=== PATIENT | female | born 1945 | race Caucasian/White ===

== ENCOUNTER 2016-12-09 09:48 | Inpatient (IN) ==
[2016-12-09] MEDS ORDERED: ASPIRIN 325 MG TABLET PO STA (10:05)
[2016-12-09] MEDS ORDERED: methylPREDNISolone SOD SUC 125 MG/2 ML VIAL IV STA (10:05)
[2016-12-09] MEDS ORDERED: NITROGLYCERIN 2% OINT 1 INCH/GM PACK TOP STA (10:05)
[2016-12-09] MEDS ORDERED: MAGNESIUM SULF RIDER 2 GM in PREMIX 1 EACH IV STA (10:05)
[2016-12-09] MEDS ORDERED: LEVOFLOXACIN INJ 750 MG in PREMIX 1 EACH IV STA (10:05)
[2016-12-09] MEDS ORDERED: ONDANSETRON 4 MG/2 ML VIAL IV STA (10:05)
--- NOTE | 2016-12-09 10:09 | Emergency Department Note ---
Arrival - Arrival Chief Complaint: Shortness of Breath ED Nursing Triage Note: pt has had sob since and this am started having cp and productive cough with green sputum. cp was relieved with 1 nitro Mode of Arrival: Stretcher Limitations: No Limitations Source: Patient Time Seen by Provider: 12/09/16 10:04 - History of Present Illness HPI Narrative: This 71-year-old white female presents with 3 days of cough productive of green sputum, increasing shortness of breath at rest and on exertion, and continuous wheezing. This morning she experienced some left-sided chest pain that was relieved by one nitroglycerin and thus presents for further evaluation. She denies hemoptysis, chills, fever, nausea, or vomiting. She does complain of some sinus symptoms. Currently she appears breathless and in mild respiratory distress. Onset (ago): day(s) (Patient presents 3 days post onset of symptoms) Allergies/Adverse Reactions: Allergies Allergy/AdvReac Type Severity Reaction Status Date / Time adhesive Allergy BLISTER Verified 05/23/16 20:31 codeine Allergy HIVES Verified 05/23/16 20:31 diazepam [From Valium] Allergy HIVES Verified 05/23/16 20:31 latex Allergy HIVES Verified 05/23/16 20:31 morphine Allergy Vomiting Verified 05/23/16 20:31 Sulfa (Sulfonamide Allergy Unknown/Unable Verified 05/23/16 20:31 Antibiotics) to obtain TAPE AdvReac Redness of Uncoded 05/23/16 20:31 Skin Home Medications: Home Medications Medication Instructions Recorded Confirmed Type Albuterol/Ipratropium Neb [Duoneb] 3 ml RESP TX RT Q6H PRN 01/13/15 09/22/16 History Aspirin [Ecotrin] 81 mg PO QAM 01/13/15 09/22/16 History Nitroglycerin Sl Tab [Nitrostat] 0.4 mg SL Q5M PRN 01/13/15 09/22/16 History [place]-3 Fatty Acids [Fish Oil 1,000 mg PO QAM 01/13/15 09/22/16 History Concentrate] Montelukast Tab [Singulair Tab] 10 mg PO QAM 05/15/16 09/22/16 History Omeprazole [Prilosec] 20 mg PO QAM 05/15/16 08/19/16 History Sertraline [Zoloft] 100 mg PO QAM 05/26/16 09/22/16 History Cholecalciferol (Vitamin D3) 10,000 unit PO QAM 08/19/16 08/19/16 History [Vitamin D3] Metoprolol Succinate 25 mg PO BID 08/19/16 08/19/16 History dilTIAZem HCl [Cartia XT] 180 mg PO BID 08/19/16 08/19/16 History Albuterol Inhaler [Proventil 2 puff INH Q6H PRN 09/22/16 09/22/16 History Inhaler] Tiotropium Inhalation [Spiriva 18 mcg INH DAILY 09/22/16 09/22/16 History Handihaler] Clopidogrel [Plavix] 75 mg PO QAM 12/09/16 12/09/16 History Isosorbide Mononitrate [Isosorbide 60 mg PO QAM 12/09/16 12/09/16 History Mononitrate ER] cephALEXin [Cephalexin] 500 mg PO Q6H 12/09/16 12/09/16 History Review of System - Review of System 12 point system: reviewed and no additional remarkable complaints except as stated - Review of System Constitutional: Present: as per HPI Respiratory: Present: as per HPI Cardiovascular: Present: as per HPI Gastrointestinal: Present: as per HPI Medical,Surgical,& Family Hx - Medical History Cardio: History of: Cerebrovascular Disease, CAD, Hypertension, ME (stents x 2) , Valvular Heart Disease (mitral valve prolapse), Cardiovascular Problems No history of: Aneurysm, Cardiac Dysrhythmia, Congenital Heart Disease, CHF, Pacemaker, PVD Psychological: History of: Anxiety Disorders, Depression Neurology: History of: Cerebrovascular Accident No history of: Brain Aneurysm, Cerebral Hemorrhage, Cerebral Palsy, Dementia , Migraine, Multiple Sclerosis, Parkinson's Disease, Peripheral Neuropathy, Seizures, TIA, Vertigo, Neurologocal Cancer HEENT: History of: Eye Problem (detached retina, catarct) Endocrine: History of: Dyslipidemia Respiratory: History of: COPD, Respiratory Problems No history of: Asthma, Bronchitis, Intubation, Obstructive Sleep Apnea, Pulmonary Embolism, Pulmonary Hypertension, Pneumonia, Lung Cancer Renal: No history of: Renal Problems Genitourinary: No history of: Bladder Problem, Kidney Stones Gastrointestinal: History of: Diverticulitis/ Diverticulosis, GERD, Gastrointestinal Bleed, Hepatitis, Polyps, GI Problems (nutcracker esophagus) No history of: Bowel Obstruction, Clostridium Difficile, Crohn's Disease, Esophageal Varices, Hemorrhoids, Hematochezia, Liver Problems, Pancreatitis, Ulcerative Colitis, Gastrointestinal Cancer Musculoskeletal: History of: Degenerative Disk Disease No history of: Musculoskeletal Problems Hematology: No history of: Blood Transfusion Reaction Reproductive: No history of: Reproductive Problems Other: No history of: Anesthesia Reactions - Surgical History Cardiac Surgeries: Sugical HX of: Cardiac Catheterization Patient Denies: Femoral-Popliteal Bypass Graft, Cardiac Surgery, Carotid Endarterectomy, Internal Defibrillator, Vascular Access Devices Thoracic Surgeries: Patient denies;: Organ Transplant, Lobectomy Neurologic Surgeries: Patient denies: Brain Aneurysm, Cerebral Hemorrhage, Neurologic Surgery HEENT Surgeries: Surgical HX of: Eye Surgery, Tonsilectomy & Adenoidectomy Patient denies: Carotid Endarterectomy, Thyroid Surgery Abdominal Surgeries: Surgical HX of: Cholecystectomy Patient denies: Abdominal Surgery, Appendectomy, Colonoscopy, Gastric Bypass Surgery, EGD, Hernia Repair, Splenectomy Reproductive Surgeries: Surgical HX of;: Tubal Ligation Patient denies;: Breast Surgery, Section, Dilation and Curettage, Gynecologic Surgery, Hysterectomy Orthopedic Surgeries: Surgical HX of;: Orthopedic Surgery (foot) - Family History Family History: Reports;: Family Cancer (brother, daughter), Family Hypertension (father) Denies;: Family Diabetes, Family Heart Disease, Family Stroke - Social History Smoking Status: Current every day smoker Frequency of Alcohol Use: None Type of Drug Use: None Exam Physical Examination: GENERAL: Well developed, well nourished elderly white female with increased work of breathing HEENT: Normocephalic. No trauma. Moist mucous membranes. EOMI. PERRLA. ENT NML NECK: Supple. No adenopathy. CARDIAC: Regular. No murmurs. Heart rate 97 CHEST: Diffuse expiratory wheezing. No respiratory distress. O2 sat 97% ABDOMEN: Soft. Nontender. Active bowel sounds. EXTREMITIES: No trauma. Normal ROM. No pedal edema. SKIN: No diaphoresis. No rash. NEURO: Alert. Neuro intact no focal deficits. Vital Signs: Vital Signs Temperature 97.6 F 12/09/16 09:54 Pulse Rate 85 12/09/16 11:05 Respiratory Rate 18 12/09/16 11:05 Blood Pressure 137/56 12/09/16 09:54 O2 Sat by Pulse Oximetry 97 12/09/16 09:54 Course - Reevaluation(s) Reevaluation #1: Advised patient of need for hospitalization given her cardiac and respiratory problems. - Consultations Consultation #1: Discussed with hospitalist service who will admit for further evaluation treatment. Results - Labs CBC & BMP: 12/09/16 10:53 12/09/16 10:53 Labs: I have reviewed the lab and noted the elevated white blood cell count and elevated troponin and BNP. - Impressions EKG: Sinus rhythm at 97 with normal AL interval and right ventricular conduction delay. Evidence of left ventricular hypertrophy with early strain pattern. No acute injury pattern noted. - Diagnostic Findings Procedure: Chest x-ray: image reviewed by me, report reviewed by me (COPD with minimal atelectasis both lung bases) Disposition Clinical Impression: Exacerbation COPD, Congestive failure, Abnormal cardiac enzyme Case discussed with: patient Disposition: Still a Patient Condition: Guarded Time of Disposition: 12:10
[2016-12-09] MEDS ORDERED: LEVOFLOXACIN INJ 150 ML IV ONE (10:19)
[2016-12-09] MEDS ORDERED: NITROGLYCERIN 2% OINT 1 INCH/GM PACK TOP ONE (10:19)
[2016-12-09] MEDS ORDERED: ONDANSETRON 4 MG/2 ML VIAL ONE (10:20)
[2016-12-09] MEDS ORDERED: ASPIRIN 325 MG TABLET ONE (10:20)
[2016-12-09] MEDS ORDERED: methylPREDNISolone SOD SUC 125 MG/2 ML VIAL ONE (10:20)
[2016-12-09] MEDS ORDERED: MAGNESIUM SULF RIDER 50 ML IV ONE (10:20)
--- NOTE | 2016-12-09 10:29 | XRay Report ---
Portable chest Date: 12/09/2016 Clinical history: Shortness of breath Comparison: 08/22/2016 Technique: Portable AP sitting chest Findings: The heart remains normal in size. The lungs are overexpanded with chronic scarring. Minimal atelectasis at the lung bases. Unremarkable mediastinum with degenerative changes. Impression: COPD with chronic scarring. Minimal atelectasis at the lung bases. PROCEDURE INTERPRETED AT [facility] Final Report Signed by: Dr. Merissa Briseno
[2016-12-09] MEDS ORDERED: ALBUTEROL 2.5 MG/3 ML NEB RESP TX SCH (10:30)
[2016-12-09] MEDS ORDERED: ALBUTEROL/IPRATROPIUM 3 ML NEB RESP TX STA (10:57)
[2016-12-09 11:13] LABS: Basophils % 0.1 % (0.0-0.8); Hematocrit 42.1 VOL% (35.7-47.0); Hemoglobin 14.8 GM/DL (12.0-16.0); Immature Granulocytes % 0.9 %; Immature Granulocytes Absolute 0.19 #; Lymphocytes # 1.6 10*3/uL (1.4-4.0); Lymphocytes % 7.5 % (21.3-54.2); Mean Corpuscular HGB Conc 35.2 GM/DL (32-36); Mean Corpuscular Hemoglobin 33 PG (27-34); Mean Corpuscular Volume 94.4 FL (87-102); Mean Platelet Volume 10.6 FL (9.6-12.0); Monocytes # 1.5 10*3/uL (0.11-0.8); Monocytes % 7.1 % (1.7-12.7); Neutrophils # 18.3 10*3/uL (1.4-7.4); Neutrophils % 84.4 % (38.7-73.9); Platelet Count 208 T/CUMM (130-400); Red Blood Count 4.46 MC/CUMM (3.8-5.5); Red Cell Distribution Width 12.1 % (9.3-17.3); White Blood Count 21.7 T/CUMM (4-12)
[2016-12-09 11:24] LABS: PT Patient Result 10.7 SECS; Partial Thromboplastin Time 35.6 SECS (0-40)
[2016-12-09 11:47] LABS: Band Neutrophils 2 % (0-10); Hypochromasia 1+; Lymphocytes 9 % (20-55); Microcytosis Slight; Platelet Estimate Normal; Segmented Neutrophils 85 % (50-85); Total Cells Counted 100
[2016-12-09 11:56] LABS: Alanine Aminotransferase 15 U/L (13-56); Albumin 3.6 G/DL (3.4-5.0); Alkaline Phosphatase 93 U/L (45-117); Aspartate Amino Transferase 18 U/L (0-37); Blood Urea Nitrogen 14 MG/DL (7-18); Glucose 97 MG/DL (74-106); Osmolality,Calculated 273.8 MOS/KG (273-304); Potassium 3.8 MMOL/L (3.5-5.1); Sodium 137 MMOL/L (136-145); Total Protein 6.7 G/DL (6.4-8.3)
[2016-12-09 11:57] LABS: Troponin I Only 0.172 NG/ML (0.00-0.045)
--- NOTE | 2016-12-09 12:42 | Hospitalist History & Physical ---
<Karen Scruggs - Last Filed: 12/09/16 13:06> Assessment and Plan - Time spent with patient Time spent with patient: Greater than 30 minutes (1) Acute exacerbation of chronic obstructive airways disease Status: Acute Assessment and plan: 12/09/16 Will admit to hospital. Will consult Pulmonary and appreciate further recommendations in care (patient of Dr Yates). Start duonebs, steroids, antibiotics. Will repeat a.m. labs. Will discuss with Dr Arroyo for further recommendations. Current Visit: No (2) Elevated troponin Status: Chronic Assessment and plan: 12/09/16 - Significant heart disease history including ME w/2 stents. (Patient of Dr Munson) Left sided chest pain with exertion relieved with nitro. Troponin 0.172. Will consult [employer]. Will appreciate further recommendations in care. Will repeat serial troponins. Current Visit: No History of Present Illness Chief complaint: SOB, left sided chest pain History of present illness: Ms. Trejo is a 71 year old white female w/PMHx: CAD, COPD, HTN, ME (2stents ), Mitral Valve Prolapse, Anxiety, Depression, CVA, GERD, GI Bleed, Hepatitis, Polyps, Disk disease; presented to the ED for c/o x3 days shortness of breath with associated productive cough of green sputum and wheezing. She reports this morning also experiencing left sided chest pain and took a Nitro which relieved the pain. She reports that she has been on Cephalexin for 2 weeks for a wound that is not healing to the lower part of her left breast, denies any drainage, thin scab intact. She denies nausea or vomiting. She denies fever or chills. In ED: CXR: COPD w/ chronic scarring; minimal atelectasis at the lung bases. LABS: WBC 21.7; TROPONIN 0.172; electrolytes within normal ranges. Blood cultures obtained; Levaquin and Duoneb; ASA; Mg 2grams; Solumedrol 125mg were given in the ED. After discussion with Dr Escobar in the ED and Dr Arroyo with Hospital Medicine, it was agreed to admit patient to for further evaluation and treatment of SOB and left sided chest pain. Home Medications Medication Instructions Recorded Confirmed Type Albuterol/Ipratropium Neb [Duoneb] 3 ml RESP TX RT Q6H PRN 01/13/15 12/09/16 History Aspirin [Ecotrin] 81 mg PO QAM 01/13/15 12/09/16 History Nitroglycerin Sl Tab [Nitrostat] 0.4 mg SL Q5M PRN 01/13/15 12/09/16 History [place]-3 Fatty Acids [Fish Oil 1,000 mg PO QAM 01/13/15 12/09/16 History Concentrate] Montelukast Tab [Singulair Tab] 10 mg PO QAM 05/15/16 12/09/16 History Omeprazole [Prilosec] 20 mg PO QAM 05/15/16 12/09/16 History Sertraline [Zoloft] 100 mg PO QAM 05/26/16 12/09/16 History Cholecalciferol (Vitamin D3) 10,000 unit PO QAM 08/19/16 12/09/16 History [Vitamin D3] Metoprolol Succinate 25 mg PO BID 08/19/16 12/09/16 History dilTIAZem HCl [Cartia XT] 180 mg PO BID 08/19/16 12/09/16 History Albuterol Inhaler [Proventil 2 puff INH Q6H PRN 09/22/16 12/09/16 History Inhaler] Tiotropium Inhalation [Spiriva 18 mcg INH DAILY 09/22/16 12/09/16 History Handihaler] Clopidogrel [Plavix] 75 mg PO QAM 12/09/16 12/09/16 History Isosorbide Mononitrate [Isosorbide 60 mg PO QAM 12/09/16 12/09/16 History Mononitrate ER] cephALEXin [Cephalexin] 500 mg PO Q6H 12/09/16 12/09/16 History Allergies Allergy/AdvReac Type Severity Reaction Status Date / Time adhesive Allergy BLISTER Verified 05/23/16 20:31 codeine Allergy HIVES Verified 05/23/16 20:31 diazepam [From Valium] Allergy HIVES Verified 05/23/16 20:31 latex Allergy HIVES Verified 05/23/16 20:31 morphine Allergy Vomiting Verified 05/23/16 20:31 Sulfa (Sulfonamide Allergy Unknown/Unable Verified 05/23/16 20:31 Antibiotics) to obtain TAPE AdvReac Redness of Uncoded 05/23/16 20:31 Skin Medical,Surgical,& Family Hx - Medical History Cardio: History of: Cerebrovascular Disease, CAD, Hypertension, ME (stents x 2) , Valvular Heart Disease (mitral valve prolapse), Cardiovascular Problems No history of: Aneurysm, Cardiac Dysrhythmia, Congenital Heart Disease, CHF, Pacemaker, PVD Psychological: History of: Anxiety Disorders, Depression Neurology: History of: Cerebrovascular Accident No history of: Brain Aneurysm, Cerebral Hemorrhage, Cerebral Palsy, Dementia , Migraine, Multiple Sclerosis, Parkinson's Disease, Peripheral Neuropathy, Seizures, TIA, Vertigo, Neurologocal Cancer HEENT: History of: Eye Problem (detached retina, catarct) Endocrine: History of: Dyslipidemia Respiratory: History of: COPD, Respiratory Problems No history of: Asthma, Bronchitis, Intubation, Obstructive Sleep Apnea, Pulmonary Embolism, Pulmonary Hypertension, Pneumonia, Lung Cancer Renal: No history of: Renal Problems Genitourinary: No history of: Bladder Problem, Kidney Stones Gastrointestinal: History of: Diverticulitis/ Diverticulosis, GERD, Gastrointestinal Bleed, Hepatitis, Polyps, GI Problems (nutcracker esophagus) No history of: Bowel Obstruction, Clostridium Difficile, Crohn's Disease, Esophageal Varices, Hemorrhoids, Hematochezia, Liver Problems, Pancreatitis, Ulcerative Colitis, Gastrointestinal Cancer Musculoskeletal: History of: Degenerative Disk Disease No history of: Musculoskeletal Problems Hematology: No history of: Blood Transfusion Reaction Reproductive: No history of: Reproductive Problems Other: No history of: Anesthesia Reactions - Surgical History Cardiac Surgeries: Sugical HX of: Cardiac Catheterization Patient Denies: Femoral-Popliteal Bypass Graft, Cardiac Surgery, Carotid Endarterectomy, Internal Defibrillator, Vascular Access Devices Thoracic Surgeries: Patient denies;: Organ Transplant, Lobectomy Neurologic Surgeries: Patient denies: Brain Aneurysm, Cerebral Hemorrhage, Neurologic Surgery HEENT Surgeries: Surgical HX of: Eye Surgery, Tonsilectomy & Adenoidectomy Patient denies: Carotid Endarterectomy, Thyroid Surgery Abdominal Surgeries: Surgical HX of: Cholecystectomy Patient denies: Abdominal Surgery, Appendectomy, Colonoscopy, Gastric Bypass Surgery, EGD, Hernia Repair, Splenectomy Reproductive Surgeries: Surgical HX of;: Tubal Ligation Patient denies;: Breast Surgery, Section, Dilation and Curettage, Gynecologic Surgery, Hysterectomy Orthopedic Surgeries: Surgical HX of;: Orthopedic Surgery (foot) - Family History Family History: Reports;: Family Cancer (brother, daughter), Family Hypertension (father) Denies;: Family Diabetes, Family Heart Disease, Family Stroke - Social History Smoking Status: Current every day smoker Frequency of Alcohol Use: None Type of Drug Use: None Review of systems: ROS completed and pertinent positives and negatives to HPI. Exam - Constitutional Vitals: Period Temp Pulse Resp BP Sys/Gibson Pulse Ox Last 24 Hr 97.6 F-97.6 F 85-91 18-24 137-137/56-56 97 General appearance: normal weight - Head Head exam: Present: normal inspection - Eye Eye exam: Present: EOMI Pupils: Present: DENA - Respiratory Respiratory exam: Present: wheezes (bilateral expiratory wheezing) - Cardiovascular Cardiovascular exam: Present: regular rate and rhythm, other (have hx of Afib) - GI/Abdominal GI/Abdominal exam: Present: normal bowel sounds, soft. Absent: tenderness, rebound - Extremities Exam Extremities exam: Present: full ROM. Absent: edema - Neurological Exam Neurological exam: Present: alert, oriented X3, CN II-XII intact - Psychiatric Psychiatric exam: Present: normal affect, normal mood. Absent: agitated, anxious - Skin Skin exam: Present: normal color, warm, dry, other (scabbed over area to the left lower part of breast; without drainage noted (been on Keflex for 2 weeks but not healed)) Results - Labs CBC & BMP: 12/09/16 10:53 12/09/16 10:53 Lab Results: I have reviewed the past 24 hour labs - Diagnostic Findings Procedure: Chest x-ray: report reviewed by me (COPD with chronic scarring. Minimal atelectasis at the lung bases.) <Bacilio Arroyo - Last Filed: 12/09/16 15:08> History of Present Illness History of present illness: Ms. Trejo is a 71 year old female admitted to the hospital with acute exacerbation of chronic obstructive pulmonary disease, possible non-ST segment elevation myocardial infarction (elevated troponin), and probable pneumonia. I agree with the assessment and plans as per the nurse practitioner. She will be admitted to the telemetry care unit and treated with intravenous antibiotics, intravenous corticosteroids, albuterol ipratropium nebulizer treatments, intravenous furosemide as needed; cardiology and pulmonary have been consulted. Exam - Constitutional Vitals: Period Temp Pulse Resp BP Sys/Gibson Pulse Ox Last 24 Hr 97.6 F-97.6 F 81-91 18-24 113-137/54-67 94-97 Results - Labs CBC & BMP: 12/09/16 10:53 12/09/16 10:53
[2016-12-09] MEDS ORDERED: NITROGLYCERIN SL 0.4 MG TABLET SL PRN (14:44)
[2016-12-09] MEDS: LEVOFLOXACIN INJ 750 MG in PREMIX 1 EACH IV SCH (14:56)
[2016-12-09] MEDS: ALBUTEROL/IPRATROPIUM 3 ML NEB RESP TX SCH ×2 (15:10→20:11)
[2016-12-09] MEDS: methylPREDNISolone SOD SUC 40 MG/1 ML VIAL IV SCH ×2 (15:55→21:03)
--- NOTE | 2016-12-09 17:38 | Cardiology Consult Note ---
Assessment and Plan (1) Chest pain Status: Acute Assessment and plan: Patient chest pain is somewhat atypical. This may be related to her exacerbation COPD. Certainly another possibility would be that of her coronary disease. Will get an ECG and as well as monitor enzymes. Current Visit: Yes (2) Acute exacerbation of chronic obstructive airways disease Status: Acute Assessment and plan: This is recurrent issue and problem. She has been treated. Will monitor this but will need treatment to the primary care service. Current Visit: No (3) Elevated troponin Status: Chronic Assessment and plan: This is minimally elevated and actually within the parameters of her acute COPD exacerbation. Will follow these. Current Visit: No (4) CAD (coronary artery disease) Status: Chronic Assessment and plan: Prior stent placement of the RCA and circumflex artery. Current Visit: No (5) Dyslipidemia Status: Chronic Current Visit: No (6) Tobacco abuse Status: Chronic Assessment and plan: Unfortunately she continues to smoke having coronary disease and COPD. Current Visit: No (7) Chronic pain Status: Chronic Assessment and plan: Other chronic pain issues that may play a role in this. Especially her chest pain. Current Visit: No (8) Paroxysmal a-fib Status: Chronic Assessment and plan: Past history of this but no recent breakthrough episodes. Current Visit: No (9) Skin lesion of breast Status: Acute Assessment and plan: Etiology of this is unclear what needs to be evaluated. Current Visit: Yes (10) Aortic valve stenosis Status: Chronic Assessment and plan: This is somewhat chronic and based on echocardiogram. I do not hear stenotic murmur but her heart sounds are quite distant may be affected by her lung sounds. Current Visit: Yes History of Present Illness - Data of Consult Patient: known to practice within the last 3 years Consult date: 12/09/16 Requesting Physician: Bacilio Arroyo - Consult Narrative Reason for consult: Shortness of breath, chest pain, CAD History of present illness: Primary [employer]: Dr. Munson Ms. Trejo is a 71 year old female who is been seen by Dr. Munson and previously has had stent placement previously. The patient had circumflex artery stent placed July 2015 and previously in the remote past had apparently RCA stent placed. Last catheterization carried out December 2015 revealed widely patent stents in coronaries. Patient at that time was having chest pain. The patient has had recurrent episodes of COPD and shortness of breath. She continues to smoke unfortunately. The patient comes in today stating that she has had several days of progressive shortness of breath and wheezing. Along with that she has had some chest discomfort worse in the deep breath or cough. The chest discomfort similar to what she has had before even when she has had unremarkable cardiac catheterizations. She is having no pain now that she has been treated for COPD. Chest x-ray reveals COPD and chronic scarring. I see rhythm strips on the chart but I do not see an ECG. At present the patient is stable without symptomatology. Her troponin is slightly increased and is some level of what she has had previously. I reviewed the patient's old chart material catheterization reports. CC: Bacilio Arroyo - Home Medications and Allergies Home Medications: Home Medications Medication Instructions Recorded Confirmed Type Albuterol/Ipratropium Neb [Duoneb] 3 ml RESP TX RT Q6H PRN 01/13/15 12/09/16 History Aspirin [Ecotrin] 81 mg PO QAM 01/13/15 12/09/16 History Nitroglycerin Sl Tab [Nitrostat] 0.4 mg SL Q5M PRN 01/13/15 12/09/16 History [place]-3 Fatty Acids [Fish Oil 1,000 mg PO QAM 01/13/15 12/09/16 History Concentrate] Montelukast Tab [Singulair Tab] 10 mg PO QAM 05/15/16 12/09/16 History Omeprazole [Prilosec] 20 mg PO QAM 05/15/16 12/09/16 History Sertraline [Zoloft] 100 mg PO QAM 05/26/16 12/09/16 History Cholecalciferol (Vitamin D3) 10,000 unit PO QAM 08/19/16 12/09/16 History [Vitamin D3] Metoprolol Succinate 25 mg PO BID 08/19/16 12/09/16 History dilTIAZem HCl [Cartia XT] 180 mg PO BID 08/19/16 12/09/16 History Albuterol Inhaler [Proventil 2 puff INH Q6H PRN 09/22/16 12/09/16 History Inhaler] Tiotropium Inhalation [Spiriva 18 mcg INH DAILY 09/22/16 12/09/16 History Handihaler] Clopidogrel [Plavix] 75 mg PO QAM 08/12/17 08/12/17 History Isosorbide Mononitrate [Isosorbide 60 mg PO QAM 12/09/16 12/09/16 History Mononitrate ER] cephALEXin [Cephalexin] 500 mg PO Q6H 12/09/16 12/09/16 History Allergies/Adverse Reactions: Allergies Allergy/AdvReac Type Severity Reaction Status Date / Time adhesive Allergy BLISTER Verified 05/23/16 20:31 codeine Allergy HIVES Verified 05/23/16 20:31 diazepam [From Valium] Allergy HIVES Verified 05/23/16 20:31 latex Allergy HIVES Verified 05/23/16 20:31 morphine Allergy Vomiting Verified 05/23/16 20:31 Sulfa (Sulfonamide Allergy Unknown/Unable Verified 05/23/16 20:31 Antibiotics) to obtain TAPE AdvReac Redness of Uncoded 05/23/16 20:31 Skin Review of systems: Constitutional: Denies anorexia, chills, fatigue, fever, frequent falls, night sweats, weight gain, weight loss Eyes: Denies visual changes or loss of vision Ears: Denies decreased hearing, vertigo Nose, mouth and throat: Denies dysphagia, epistaxis, headaches, neck pain, tongue swelling, Neck: Denies thyromegaly or masses. No stiffness. Cardiovascular: as per HPI Respiratory: Chronic shortness of breath and wheezing. Has exacerbations of his COPD. Gastrointestinal: Denies abdominal pain, constipation, dyspepsia, dysphagia, hematemesis, hematochezia, melena, nausea, vomiting Genitourinary: Denies dysuria, hematuria, nocturia Musculoskeletal: Denies arthralgias, joint swelling, muscle weakness, myalgias Neurological: denies abnormal gait, abnormal speech, confusion, convulsions, frequent falls, headaches, memory loss, syncope Psychiatric: Denies anxiety, confusion, depression Endocrine: Denies cold intolerance, fatigue, heat intolerance Hematologic/Lymphatic: Denies easy bleeding, easy bruising Dermatologic: Denies Rash, itching, shingles Medical,Surgical,& Family Hx - Medical History Cardio: History of: Cerebrovascular Disease, CAD, Hypertension, [place] (stents x 2) , Valvular Heart Disease (mitral valve prolapse), Cardiovascular Problems No history of: Aneurysm, Cardiac Dysrhythmia, Congenital Heart Disease, CHF, Pacemaker, PVD Psychological: History of: Anxiety Disorders, Depression Neurology: History of: Cerebrovascular Accident No history of: Brain Aneurysm, Cerebral Hemorrhage, Cerebral Palsy, Dementia , Migraine, Multiple Sclerosis, Parkinson's Disease, Peripheral Neuropathy, Seizures, TIA, Vertigo, Neurologocal Cancer HEENT: History of: Eye Problem (detached retina, catarct) Endocrine: History of: Dyslipidemia Respiratory: History of: COPD, Respiratory Problems No history of: Asthma, Bronchitis, Intubation, Obstructive Sleep Apnea, Pulmonary Embolism, Pulmonary Hypertension, Pneumonia, Lung Cancer Renal: No history of: Renal Problems Genitourinary: No history of: Bladder Problem, Kidney Stones Gastrointestinal: History of: Diverticulitis/ Diverticulosis, GERD, Gastrointestinal Bleed, Hepatitis, Polyps, GI Problems (nutcracker esophagus) No history of: Bowel Obstruction, Clostridium Difficile, Crohn's Disease, Esophageal Varices, Hemorrhoids, Hematochezia, Liver Problems, Pancreatitis, Ulcerative Colitis, Gastrointestinal Cancer Musculoskeletal: History of: Degenerative Disk Disease No history of: Musculoskeletal Problems Hematology: No history of: Blood Transfusion Reaction Reproductive: No history of: Reproductive Problems Other: No history of: Anesthesia Reactions - Surgical History Cardiac Surgeries: Sugical HX of: Cardiac Catheterization Patient Denies: Femoral-Popliteal Bypass Graft, Cardiac Surgery, Carotid Endarterectomy, Internal Defibrillator, Vascular Access Devices Thoracic Surgeries: Patient denies;: Organ Transplant, Lobectomy Neurologic Surgeries: Patient denies: Brain Aneurysm, Cerebral Hemorrhage, Neurologic Surgery HEENT Surgeries: Surgical HX of: Eye Surgery, Tonsilectomy & Adenoidectomy Patient denies: Carotid Endarterectomy, Thyroid Surgery Abdominal Surgeries: Surgical HX of: Cholecystectomy Patient denies: Abdominal Surgery, Appendectomy, Colonoscopy, Gastric Bypass Surgery, EGD, Hernia Repair, Splenectomy Reproductive Surgeries: Surgical HX of;: Tubal Ligation Patient denies;: Breast Surgery, Section, Dilation and Curettage, Gynecologic Surgery, Hysterectomy Orthopedic Surgeries: Surgical HX of;: Orthopedic Surgery (foot) - Family History Family History: Reports;: Family Cancer (brother, daughter), Family Hypertension (father) Denies;: Family Diabetes, Family Heart Disease, Family Stroke - Social History Smoking Status: Current every day smoker Frequency of Alcohol Use: None Type of Drug Use: None Physical Examination Vital Signs Temp Pulse Resp BP Pulse Ox 97.6 F 91 H 24 137/56 97 12/09/16 09:54 12/09/16 09:54 12/09/16 09:54 12/09/16 09:54 12/09/16 09:54 Exam: General appearance: normal weight, no acute distress. Head exam: normal inspection, atraumatic Eye exam: Pupils are equal and reactive. EOMI. There is no trauma. Ear exam: Anatomically normal. Normal auditory acuity to conversation. Oral exam: No significant oral lesions. Neck exam: normal inspection no JVD. No carotid bruit. Trachea is in midline. Respiratory exam: Coarse breath sounds throughout both lung cantrell anteriorly and posteriorly with wheezing. She is coughing some. Cardiovascular exam: Distant heart sounds but regular rate and rhythm, no murmur or gallop or rub. No precordial lift. No bruits over the major arteries. Chest wall/torso: Anatomically normal. No tenderness, deformity Peripheral Pulses: 2+ throughout. GI/Abdominal exam: normal bowel sounds, soft and nontender, no abdominal bruits or pulsatile masses. Musculoskeletal/Extremities exam: normal inspection without edema or cyanosis. No deformities or trauma. Neurological exam: alert, oriented X3. There is no gross neurologic deficits. Psychiatric exam: normal affect, normal mood. Cognitive function is grossly intact. Skin exam: normal color, warm. Patient has a lesion under the left breast. Result/EKG - Labs CBC & BMP: 12/09/16 10:53 12/09/16 10:53 Lab Results: I have reviewed the past 24 hour labs Labs: Laboratory Results - last 24 hr 12/09/16 12/09/16 12/09/16 10:53 10:53 10:53 WBC 21.7 H RBC 4.46 Hgb 14.8 Hct 42.1 MCV 94.4 MCH 33 MCHC 35.2 RDW 12.1 Plt Count 208 MPV 10.6 Neut % (Auto) 84.4 H Lymph % (Auto) 7.5 L [place] % (Auto) 7.1 Eos % (Auto) 0.0 Baso % (Auto) 0.1 Neut # (Auto) 18.3 H Lymph # (Auto) 1.6 [place] # (Auto) 1.5 H Eos # (Auto) 0.0 Baso # (Auto) 0.0 Total Counted 100 Immature Gran % 0.9 Nucleated RBC % 0.0 Immature Gran # 0.19 Segmented Neutrophils 85 Band Neutrophils 2 Lymphocytes 9 L Monocytes 4 Nucleated RBCs # 0.00 Platelet Estimate Normal Immature Plt Fraction 0.0 Hypochromasia 1+ Microcytosis Slight INR 1.0 PT Patient/Control Mix 10.7 Circ Anticoag PTT 35.6 Sodium 137 Potassium 3.8 Chloride 101 Carbon Dioxide 30 Anion Gap 9.8 BUN 14 Creatinine 0.80 GFR Calculation 68 BUN/Creatinine Ratio 17.00 Glucose 97 Calculated Osmolality 273.8 Calcium 9.0 Total Bilirubin 0.80 AST 18 ALT 15 Alkaline Phosphatase 93 Total Creatine Kinase 81 CK-MB (CK-2) 3.9 H Troponin I 0.172 H B-Natriuretic Peptide Total Protein 6.7 Albumin 3.6 Globulin 3.1 Albumin/Globulin Ratio 1.1 12/09/16 10:53 WBC RBC Hgb Hct MCV MCH MCHC RDW Plt Count MPV Neut % (Auto) Lymph % (Auto) [place] % (Auto) Eos % (Auto) Baso % (Auto) Neut # (Auto) Lymph # (Auto) [place] # (Auto) Eos # (Auto) Baso # (Auto) Total Counted Immature Gran % Nucleated RBC % Immature Gran # Segmented Neutrophils Band Neutrophils Lymphocytes Monocytes Nucleated RBCs # Platelet Estimate Immature Plt Fraction Hypochromasia Microcytosis INR PT Patient/Control Mix Circ Anticoag PTT Sodium Potassium Chloride Carbon Dioxide Anion Gap BUN Creatinine GFR Calculation BUN/Creatinine Ratio Glucose Calculated Osmolality Calcium Total Bilirubin AST ALT Alkaline Phosphatase Total Creatine Kinase CK-MB (CK-2) Troponin I B-Natriuretic Peptide 830 H Total Protein Albumin Globulin Albumin/Globulin Ratio - Impressions Impressions: No ECG available, telemetry with sinus rhythm.
[2016-12-09 18:49] LABS: CKMB % 6.4 %
[2016-12-09 18:52] LABS: Troponin I Only 0.228 NG/ML (0.00-0.045)
[2016-12-09] MEDS: METOPROLOL SUCCINATE XL 25 MG TABLET PO SCH (21:03)
[2016-12-09] MEDS: DILTIAZEM CD 180 MG CAPSULE PO SCH (21:03)
[2016-12-10] MEDS: methylPREDNISolone SOD SUC 40 MG/1 ML VIAL IV SCH ×4 (02:30→18:28)
[2016-12-10] MEDS: ALBUTEROL/IPRATROPIUM 3 ML NEB RESP TX SCH ×4 (04:26→19:20)
[2016-12-10 05:21] LABS: Basophils % 0.1 % (0.0-0.8); Hematocrit 37.8 VOL% (35.7-47.0); Hemoglobin 13.3 GM/DL (12.0-16.0); Immature Granulocytes % 0.8 %; Immature Granulocytes Absolute 0.12 #; Lymphocytes # 0.8 10*3/uL (1.4-4.0); Lymphocytes % 5.3 % (21.3-54.2); Mean Corpuscular HGB Conc 35.2 GM/DL (32-36); Mean Corpuscular Hemoglobin 33 PG (27-34); Mean Corpuscular Volume 93.6 FL (87-102); Mean Platelet Volume 11.2 FL (9.6-12.0); Monocytes # 0.2 10*3/uL (0.11-0.8); Monocytes % 1.5 % (1.7-12.7); Neutrophils # 14.1 10*3/uL (1.4-7.4); Neutrophils % 92.3 % (38.7-73.9); Platelet Count 195 T/CUMM (130-400); Red Blood Count 4.04 MC/CUMM (3.8-5.5); Red Cell Distribution Width 11.9 % (9.3-17.3); White Blood Count 15.2 T/CUMM (4-12)
[2016-12-10 05:57] LABS: Albumin 3.3 G/DL (3.4-5.0); Bilirubin,Total 1.1 MG/DL (0.2-1.0); Calcium 9.5 MG/DL (8.5-10.1); Osmolality,Calculated 274.2 MOS/KG (273-304); Potassium 4.2 MMOL/L (3.5-5.1); Total Protein 6.2 G/DL (6.4-8.3)
[2016-12-10 05:59] LABS: Giant Platelets Few; Hypochromasia 1+; Lymphocytes 4 % (20-55); Microcytosis Slight; Platelet Estimate Normal; Segmented Neutrophils 95 % (50-85); Total Cells Counted 100
[2016-12-10 06:08] LABS: CKMB % 6.8 %
[2016-12-10 06:10] LABS: Troponin I Only 0.145 NG/ML (0.00-0.045)
--- NOTE | 2016-12-10 07:40 | EKG Report ---
Stationary ECG Study [facility] Test Date: 12/10/2016 7:38:16 AM Pat Name: AYANA RIVERA Department: Room: 289 Gender: F Gm Video: : 1945 Requested by: Kp Bazan Order Number: [id number] Reading MD: GABO LAUGHLIN Intervals [place] Rate: 61 P: 76 CO: 184 QRS: 70 QRSD: 95 T: 165 QT: 462 QTc: 465 Interpretive Statements SINUS RHYTHM LEFT VENTRICULAR HYPERTROPHY AND ST-T CHANGE Electronically Signed On 12-10-16 10:46:18 CDT by GABO LAUGHLIN [email or web address]
[2016-12-10] MEDS: IPRATROPIUM 500 MCG/2.5 ML NEB RESP TX SCH ×4 (07:58→22:59)
--- NOTE | 2016-12-10 08:11 | EKG Report ---
Stationary ECG Study [facility] Test Date: 12/09/2016 10:00:01 AM Pat Name: AYANA RIVERA Department: Room: 289 Gender: F Measurement Technician: : 1945 Requested by: Jan Carvajal Order Number: [id number] Reading MD: GABO LAUGHLIN Intervals [place] Rate: 97 P: 80 WI: 148 QRS: 47 QRSD: 89 T: 138 QT: 343 QTc: 397 Interpretive Statements SINUS RHYTHM POSSIBLE LEFT ATRIAL ENLARGEMENT POSSIBLE RIGHT VENTRICULAR CONDUCTION DELAY LEFT VENTRICULAR HYPERTROPHY AND ST-T CHANGE Electronically Signed On 12-10-16 10:43:32 CDT by GABO LAUGHLIN [email or web address]
[2016-12-10] MEDS: DILTIAZEM CD 180 MG CAPSULE PO SCH ×2 (08:21→22:20)
[2016-12-10] MEDS: CHOLECALCIFEROL 1,000 UNIT TABLET PO SCH (08:22)
[2016-12-10] MEDS: METOPROLOL SUCCINATE XL 25 MG TABLET PO SCH ×2 (08:23→22:20)
[2016-12-10] MEDS: SERTRALINE 100 MG TABLET PO SCH (08:23)
[2016-12-10] MEDS: MONTELUKAST 10 MG TABLET PO SCH (08:23)
[2016-12-10] MEDS: PANTOPRAZOLE 40 MG TABLET PO SCH (08:23)
[2016-12-10] MEDS: ASPIRIN EC 81 MG TABLET PO SCH (08:23)
[2016-12-10] MEDS: ISOSORBIDE MONONITRATE 60 MG TABLET PO SCH (08:23)
--- NOTE | 2016-12-10 08:27 | Pulmonology Consult Note ---
Assessment and Plan (1) Acute exacerbation of chronic obstructive airways disease Status: Acute Assessment and plan: She has typical symptoms of exacerbation of COPD. Will treat with antibiotics to include gram-negative coverage. Corticosteroids and bronchodilators. Chest pain is probably chest wall from coughing. Current Visit: No (2) Tobacco abuse Status: Chronic Assessment and plan: Discussed the importance of stopping smoking to prevent recurring admissions for COPD. Current Visit: No (3) Aortic stenosis, moderate Status: Chronic Assessment and plan: Does not appear to be in jerry congestive heart failure. Current Visit: No History of Present Illness Chief complaint: Shortness of breath History of present illness: Ms. Trejo is a 71 year old female who has COPD. She continues to smoke. She is followed by Dr. Cr. She had the acute onset night, which would be about 2-1/2 days ago, of severe dyspnea. She came into the emergency room and was admitted. She stopped smoking at one time for 2 years but started back and is still smoking a pack a day at present. We did discuss the need for her to stop watching for all. She has a history of coronary disease with 2 previous stents and a myocardial infarction. She is not really having any angina-like chest pain. She thinks she may have had fever. She is coughing up some greenish sputum. No hemoptysis. She is having some left-sided pleuritic- like pain. Home Medications Medication Instructions Recorded Confirmed Type Albuterol/Ipratropium Neb [Duoneb] 3 ml RESP TX RT Q6H PRN 01/13/15 12/09/16 History Aspirin [Ecotrin] 81 mg PO QAM 01/13/15 12/09/16 History Nitroglycerin Sl Tab [Nitrostat] 0.4 mg SL Q5M PRN 01/13/15 12/09/16 History [place]-3 Fatty Acids [Fish Oil 1,000 mg PO QAM 01/13/15 12/09/16 History Concentrate] Montelukast Tab [Singulair Tab] 10 mg PO QAM 05/15/16 12/09/16 History Omeprazole [Prilosec] 20 mg PO QAM 05/15/16 12/09/16 History Sertraline [Zoloft] 100 mg PO QAM 05/26/16 12/09/16 History Cholecalciferol (Vitamin D3) 10,000 unit PO QAM 08/19/16 12/09/16 History [Vitamin D3] Metoprolol Succinate 25 mg PO BID 08/19/16 12/09/16 History dilTIAZem HCl [Cartia XT] 180 mg PO BID 08/19/16 12/09/16 History Albuterol Inhaler [Proventil 2 puff INH Q6H PRN 09/22/16 12/09/16 History Inhaler] Tiotropium Inhalation [Spiriva 18 mcg INH DAILY 09/22/16 12/09/16 History Handihaler] Clopidogrel [Plavix] 75 mg PO QAM 12/09/16 12/09/16 History Isosorbide Mononitrate [Isosorbide 60 mg PO QAM 12/09/16 12/09/16 History Mononitrate ER] cephALEXin [Cephalexin] 500 mg PO Q6H 12/09/16 12/09/16 History Allergies Allergy/AdvReac Type Severity Reaction Status Date / Time adhesive Allergy BLISTER Verified 05/23/16 20:31 codeine Allergy HIVES Verified 05/23/16 20:31 diazepam [From Valium] Allergy HIVES Verified 05/23/16 20:31 latex Allergy HIVES Verified 05/23/16 20:31 morphine Allergy Vomiting Verified 05/23/16 20:31 Sulfa (Sulfonamide Allergy Unknown/Unable Verified 05/23/16 20:31 Antibiotics) to obtain TAPE AdvReac Redness of Uncoded 05/23/16 20:31 Skin 12 point system: reviewed and no additional remarkable complaints except as stated - Constitutional Constitutional: Present: fatigue, fever(s) - EENT Eyes: Present: loss of vision (She has had a detached retina) - Cardiovascular Cardiovascular: Present: chest pain at rest, dyspnea, dyspnea on exertion - Respiratory Respiratory: Present: cough, dyspnea, dyspnea on exertion, wheezing, pain on inspiration, change in phlegm color Exam (Pulmonay) H&P - Constitutional Vitals: Period Temp Pulse Resp BP Sys/Gibson Pulse Ox Last 24 Hr 96.3 F-98.2 F 61-91 16-24 113-137/54-67 90-99 Exam: She is alert and oriented. Afebrile. Pupils react to light. Throat is clear. Neck supple no bruits. Chest shows some bilateral expiratory wheezes and rhonchi. Equal breath sounds. Heart normal rate and rhythm grade 1/6 systolic right base murmur. Abdomen soft nontender no masses. Extremities no clubbing cyanosis or edema. Calves nontender. There is some tenderness over the left chest wall. Medical,Surgical,& Family Hx - Medical History Cardio: History of: Cerebrovascular Disease, CAD, Hypertension, [place] (stents x 2) , Valvular Heart Disease (mitral valve prolapse), Cardiovascular Problems No history of: Aneurysm, Cardiac Dysrhythmia, Congenital Heart Disease, CHF, Pacemaker, PVD Psychological: History of: Anxiety Disorders, Depression Neurology: History of: Cerebrovascular Accident No history of: Brain Aneurysm, Cerebral Hemorrhage, Cerebral Palsy, Dementia , Migraine, Multiple Sclerosis, Parkinson's Disease, Peripheral Neuropathy, Seizures, TIA, Vertigo, Neurologocal Cancer HEENT: History of: Eye Problem (detached retina, catarct) Endocrine: History of: Dyslipidemia Respiratory: History of: COPD, Respiratory Problems No history of: Asthma, Bronchitis, Intubation, Obstructive Sleep Apnea, Pulmonary Embolism, Pulmonary Hypertension, Pneumonia, Lung Cancer Renal: No history of: Renal Problems Genitourinary: No history of: Bladder Problem, Kidney Stones Gastrointestinal: History of: Diverticulitis/ Diverticulosis, GERD, Gastrointestinal Bleed, Hepatitis, Polyps, GI Problems (nutcracker esophagus) No history of: Bowel Obstruction, Clostridium Difficile, Crohn's Disease, Esophageal Varices, Hemorrhoids, Hematochezia, Liver Problems, Pancreatitis, Ulcerative Colitis, Gastrointestinal Cancer Musculoskeletal: History of: Degenerative Disk Disease No history of: Musculoskeletal Problems Hematology: No history of: Blood Transfusion Reaction Reproductive: No history of: Reproductive Problems Other: No history of: Anesthesia Reactions - Surgical History Cardiac Surgeries: Sugical HX of: Cardiac Catheterization Patient Denies: Femoral-Popliteal Bypass Graft, Cardiac Surgery, Carotid Endarterectomy, Internal Defibrillator, Vascular Access Devices Thoracic Surgeries: Patient denies;: Organ Transplant, Lobectomy Neurologic Surgeries: Patient denies: Brain Aneurysm, Cerebral Hemorrhage, Neurologic Surgery HEENT Surgeries: Surgical HX of: Eye Surgery, Tonsilectomy & Adenoidectomy Patient denies: Carotid Endarterectomy, Thyroid Surgery Abdominal Surgeries: Surgical HX of: Cholecystectomy Patient denies: Abdominal Surgery, Appendectomy, Colonoscopy, Gastric Bypass Surgery, EGD, Hernia Repair, Splenectomy Reproductive Surgeries: Surgical HX of;: Tubal Ligation Patient denies;: Breast Surgery, Section, Dilation and Curettage, Gynecologic Surgery, Hysterectomy Orthopedic Surgeries: Surgical HX of;: Orthopedic Surgery (foot) - Family History Family History: Reports;: Family Cancer (brother, daughter), Family Hypertension (father) Denies;: Family Diabetes, Family Heart Disease, Family Stroke - Social History Smoking Status: Current every day smoker Frequency of Alcohol Use: None Type of Drug Use: None Results - Labs CBC & BMP: 12/10/16 04:18 12/10/16 04:18 Lab Results: I have reviewed the past 24 hour labs - Diagnostic Findings Procedure: Chest x-ray: image reviewed by me (Hyperinflation. Chronic interstitial changes bilaterally.)
--- NOTE | 2016-12-10 08:55 | XRay Report ---
Exam: XR chest 1V Date: 12/10/2016 4:00 AM Comparison: 12/09/2016 Indication: Shortness of breath Technique:[Portable AP sitting chest] Findings: The heart is normal in size. The lungs are overexpanded with chronic scarring. Minimal atelectasis at the lung bases. Unremarkable mediastinum with degenerative changes. Impression: COPD with chronic scarring. Residual atelectasis at the lung bases. PROCEDURE INTERPRETED AT [facility] DEPARTMENT OF RADIOLOGY Final Report Signed by: Dr. Merissa Briseno
[2016-12-10] MEDS ORDERED: CLOPIDOGREL 75 MG TABLET PO SCH (09:00)
--- NOTE | 2016-12-10 10:14 | Cardiology Progress Note ---
Assessment and Plan (1) Chest pain Status: Acute Assessment and plan: It is unlikely her chest pain is cardiac. It sounds to be associated with her COPD exacerbation and continued mild exacerbations in the hospital. Her troponins were not diagnostic. We will continue to monitor this at this time. Current Visit: Yes (2) Acute exacerbation of chronic obstructive airways disease Status: Acute Assessment and plan: This is recurrent issue and problem. I think this is the cause of her symptomatology. We will continue to monitor but will leave treatment to pulmonary medicine. Current Visit: No (3) Elevated troponin Status: Chronic Assessment and plan: This is minimally elevated and actually within the parameters of her acute COPD exacerbation. Will follow these. She has had prior minimally elevated troponins with COPD exacerbations. Current Visit: No (4) CAD (coronary artery disease) Status: Chronic Assessment and plan: Prior stent placement of the RCA and circumflex artery. I think this is stable at this time but we will monitor while she is in the hospital Current Visit: No (5) Dyslipidemia Status: Chronic Assessment and plan: The patient has been on statin drugs previously but for the last year her chart indicates that she has not been on this. We need to investigate whether she has had some issues with statin drugs or not. Current Visit: No (6) Tobacco abuse Status: Chronic Assessment and plan: Unfortunately she continues to smoke having coronary disease and COPD. This certainly exacerbates her underlying medical issues. Current Visit: No (7) Chronic pain Status: Chronic Assessment and plan: Other chronic pain issues that may play a role in this. Especially her chest pain. Current Visit: No (8) Paroxysmal a-fib Status: Chronic Assessment and plan: Past history of this but no recent breakthrough episodes. No episodes on telemetry. Current Visit: No (9) Skin lesion of breast Status: Acute Assessment and plan: Etiology of this is unclear what needs to be evaluated. This is being evaluated by the primary service. Current Visit: Yes (10) Aortic valve stenosis Status: Chronic Assessment and plan: This is somewhat chronic and based on echocardiogram. I do not hear stenotic murmur but her heart sounds are quite distant may be affected by her lung sounds. This is clinically stable at this time. Current Visit: Yes Cardiology - PN: Subj Interval history: Patient doing well patient denies any chest pain but states her chest is a little tight when she begins wheezing that resolves with bronchodilator therapy. She has not had really no overt anginal symptomatology. She does not have any heart failure symptomatology. She has had no dysrhythmias on telemetry. ECG is unchanged and has left ventricular hypertrophy with consistent repolarization abnormalities. Her cardiac enzymes are unremarkable. Exam (Progress Note) - Constitutional Vitals: Period Temp Pulse Resp BP Sys/Gibson Pulse Ox Last 24 Hr 96.3 F-98.2 F 61-90 16-20 113-129/54-67 90-99 Exam: General appearance: Elderly and frail, no acute distress. HEENT: Atraumatic. No changes. Neck exam: normal inspection no JVD. No carotid bruit. Trachea is in midline. Respiratory exam: Coarse breath sounds throughout both lung cantrell anteriorly and posteriorly with wheezing. She is coughing some. Cardiovascular exam: Distant heart sounds but regular rate and rhythm, no murmur or gallop or rub. No precordial lift. No bruits over the major arteries. Chest wall/torso: Anatomically normal. No tenderness, deformity Peripheral Pulses: 2+ throughout. GI/Abdominal exam: normal bowel sounds, soft and nontender, no abdominal bruits or pulsatile masses. Musculoskeletal/Extremities exam: normal inspection without edema or cyanosis. No deformities or trauma. Neurological exam: alert, oriented X3. There is no gross neurologic deficits. Psychiatric exam: normal affect, normal mood. Cognitive function is grossly intact. Skin exam: normal color, warm. Patient has a lesion under the left breast. Result/EKG - Labs CBC & BMP: 12/10/16 04:18 12/10/16 04:18 Lab Results: I have reviewed the past 24 hour labs Labs: Laboratory Results - last 24 hr 12/09/16 12/09/16 12/09/16 10:53 10:53 10:53 WBC 21.7 H RBC 4.46 Hgb 14.8 Hct 42.1 MCV 94.4 MCH 33 MCHC 35.2 RDW 12.1 Plt Count 208 MPV 10.6 Neut % (Auto) 84.4 H Lymph % (Auto) 7.5 L [place] % (Auto) 7.1 Eos % (Auto) 0.0 Baso % (Auto) 0.1 Neut # (Auto) 18.3 H Lymph # (Auto) 1.6 [place] # (Auto) 1.5 H Eos # (Auto) 0.0 Baso # (Auto) 0.0 Total Counted 100 Immature Gran % 0.9 Nucleated RBC % 0.0 Immature Gran # 0.19 Segmented Neutrophils 85 Band Neutrophils 2 Lymphocytes 9 L Monocytes 4 Nucleated RBCs # 0.00 Platelet Estimate Normal Giant Platelets Immature Plt Fraction 0.0 Hypochromasia 1+ Microcytosis Slight INR 1.0 PT Patient/Control Mix 10.7 Circ Anticoag PTT 35.6 Sodium 137 Potassium 3.8 Chloride 101 Carbon Dioxide 30 Anion Gap 9.8 BUN 14 Creatinine 0.80 GFR Calculation 68 BUN/Creatinine Ratio 17.00 Glucose 97 Calculated Osmolality 273.8 Calcium 9.0 Total Bilirubin 0.80 AST 18 ALT 15 Alkaline Phosphatase 93 Total Creatine Kinase 81 CK-MB (CK-2) 3.9 H CK and CKMB Interp Troponin I 0.172 H B-Natriuretic Peptide Total Protein 6.7 Albumin 3.6 Globulin 3.1 Albumin/Globulin Ratio 1.1 12/09/16 12/09/16 12/10/16 10:53 18:00 04:18 WBC RBC Hgb Hct MCV MCH MCHC RDW Plt Count MPV Neut % (Auto) Lymph % (Auto) [place] % (Auto) Eos % (Auto) Baso % (Auto) Neut # (Auto) Lymph # (Auto) [place] # (Auto) Eos # (Auto) Baso # (Auto) Total Counted Immature Gran % Nucleated RBC % Immature Gran # Segmented Neutrophils Band Neutrophils Lymphocytes Monocytes Nucleated RBCs # Platelet Estimate Giant Platelets Immature Plt Fraction Hypochromasia Microcytosis INR PT Patient/Control Mix Circ Anticoag PTT Sodium Potassium Chloride Carbon Dioxide Anion Gap BUN Creatinine GFR Calculation BUN/Creatinine Ratio Glucose Calculated Osmolality Calcium Total Bilirubin AST ALT Alkaline Phosphatase Total Creatine Kinase 90 94 CK-MB (CK-2) 5.8 H 6.4 H CK and CKMB Interp 6.4 6.8 Troponin I 0.228 H D 0.145 H D B-Natriuretic Peptide 830 H Total Protein Albumin Globulin Albumin/Globulin Ratio 12/10/16 12/10/16 04:18 04:18 WBC 15.2 H RBC 4.04 Hgb 13.3 Hct 37.8 MCV 93.6 MCH 33 MCHC 35.2 RDW 11.9 Plt Count 195 MPV 11.2 Neut % (Auto) 92.3 H Lymph % (Auto) 5.3 L [place] % (Auto) 1.5 L Eos % (Auto) 0.0 Baso % (Auto) 0.1 Neut # (Auto) 14.1 H Lymph # (Auto) 0.8 L [place] # (Auto) 0.2 Eos # (Auto) 0.0 Baso # (Auto) 0.0 Total Counted 100 Immature Gran % 0.8 Nucleated RBC % 0.0 Immature Gran # 0.12 Segmented Neutrophils 95 H Band Neutrophils Lymphocytes 4 L Monocytes 1 L Nucleated RBCs # 0.00 Platelet Estimate Normal Giant Platelets Few Immature Plt Fraction 0.0 Hypochromasia 1+ Microcytosis Slight INR PT Patient/Control Mix Circ Anticoag PTT Sodium 134 L Potassium 4.2 Chloride 97 L Carbon Dioxide 29 Anion Gap 12.2 BUN 25 H D Creatinine 1.00 GFR Calculation 53 BUN/Creatinine Ratio 25.00 H Glucose 159 H Calculated Osmolality 274.2 Calcium 9.5 Total Bilirubin 1.10 H AST 13 ALT 14 Alkaline Phosphatase 82 Total Creatine Kinase CK-MB (CK-2) CK and CKMB Interp Troponin I B-Natriuretic Peptide Total Protein 6.2 L Albumin 3.3 L Globulin 2.9 Albumin/Globulin Ratio 1.1 - Impressions Impressions: ECG was sinus rhythm with left ventricular hypertrophy and repolarization normality secondary this. Telemetry was sinus rhythm.
--- NOTE | 2016-12-10 10:41 | Hospitalist Progress Note ---
Assessment and Plan (1) Acute exacerbation of chronic obstructive airways disease Status: Acute Assessment and plan: She appears significantly improved today pulmonary is following her. I will continue her present medications. Current Visit: No (2) Elevated troponin Status: Chronic Assessment and plan: As per cardiology. Current Visit: No (3) Paroxysmal a-fib Status: Chronic Assessment and plan: She is presently in normal sinus rhythm. Current Visit: No (4) Skin lesion of breast Status: Acute Assessment and plan: I will obtain a surgical consultation for evaluation. Current Visit: Yes Hospitalist: Subjective Interval history: Patient was hospitalized yesterday with acute exacerbation of chronic obstructive pulmonary disease, for which she has had multiple previous hospitalizations. She is presently being treated with intravenous antibiotics, intravenous corticosteroids, and albuterol ipratropium nebulizer therapy. She is being followed by cardiology and pulmonary. I will continue her present medications. She appears significantly improved today. Exam - Constitutional Vitals: Period Temp Pulse Resp BP Sys/Gibson Pulse Ox Last 24 Hr 96.3 F-98.2 F 61-90 16-20 113-129/54-67 90-99 General appearance: no acute distress - Head Head exam: Present: normal inspection - Neck Neck exam: Present: normal inspection - Respiratory Respiratory exam: Present: clear to auscultation bilaterally - Cardiovascular Cardiovascular exam: Present: regular rate and rhythm - GI/Abdominal GI/Abdominal exam: Present: normal bowel sounds, soft, other (Nontender with no palpable masses or hepatosplenomegaly.) - Extremities Exam Extremities exam: Present: normal inspection - Neurological Exam Neurological exam: Present: alert, oriented X3 - Psychiatric Psychiatric exam: Present: normal affect - Skin Skin exam: Present: normal color, warm, intact Results - Labs CBC & BMP: 12/10/16 04:18 12/10/16 04:18
--- NOTE | 2016-12-10 10:41 | ECHO Report ---
Terrance Trejo Exam Date: 12/10/2016 09:06 Referring Physician: Technologist: Gloria Tejeda RDCS Age: 71 Ht (in): 62 Wt (lb): 129 Gender: F Exam Location: [facility] Echo Indications: Chest pain, unspecified, Shortness of breath, Acute exacerbation COPD, Elevated troponin, CAD with previous stents, Dyslipidemia, Nicotine dependence, cigarettes, uncomplicated, Chronic pain BP: 128 / 59 HR: 67 Rhythm: Sinus Technical Quality: Fair IMPRESSIONS 1. Left ankle is normal size with hyperdynamic contractility and ejection fraction 70%. No segmental wall motion normality is noted. There is moderate concentric left ventricular hypertrophy with grade 1 diastolic dysfunction. 2. Other cardiac chambers are normal size. 3. Aortic valve the tricuspid structure is moderately thickened and sclerotic but with good excursion without significant stenosis or regurgitation demonstrated. 4. Mitral valve is mildly thickened and it worse mild stenosis with mild regurgitation. There is mitral annular calcification present. 5. Mild to moderate tricuspid valve regurgitation. 6. Moderately elevated right-sided pressures. MEASUREMENTS (Male / Female) Normal Values 2D ECHO LV Diastolic Diameter PLAX 3.7 cm 4.2 - 5.9 / 3.9 - 5.3 cm LV Systolic Diameter PLAX 2.6 cm LV Fractional Shortening PLAX 29.4 % IVS Diastolic Thickness 1.5 cm 0.6 - 1.0 / 0.6 - 0.9 cm LVPW Diastolic Thickness 1.4 cm 0.6 - 1.0 / 0.6 - 0.9 cm RV Internal Dim ED PLAX 3.0 cm Aortic Root Diameter 2.9 cm LA Systolic Diameter LX 2.5 cm 3.0 - 4.0 / 2.7 - 3.8 cm DOPPLER TR Peak Velocity 331.0 cm/s TR Peak Gradient 43.8 mmHg FINDINGS Left Ventricle Normal left ventricular cavity size. Left ventricle is almost hyperdynamic with an ejection fraction of 70%. Moderate left ventricular hypertrophy with grade 1 diastolic dysfunction.. Right Ventricle The right ventricle is normal in size and function. Right Atrium The right atrium is normal in size. Left Atrium The left atrium is normal in size. Mitral Valve Moderately thickened mitral valve.moderate mitral annular calcification. Mitral valve mean gradient is 3 mmHg at a heart rate of 67 bpm. Mild mitral valve regurgitation. It worse mild stenosis. Aortic Valve Moderately thickened and sclerotic aortic valve that is a tricuspid structure. Mean gradient 14 mmHg, JANETT 3 cm. No aortic valve regurgitation. Tricuspid Valve Morphologically normal tricuspid valve. [id number] tricuspid valve regurgitation. Tricuspid regurgitation velocities suggest a PAP of 54 mmHg. Pulmonic Valve Pulmonic valve not well visualized. Pericardium Normal pericardium without effusion. Aorta Normal ascending aorta dimension. Kp Austin MD (Electronically Signed) Final Date: 10 December 2016 10:39
[2016-12-10] MEDS: LEVOFLOXACIN INJ 750 MG in PREMIX 1 EACH IV SCH (12:54)
--- NOTE | 2016-12-10 14:08 | General Surgery Consult Note ---
Assessment and Plan - Time spent with patient Time spent with patient: Less than 30 minutes (1) Skin ulcer of female breast Status: Acute Assessment and plan: Impression: Ulcer of the left breast Plan: Consider excisional debridement and possible biopsy of this area. We will hold Plavix for now but still maybe try to do the surgery see if we can go ahead and get it cleaned up so that we can start some care to it. We will look at getting a mammogram at some point when she seems to be stable. Current Visit: Yes (2) Acute exacerbation of chronic obstructive airways disease Status: Acute Assessment and plan: Impression: Acute exacerbation of chronic pulmonary disease. Plan: Appears to be stable but certainly will leave this up to pulmonary and anesthesia if we can safely do her surgery. Current Visit: No (3) CAD (coronary artery disease) Status: Chronic Assessment and plan: Impression: Coronary artery disease with atrial fibrillation. Plan: We will try not to have her off Plavix any extensive length of time. Current Visit: No History of Present Illness Chief complaint: Ulcer under the left breast. History of present illness: Ms. Trejo is a 71 year old female white who was admitted because of problems with her COPD take became worse with increasing shortness of breath. We will consult to see her for an ulcer on her left breast which she says been there for several weeks but yet is failed to improve. Large squared ulcer that is almost 3 cm in size with a dark eschar in the center. She claims it may be due to a spider bite she denies any trauma or wearing any unusual tightfitting bras. This is an area where there is evidence of some plastic reconstruction of this breast in this nipple area and do not know if there is any relation to that. Certainly with the eschar be nice to trim this away and get a good clean base and we can easily start straight. She is on Plavix but maybe we can go ahead and do it in not getting any major bleeding that we can control. Home Medications Medication Instructions Recorded Confirmed Type Albuterol/Ipratropium Neb [Duoneb] 3 ml RESP TX RT Q6H PRN 01/13/15 12/09/16 History Aspirin [Ecotrin] 81 mg PO QAM 01/13/15 12/09/16 History Nitroglycerin Sl Tab [Nitrostat] 0.4 mg SL Q5M PRN 01/13/15 12/09/16 History [place]-3 Fatty Acids [Fish Oil 1,000 mg PO QAM 01/13/15 12/09/16 History Concentrate] Montelukast Tab [Singulair Tab] 10 mg PO QAM 05/15/16 12/09/16 History Omeprazole [Prilosec] 20 mg PO QAM 05/15/16 12/09/16 History Sertraline [Zoloft] 100 mg PO QAM 05/26/16 12/09/16 History Cholecalciferol (Vitamin D3) 10,000 unit PO QAM 08/19/16 12/09/16 History [Vitamin D3] Metoprolol Succinate 25 mg PO BID 08/19/16 12/09/16 History dilTIAZem HCl [Cartia XT] 180 mg PO BID 08/19/16 12/09/16 History Albuterol Inhaler [Proventil 2 puff INH Q6H PRN 09/22/16 12/09/16 History Inhaler] Tiotropium Inhalation [Spiriva 18 mcg INH DAILY 09/22/16 12/09/16 History Handihaler] Clopidogrel [Plavix] 75 mg PO QAM 12/09/16 12/09/16 History Isosorbide Mononitrate [Isosorbide 60 mg PO QAM 12/09/16 12/09/16 History Mononitrate ER] cephALEXin [Cephalexin] 500 mg PO Q6H 12/09/16 12/09/16 History Allergies Allergy/AdvReac Type Severity Reaction Status Date / Time adhesive Allergy BLISTER Verified 05/23/16 20:31 codeine Allergy HIVES Verified 05/23/16 20:31 diazepam [From Valium] Allergy HIVES Verified 05/23/16 20:31 latex Allergy HIVES Verified 05/23/16 20:31 morphine Allergy Vomiting Verified 05/23/16 20:31 Sulfa (Sulfonamide Allergy Unknown/Unable Verified 05/23/16 20:31 Antibiotics) to obtain TAPE AdvReac Redness of Uncoded 05/23/16 20:31 Skin Medical,Surgical,& Family Hx - Medical History Cardio: History of: Cerebrovascular Disease, CAD, Hypertension, VA (stents x 2) , Valvular Heart Disease (mitral valve prolapse), Cardiovascular Problems No history of: Aneurysm, Cardiac Dysrhythmia, Congenital Heart Disease, CHF, Pacemaker, PVD Psychological: History of: Anxiety Disorders, Depression Neurology: History of: Cerebrovascular Accident No history of: Brain Aneurysm, Cerebral Hemorrhage, Cerebral Palsy, Dementia , Migraine, Multiple Sclerosis, Parkinson's Disease, Peripheral Neuropathy, Seizures, TIA, Vertigo, Neurologocal Cancer HEENT: History of: Eye Problem (detached retina, catarct) Endocrine: History of: Dyslipidemia Respiratory: History of: COPD, Respiratory Problems No history of: Asthma, Bronchitis, Intubation, Obstructive Sleep Apnea, Pulmonary Embolism, Pulmonary Hypertension, Pneumonia, Lung Cancer Renal: No history of: Renal Problems Genitourinary: No history of: Bladder Problem, Kidney Stones Gastrointestinal: History of: Diverticulitis/ Diverticulosis, GERD, Gastrointestinal Bleed, Hepatitis, Polyps, GI Problems (nutcracker esophagus) No history of: Bowel Obstruction, Clostridium Difficile, Crohn's Disease, Esophageal Varices, Hemorrhoids, Hematochezia, Liver Problems, Pancreatitis, Ulcerative Colitis, Gastrointestinal Cancer Musculoskeletal: History of: Degenerative Disk Disease No history of: Musculoskeletal Problems Hematology: No history of: Blood Transfusion Reaction Reproductive: No history of: Reproductive Problems Other: No history of: Anesthesia Reactions - Surgical History Cardiac Surgeries: Sugical HX of: Cardiac Catheterization Patient Denies: Femoral-Popliteal Bypass Graft, Cardiac Surgery, Carotid Endarterectomy, Internal Defibrillator, Vascular Access Devices Thoracic Surgeries: Patient denies;: Organ Transplant, Lobectomy Neurologic Surgeries: Patient denies: Brain Aneurysm, Cerebral Hemorrhage, Neurologic Surgery HEENT Surgeries: Surgical HX of: Eye Surgery, Tonsilectomy & Adenoidectomy Patient denies: Carotid Endarterectomy, Thyroid Surgery Abdominal Surgeries: Surgical HX of: Cholecystectomy Patient denies: Abdominal Surgery, Appendectomy, Colonoscopy, Gastric Bypass Surgery, EGD, Hernia Repair, Splenectomy Reproductive Surgeries: Surgical HX of;: Tubal Ligation Patient denies;: Breast Surgery, Section, Dilation and Curettage, Gynecologic Surgery, Hysterectomy Orthopedic Surgeries: Surgical HX of;: Orthopedic Surgery (foot) - Family History Family History: Reports;: Family Cancer (brother, daughter), Family Hypertension (father) Denies;: Family Diabetes, Family Heart Disease, Family Stroke - Social History Smoking Status: Current every day smoker Frequency of Alcohol Use: None Type of Drug Use: None 12 point system: reviewed and no additional remarkable complaints except as stated Exam - Constitutional Vitals: Period Temp Pulse Resp BP Sys/Gibson Pulse Ox Last 24 Hr 96.3 F-98.2 F 61-90 16-20 113-129/54-65 90-100 General appearance: mild distress - Head Head exam: Present: normal inspection - ENT ENT exam: Present: normal exam - Neck Neck exam: Present: normal inspection - Respiratory Respiratory exam: Present: rales, rhonchi - Cardiovascular Cardiovascular exam: Present: RRR - GI/Abdominal GI/Abdominal exam: Present: normal bowel sounds, soft - Extremities Exam Extremities exam: Present: normal inspection - Back Exam Back exam: Present: normal inspection - Neurological Exam Neurological exam: Present: alert, oriented X3, CN II-XII intact - Skin Skin exam: Present: normal color, warm, dry, other (Left breast with thick eschar present on the lower outer quadrant region about 5:00) Quality Measures - VTE Contraindication to Pharmacological VTE Prophylaxis: High Risk of Bleeding Results - Labs CBC & BMP: 12/10/16 04:18 12/10/16 04:18 Lab Results: I have reviewed the past 24 hour labs
[2016-12-10] MEDS: cefTRIAXone 1,000 MG in SODIUM CHLORIDE 0.9% 100 ML IV SCH (16:05)
[2016-12-10] MEDS: AZITHROMYCIN INJ 500 MG in SODIUM CHLORIDE 0.9% 250 ML IV SCH (17:35)
[2016-12-10] MEDS ORDERED: ONDANSETRON 4 MG/2 ML VIAL IV PRN (18:00)
[2016-12-11] MEDS: ALBUTEROL/IPRATROPIUM 3 ML NEB RESP TX SCH ×4 (00:03→18:54)
[2016-12-11] MEDS: methylPREDNISolone SOD SUC 40 MG/1 ML VIAL IV SCH ×4 (00:27→21:50)
[2016-12-11 04:52] LABS: PT Patient Result 10.6 SECS; Partial Thromboplastin Time 33.1 SECS (0-40)
[2016-12-11] MEDS: IPRATROPIUM 500 MCG/2.5 ML NEB RESP TX SCH (07:15)
[2016-12-11] MEDS ORDERED: BUPIVACAINE 0.25% 50 ML VIAL ONE (07:45)
[2016-12-11] MEDS ORDERED: ALBUTEROL 2.5 MG/3 ML NEB RESP TX ONE (08:13)
[2016-12-11] MEDS ORDERED: LACTATED RINGERS 1,000 ML IV SCH (08:30)
--- NOTE | 2016-12-11 09:37 | Operative Note ---
Date of procedure: 12/11/16 Pre-op diagnosis: Ulcer of the left breast 6 o'clock position Post-op diagnosis: same Procedure: Operative note: Preoperative diagnosis: Ulcer of the left breast 6 o'clock position with thick eschar Postop diagnosis: Same Procedure: Excision of ulcer 6 o'clock position left breast with primary closure over drain Surgeon Dr. Jeffries Marketing Operations Coordinator Kailey Sawyer, BRAIDER OPERATOR ACNP Anesthesia was managed anesthetic care with local Brief history: 71-year-old white female who is in the hospital because of her COPD but we will call to see her because of an ulcer of the left breast. She does not know what brought this alone she says a spider bite but we have no proof of that. It is a ulcer at 6 o'clock position that has a thick eschar over the surface of it no erythematous changes around it at this time. I elected to bring her surgery and see if we could excise this thing and clean it up so that we can get some healing going. This is an area where she is apparently had some surgery for a reduction hours she described to move her nipple to a different position. Procedure: With patient prepped and draped in sterile fashion timeout and antibiotics completed we approach this area the ulcer itself has a thick eschar over the surface of it. Pre-debridement is 2.5 x 1.5 cm in size. After infiltrating with local anesthetic take a knife and I shaved this eschar away. There was a central ulcer associated with this and we cultured the tissue and fluid in the base of this ulcer. Did not look grossly infected but the edges were such that I felt like the would need to go ahead and excise this area to see if we can get this under better control. At that point took a knife made elliptical incision around the edges taking the skin subtenons tissue to remove the rest of this thickened scar tissue and wound from this wound bed. We sent this for pathology. We washed irrigated use light cauterization control bleeding. Patient's post debridement ulcer is now 3 x 2.8 x 0.6 cm in size. It appears very clean no sign of any gross infection done in this area. I felt it lugo to go ahead and try to close it over Fairchild drain hope this will control bleeding process and she has to be on Plavix. We later Yvon drain into the area and closed with vertical mattresses of 4-0 nylon and then secured with a 4-0 nylon the drain. We then closed the rest of the wound with interrupted 4-0 nylon. Once that was done a dressing was applied patient to recovery room. Estimated blood loss was 5 cc Sponge count correct 2 Drains one [place]child Complications none Condition stable satisfactory Anesthesia: MAC, local (0.25% Marcaine plain mixed [id number] 1% Xylocaine plain) Surgeon / Physician: Yoel Jeffries Marketing Operations Coordinator: Kailey Sawyer Estimated blood loss: other (5 cc) Specimens: other (Cultures and tissue for pathology) Condition: stable Disposition: floor Results - Labs CBC & BMP: 12/10/16 04:18 12/10/16 04:18 Discharge Plan - Discharge Medications No Action Nitroglycerin Sl Tab [Nitrostat] 0.4 mg SL Q5M PRN PRN Reason: Chest Pain Albuterol/Ipratropium Neb [Duoneb] 3 ml RESP TX RT Q6H PRN PRN Reason: Shortness Of Breath/Wheezing [place]-3 Fatty Acids [Fish Oil Concentrate] 1,000 mg PO QAM Aspirin [Ecotrin] 81 mg PO QAM Omeprazole [Prilosec] 20 mg PO QAM Sertraline [Zoloft] 100 mg PO QAM Cholecalciferol (Vitamin D3) [Vitamin D3] 10,000 unit PO QAM dilTIAZem HCl [Cartia XT] 180 mg PO BID Metoprolol Succinate 25 mg PO BID Clopidogrel [Plavix] 75 mg PO QAM cephALEXin [Cephalexin] 500 mg PO Q6H Montelukast Tab [Singulair Tab] 10 mg PO QAM Tiotropium Inhalation [Spiriva Handihaler] 18 mcg INH DAILY Albuterol Inhaler [Proventil Inhaler] 2 puff INH Q6H PRN PRN Reason: Shortness Of Breath/Wheezing Isosorbide Mononitrate [Isosorbide Mononitrate ER] 60 mg PO QAM - Follow Up or Referral - Forms/Instructions Instructions: How to Stop Smoking (GEN), Cigarette Smoking and Your Health (GEN ), Chronic Obstructive Pulmonary Disease (GEN), COPD Exacerbation, Transition Of Care Specialist (GEN)
[2016-12-11] MEDS ORDERED: CHLORHEXIDINE 4% SOLN 118 ML BOTTLE TOP ONE (09:38)
[2016-12-11] MEDS ORDERED: HYDROmorphone 2 MG/1 ML VIAL IV PRN (09:40)
[2016-12-11] MEDS ORDERED: ACETAMINOPHEN 325 MG TABLET PO PRN (09:40)
[2016-12-11] MEDS ORDERED: oxyCODONE/ACETAMINOPHEN 5-325 MG TABLET PO PRN (09:40)
[2016-12-11] MEDS ORDERED: KETAMINE 500 MG/10 ML VIAL ONE (09:47)
[2016-12-11] MEDS ORDERED: PROPOFOL 200 MG/20 ML VIAL IV ONE (09:48)
[2016-12-11] MEDS ORDERED: MIDAZOLAM 2 MG/2 ML VIAL ONE (09:48)
[2016-12-11] MEDS ORDERED: SODIUM CHLORIDE 0.9% 250 ML IV ONE (09:48)
[2016-12-11] MEDS ORDERED: SODIUM CHLORIDE 0.45% 1,000 ML IV SCH (10:00)
--- NOTE | 2016-12-11 10:45 | Hospitalist Progress Note ---
Assessment and Plan (1) Acute exacerbation of chronic obstructive airways disease Status: Acute Assessment and plan: She appears significantly improved today. Pulmonary is following her. I will continue her present medications. Current Visit: No (2) Elevated troponin Status: Chronic Assessment and plan: As per cardiology. Current Visit: No (3) Paroxysmal a-fib Status: Chronic Assessment and plan: She is presently in normal sinus rhythm. Current Visit: No (4) Skin lesion of breast Status: Acute Assessment and plan: She is stable status post excision of ulcer of left breast. Pathology is pending. Current Visit: Yes Hospitalist: Subjective Interval history: Patient is stable status post excision of ulcer of left breast. She is resting comfortably at the present time. Pathology is pending. Acute exacerbation of chronic obstructive pulmonary disease appears significantly improved. Exam - Constitutional Vitals: Period Temp Pulse Resp BP Sys/Gibson Pulse Ox Last 24 Hr 96.4 F-97.5 F 58-89 16-20 103-133/48-72 91-100 General appearance: no acute distress - Head Head exam: Present: normal inspection - Neck Neck exam: Present: normal inspection - Respiratory Respiratory exam: Present: clear to auscultation bilaterally - Cardiovascular Cardiovascular exam: Present: regular rate and rhythm - GI/Abdominal GI/Abdominal exam: Present: normal bowel sounds, soft - Extremities Exam Extremities exam: Present: normal inspection - Skin Skin exam: Present: normal color, warm, intact Results - Labs CBC & BMP: 12/10/16 04:18 12/10/16 04:18 Quality Measures - VTE Contraindication to Pharmacological VTE Prophylaxis: High Risk of Bleeding Specialty Discharge - Follow Up or Referrals
--- NOTE | 2016-12-11 11:02 | Pulmonology Progress Note ---
Pulmonary - PN: Subj Interval history: Paul Connor, AGNP-, acting as scribe for Dr. Roberto Yates Mrs. Trejo is a 71-year-old long-term patient of Dr. Yates who was admitted with an acute exacerbation of COPD elevated troponin, and was also found to have an ulcer of the left breast at the 6 o'clock position. She was initially seen in pulmonary consultation by Dr. Colindres, but we have now taken over her pulmonary care. Other past history includes: Ischemic colitis, atrial fibrillation, concentric left ventricular hypertrophy, aortic stenosis, mitral regurgitation, COPD, diverticulitis, colitis, history of acute GI bleed, hyperlipidemia, hypertension , and history of ovarian mass which in the past was followed by Dr. Rojo but more recently reportedly by Dr. Horn. There is a history of previous angioplasty and stenting of coronary artery, history of cholecystectomy, tubal ligation, and surgery on her face. There is a significant history of tobacco abuse and alcohol abuse but she stopped drinking in approximately 2012. 12/11/2016. The patient was seen today after she returned from surgery by Dr. Jeffries. She had an excision of the ulcer on her left breast with primary closure over a manuel drain. She is stable post-op and breathing comfortably lying in bed. Her chest is fairly clear. She is somnolent secondary to the anesthesia. Medications have been reviewed. We made no changes today. Labs have been reviewed. Most recent white count was 15,200 yesterday with 92.3 % segs; H&H 13.3/37.8; PLT count 195,000; creatinine 1.00, BUN 25, NA+ 135, K+ 4.2, LFTs WNL; total bilirubin 1.10 Microbiology has been reviewed. Sputum gram stain showed few gram positive cocci in clusters. Sputum culture grew no organisms. Blood cultures are growing nor organisms thus far. Exam (Progress Note) - Constitutional Vitals: Period Temp Pulse Resp BP Sys/Gibson Pulse Ox Last 24 Hr 96.4 F-97.5 F 58-89 16-20 103-133/48-72 91-100 Exam: Chest... See above Heart no gallop Abd is nontender and nondistended; BS positive x 4 Ext with nothing to suggest acute DVT Psych unable to be assessed secondary to recent sedation Neuro unable to be assessed secondary to recent sedation Plan: Continue present treatment. Results - Labs CBC & BMP: 12/10/16 04:18 12/10/16 04:18 Specialty Discharge - Follow Up or Referrals
[2016-12-11] MEDS: CHOLECALCIFEROL 1,000 UNIT TABLET PO SCH (11:43)
[2016-12-11] MEDS: DILTIAZEM CD 180 MG CAPSULE PO SCH ×2 (11:44→21:48)
[2016-12-11] MEDS: ASPIRIN EC 81 MG TABLET PO SCH (11:44)
[2016-12-11] MEDS: MONTELUKAST 10 MG TABLET PO SCH (11:44)
[2016-12-11] MEDS: ISOSORBIDE MONONITRATE 60 MG TABLET PO SCH (11:44)
[2016-12-11] MEDS: METOPROLOL SUCCINATE XL 25 MG TABLET PO SCH ×2 (11:44→21:52)
[2016-12-11] MEDS: PANTOPRAZOLE 40 MG TABLET PO SCH (11:45)
[2016-12-11] MEDS: SERTRALINE 100 MG TABLET PO SCH (11:45)
--- NOTE | 2016-12-11 14:38 | Anesthesia Post-Op ---
Anesthesia Post OP - Post Ansesthetic Evaluation Patient seen in post op: Yes Resp: within normal limits CV: within normal limits Mental: within normal limits Temp: within normal limits [id number]: within normal limits Nausea and Vomiting: within normal limits Pain: within normal limits
[2016-12-11] MEDS: ceFAZolin 2,000 MG in PREMIX 1 EACH IV SCH ×2 (15:25→23:28)
[2016-12-11] MEDS: cefTRIAXone 1,000 MG in SODIUM CHLORIDE 0.9% 100 ML IV SCH (15:55)
[2016-12-11] MEDS: AZITHROMYCIN INJ 500 MG in SODIUM CHLORIDE 0.9% 250 ML IV SCH (16:31)
--- NOTE | 2016-12-11 16:40 | Cardiology Progress Note ---
I, Yani Gonzalez, HUMBERTO, am scribing for, and in the presence of, Carlitos Brantley MD 16:39. Assessment and Plan (1) Congestive heart failure Status: Chronic Assessment and plan: SEE PLAN LISTED BELOW 12/11/16: No more chest pain Did well with the breast biopsy Troponin levels are flat. These mild elevations are chronic for her I reviewed her last heart cath of 12/2015-patent arteries and stents, even with her chest pain I discussed with the patient the benefits of stopping tobacco/nicotine, the problems with continuing to use it, and options of treatment. The patient is considering this option. 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 Munson Ms. Trejo is a 71 year old female who is been seen by Dr. Munson and previously has had stent placement. The patient had circumflex artery stent placed July 2015 and in the remote past had apparently RCA stent placed. Last catheterization carried out December 2015 revealed widely patent stents in coronaries. Patient at that time was having chest pain. The patient has had recurrent episodes of COPD and shortness of breath. She continues to smoke unfortunately. The patient was seen in the ER and reported several days of progressive shortness of breath and wheezing. Along with that she has had some chest discomfort worse in the deep breath or cough. The chest discomfort similar to what she has had before even when she has had unremarkable cardiac catheterizations. She is having no pain now that she has been treated for COPD. Chest x-ray reveals COPD and chronic scarring. I see rhythm strips on the chart but I do not see an ECG. At present the patient is stable without symptomatology. HER troponin is slightly increased and is some level of what she has had previously. I reviewed the patient's old chart material catheterization reports. DECEMBER 11, 2016: The patient is seen upon return from surgery for an excision of an ulcer in the left breast in the 6 o'clock position with closure over Yvon drain. The patient is somewhat sedated, however easily arousable and oriented. She is lying in the bed and appears comfortable. He denies shortness of breath or chest pain. Oxygen is being administered at 2 L nasal cannula. Blood pressure remains controlled. Telemetry reveals sinus rhythm, heart rate in the 60s. Labs reviewed today, WBCs are trending downward, and stable at 1.0. Troponin is mildly elevated, but she has had this previously with COPD exacerbation. Will discuss with Dr. Brantley and await further recommendations. ASSESSMENT/PLAN: 1. CHEST PAIN -likely associated with COPD exacerbation, will continue to monitor. 2. ACUTE COPD EXACERBATION -continue current plan of care. Pulmonary medicine is treating. 3. ELEVATED TROPONIN -minimally elevated and within the parameters of her acute COPD exacerbation. Has had prior minimally elevated troponins with COPD exacerbations. 4. CAD -prior stent placement in the RCA and circumflex artery. Continue medications and current plan of care. 5. DYSLIPIDEMIA -the patient dictates she is not taking a statin for the last year. Consider restarting if no contraindications. Lipid panel in the a.m. 6. TOBACCO ABUSE -continues to smoke 1 pack per day. The merits of tobacco cessation have been discussed with the patient. 7. PAROXYSMAL A-FIB -no episodes noted on telemetry. We will continue medication and monitoring. 8. SKIN LESION OF BREAST -excision of ulcer performed today with closure and drain placement. Biopsy for pathology pending. 9. AORTIC VALVE STENOSIS -evaluated by echocardiogram, continue plan of care. Exam (Progress Note) - Constitutional Vitals: Period Temp Pulse Resp BP Sys/Gibson Pulse Ox Last 24 Hr 96.4 F-97.5 F 58-89 16-20 103-133/48-72 91-100 Exam: General: [Appears sedate and easily arousable post surgery, with no apparent distress.] [Pleasant and cooperative. ] [Appears comfortable.] HEENT: [PERRL, normocephalic, atraumatic]. [Mucous membranes moist.] [No jaundice noted.] [Conjunctiva moist and clear, sclerae anicteric.] Neck: [No JVD/HJR, no thyromegaly or lymphadenopathy noted.] [ No carotid bruit appreciated.] Cardiac: [Regular rate and rhythm.] [No murmur rub or gallop.] [PMI is nondisplaced.] Lungs: [Bilateral wheezing throughout without accessory muscle use to assist the respiratory pattern.] [Oxygen in use via nasal cannula.] Abdomen: [Soft, bowel sounds normoactive.] [Nontender and nondistended.] [No abdominal bruit or thrill noted.] [No masses noted.] Musculoskeletal: [No fluid collection.] [Decreased range of motion is noted.] Dressing intact to left breast, no drainage noted Extremities: [No clubbing, cyanosis noted.] [ No edema noted.] [Upper extremity pulses 2+.] [Lower extremity pulses 2+.] [Capillary refill less than 3 seconds.] Skin: [No unusual lesions or rashes.] [No skin breakdown appreciated.] Neuro: [Awake, alert and oriented 3.] [Moves all extremities well without hemiparesis or paralysis.] [No essential tremor is appreciated.] Result/EKG - Labs CBC & BMP: 12/10/16 04:18 12/10/16 04:18 Lab Results: I have reviewed the past 24 hour labs Labs: Laboratory Results - last 24 hr 12/11/16 03:53 INR 1.0 PT Patient/Control Mix 10.6 Circ Anticoag PTT 33.1 - Diagnostic Findings Procedure: Chest x-ray: report reviewed by me - EKG EKG results: interpreted by me, sinus rhythm Quality Measures - VTE Contraindication to Pharmacological VTE Prophylaxis: High Risk of Bleeding Specialty Discharge - Follow Up or Referrals I, Carlitos Brantley MD, personally performed the services described in this documentation, ascribed by Yani Gonzalez NP in my presence, and it is both accurate and complete 639 .
[2016-12-11] MEDS: ALBUTEROL 2.5 MG/3 ML NEB RESP TX PRN (17:11)
[2016-12-12] MEDS: ALBUTEROL/IPRATROPIUM 3 ML NEB RESP TX SCH ×4 (00:06→19:51)
[2016-12-12] MEDS: methylPREDNISolone SOD SUC 40 MG/1 ML VIAL IV SCH ×2 (02:55→11:28)
[2016-12-12 05:13] LABS: Basophils % 0.1 % (0.0-0.8); Hematocrit 36.1 VOL% (35.7-47.0); Hemoglobin 12.1 GM/DL (12.0-16.0); Immature Granulocytes % 1.2 %; Immature Granulocytes Absolute 0.19 #; Lymphocytes # 0.5 10*3/uL (1.4-4.0); Mean Corpuscular HGB Conc 33.5 GM/DL (32-36); Mean Corpuscular Hemoglobin 33 PG (27-34); Mean Corpuscular Volume 97.6 FL (87-102); Mean Platelet Volume 10.9 FL (9.6-12.0); Monocytes # 0.5 10*3/uL (0.11-0.8); Monocytes % 3.2 % (1.7-12.7); Neutrophils # 14.3 10*3/uL (1.4-7.4); Neutrophils % 92.5 % (38.7-73.9); Platelet Count 239 T/CUMM (130-400); Red Cell Distribution Width 12.2 % (9.3-17.3); White Blood Count 15.4 T/CUMM (4-12)
[2016-12-12 05:41] LABS: Band Neutrophils 1 % (0-10); Lymphocytes 2 % (20-55); Segmented Neutrophils 95 % (50-85); Total Cells Counted 100
[2016-12-12 05:42] LABS: Giant Platelets Few; Hypochromasia 1+; Microcytosis Slight; Platelet Estimate Adequate
[2016-12-12 05:43] LABS: Calcium 9.1 MG/DL (8.5-10.1); Osmolality,Calculated 289.4 MOS/KG (273-304); Potassium 4.7 MMOL/L (3.5-5.1)
[2016-12-12 05:45] LABS: Risk Ratio 4.79; VLDL CHOLESTEROL 20.8 MG/DL
[2016-12-12] MEDS: CHOLECALCIFEROL 1,000 UNIT TABLET PO SCH (09:31)
[2016-12-12] MEDS: ceFAZolin 2,000 MG in PREMIX 1 EACH IV SCH ×3 (09:39→23:00)
--- NOTE | 2016-12-12 09:43 | General Surgery Progress Note ---
Assessment and Plan - Time spent with patient Time spent with patient: Less than 30 minutes (1) Skin ulcer of female breast Status: Acute Assessment and plan: Impression: Ulcer of the left breast Plan: Consider excisional debridement and possible biopsy of this area. We will hold Plavix for now but still maybe try to do the surgery see if we can go ahead and get it cleaned up so that we can start some care to it. We will look at getting a mammogram at some point when she seems to be stable. 12/12/2016. Patient clinically is better in the breast is sore no bit tender with some mild bruising but minimal drainage. Cultures are pending as well as pathology at this time. Do not anticipate that there should be have any evidence of neoplastic process at this time. Waiting on final cultures although there is no growth for 24 hours. Will consider the possibility of taking her drain out before she leaves if everything looks stable and clean with minimal drainage. Just good wound care at this time with support is maintained. Current Visit: Yes (2) Acute exacerbation of chronic obstructive airways disease Status: Acute Assessment and plan: Impression: Acute exacerbation of chronic pulmonary disease. Plan: Appears to be stable but certainly will leave this up to pulmonary and anesthesia if we can safely do her surgery. Current Visit: No (3) CAD (coronary artery disease) Status: Chronic Assessment and plan: Impression: Coronary artery disease with atrial fibrillation. Plan: We will try not to have her off Plavix any extensive length of time. Current Visit: No Subjective Patient reports: Present: no new complaints, feels better, pain is less, tolerating a regular diet, no bowel movement, afebrile Exam - Constitutional Vitals: Period Temp Pulse Resp BP Sys/Gibson Pulse Ox Last 24 Hr 97.0 F-98.2 F 58-77 2-20 103-142/52-69 95-99 General appearance: mild distress - Head Head exam: Present: normal inspection - ENT ENT exam: Present: normal exam - Neck Neck exam: Present: normal inspection - Respiratory Respiratory exam: Present: rales, rhonchi - Cardiovascular Cardiovascular exam: Present: RRR - GI/Abdominal GI/Abdominal exam: Present: hypoactive bowel sounds, soft - Extremities Exam Extremities exam: Present: normal inspection - Back Exam Back exam: Present: normal inspection - Neurological Exam Neurological exam: Present: alert, oriented X3, CN II-XII intact - Skin Skin exam: Present: normal color, warm, other (Breast incision with dressing in place with minimal drainage present.) Results - Labs CBC & BMP: 12/12/16 04:51 12/12/16 04:51 Lab Results: I have reviewed the past 24 hour labs Quality Measures - VTE Contraindication to Pharmacological VTE Prophylaxis: High Risk of Bleeding Specialty Discharge - Follow Up or Referrals
[2016-12-12] MEDS: ISOSORBIDE MONONITRATE 60 MG TABLET PO SCH (09:44)
[2016-12-12] MEDS: MONTELUKAST 10 MG TABLET PO SCH (09:44)
[2016-12-12] MEDS: SERTRALINE 100 MG TABLET PO SCH (09:45)
[2016-12-12] MEDS: METOPROLOL SUCCINATE XL 25 MG TABLET PO SCH ×2 (09:45→20:53)
[2016-12-12] MEDS: ASPIRIN EC 81 MG TABLET PO SCH (09:45)
[2016-12-12] MEDS: DILTIAZEM CD 180 MG CAPSULE PO SCH ×2 (09:45→20:53)
[2016-12-12] MEDS: PANTOPRAZOLE 40 MG TABLET PO SCH (09:48)
[2016-12-12] MEDS: ALBUTEROL 2.5 MG/3 ML NEB RESP TX PRN (10:59)
--- NOTE | 2016-12-12 11:20 | Pulmonology Progress Note ---
Pulmonary - PN: Subj Interval history: Mrs. Trejo is a 71-year-old long-term patient of Dr. Yates who was admitted with an acute exacerbation of COPD elevated troponin, and was also found to have an ulcer of the left breast at the 6 o'clock position. She was initially seen in pulmonary consultation by Dr. Colindres, but we have now taken over her pulmonary care. Other past history includes: Ischemic colitis, atrial fibrillation, concentric left ventricular hypertrophy, aortic stenosis, mitral regurgitation, COPD, diverticulitis, colitis, history of acute GI bleed, hyperlipidemia, hypertension , and history of ovarian mass which in the past was followed by Dr. Rojo but more recently reportedly by Dr. Horn. There is a history of previous angioplasty and stenting of coronary artery, history of cholecystectomy, tubal ligation, and surgery on her face. There is a significant history of tobacco abuse and alcohol abuse but she stopped drinking in approximately 2012. 12/11/2016. The patient was seen today after she returned from surgery by Dr. Jeffries. She had an excision of the ulcer on her left breast with primary closure over a manuel drain. She is stable post-op and breathing comfortably lying in bed. Her chest is fairly clear. She is somnolent secondary to the anesthesia. Medications have been reviewed. We made no changes today. Labs have been reviewed. Most recent white count was 15,200 yesterday with 92.3 % segs; H&H 13.3/37.8; PLT count 195,000; creatinine 1.00, BUN 25, NA+ 135, K+ 4.2, LFTs WNL; total bilirubin 1.10 Microbiology has been reviewed. Sputum gram stain showed few gram positive cocci in clusters. Sputum culture grew no organisms. Blood cultures are growing nor organisms thus far. 12/12/2016. Patient is stable night. From a pulmonary standpoint she is doing very well. On chest exam she is wheeze free. She has no new complaints and she denies any cardiac angina. The patient is on Solu-Medrol 40 mg IV push every 6 hours. I will convert this to prednisone 20 mg daily. She has no positive cultures. She was admitted with an acute exacerbation of COPD so I would continue antibiotics for a few more days. When this patient goes home I would continue her on her home medicines. I suspect prednisone 20 mg daily for 7 days followed by 10 mg daily for 7 days then 10 mg every other day for 7 doses will work well for her we will see how she does with the taper from Solu- Medrol. 12/10/2016. Echocardiogram. Left ventricular size is normal with ejection fraction of 70%. There is moderate concentric left ventricular hypertrophy with grade 1 diastolic dysfunction. The aortic valve is moderately thickened. Mitral valve is mildly thickened. At worst there is mild mitral valve stenosis with mild mitral regurgitation. There is mild to moderate tricuspid regurgitation and moderately elevated right sided heart pressures. Pulmonary artery pressures are suggested to be about 54 mmHg. Physical exam. Vital signs. See below General. No distress. Breathing comfortably. Psychiatric. Oriented 3. Cooperative. Face. Symmetrical. No edema of the lips or tongue. Neck. Symmetrical. No mass. No meningismus. Lymphatics. No submandibular cervical supraclavicular or epitrochlear adenopathy. Chest. Mildly hyperinflated and moderately kyphotic with clear breath sounds. Expiration is mildly prolonged. No wheezing. Heart. No gallop Abdomen. Nontender. Positive bowel sounds Extremities. No edema and no evidence of deep venous thrombophlebitis Skin. No cancerous infectious lesions of the face or hands. No other areas of skin were examined. The remainder of the physical exam is negative Plan. 12/12/2016. 1. Taper steroids. 2. Continue antibiotics a little longer. 3. See today's note above Exam (Progress Note) - Constitutional Vitals: Period Temp Pulse Resp BP Sys/Gibson Pulse Ox Last 24 Hr 97.6 F-98.2 F 58-73 2-20 116-142/56-67 95-99 Results - Labs CBC & BMP: 12/12/16 04:51 12/12/16 04:51 Specialty Discharge - Follow Up or Referrals
[2016-12-12] MEDS: predniSONE 20 MG TABLET PO SCH (11:32)
[2016-12-12] MEDS ORDERED: BACITRACIN OINT 0.9 GM PACK TOP SCH (12:00)
--- NOTE | 2016-12-12 12:20 | Pathology Report from [facility] ---
[facility] ACCESSION # : [id number] PATIENT NAME : Ayana Trejo ORDERING DR : THIERRY GIBBONS MD CLINICAL HX: Left breast ulcer POST-OP DX: Same SPECIMEN INFO: Left breast tissue GROSS DESCRIPTION: The specimen is received fresh labeled AYANA TREJO/ LEFT BREAST and consists of a fragment of debrided tissue measuring 2.7 x 1.8 x 0.6 cm. Laser Set Up Operator sections submitted in one cassette. DIAGNOSIS FOR AYANA TREJO: LEFT BREAST TISSUE, DEBRIDEMNT ULCER: Ulceration with necrosis and suppuration. COLLECTED DATE: 12/11/2016 [facility] REPORT DATE: 12/12/2016 ELECTRONICALLY SIGNED BY: Jayla Purcell M.D. 12/12/2016 - 10:30:31 [facility]
[2016-12-12] MEDS: BACITRACIN OINT 28.35 GM TUBE TOP SCH (12:41)
--- NOTE | 2016-12-12 14:14 | Cardiology Progress Note ---
I, Yani Gonzalez NP, am scribing for, and in the presence of, Carlitos Brantley MD 14:13. Assessment and Plan (1) Congestive heart failure Status: Chronic Assessment and plan: 12/12/16: No chest pain Is ambulating some Continues to go outside to smoke I discussed with the patient the benefits of stopping tobacco/nicotine, the problems with continuing to use it, and options of treatment. The patient is considering this option. Continues to have wheezing. Dr. Yg Cr is trying to optimize treatment for her COPD with exacerbation. Current Visit: No (2) Acute exacerbation of chronic obstructive airways disease Status: Acute Assessment and plan: SEE PLAN LISTED BELOW Current Visit: No (3) Elevated troponin Status: Acute Assessment and plan: SEE PLAN LISTED BELOW Current Visit: No (4) CAD (coronary artery disease) Status: Chronic Assessment and plan: SEE PLAN LISTED BELOW Current Visit: No (5) Dyslipidemia Status: Chronic Assessment and plan: SEE PLAN LISTED BELOW Current Visit: No (6) Tobacco abuse Status: Chronic Assessment and plan: SEE PLAN LISTED BELOW Current Visit: No Cardiology - PN: Subj Interval history: CHEMIST PHARMACEUTICAL: Dr. Munson Ms. Trejo is a 71 year old female who is been seen by Dr. Munson and previously has had stent placement. The patient had circumflex artery stent placed July 2015 and in the remote past had apparently RCA stent placed. Last catheterization carried out December 2015 revealed widely patent stents in coronaries. Patient at that time was having chest pain. The patient has had recurrent episodes of COPD and shortness of breath. She continues to smoke unfortunately. The patient was seen in the ER and reported several days of progressive shortness of breath and wheezing. Along with that she has had some chest discomfort worse in the deep breath or cough. The chest discomfort similar to what she has had before even when she has had unremarkable cardiac catheterizations. She is having no pain now that she has been treated for COPD. Chest x-ray reveals COPD and chronic scarring. I see rhythm strips on the chart but I do not see an ECG. At present the patient is stable without symptomatology. HER troponin is slightly increased and is some level of what she has had previously. I reviewed the patient's old chart material catheterization reports. DECEMBER 11, 2016: The patient is seen upon return from surgery for an excision of an ulcer in the left breast in the 6 o'clock position with closure over Yvon drain. The patient is somewhat sedated, however easily arousable and oriented. She is lying in the bed and appears comfortable. He denies shortness of breath or chest pain. Oxygen is being administered at 2 L nasal cannula. Blood pressure remains controlled. Telemetry reveals sinus rhythm, heart rate in the 60s. Labs reviewed today, WBCs are trending downward, and stable at 1.0. Troponin is mildly elevated, but she has had this previously with COPD exacerbation. DECEMBER 12, 2016: Patient is doing well. She denies chest pain. She reports that her dyspnea is consistent with her usual state of health. She is not complaining of significant pain to the breast post ulcer excision on 12/11/2016. She continues on oxygen per nasal cannula. Blood pressures reviewed and remain stable. Telemetry reveals sinus rhythm rate in the 60s. Cardiac biomarkers remained flat, mild troponin elevations are chronic. Creatinine slightly elevated at 1.2. Lipid panel reviewed, patient states she did take Lipitor in the past but stopped it due to not tolerating the medication. I will discuss the plan with Dr. Brantley and await further recommendations. ASSESSMENT/PLAN: 1. CHEST PAIN -no further chest pain, will continue to monitor. 2. ACUTE COPD EXACERBATION -continue current plan of care. Pulmonary medicine is treating. 3. ELEVATED TROPONIN -minimally elevated and within the parameters of her acute COPD exacerbation. Has had prior minimally elevated troponins with COPD exacerbations. 4. CAD -prior stent placement in the RCA and circumflex artery. Continue medications and current plan of care. 5. DYSLIPIDEMIA -patient states she previously took Lipitor and stop due to leg pain. Consider restarting if no contraindications. Lipid panel reviewed, restart statin. 6. TOBACCO ABUSE -continues to smoke 1 pack per day. The merits of tobacco cessation have been discussed with the patient and she will consider. 7. PAROXYSMAL A-FIB -no episodes noted on telemetry. We will continue medication and monitoring. 8. SKIN LESION OF BREAST -excision of ulcer performed with closure and drain placement. Biopsy for pathology pending. 9. AORTIC VALVE STENOSIS -evaluated by echocardiogram, continue plan of care. Exam (Progress Note) - Constitutional Vitals: Period Temp Pulse Resp BP Sys/Gibson Pulse Ox Last 24 Hr 97.6 F-98.2 F 58-73 2-20 116-142/56-67 95-99 Exam: General: Appears well with no apparent distress. Pleasant and cooperative. Appears comfortable. HEENT: PERRL, normocephalic, atraumatic. Mucous membranes moist. No jaundice noted. Conjunctiva moist and clear, sclerae anicteric. Neck: No JVD/HJR, no thyromegaly or lymphadenopathy noted. No carotid bruit appreciated. Cardiac: Regular rate and rhythm. No murmur rub or gallop. PMI is nondisplaced. Lungs: Coarse breath sounds throughout without accessory muscle use to assist the respiratory pattern. Oxygen in use via nasal cannula. Abdomen: Soft, bowel sounds normoactive. Nontender and nondistended. No abdominal bruit or thrill noted. No masses noted. Musculoskeletal: No fluid collection. Extremities: No clubbing, cyanosis noted. No edema noted. Upper extremity pulses 2+. Lower extremity pulses 2+. Capillary refill less than 3 seconds. Skin: No unusual lesions or rashes. No skin breakdown appreciated. Neuro: Awake, alert and oriented 3. Moves all extremities well without hemiparesis or paralysis. No essential tremor is appreciated. Result/EKG - Labs CBC & BMP: 12/12/16 04:51 12/12/16 04:51 Lab Results: I have reviewed the past 24 hour labs Labs: Laboratory Results - last 24 hr 12/12/16 12/12/16 12/12/16 04:51 04:51 04:51 WBC 15.4 H RBC 3.70 L Hgb 12.1 Hct 36.1 MCV 97.6 MCH 33 MCHC 33.5 RDW 12.2 Plt Count 239 D MPV 10.9 Neut % (Auto) 92.5 H Lymph % (Auto) 3.0 L Orange % (Auto) 3.2 Eos % (Auto) 0.0 Baso % (Auto) 0.1 Neut # (Auto) 14.3 H Lymph # (Auto) 0.5 L Orange # (Auto) 0.5 Eos # (Auto) 0.0 Baso # (Auto) 0.0 Total Counted 100 Immature Gran % 1.2 Nucleated RBC % 0.0 Immature Gran # 0.19 Segmented Neutrophils 95 H Band Neutrophils 1 Lymphocytes 2 L Monocytes 2 Nucleated RBCs # 0.00 Platelet Estimate Adequate Giant Platelets Few Immature Plt Fraction 0.0 Hypochromasia 1+ Microcytosis Slight Sodium 140 Potassium 4.7 Chloride 105 Carbon Dioxide 28 Anion Gap 11.7 BUN 35 H Creatinine 1.20 H GFR Calculation 44 BUN/Creatinine Ratio 29.00 H Glucose 159 H Calculated Osmolality 289.4 Calcium 9.1 Triglycerides 104 Cholesterol 163 LDL Cholesterol 97.0 VLDL Cholesterol 20.8 HDL Cholesterol 34 L Heart Disease Risk Ratio 4.79 - EKG EKG results: interpreted by me, sinus rhythm Quality Measures - VTE Contraindication to Pharmacological VTE Prophylaxis: High Risk of Bleeding Specialty Discharge - Follow Up or Referrals IFercho Dale, MD, personally performed the services described in this documentation, ascribed by Yani Gonzalez NP in my presence, and it is both accurate and complete .
[2016-12-12] MEDS: cefTRIAXone 1,000 MG in SODIUM CHLORIDE 0.9% 100 ML IV SCH (15:46)
[2016-12-12] MEDS: AZITHROMYCIN INJ 500 MG in SODIUM CHLORIDE 0.9% 250 ML IV SCH (16:16)
--- NOTE | 2016-12-12 18:16 | Hospitalist Progress Note ---
Assessment and Plan - Time spent with patient Time spent with patient: Greater than 30 minutes (1) Acute exacerbation of chronic obstructive airways disease Status: Chronic Assessment and plan: 12/12/2016: Patient reports improving ease of respirations. She is able to participate in activities recommended by hospital physical therapist. Consider IV antibiotic coverage, incentive spirometry, supplemental oxygen therapy. Follow-up sputum Gram stain and culture report. Patient is encouraged to discontinue cigarette smoking. Patient is receiving empiric azithromycin and ceftriaxone. Collect sputum for Gram stain and culture. No growth thus far and blood culture specimen submitted yesterday. Continue cough with deep breathing exercises. Increase physical activity as tolerated. Current Visit: No (2) Diastolic CHF, acute Status: Chronic Assessment and plan: 12/12/2016: 12/10/2016 echocardiogram report LVEF 70%. No segmental wall motion abnormalities reported. Grade 1 diastolic dysfunction. Current Visit: No (3) Skin lesion of breast Status: Acute Assessment and plan: 12/12/2016: Patient examined with female hospital staff nurse present at bedside. Physician breast exam not completed today. Follow-up histology report of left breast excised lesion. Current Visit: Yes (4) Acute kidney injury Status: Acute Assessment and plan: 12/12/2016: Patient serum creatinine measures 1.2 today measures 0.8 on admission 3 days ago. I reviewed patient's medication list and she is not receiving nephrotoxic medications. Begin IV hydration overnight and recheck BMP in a.m. Current Visit: Yes (5) Elevated troponin I level Status: Acute Assessment and plan: 12/12/2016: Serum troponin level was highest at 0.228 with next day measurement 0.145. I recommend management of serum troponin on sample and lab drawn this a.m. Also repeat serum troponin level tomorrow a.m. continue telemetry monitoring. After patient fully recovers from acute COPD exacerbation with possible bronchitis component she may be reached evaluated with cardiac stress test. She has a history of coronary artery disease and stent revascularization procedure. Current Visit: Yes Hospitalist: Subjective Interval history: 12/12/2016: Patient is a 71-year-old female admitted for management of COPD exacerbation. Patient still smokes cigarettes. She has home supplemental oxygen and home nebulizer equipment. She lives alone support from family and friends. She describes her sputum as green discolored and thick. Her shortness of breath symptoms are improving. Exam - Constitutional Vitals: Period Temp Pulse Resp BP Sys/Gibson Pulse Ox Last 24 Hr 97 F-98.2 F 58-73 16-20 127-142/60-76 91-99 General appearance: normal weight - Head Head exam: Present: normal inspection - ENT ENT exam: Present: normal exam - Neck Neck exam: Absent: meningismus - Respiratory Respiratory exam: Present: accessory muscle use, decreased breath sounds, other (Diffuse crackles). Absent: rales, wheezes - Cardiovascular Cardiovascular exam: Present: regular rate and rhythm. Absent: carotid bruit - GI/Abdominal GI/Abdominal exam: Present: normal bowel sounds, soft. Absent: tenderness, rebound - Extremities Exam Extremities exam: Absent: calf tenderness, edema - Neurological Exam Neurological exam: Present: alert, oriented X3 - Psychiatric Psychiatric exam: Present: normal affect - Skin Skin exam: Present: normal color, warm. Absent: rash Results - Labs CBC & BMP: 12/12/16 04:51 12/12/16 04:51 Quality Measures - VTE Contraindication to Pharmacological VTE Prophylaxis: High Risk of Bleeding Specialty Discharge - Follow Up or Referrals
[2016-12-12] MEDS: ROSUVASTATIN 10 MG TABLET PO SCH (20:52)
[2016-12-13] MEDS: ALBUTEROL/IPRATROPIUM 3 ML NEB RESP TX SCH ×4 (00:34→19:46)
[2016-12-13 05:29] LABS: Basophils % 0.2 % (0.0-0.8); Hematocrit 34.5 VOL% (35.7-47.0); Hemoglobin 11.5 GM/DL (12.0-16.0); Immature Granulocytes % 1.9 %; Immature Granulocytes Absolute 0.24 #; Lymphocytes # 0.7 10*3/uL (1.4-4.0); Lymphocytes % 5.4 % (21.3-54.2); Mean Corpuscular HGB Conc 33.3 GM/DL (32-36); Mean Corpuscular Hemoglobin 33 PG (27-34); Mean Corpuscular Volume 97.7 FL (87-102); Mean Platelet Volume 10.7 FL (9.6-12.0); Monocytes # 0.9 10*3/uL (0.11-0.8); Monocytes % 6.9 % (1.7-12.7); Neutrophils # 10.8 10*3/uL (1.4-7.4); Neutrophils % 85.6 % (38.7-73.9); Platelet Count 216 T/CUMM (130-400); Red Blood Count 3.53 MC/CUMM (3.8-5.5); Red Cell Distribution Width 12.2 % (9.3-17.3); White Blood Count 12.6 T/CUMM (4-12)
[2016-12-13 06:17] LABS: Calcium 9.1 MG/DL (8.5-10.1); Magnesium 2.5 MG/DL (1.8-2.4); Osmolality,Calculated 290.4 MOS/KG (273-304); Potassium 4.2 MMOL/L (3.5-5.1)
[2016-12-13 06:18] LABS: Troponin I Only 0.084 NG/ML (0.00-0.045)
[2016-12-13] MEDS: ceFAZolin 2,000 MG in PREMIX 1 EACH IV SCH (08:36)
[2016-12-13] MEDS: CHOLECALCIFEROL 1,000 UNIT TABLET PO SCH (08:56)
[2016-12-13] MEDS: DILTIAZEM CD 180 MG CAPSULE PO SCH ×2 (08:56→21:27)
[2016-12-13] MEDS: ISOSORBIDE MONONITRATE 60 MG TABLET PO SCH (08:57)
[2016-12-13] MEDS: predniSONE 20 MG TABLET PO SCH (08:57)
[2016-12-13] MEDS: ASPIRIN EC 81 MG TABLET PO SCH (08:57)
[2016-12-13] MEDS: SERTRALINE 100 MG TABLET PO SCH (08:57)
[2016-12-13] MEDS: MONTELUKAST 10 MG TABLET PO SCH (08:57)
[2016-12-13] MEDS: PANTOPRAZOLE 40 MG TABLET PO SCH (08:57)
[2016-12-13] MEDS: METOPROLOL SUCCINATE XL 25 MG TABLET PO SCH ×2 (08:57→21:27)
--- NOTE | 2016-12-13 09:08 | General Surgery Progress Note ---
Assessment and Plan - Time spent with patient Time spent with patient: Less than 30 minutes (1) Skin lesion of breast Status: Acute Assessment and plan: 12/13/2016. Patient is stable post excision of ulcerated skin lesion of the left breast. Pathology on this has been reported as simply an ulcerating benign lesion and no evidence of malignancy is seen. Will continue with local care and padding this area. The drain has been removed as there is no evidence of bleeding. Will watch closely for hematoma or signs of infection and have her wear a sports bra for comfort as well as to hold the dressing in place. Sutures should remain for 10-14 days, and will continue to follow her while she is in the hospital. Current Visit: Yes Subjective Patient reports: Present: feels better, tolerating a regular diet (Also improved ), shortness of breath (Improving) Exam - Constitutional Vitals: Period Temp Pulse Resp BP Sys/Gibson Pulse Ox Last 24 Hr 97 F-97.8 F 63-73 17-20 128-154/63-78 91-99 General appearance: no acute distress - Breasts Breasts: other (Postop wound of left inferior breast is clean; minimal bloody drainage noted from the Yvon drain. There is no erythema, there is no unusual induration or tenderness. Pathology notes this to be benign and preliminary culture is no growth at 24 hours. Her labs are stable and there is no active drainage or bleeding so the [place] drain was removed by me.) Results - Labs CBC & BMP: 12/13/16 05:08 12/13/16 05:08 Lab Results: I have reviewed the past 24 hour labs Quality Measures - VTE Contraindication to Pharmacological VTE Prophylaxis: High Risk of Bleeding Specialty Discharge - Follow Up or Referrals
--- NOTE | 2016-12-13 09:32 | Pulmonology Progress Note ---
Pulmonary - PN: Subj Interval history: Mrs. Trejo is a 71-year-old long-term patient of Dr. Yates who was admitted with an acute exacerbation of COPD elevated troponin, and was also found to have an ulcer of the left breast at the 6 o'clock position. She was initially seen in pulmonary consultation by Dr. Colindres, but we have now taken over her pulmonary care. Other past history includes: Ischemic colitis, atrial fibrillation, concentric left ventricular hypertrophy, aortic stenosis, mitral regurgitation, COPD, diverticulitis, colitis, history of acute GI bleed, hyperlipidemia, hypertension , and history of ovarian mass which in the past was followed by Dr. Rojo but more recently reportedly by Dr. Horn. There is a history of previous angioplasty and stenting of coronary artery, history of cholecystectomy, tubal ligation, and surgery on her face. There is a significant history of tobacco abuse and alcohol abuse but she stopped drinking in approximately 2012. 12/11/2016. The patient was seen today after she returned from surgery by Dr. Jeffries. She had an excision of the ulcer on her left breast with primary closure over a manuel drain. She is stable post-op and breathing comfortably lying in bed. Her chest is fairly clear. She is somnolent secondary to the anesthesia. Medications have been reviewed. We made no changes today. Labs have been reviewed. Most recent white count was 15,200 yesterday with 92.3 % segs; H&H 13.3/37.8; PLT count 195,000; creatinine 1.00, BUN 25, NA+ 135, K+ 4.2, LFTs WNL; total bilirubin 1.10 Microbiology has been reviewed. Sputum gram stain showed few gram positive cocci in clusters. Sputum culture grew no organisms. Blood cultures are growing nor organisms thus far. 12/12/2016. Patient is stable night. From a pulmonary standpoint she is doing very well. On chest exam she is wheeze free. She has no new complaints and she denies any cardiac angina. The patient is on Solu-Medrol 40 mg IV push every 6 hours. I will convert this to prednisone 20 mg daily. She has no positive cultures. She was admitted with an acute exacerbation of COPD so I would continue antibiotics for a few more days. When this patient goes home I would continue her on her home medicines. I suspect prednisone 20 mg daily for 7 days followed by 10 mg daily for 7 days then 10 mg every other day for 7 doses will work well for her we will see how she does with the taper from Solu- Medrol. 12/10/2016. Echocardiogram. Left ventricular size is normal with ejection fraction of 70%. There is moderate concentric left ventricular hypertrophy with grade 1 diastolic dysfunction. The aortic valve is moderately thickened. Mitral valve is mildly thickened. At worst there is mild mitral valve stenosis with mild mitral regurgitation. There is mild to moderate tricuspid regurgitation and moderately elevated right sided heart pressures. Pulmonary artery pressures are suggested to be about 54 mmHg. 12/13/2016. From a pulmonary standpoint this patient is doing very well. She says her breathing is back to her usual. Chest is clear and she is moving air well. Chest pain has resolved. Reviewed cardiology note. "Chronic troponin elevation". White count is dropped to 12,600 with 86 segs. H&H is 11.5/34.5. Electrolytes are normal. Creatinine is 1.0 with a BUN of 28. Troponins are now 0.084. Physical exam. Vital signs. See below General. No distress. Breathing comfortably. Psychiatric. Oriented 3. Cooperative. Face. Symmetrical. No edema of the lips or tongue. Neck. Symmetrical. No mass. No meningismus. Lymphatics. No submandibular cervical supraclavicular or epitrochlear adenopathy. Chest. Mildly hyperinflated and moderately kyphotic with clear breath sounds. Expiration is mildly prolonged. No wheezing. No Heart. No gallop Abdomen. Nontender. Positive bowel sounds Extremities. No edema and no evidence of deep venous thrombophlebitis Skin. No cancerous infectious lesions of the face or hands. No other areas of skin were examined. The remainder of the physical exam is negative Plan. 12/12/2016. 1. Taper steroids. 2. Continue antibiotics a little longer. 3. See today's note above 12/13/2016. 1. See today's note. Above 2. See note 12/12/2016 concerning suggested steroid taper Exam (Progress Note) - Constitutional Vitals: Period Temp Pulse Resp BP Sys/Gibson Pulse Ox Last 24 Hr 97 F-97.8 F 63-73 17-20 128-154/63-78 91-99 Results - Labs CBC & BMP: 12/13/16 05:08 12/13/16 05:08 Specialty Discharge - Follow Up or Referrals
[2016-12-13] MEDS: BACITRACIN OINT 28.35 GM TUBE TOP SCH (11:05)
[2016-12-13] MEDS: cefTRIAXone 1,000 MG in SODIUM CHLORIDE 0.9% 100 ML IV SCH (15:30)
[2016-12-13] MEDS ORDERED: ISOSORBIDE MONONITRATE 60 MG TABLET PO SCH (16:17)
[2016-12-13] MEDS: AZITHROMYCIN INJ 500 MG in SODIUM CHLORIDE 0.9% 250 ML IV SCH (16:24)
--- NOTE | 2016-12-13 17:14 | Hospitalist Progress Note ---
Assessment and Plan (1) Acute exacerbation of chronic obstructive airways disease Status: Chronic Assessment and plan: 12/12/2016: Patient reports improving ease of respirations. She is able to participate in activities recommended by hospital physical therapist. Consider IV antibiotic coverage, incentive spirometry, supplemental oxygen therapy. Follow-up sputum Gram stain and culture report. Patient is encouraged to discontinue cigarette smoking. Patient is receiving empiric azithromycin and ceftriaxone. Collect sputum for Gram stain and culture. No growth thus far and blood culture specimen submitted yesterday. Continue cough with deep breathing exercises. Increase physical activity as tolerated. 12/13/2016: Patient is clinically worse today. Consider restarting Solu-Medrol and decrease speed of drug taper. Continue empiric antibiotic therapy including ceftriaxone and azithromycin. Continue scheduled duo nebs treatments. Paint Tester is also following. Defer steroid dose adjustments to consulting geothermal operations manager Dr. Cr. Current Visit: No (2) Diastolic CHF, acute Status: Chronic Assessment and plan: 12/12/2016: 12/10/2016 echocardiogram report LVEF 70%. No segmental wall motion abnormalities reported. Grade 1 diastolic dysfunction. 12/13/2016: Patient denies chest pain or palpitations. Her reported increased work of breathing and decreased exercise tolerance thought to represent worsening COPD more so than worsening congestive heart failure. Current Visit: No (3) Skin lesion of breast Status: Acute Assessment and plan: 12/12/2016: Patient examined with female hospital staff nurse present at bedside. Physician breast exam not completed today. Follow-up histology report of left breast excised lesion. 12/13/2016: Benign pathology report on left lateral breast skin biopsy. Surgical scar is clean and dry without surrounding acute inflammatory changes. Patient examined with female physical therapist and female staff nurse present at bedside. Current Visit: Yes (4) Acute kidney injury Status: Acute Assessment and plan: 12/12/2016: Patient serum creatinine measures 1.2 today measures 0.8 on admission 3 days ago. I reviewed patient's medication list and she is not receiving nephrotoxic medications. Begin IV hydration overnight and recheck BMP in a.m. 12/13/2016: Decreasing BUN/creatinine. Today measures 28 and 1.0 respectively. GFR 55 Avoid nephrotoxic medication use. Current Visit: Yes (5) Elevated troponin I level Status: Acute Assessment and plan: 12/12/2016: Serum troponin level was highest at 0.228 with next day measurement 0.145. I recommend management of serum troponin on sample and lab drawn this a.m. Also repeat serum troponin level tomorrow a.m. continue telemetry monitoring. After patient fully recovers from acute COPD exacerbation with possible bronchitis component she may be reached evaluated with cardiac stress test. She has a history of coronary artery disease and stent revascularization procedure. 12/13/2016: Serum troponin level progressively decreased from maximum level of 0.228 on the day of admission to 0.084 this morning. This degree of elevation may be related to congestive heart failure rather than acute coronary syndrome. Continue current medical management. Current Visit: Yes Hospitalist: Subjective Interval history: 12/13/2016: Patient reports worsening respiratory status today. She has increased work of breathing. She describes more shortness of breath and decreased exercise tolerance. She believes that her symptoms are worse because steroid taper switch from IV Solu-Medrol to oral prednisone. Exam - Constitutional Vitals: Period Temp Pulse Resp BP Sys/Gibson Pulse Ox Last 24 Hr 97 F-97.8 F 63-77 16-20 132-165/66-78 95-99 General appearance: normal weight - Head Head exam: Present: normal inspection - ENT ENT exam: Present: normal exam - Neck Neck exam: Absent: meningismus, tenderness - Respiratory Respiratory exam: Present: decreased breath sounds, rhonchi, wheezes - Cardiovascular Cardiovascular exam: Present: regular rate and rhythm - GI/Abdominal GI/Abdominal exam: Present: normal bowel sounds, distended, soft. Absent: tenderness, rebound - Extremities Exam Extremities exam: Absent: calf tenderness, edema - Back Exam Back exam: Absent: CVA tenderness (L), CVA tenderness (R) - Neurological Exam Neurological exam: Present: alert, oriented X3 - Psychiatric Psychiatric exam: Present: normal affect - Skin Skin exam: Present: normal color, warm. Absent: rash Results - Labs CBC & BMP: 12/13/16 05:08 12/13/16 05:08 Quality Measures - VTE Contraindication to Pharmacological VTE Prophylaxis: High Risk of Bleeding Specialty Discharge - Follow Up or Referrals
--- NOTE | 2016-12-13 20:25 | Cardiology Progress Note ---
I, Yani Gonzalez NP, am scribing for, and in the presence of, Carlitos Brantley MD 20:25. Assessment and Plan (1) Congestive heart failure Status: Chronic Assessment and plan: 12/13/16 Adding some Isordil Watch blood pressure with this medicine Could next add amlodipine 5 mg daily if blood pressure remains elevated We will have patient follow with Dr. Rahul Munson in 2-4 weeks In the setting of her COPD with exacerbation, I do not believe she needs a stress test. Her troponins are flat. It could be done outpatient by Dr. Munson when he sees her back in f/u. Current Visit: No (2) Acute exacerbation of chronic obstructive airways disease Status: Chronic Assessment and plan: SEE PLAN LISTED BELOW Current Visit: No (3) Elevated troponin Status: Acute Assessment and plan: SEE PLAN LISTED BELOW Current Visit: No (4) CAD (coronary artery disease) Status: Chronic Assessment and plan: SEE PLAN LISTED BELOW Current Visit: No (5) Dyslipidemia Status: Chronic Assessment and plan: SEE PLAN LISTED BELOW Current Visit: No (6) Tobacco abuse Status: Chronic Assessment and plan: SEE PLAN LISTED BELOW Current Visit: No Cardiology - PN: Subj Interval history: [employer]CTOR: Dr. Munson Ms. Trejo is a 71 year old female who is been seen by Dr. Munson and previously has had stent placement. The patient had circumflex artery stent placed July 2015 and in the remote past had apparently RCA stent placed. Last catheterization carried out December 2015 revealed widely patent stents in coronaries. Patient at that time was having chest pain. The patient has had recurrent episodes of COPD and shortness of breath. She continues to smoke unfortunately. The patient was seen in the ER and reported several days of progressive shortness of breath and wheezing. Along with that she has had some chest discomfort worse in the deep breath or cough. The chest discomfort similar to what she has had before even when she has had unremarkable cardiac catheterizations. She is having no pain now that she has been treated for COPD. Chest x-ray reveals COPD and chronic scarring. I see rhythm strips on the chart but I do not see an ECG. At present the patient is stable without symptomatology. HER troponin is slightly increased and is some level of what she has had previously. I reviewed the patient's old chart material catheterization reports. DECEMBER 11, 2016: The patient is seen upon return from surgery for an excision of an ulcer in the left breast in the 6 o'clock position with closure over Yvon drain. The patient is somewhat sedated, however easily arousable and oriented. She is lying in the bed and appears comfortable. He denies shortness of breath or chest pain. Oxygen is being administered at 2 L nasal cannula. Blood pressure remains controlled. Telemetry reveals sinus rhythm, heart rate in the 60s. Labs reviewed today, WBCs are trending downward, and stable at 1.0. Troponin is mildly elevated, but she has had this previously with COPD exacerbation. DECEMBER 12, 2016: Patient is doing well. She denies chest pain. She reports that her dyspnea is consistent with her usual state of health. She is not complaining of significant pain to the breast post ulcer excision on 12/11/2016. She continues on oxygen per nasal cannula. Blood pressures reviewed and remain stable. Telemetry reveals sinus rhythm rate in the 60s. Cardiac biomarkers remained flat, mild troponin elevations are consistent for her COPD exacerbation. Creatinine slightly elevated at 1.2. Lipid panel reviewed, patient states she did take Lipitor in the past but stopped it due to not tolerating the medication. DECEMBER 13, 2016: The patient is sitting in bed today without complaints of chest pain or dyspnea. She continues on oxygen per nasal cannula. Labs reviewed today revealed WBCs trending downward, creatinine 1.0, troponin today 0.084. Have reintroduced a low-dose statin for dyslipidemia. Telemetry reveals sinus rhythm, heart rate in the 70s, but her blood pressure has been somewhat elevated today. Will adjust medications and continue to monitor. Will discuss plan of care with Dr. Brantley and consider further recommendations. ASSESSMENT/PLAN: 1. CHEST PAIN -no further chest pain, will continue to monitor. 2. ACUTE COPD EXACERBATION -continue current plan of care, much improved. 3. ELEVATED TROPONIN -minimally elevated and within the parameters of her acute COPD exacerbation. Has had prior minimally elevated troponins with COPD exacerbations. 4. CAD -prior stent placement in the RCA and circumflex artery. Continue medications and current plan of care. 5. DYSLIPIDEMIA -patient states she previously took Lipitor and stop due to leg pain. Lipid panel reviewed, restart low dose statin. 6. TOBACCO ABUSE -continues to smoke 1 pack per day. The merits of tobacco cessation have been discussed with the patient and she will consider. 7. PAROXYSMAL A-FIB -no episodes noted on telemetry. We will continue medication and monitoring. 8. SKIN LESION OF BREAST -excision of ulcer performed with closure and drain placement. Biopsy negative per pathologist. 9. AORTIC VALVE STENOSIS -minimal evaluated by echocardiogram, continue plan of care. Exam (Progress Note) - Constitutional Vitals: Period Temp Pulse Resp BP Sys/Gibson Pulse Ox Last 24 Hr 97 F-97.8 F 63-74 16-20 132-165/63-78 95-99 Exam: General: [Appears well with no apparent distress.] [Pleasant and cooperative. ] [Appears comfortable.] HEENT: [PERRL, normocephalic, atraumatic]. [Mucous membranes moist.] [No jaundice noted.] [Conjunctiva moist and clear, sclerae anicteric.] Neck: [No JVD/HJR, no thyromegaly or lymphadenopathy noted.] [ No carotid bruit appreciated.] Cardiac: [Regular rate and rhythm.] [No murmur rub or gallop.] [PMI is nondisplaced.] Lungs: [Coarse breath sounds with wheezing throughout clear to auscultation without accessory muscle use to assist the respiratory pattern.] [Oxygen in use via nasal cannula.] Abdomen: [Soft, bowel sounds normoactive.] [Nontender and nondistended.] [No abdominal bruit or thrill noted.] [No masses noted.] Musculoskeletal: [No fluid collection.] [] Extremities: [No clubbing, cyanosis noted.] [ No edema noted.] [Upper extremity pulses 2+.] [Lower extremity pulses 2+.] [Capillary refill less than 3 seconds.] Skin: [No unusual lesions or rashes.] [No skin breakdown appreciated.] Dressing intact to left breast area. Neuro: [Awake, alert and oriented 3.] [Moves all extremities well without hemiparesis or paralysis.] [No essential tremor is appreciated.] Result/EKG - Labs CBC & BMP: 12/13/16 05:08 12/13/16 05:08 Lab Results: I have reviewed the past 24 hour labs Labs: Laboratory Results - last 24 hr 12/12/16 12/13/16 12/13/16 04:51 05:08 05:08 WBC 12.6 H RBC 3.53 L Hgb 11.5 L Hct 34.5 L MCV 97.7 MCH 33 MCHC 33.3 RDW 12.2 Plt Count 216 MPV 10.7 Neut % (Auto) 85.6 H Lymph % (Auto) 5.4 L [place] % (Auto) 6.9 Eos % (Auto) 0.0 Baso % (Auto) 0.2 Neut # (Auto) 10.8 H Lymph # (Auto) 0.7 L [place] # (Auto) 0.9 H Eos # (Auto) 0.0 Baso # (Auto) 0.0 Immature Gran % 1.9 Nucleated RBC % 0.0 Immature Gran # 0.24 Nucleated RBCs # 0.00 Immature Plt Fraction 0.0 Sodium 140 Potassium 4.2 Chloride 105 Carbon Dioxide 29 Anion Gap 10.2 BUN 28 H Creatinine 1.00 GFR Calculation 55 BUN/Creatinine Ratio 28.00 H Glucose 198 H Calculated Osmolality 290.4 Calcium 9.1 Magnesium 2.5 H Troponin I 0.087 H D 0.084 H - EKG EKG results: interpreted by me, sinus rhythm Quality Measures - VTE Contraindication to Pharmacological VTE Prophylaxis: High Risk of Bleeding Specialty Discharge - Follow Up or Referrals Follow up with: Mynor Munson MD [Physician] - (In about 2-4 weeks after discharge.) I, Carlitos Brantley MD, personally performed the services described in this documentation, ascribed by Yani Gonzalez NP in my presence, and it is both accurate and complete 025 .
[2016-12-13] MEDS: ROSUVASTATIN 10 MG TABLET PO SCH (21:27)
[2016-12-14] MEDS: ALBUTEROL/IPRATROPIUM 3 ML NEB RESP TX SCH ×2 (01:49→07:24)
[2016-12-14 05:28] LABS: Basophils % 0.1 % (0.0-0.8); Hematocrit 38.6 VOL% (35.7-47.0); Hemoglobin 12.6 GM/DL (12.0-16.0); Immature Granulocytes Absolute 0.25 #; Lymphocytes # 1.8 10*3/uL (1.4-4.0); Lymphocytes % 14.3 % (21.3-54.2); Mean Corpuscular HGB Conc 32.6 GM/DL (32-36); Mean Corpuscular Hemoglobin 32 PG (27-34); Mean Corpuscular Volume 98.7 FL (87-102); Mean Platelet Volume 10.6 FL (9.6-12.0); Monocytes # 1.2 10*3/uL (0.11-0.8); Monocytes % 9.3 % (1.7-12.7); Neutrophils # 9.2 10*3/uL (1.4-7.4); Neutrophils % 74.3 % (38.7-73.9); Platelet Count 226 T/CUMM (130-400); Red Blood Count 3.91 MC/CUMM (3.8-5.5); Red Cell Distribution Width 12.1 % (9.3-17.3); White Blood Count 12.4 T/CUMM (4-12)
[2016-12-14 05:59] LABS: Albumin 3.2 G/DL (3.4-5.0); Bilirubin,Total 0.4 MG/DL (0.2-1.0); Calcium 9.2 MG/DL (8.5-10.1); Osmolality,Calculated 287.1 MOS/KG (273-304); Total Protein 5.8 G/DL (6.4-8.3)
[2016-12-14] MEDS: DILTIAZEM CD 180 MG CAPSULE PO SCH (09:13)
[2016-12-14] MEDS: CHOLECALCIFEROL 1,000 UNIT TABLET PO SCH (09:14)
[2016-12-14] MEDS: MONTELUKAST 10 MG TABLET PO SCH (09:15)
[2016-12-14] MEDS: METOPROLOL SUCCINATE XL 25 MG TABLET PO SCH (09:15)
[2016-12-14] MEDS: predniSONE 20 MG TABLET PO SCH (09:15)
[2016-12-14] MEDS: SERTRALINE 100 MG TABLET PO SCH (09:15)
[2016-12-14] MEDS: PANTOPRAZOLE 40 MG TABLET PO SCH (09:15)
[2016-12-14] MEDS: ASPIRIN EC 81 MG TABLET PO SCH (09:15)
--- NOTE | 2016-12-14 09:57 | Discharge Summary ---
Hospital Course - Hospital Course Hospital Course: Patient is a 71-year-old female admitted to manage COPD exacerbation. Patient complained of acute on chronic shortness of breath with increased work of breathing and decreased exercise tolerance. Her symptoms improved as she received empiric antibiotic therapy, IV steroid therapy, supplemental oxygen , and various nebulized medications. Today patient feels that she has recovered significantly and is eager for discharge home. - Time spent with patient Time with patient DS: Greater than 30 minutes Diagnosis - Discharge Diagnosis (1) Acute exacerbation of chronic obstructive airways disease Status: Chronic (2) Diastolic CHF, acute Status: Chronic (3) Skin lesion of breast Status: Acute (4) Acute kidney injury Status: Resolved (5) Elevated troponin I level Status: Acute (6) left breast ulcer Status: Chronic Specialty Discharge - Follow Up or Referrals Follow up with: Mynor Munson MD [Physician] - (In about 2-4 weeks after discharge.) - Speciality Discharge Instructions Dermatology Instructions: clean left breast surgical biopsy site as instructed by Dr. Kailey Sawyer. Schedule f/u with Dr. Sawyer in 2 weeks Pulmonary Instructions: Schedule follow-up with Dr. Roberto Yates in 2 weeks Discharge Plan - Discharge Data Disposition: Home Health Service Condition at Discharge: Stable Discharge Diet: low fat, low cholesterol, low salt diet Activity: resume usual activities as tolerated, wear oxygen at all times Hygiene: no restrictions Weight Bearing at Discharge: full weight bearing Contact your physician if you experience:: fever over 101, Shortness of breath - Discharge Medications New Bacitracin Oint 1 applic TOP DAILY applic predniSONE TAB [PredniSONE] 20 mg PO DAILY tablet Rosuvastatin [Crestor] 5 mg PO BEDTIME tablet Albuterol/Ipratropium Neb [Duoneb] 3 ml RESP TX RT Q6H Continue Nitroglycerin Sl Tab [Nitrostat] 0.4 mg SL Q5M PRN PRN Reason: Chest Pain Albuterol/Ipratropium Neb [Duoneb] 3 ml RESP TX RT Q6H PRN PRN Reason: Shortness Of Breath/Wheezing [place]-3 Fatty Acids [Fish Oil Concentrate] 1,000 mg PO QAM Aspirin [Ecotrin] 81 mg PO QAM Omeprazole [Prilosec] 20 mg PO QAM Sertraline [Zoloft] 100 mg PO QAM Cholecalciferol (Vitamin D3) [Vitamin D3] 10,000 unit PO QAM dilTIAZem HCl [Cartia XT] 180 mg PO BID Metoprolol Succinate 25 mg PO BID Clopidogrel [Plavix] 75 mg PO QAM Montelukast Tab [Singulair Tab] 10 mg PO QAM Tiotropium Inhalation [Spiriva Handihaler] 18 mcg INH DAILY Albuterol Inhaler [Proventil Inhaler] 2 puff INH Q6H PRN PRN Reason: Shortness Of Breath/Wheezing Isosorbide Mononitrate [Isosorbide Mononitrate ER] 60 mg PO QAM Discontinued cephALEXin [Cephalexin] 500 mg PO Q6H - Follow Up or Referral Follow Up: Mynor Munson MD [Physician] - (In about 2-4 weeks after discharge.) - Forms/Instructions Instructions: How to Stop Smoking (GEN), Cigarette Smoking and Your Health (GEN ), Chronic Obstructive Pulmonary Disease (GEN), COPD Exacerbation, Weight Tester (GEN) Exam - Constitutional Vitals: Period Temp Pulse Resp BP Sys/Gibson Pulse Ox Last 24 Hr 96.8 F-98.2 F 60-86 16-20 137-183/69-85 96-100 General appearance: normal weight - Head Head exam: Present: normal inspection - ENT ENT exam: Present: normal exam - Neck Neck exam: Absent: meningismus, tenderness - Respiratory Respiratory exam: Present: decreased breath sounds, rhonchi. Absent: accessory muscle use, chest wall tenderness - Cardiovascular Cardiovascular exam: Present: regular rate and rhythm - GI/Abdominal GI/Abdominal exam: Present: normal bowel sounds, soft. Absent: tenderness, rebound - Extremities Exam Extremities exam: Absent: calf tenderness, edema - Back Exam Back exam: Absent: CVA tenderness (L), CVA tenderness (R) - Neurological Exam Neurological exam: Absent: alert, oriented X3 - Psychiatric Psychiatric exam: Present: normal affect, normal mood - Skin Skin exam: Present: normal color, warm. Absent: rash Discharge Results Procedures and tests throughout hospitalization: Pending Orders 12/09/16 10:53 Blood Culture Stat 12/13/16 Sputum Culture and Gram Stain Routine 12/14/16 04:27 Troponin I Only Routine Labs on day of discharge: Labs from last 24 hours 12/14/16 12/14/16 04:30 04:30 WBC 12.4 H RBC 3.91 Hgb 12.6 Hct 38.6 MCV 98.7 MCH 32 MCHC 32.6 RDW 12.1 Plt Count 226 MPV 10.6 Neut % (Auto) 74.3 H Lymph % (Auto) 14.3 L [place] % (Auto) 9.3 Eos % (Auto) 0.0 Baso % (Auto) 0.1 Neut # (Auto) 9.2 H Lymph # (Auto) 1.8 [place] # (Auto) 1.2 H Eos # (Auto) 0.0 Baso # (Auto) 0.0 Immature Gran % 2.0 Nucleated RBC % 0.0 Immature Gran # 0.25 Nucleated RBCs # 0.00 Immature Plt Fraction 0.0 Sodium 142 Potassium 5.0 Chloride 103 Carbon Dioxide 35 H Anion Gap 9.0 BUN 28 H Creatinine 0.90 GFR Calculation 62 BUN/Creatinine Ratio 31.00 H Glucose 85 Calculated Osmolality 287.1 Calcium 9.2 Total Bilirubin 0.40 AST 26 ALT 45 Alkaline Phosphatase 76 Total Protein 5.8 L Albumin 3.2 L Globulin 2.6 Albumin/Globulin Ratio 1.2 Preliminary micro results at discharge 12/13/16 Unknown Sputum Culture - Preliminary Sputum Yeast 12/09/16 10:53 Blood Culture - Preliminary Blood No growth at 3 days 12/09/16 10:53 Blood Culture - Preliminary Blood No growth at 3 days - Additional Comments CLINICAL HX: Left breast ulcer POST-OP DX: Same SPECIMEN INFO: Left breast tissue GROSS DESCRIPTION: The specimen is received fresh labeled AYANA RIVERA/ LEFT BREAST and consists of a fragment of debrided tissue measuring 2.7 x 1.8 x 0.6 cm. Police Specialist sections submitted in one cassette. DIAGNOSIS FOR AYANA RIVERA: LEFT BREAST TISSUE, DEBRIDEMNT ULCER: Ulceration with necrosis and suppuration. DS: Provider Date of admission: 12/09/16 12:50 Primary care physician: Itz Trinidad MD Attending physician on admission: Bacilio Arroyo Consults: 12/09/16 12:50 Consult to Physician [CONS] Routine Comment: Patient of Dr Munson Consulting Provider: Kp Austin When should Consulting Provider be notified: Now Consult Notification Comment: left sided chest pain (relieved w/nitro) SC in past (2 stents) TROPONIN 0.0172 Consult to Pulmonary Rehabilitation [CONS] Routine Reason for Pulmonary Rehabilitation: COPD 12/09/16 12:53 Consult to Physician [CONS] Routine Comment: patient of Dr Yates Consulting Provider: Neftaly Colindres When should Consulting Provider be notified: Now Consult to Specialist Group: Pulmonology Consult Notification Comment: COPD exacerbation 12/09/16 14:44 Consult to Dietitian [CONS] Routine Reason for Dietitian: Dietary Consult 12/10/16 10:42 Consult to Physician [CONS] Routine Comment: Breast lesion Consulting Provider: Yoel Jeffries Consult to Specialist Group: Surgery When should Consulting Provider be notified: Now Person Notified: Dr. Jeffries Date Notified: 12/10/16 Time Notified: 13:40 12/11/16 09:45 Consult to Case Mgmt/Social Srvs [CONS] Routine Reason for Case Mgmt/Social Srvs: Discharge Planning Home Health Discharging clinician: George Gill III
[2016-12-14] MEDS ORDERED: FLUCONAZOLE 200 MG TABLET PO SCH (10:00)
--- NOTE | 2016-12-14 10:18 | Pulmonology Progress Note ---
Pulmonary - PN: Subj Interval history: Mrs. Trejo is a 71-year-old long-term patient of Dr. Yates who was admitted with an acute exacerbation of COPD elevated troponin, and was also found to have an ulcer of the left breast at the 6 o'clock position. She was initially seen in pulmonary consultation by Dr. Colindres, but we have now taken over her pulmonary care. Other past history includes: Ischemic colitis, atrial fibrillation, concentric left ventricular hypertrophy, aortic stenosis, mitral regurgitation, COPD, diverticulitis, colitis, history of acute GI bleed, hyperlipidemia, hypertension , and history of ovarian mass which in the past was followed by Dr. Rojo but more recently reportedly by Dr. Horn. There is a history of previous angioplasty and stenting of coronary artery, history of cholecystectomy, tubal ligation, and surgery on her face. There is a significant history of tobacco abuse and alcohol abuse but she stopped drinking in approximately 2012. 12/11/2016. The patient was seen today after she returned from surgery by Dr. Jeffries. She had an excision of the ulcer on her left breast with primary closure over a manuel drain. She is stable post-op and breathing comfortably lying in bed. Her chest is fairly clear. She is somnolent secondary to the anesthesia. Medications have been reviewed. We made no changes today. Labs have been reviewed. Most recent white count was 15,200 yesterday with 92.3 % segs; H&H 13.3/37.8; PLT count 195,000; creatinine 1.00, BUN 25, NA+ 135, K+ 4.2, LFTs WNL; total bilirubin 1.10 Microbiology has been reviewed. Sputum gram stain showed few gram positive cocci in clusters. Sputum culture grew no organisms. Blood cultures are growing nor organisms thus far. 12/12/2016. Patient is stable night. From a pulmonary standpoint she is doing very well. On chest exam she is wheeze free. She has no new complaints and she denies any cardiac angina. The patient is on Solu-Medrol 40 mg IV push every 6 hours. I will convert this to prednisone 20 mg daily. She has no positive cultures. She was admitted with an acute exacerbation of COPD so I would continue antibiotics for a few more days. When this patient goes home I would continue her on her home medicines. I suspect prednisone 20 mg daily for 7 days followed by 10 mg daily for 7 days then 10 mg every other day for 7 doses will work well for her we will see how she does with the taper from Solu- Medrol. 12/10/2016. Echocardiogram. Left ventricular size is normal with ejection fraction of 70%. There is moderate concentric left ventricular hypertrophy with grade 1 diastolic dysfunction. The aortic valve is moderately thickened. Mitral valve is mildly thickened. At worst there is mild mitral valve stenosis with mild mitral regurgitation. There is mild to moderate tricuspid regurgitation and moderately elevated right sided heart pressures. Pulmonary artery pressures are suggested to be about 54 mmHg. 12/13/2016. From a pulmonary standpoint this patient is doing very well. She says her breathing is back to her usual. Chest is clear and she is moving air well. Chest pain has resolved. Reviewed cardiology note. "Chronic troponin elevation". White count is dropped to 12,600 with 86 segs. H&H is 11.5/34.5. Electrolytes are normal. Creatinine is 1.0 with a BUN of 28. Troponins are now 0.084. 12/14/2016. Last night at about 6 PM I met the patient in the [facility] on the first floor near the parking lot. She had been out for a walk. She denies shortness of breath. She was not wheezing at that time and she is not wheezing this morning. She does have some mild loose large airway congestion which clears with cough. She has a little more sputum that needs to be mobilized. I suspect when she is discharged the prednisone schedule my note of 12/12/2016 will work fine for this patient. Note that her troponins are 0.084. Electrolytes are normal. Creatinine is 0.9 BUNs 28. H&H is 12.6/38.6 with a white count of 12,400 with 74 segs, 14 lymphs and 9 monos. Oral candidiasis. On nystatin. Add Diflucan 200 daily for 7 days Physical exam. Vital signs. See below General. No distress. Breathing comfortably. Psychiatric. Oriented 3. Cooperative. Face. Symmetrical. No edema of the lips or tongue. Neck. Symmetrical. No mass. No meningismus. Lymphatics. No submandibular cervical supraclavicular or epitrochlear adenopathy. Chest. Mildly hyperinflated and moderately kyphotic with large airway congestion that clears with a cough. Expiration is mildly prolonged. No wheezing. No chest wall tenderness. Heart. No gallop Abdomen. Nontender. Positive bowel sounds Extremities. No edema and no evidence of deep venous thrombophlebitis Skin. No cancerous infectious lesions of the face or hands. No other areas of skin were examined. The remainder of the physical exam is negative Plan. 12/12/2016. 1. Taper steroids. 2. Continue antibiotics a little longer. 3. See today's note above 12/13/2016. 1. See today's note. Above 2. See note 12/12/2016 concerning suggested steroid taper 12/14/2016. 1. See today's note, above. 2. Wheeze free with minor residual large airway congestion. 3. Patient should be ready for discharge soon from a pulmonary standpoint. 4. Patient will see Paul Connor nurse practitioner in my office in approximately 2 weeks 5. Oral candidiasis. On nystatin. Diflucan 200 daily for 7 days. 6. When the patient goes home the prednisone dose outlined in my note 2016 will probably work fine. Exam (Progress Note) - Constitutional Vitals: Period Temp Pulse Resp BP Sys/Gibson Pulse Ox Last 24 Hr 96.8 F-98.2 F 60-86 16-20 137-183/69-85 96-100 Results - Labs CBC & BMP: 12/14/16 04:30 12/14/16 04:30 Specialty Discharge - Follow Up or Referrals Follow up with: Mynor Munson MD [Physician] - (In about 2-4 weeks after discharge.)
[2016-12-14] MEDS: BACITRACIN OINT 28.35 GM TUBE TOP SCH (11:22)
[2016-12-14 12:09] VITALS: BP 140/65
--- NOTE | 2016-12-14 13:55 | Cardiology Progress Note ---
I, Yani Gonzalez NP, am scribing for, and in the presence of, Dunia Carr NP 13:55. <Dunia Carr - Last Filed: 12/14/16 13:55> Assessment and Plan (1) Congestive heart failure Status: Chronic Assessment and plan: SEE PLAN LISTED BELOW (2) Acute exacerbation of chronic obstructive airways disease Status: Chronic Assessment and plan: SEE PLAN LISTED BELOW (3) Elevated troponin Status: Resolved Assessment and plan: SEE PLAN LISTED BELOW (4) CAD (coronary artery disease) Status: Chronic Assessment and plan: SEE PLAN LISTED BELOW (5) Dyslipidemia Status: Chronic Assessment and plan: SEE PLAN LISTED BELOW (6) Tobacco abuse Status: Chronic Assessment and plan: SEE PLAN LISTED BELOW Cardiology - PN: Subj 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 Munson Ms. Trejo is a 71 year old female who is been seen by Dr. Munson and previously has had stent placement. The patient had circumflex artery stent placed July 2015 and in the remote past had apparently RCA stent placed. Last catheterization carried out December 2015 revealed widely patent stents in coronaries. Patient at that time was having chest pain. The patient has had recurrent episodes of COPD and shortness of breath. She continues to smoke unfortunately. The patient was seen in the ER and reported several days of progressive shortness of breath and wheezing. Along with that she has had some chest discomfort worse in the deep breath or cough. The chest discomfort similar to what she has had before even when she has had unremarkable cardiac catheterizations. She is having no pain now that she has been treated for COPD. Chest x-ray reveals COPD and chronic scarring. I see rhythm strips on the chart but I do not see an ECG. At present the patient is stable without symptomatology. HER troponin is slightly increased and is some level of what she has had previously. I reviewed the patient's old chart material catheterization reports. DECEMBER 11, 2016: The patient is seen upon return from surgery for an excision of an ulcer in the left breast in the 6 o'clock position with closure over [place] drain. The patient is somewhat sedated, however easily arousable and oriented. She is lying in the bed and appears comfortable. He denies shortness of breath or chest pain. Oxygen is being administered at 2 L nasal cannula. Blood pressure remains controlled. Telemetry reveals sinus rhythm, heart rate in the 60s. Labs reviewed today, WBCs are trending downward, and creatinine stable at 1.0. Troponin is mildly elevated, but she has had this previously with COPD exacerbation. Echocardiogram done today. IMPRESSIONS 1. Left ventricle is normal size with hyperdynamic contractility and ejection fraction 70%. No segmental wall motion normality is noted. There is moderate concentric left ventricular hypertrophy with grade 1 diastolic dysfunction. 2. Other cardiac chambers are normal size. 3. Aortic valve the tricuspid structure is moderately thickened and sclerotic but with good excursion without significant stenosis or regurgitation demonstrated. 4. Mitral valve is mildly thickened and it worse mild stenosis with mild regurgitation. There is mitral annular calcification present. 5. Mild to moderate tricuspid valve regurgitation. 6. Moderately elevated right-sided pressures. DECEMBER 12, 2016: Patient is doing well. She denies chest pain. She reports that her dyspnea is consistent with her usual state of health. She is not complaining of significant pain to the breast post ulcer excision on 12/11/2016. She continues on oxygen per nasal cannula. Blood pressures reviewed and remain stable. Telemetry reveals sinus rhythm rate in the 60s. Cardiac biomarkers remained flat, mild troponin elevations are consistent for her COPD exacerbation. Creatinine slightly elevated at 1.2. Lipid panel revealed triglycerides 104, cholesterol 163, LDL 97, HDL 34. Patient states she did take Lipitor in the past but stopped it due to not tolerating the medication. DECEMBER 13, 2016: The patient is sitting in bed today without complaints of chest pain or dyspnea. She continues on oxygen per nasal cannula. Labs reviewed today revealed WBCs trending downward, creatinine 1.0, troponin today 0.084. Have reintroduced a low-dose statin for dyslipidemia. Telemetry reveals sinus rhythm, heart rate in the 70s, but her blood pressure has been somewhat elevated today. DECEMBER 14, 2016: Patient is doing well and requests discharge. She is certainly ready from a cardiology perspective. She is free of wheezing and dyspnea at present. Discuss benefit smoking cessation with the patient, recommend the patient stop smoking, and she agrees to consider this. She has had no further complaints of chest pain. Labs reviewed today: WBC 12.4, H&H 12.6 and 38.6, electrolytes within normal limits, creatinine 0.9, troponin 0 0.084. Monitor reveals sinus rhythm, rate remains in the 60s. Her blood pressure was 183/85 prior to morning medications. Could consider medication adjustment in clinic follow-up as needed. She will follow-up in clinic with Dr. Munson in 2-4 weeks. Cardiac discharge medications are as follows: Aspirin 81 mg daily Plavix 75 mg daily Diltiazem CD 180 mg p.o. twice daily Isosorbide mononitrate 90 mg p.o. every morning Metoprolol 25 mg p.o. twice daily Nitroglycerin tabs 0.4mg SL q 5 minutes as needed chest pain Crestor 5 mg p.o. daily ASSESSMENT/PLAN: 1. CHEST PAIN -resolved with treatment of COPD. 2. ACUTE COPD EXACERBATION -improved without wheezing or respiratory distress. 3. ELEVATED TROPONIN -were minimally elevated with COPD exacerbation, 0.084 today. 4. CAD -prior stent placement in the RCA and circumflex artery. Continue medications and current plan of care. 5. DYSLIPIDEMIA -patient states she previously took Lipitor and stop due to leg pain. Lipid panel reviewed, restart low dose statin. 6. TOBACCO ABUSE -continues to smoke 1 pack per day. The merits of tobacco cessation have been discussed with the patient and she will consider. 7. PAROXYSMAL A-FIB -no episodes noted on telemetry. We will continue medication and monitoring. 8. SKIN LESION OF BREAST -improved after excision of ulcer performed with closure and drain placement. Biopsy negative per pathology. 9. AORTIC VALVE STENOSIS -minimal evaluated by echocardiogram. Exam (Progress Note) - Constitutional Vitals: Period Temp Pulse Resp BP Sys/Gibson Pulse Ox Last 24 Hr 96.8 F-98.2 F 60-86 16-20 137-183/69-85 96-100 Exam: General: [Appears well with no apparent distress.] [Pleasant and cooperative. ] [Appears comfortable.] HEENT: [PERRL, normocephalic, atraumatic]. [Mucous membranes moist.] [No jaundice noted.] [Conjunctiva moist and clear, sclerae anicteric.] Neck: [No JVD/HJR, no thyromegaly or lymphadenopathy noted.] [ No carotid bruit appreciated.] Cardiac: [Regular rate and rhythm.] [No murmur rub or gallop.] [PMI is nondisplaced.] Lungs: [Essentially clear to auscultation without accessory muscle use to assist the respiratory pattern, mild rhonchi bilateral bases.] [No oxygen required] Abdomen: [Soft, bowel sounds normoactive.] [Nontender and nondistended.] [No abdominal bruit or thrill noted.] [No masses noted.] Musculoskeletal: [No fluid collection.] [Decreased range of motion is noted.] Extremities: [No clubbing, cyanosis noted.] [ No edema noted.] [Upper extremity pulses 2+.] [Lower extremity pulses 2+.] [Capillary refill less than 3 seconds.] Skin: [No unusual lesions or rashes.] [No skin breakdown appreciated.] Dressing intact to left breast. Neuro: [Awake, alert and oriented 3.] [Moves all extremities well without hemiparesis or paralysis.] [No essential tremor is appreciated.] Result/EKG - Labs CBC & BMP: 12/14/16 04:30 12/14/16 04:30 Lab Results: I have reviewed the past 24 hour labs Labs: Laboratory Results - last 24 hr 12/14/16 12/14/16 12/14/16 04:27 04:30 04:30 WBC 12.4 H RBC 3.91 Hgb 12.6 Hct 38.6 MCV 98.7 MCH 32 MCHC 32.6 RDW 12.1 Plt Count 226 MPV 10.6 Neut % (Auto) 74.3 H Lymph % (Auto) 14.[address] [place] % (Auto) 9.3 Eos % (Auto) 0.0 Baso % (Auto) 0.1 Neut # (Auto) 9.2 H Lymph # (Auto) 1.8 [place] # (Auto) 1.2 H Eos # (Auto) 0.0 Baso # (Auto) 0.0 Immature Gran % 2.0 Nucleated RBC % 0.0 Immature Gran # 0.25 Nucleated RBCs # 0.00 Immature Plt Fraction 0.0 Sodium 142 Potassium 5.0 Chloride 103 Carbon Dioxide 35 H Anion Gap 9.0 BUN 28 H Creatinine 0.90 GFR Calculation 62 BUN/Creatinine Ratio 31.00 H Glucose 85 Calculated Osmolality 287.1 Calcium 9.2 Total Bilirubin 0.40 AST 26 ALT 45 Alkaline Phosphatase 76 Troponin I 0.084 H Total Protein 5.8 L Albumin 3.2 L Globulin 2.6 Albumin/Globulin Ratio 1.2 - EKG EKG results: interpreted by me, sinus rhythm Quality Measures - VTE Contraindication to Pharmacological VTE Prophylaxis: High Risk of Bleeding Specialty Discharge - Follow Up or Referrals Follow up with: Kailey Sawyer CNP, RN, SERVICES HOST [Advanced Practice Nurse] - 12/27/16 2:00 pm (Bring Insurance, all meds, and photo ID) Mynor Munson MD [Physician] - 01/08/17 9:50 am (In about 2-4 weeks after discharge.) Roberto Yates MD [Physician] - <FerchoCarlitos - Last Filed: 12/15/16 00:14> Assessment and Plan (1) Congestive heart failure Status: Chronic Assessment and plan: shortness breath was probably COPD with exacerbation His troponins were flat, so I doubt that she is had ACS The patient and Dr. Munson can decide if the patient needs a treadmill or heart catheter later Would like for her chest improved prior to doing any invasive evaluation and possible I reminded her about trying to continue to taper and discontinue cigarettes. She'll follow with Dr. Munson in 4-6 weeks. (2) Acute exacerbation of chronic obstructive airways disease Status: Chronic (3) Elevated troponin Status: Resolved (4) CAD (coronary artery disease) Status: Chronic (5) Dyslipidemia Status: Chronic (6) Tobacco abuse Status: Chronic Exam (Progress Note) - Constitutional Vitals: Period Temp Pulse Resp BP Sys/Gibson Pulse Ox Last 24 Hr 96.8 F-97.8 F 64-86 16-20 140-183/65-85 96-100 Result/EKG - Labs CBC & BMP: 12/14/16 04:30 12/14/16 04:30 Labs: Laboratory Results - last 24 hr 12/14/16 12/14/16 12/14/16 04:27 04:30 04:30 WBC 12.4 H RBC 3.91 Hgb 12.6 Hct 38.6 MCV 98.7 MCH 32 MCHC 32.6 RDW 12.1 Plt Count 226 MPV 10.6 Neut % (Auto) 74.3 H Lymph % (Auto) 14.[address] [place] % (Auto) 9.3 Eos % (Auto) 0.0 Baso % (Auto) 0.1 Neut # (Auto) 9.2 H Lymph # (Auto) 1.8 [place] # (Auto) 1.2 H Eos # (Auto) 0.0 Baso # (Auto) 0.0 Immature Gran % 2.0 Nucleated RBC % 0.0 Immature Gran # 0.25 Nucleated RBCs # 0.00 Immature Plt Fraction 0.0 Sodium 142 Potassium 5.0 Chloride 103 Carbon Dioxide 35 H Anion Gap 9.0 BUN 28 H Creatinine 0.90 GFR Calculation 62 BUN/Creatinine Ratio 31.00 H Glucose 85 Calculated Osmolality 287.1 Calcium 9.2 Total Bilirubin 0.40 AST 26 ALT 45 Alkaline Phosphatase 76 Troponin I 0.084 H Total Protein 5.8 L Albumin 3.2 L Globulin 2.6 Albumin/Globulin Ratio 1.2 Lilly High Bonnie E, NP, personally performed the services described in this documentation, ascribed by Yani Gonzalez NP in my presence, and it is both accurate and complete 355 .
== END 2016-12-14 13:45 | disposition home health service (06) | DRG 987 ==
LOC: EDBD → EDUNIT# → N.ED 09:48 → SUATTDRO 12:50 → N.EDINP 12:50 → N.TELEN 13:49
PROVIDERS: ATTEND Internal Medicine

== ENCOUNTER 2017-01-29 17:02 | Observation (INO) ==
[2017-01-29] MEDS ORDERED: ENOXAPARIN 100 MG/ML SYRINGE SUBCUT STA (17:36)
[2017-01-29] MEDS ORDERED: NITROGLYCERIN SL 0.4 MG TABLET SL PRN ×2 (17:36→21:25)
[2017-01-29] MEDS ORDERED: ASPIRIN 325 MG TABLET PO STA (17:36)
[2017-01-29 17:50] LABS: Basophils % 0.3 % (0.0-0.8); Eosinophils % 0.1 % (0.00-10.9); Hematocrit 42.5 VOL% (35.7-47.0); Hemoglobin 14.9 GM/DL (12.0-16.0); Immature Granulocytes % 0.5 %; Immature Granulocytes Absolute 0.06 #; Lymphocytes # 1.3 10*3/uL (1.4-4.0); Mean Corpuscular HGB Conc 35.1 GM/DL (32-36); Mean Corpuscular Hemoglobin 33 PG (27-34); Mean Corpuscular Volume 94.4 FL (87-102); Mean Platelet Volume 10.1 FL (9.6-12.0); Monocytes # 0.6 10*3/uL (0.11-0.8); Monocytes % 4.4 % (1.7-12.7); Neutrophils # 10.7 10*3/uL (1.4-7.4); Neutrophils % 84.7 % (38.7-73.9); Platelet Count 273 T/CUMM (130-400); Red Cell Distribution Width 13.9 % (9.3-17.3); White Blood Count 12.6 T/CUMM (4-12)
--- NOTE | 2017-01-29 17:54 | Emergency Department Note ---
Nanda High Gwan, am scribing for, and in the presence of, Alejandro Mcdaniels MD 17:49. Enedelia High Phillip K, MD, personally performed the services described in this documentation, ascribed by Raymond Vee in my presence, and it is both accurate and complete 754 . Arrival - Arrival ED Nursing Triage Note: pt c/o pain in chest onset about 3 days ago. pain goes away with nitro. denies pain now Mode of Arrival: Stretcher Limitations: No Limitations Source: Patient, Family, Old Records Reviewed, RN Notes Reviewed - History of Present Illness Onset (ago): day(s) Consistency: constant Severity: moderate Quality: aching <Alejandro Mcdaniels - Last Filed: 01/29/17 17:54> <Basim Horn - Last Filed: 01/29/17 20:21> - Arrival Chief Complaint: Chest Pain Time Seen by Provider: 01/29/17 17:24 - History of Present Illness HPI Narrative: Patient is a 72 y/o female, with a hx of COPD and diverticulitis, who presents to the ED with a c/o chest pain that worsens with exertion, SOB ad non productive cough with an onset 3 days ago. Pt has a PMHx of PA, CAD, Mitral Valve Prolapse, CVA and Hepatitis. Patient describes her pain as an ache and stated that her chest pain radiates to her left shoulder. Family confirmed that pt has chronic SOB chronic left shoulder pain that have worsened with onset of sxs. Family continued to state that pt administered x3 NTG last night due to chest pain with some relief and that EMS administered x1 today en route also with relief. Patient confirmed that she takes low dose ASA daily, her last BM was yesterday and that she has hx of stent placement performed by Dr. Munson 2015. Patient has a SHx of smoking cigarettes daily and a FMHx of heart dx. Durng exam, pt did not display any signs of distress. She did state that while in ED, she has pain in left shoulder. No other problems/complaints reported in ED. (Raymond Vee) Patient is a 72 y/o female, with a hx of COPD and diverticulitis, who presents to the ED with a c/o chest pain that worsens with exertion, SOB ad non productive cough with an onset 3 days ago. Pt has a PMHx of PA, CAD, Mitral Valve Prolapse, CVA and Hepatitis. Patient describes her pain as an ache and stated that her chest pain radiates to her left shoulder. Family confirmed that pt has chronic SOB chronic left shoulder pain that have worsened with onset of sxs. Family continued to state that pt administered x3 NTG last night due to chest pain with some relief and that EMS administered x1 today en route also with relief. Patient confirmed that she takes low dose ASA daily, her last BM was yesterday and that she has hx of stent placement performed by Dr. Munson 2015. Patient has a SHx of smoking cigarettes daily and a FMHx of heart dx. Durng exam, pt did not display any signs of distress. She did state that while in ED, she has pain in left shoulder. No other problems/complaints reported in ED. (Alejandro Mcdaniels) Allergies/Adverse Reactions: Allergies Allergy/AdvReac Type Severity Reaction Status Date / Time adhesive Allergy BLISTER Verified 05/23/16 20:31 codeine Allergy HIVES Verified 05/23/16 20:31 diazepam [From Valium] Allergy HIVES Verified 05/23/16 20:31 latex Allergy HIVES Verified 05/23/16 20:31 morphine Allergy Vomiting Verified 05/23/16 20:31 Sulfa (Sulfonamide Allergy Unknown/Unable Verified 05/23/16 20:31 Antibiotics) to obtain TAPE AdvReac Redness of Uncoded 05/23/16 20:31 Skin Home Medications: Home Medications Medication Instructions Recorded Confirmed Type Aspirin [Ecotrin] 81 mg PO QAM 01/13/15 01/29/17 History Nitroglycerin Sl Tab [Nitrostat] 0.4 mg SL Q5M PRN 01/13/15 01/29/17 History Godfrey-3 Fatty Acids [Fish Oil 1,000 mg PO QAM 01/13/15 01/29/17 History Concentrate] Montelukast Tab [Singulair Tab] 10 mg PO QAM 05/15/16 01/29/17 History Omeprazole [Prilosec] 20 mg PO QAM 05/15/16 01/29/17 History Sertraline [Zoloft] 100 mg PO QAM 05/26/16 01/29/17 History Cholecalciferol (Vitamin D3) 10,000 unit PO QAM 08/19/16 01/29/17 History [Vitamin D3] Metoprolol Succinate 25 mg PO BID 08/19/16 01/29/17 History dilTIAZem HCl [Cartia XT] 180 mg PO BID 08/19/16 01/29/17 History Albuterol Inhaler [Proventil 2 puff INH Q6H PRN 09/22/16 01/29/17 History Inhaler] Clopidogrel [Plavix] 75 mg PO QAM 12/09/16 01/29/17 History Isosorbide Mononitrate [Isosorbide 60 mg PO QAM 12/09/16 01/29/17 History Mononitrate ER] Albuterol/Ipratropium Neb [Duoneb] 3 ml RESP TX RT Q6H 12/14/16 01/29/17 Rx Bacitracin Oint 1 applic TOP DAILY applic 12/14/16 01/29/17 Rx Rosuvastatin [Crestor] 5 mg PO BEDTIME tablet 12/14/16 01/29/17 Rx predniSONE TAB [PredniSONE] 20 mg PO DAILY tablet 12/14/16 01/29/17 Rx Review of System - Review of System 12 point system: reviewed and no additional remarkable complaints except as stated - Review of System Respiratory: Present: as per HPI, cough, other (shortness of breathe ) Cardiovascular: Present: as per HPI, chest pain Musculoskeletal: Present: as per HPI, other (left shoulder pain ). Absent: arm pain, back pain, leg pain, neck pain <Alejandro Mcdaniels - Last Filed: 01/29/17 17:54> Medical,Surgical,& Family Hx - Medical History Cardio: History of: Cerebrovascular Disease, CAD, Hypertension, PA (stents x 2) , Valvular Heart Disease (mitral valve prolapse), Cardiovascular Problems No history of: Aneurysm, Cardiac Dysrhythmia, Congenital Heart Disease, CHF, Pacemaker, PVD Psychological: History of: Anxiety Disorders, Depression Neurology: History of: Cerebrovascular Accident No history of: Brain Aneurysm, Cerebral Hemorrhage, Cerebral Palsy, Dementia , Migraine, Multiple Sclerosis, Parkinson's Disease, Peripheral Neuropathy, Seizures, TIA, Vertigo, Neurologocal Cancer HEENT: History of: Eye Problem (detached retina, catarct) Endocrine: History of: Dyslipidemia Respiratory: History of: COPD, Respiratory Problems No history of: Asthma, Bronchitis, Intubation, Obstructive Sleep Apnea, Pulmonary Embolism, Pulmonary Hypertension, Pneumonia, Lung Cancer Renal: No history of: Renal Problems Genitourinary: No history of: Bladder Problem, Kidney Stones Gastrointestinal: History of: Diverticulitis/ Diverticulosis, GERD, Gastrointestinal Bleed, Hepatitis, Polyps, GI Problems (nutcracker esophagus) No history of: Bowel Obstruction, Clostridium Difficile, Crohn's Disease, Esophageal Varices, Hemorrhoids, Hematochezia, Liver Problems, Pancreatitis, Ulcerative Colitis, Gastrointestinal Cancer Musculoskeletal: History of: Degenerative Disk Disease No history of: Musculoskeletal Problems Hematology: No history of: Blood Transfusion Reaction Reproductive: No history of: Reproductive Problems Other: No history of: Anesthesia Reactions - Surgical History Cardiac Surgeries: Sugical HX of: Cardiac Catheterization Patient Denies: Femoral-Popliteal Bypass Graft, Cardiac Surgery, Carotid Endarterectomy, Internal Defibrillator, Vascular Access Devices Thoracic Surgeries: Patient denies;: Organ Transplant, Lobectomy Neurologic Surgeries: Patient denies: Brain Aneurysm, Cerebral Hemorrhage, Neurologic Surgery HEENT Surgeries: Surgical HX of: Eye Surgery, Tonsilectomy & Adenoidectomy Patient denies: Carotid Endarterectomy, Thyroid Surgery Abdominal Surgeries: Surgical HX of: Cholecystectomy Patient denies: Abdominal Surgery, Appendectomy, Colonoscopy, Gastric Bypass Surgery, EGD, Hernia Repair, Splenectomy Reproductive Surgeries: Surgical HX of;: Tubal Ligation Patient denies;: Breast Surgery, Section, Dilation and Curettage, Gynecologic Surgery, Hysterectomy Orthopedic Surgeries: Surgical HX of;: Orthopedic Surgery (foot) - Family History Family History: Reports;: Family Cancer (brother, daughter), Family Hypertension (father) Denies;: Family Diabetes, Family Heart Disease, Family Stroke - Social History Smoking Status: Current every day smoker Frequency of Alcohol Use: None Type of Drug Use: None <Alejandro Mcdaniels - Last Filed: 01/29/17 17:54> Exam - General General appearance: alert, in no apparent distress - Head Head exam: Present: atraumatic, normocephalic - Eye Eye exam: Present: normal appearance, PERRL, EOMI - ENT ENT exam: Present: normal oropharynx, mucous membranes moist, TM's normal bilaterally, normal external ear exam - Neck Neck exam: Present: full ROM, trachea midline. Absent: tenderness - Chest Chest inspection: Present: symmetric chest wall rise. Absent: tenderness - Respiratory Respiratory exam: Present: wheezes (Patient has expiratory wheezes in all lung cantrell. ) - Cardiovascular Cardiovascular exam: Present: regular rate, normal rhythm, normal heart sounds. Absent: murmur - Abdominal Exam Abdominal exam: Present: soft, normal bowel sounds. Absent: distention, tenderness - Extremities Exam Extremities exam: Present: full ROM. Absent: tenderness - Back Exam Back exam: Present: full ROM. Absent: tenderness - Neurological Exam Neurological exam: Present: alert, oriented X3, CN II-XII intact. Absent: motor sensory deficit - Psychiatric Psychiatric exam: Present: normal affect, normal mood - Skin Skin exam: Present: warm, dry, intact, normal color <Alejandro Mcdaniels - Last Filed: 01/29/17 17:54> Vital Signs: Vital Signs Temperature 97.4 F L 01/29/17 17:07 Pulse Rate 78 01/29/17 17:07 Respiratory Rate 20 01/29/17 17:07 Blood Pressure 111/66 01/29/17 17:07 O2 Sat by Pulse Oximetry 91 L 01/29/17 17:07 Course <Alejandro Mcdaniels - Last Filed: 01/29/17 17:54> - Consultations Time: 20:20 <Basim Horn - Last Filed: 01/29/17 20:21> - Consultations Consultation #1: Hospitalist will admit patient (Basim Horn) Results - Labs CBC & BMP: 01/29/17 17:23 01/29/17 17:23 <Basim Horn - Last Filed: 01/29/17 20:21> Disposition <Alejandro Mcdaniels - Last Filed: 01/29/17 17:54> Case discussed with: patient, patient's family Time of Disposition: 20:21 <Basmi Horn - Last Filed: 01/29/17 20:21> Clinical Impression: CAD (coronary artery disease), Chest pain, Elevated troponin, Congestive heart failure Disposition: Still a Patient Condition: Stable
[2017-01-29] MEDS ORDERED: ENOXAPARIN 60 MG/0.6 ML SYRINGE ONE (17:58)
[2017-01-29 18:23] LABS: Albumin 3.9 G/DL (3.4-5.0); Bilirubin,Total 0.4 MG/DL (0.2-1.0); Calcium 9.3 MG/DL (8.5-10.1); Magnesium 2.1 MG/DL (1.8-2.4); Osmolality,Calculated 283.4 MOS/KG (273-304); Potassium 4.1 MMOL/L (3.5-5.1); Total Protein 6.4 G/DL (6.4-8.3)
--- NOTE | 2017-01-29 18:47 | XRay Report ---
Portable chest Exam date: 01/29/2017 5:47 PM Indication: Chest pain Comparison: December 10, 2016 Findings: Cardiomediastinal contours are stable. Stable fibrosis and/or atelectasis the right lung base. No acute osseous abnormalities. Visualized upper abdomen demonstrates no acute pathology. Impression: No acute cardiopulmonary findings PROCEDURE INTERPRETED AT [facility] DEPARTMENT OF RADIOLOGY Final Report Signed by: Sasha Garcia MD
--- NOTE | 2017-01-29 20:25 | Hospitalist History & Physical ---
Assessment and Plan - Time spent with patient Time spent discussing smoking cessation with patient: 3 to 10 minutes (4 minutes ) (1) Elevated troponin Status: Resolved Assessment and plan: The patient is admitted to the hospital with chest discomfort consistent with angina and with mildly elevated troponin which is within her usual variation. We will monitor cardiac rhythm, treat pain, obtain cardiology and pulmonology consultations. Will recheck EKG and obtain electrolytes in the morning. Current Visit: No (2) Acute exacerbation of chronic obstructive airways disease Status: Chronic Current Visit: No (3) COPD (chronic obstructive pulmonary disease) Status: Chronic Current Visit: No Qualifiers: COPD type: chronic bronchitis Chronic bronchitis type: simple Qualified Code(s): J41.0 - Simple chronic bronchitis (4) Tobacco abuse Status: Chronic Current Visit: No History of Present Illness Chief complaint: Chest pressure central and left chest History of present illness: Ms. Trejo is a 72 year old female with history of coronary artery disease and COPD with tobacco abuse. The patient's left ventricular ejection fraction is 70% according to recent echocardiogram. The patient states that she began having intermittent substernal chest pressure about 3 days ago. The patient occurred both at rest and with exertion. It was not influenced by cigarette smoking. It had a squeezing quality which worsened when she ate. 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 The patient states the pain went from mild to moderate today and she was therefore coming to the emergency room. The patient denies dysuria, fever. The patient has had increased sputum production in the last week. The patient's shortness of breath has not changed appreciably. Home Medications Medication Instructions Recorded Confirmed Type Aspirin [Ecotrin] 81 mg PO QAM 01/13/15 01/29/17 History Nitroglycerin Sl Tab [Nitrostat] 0.4 mg SL Q5M PRN 01/13/15 01/29/17 History [place]-3 Fatty Acids [Fish Oil 1,000 mg PO QAM 01/13/15 01/29/17 History Concentrate] Montelukast Tab [Singulair Tab] 10 mg PO QAM 05/15/16 01/29/17 History Omeprazole [Prilosec] 20 mg PO QAM 05/15/16 01/29/17 History Sertraline [Zoloft] 100 mg PO QAM 05/26/16 01/29/17 History Cholecalciferol (Vitamin D3) 10,000 unit PO QAM 08/19/16 01/29/17 History [Vitamin D3] Metoprolol Succinate 25 mg PO BID 08/19/16 01/29/17 History dilTIAZem HCl [Cartia XT] 180 mg PO BID 08/19/16 01/29/17 History Albuterol Inhaler [Proventil 2 puff INH Q6H PRN 09/22/16 01/29/17 History Inhaler] Clopidogrel [Plavix] 75 mg PO QAM 12/09/16 01/29/17 History Isosorbide Mononitrate [Isosorbide 60 mg PO QAM 12/09/16 01/29/17 History Mononitrate ER] Albuterol/Ipratropium Neb [Duoneb] 3 ml RESP TX RT Q6H 12/14/16 01/29/17 Rx Bacitracin Oint 1 applic TOP DAILY applic 12/14/16 01/29/17 Rx Rosuvastatin [Crestor] 5 mg PO BEDTIME tablet 12/14/16 01/29/17 Rx predniSONE TAB [PredniSONE] 20 mg PO DAILY tablet 12/14/16 01/29/17 Rx Allergies Allergy/AdvReac Type Severity Reaction Status Date / Time adhesive Allergy BLISTER Verified 05/23/16 20:31 codeine Allergy HIVES Verified 05/23/16 20:31 diazepam [From Valium] Allergy HIVES Verified 05/23/16 20:31 latex Allergy HIVES Verified 05/23/16 20:31 morphine Allergy Vomiting Verified 05/23/16 20:31 Sulfa (Sulfonamide Allergy Unknown/Unable Verified 05/23/16 20:31 Antibiotics) to obtain TAPE AdvReac Redness of Uncoded 05/23/16 20:31 Skin Medical,Surgical,& Family Hx - Medical History Cardio: History of: Cerebrovascular Disease, CAD, Hypertension, CA (stents x 2) , Valvular Heart Disease (mitral valve prolapse), Cardiovascular Problems No history of: Aneurysm, Cardiac Dysrhythmia, Congenital Heart Disease, CHF, Pacemaker, PVD Psychological: History of: Anxiety Disorders, Depression Neurology: History of: Cerebrovascular Accident No history of: Brain Aneurysm, Cerebral Hemorrhage, Cerebral Palsy, Dementia , Migraine, Multiple Sclerosis, Parkinson's Disease, Peripheral Neuropathy, Seizures, TIA, Vertigo, Neurologocal Cancer HEENT: History of: Eye Problem (detached retina, catarct) Endocrine: History of: Dyslipidemia Respiratory: History of: COPD, Respiratory Problems No history of: Asthma, Bronchitis, Intubation, Obstructive Sleep Apnea, Pulmonary Embolism, Pulmonary Hypertension, Pneumonia, Lung Cancer Renal: No history of: Renal Problems Genitourinary: No history of: Bladder Problem, Kidney Stones Gastrointestinal: History of: Diverticulitis/ Diverticulosis, GERD, Gastrointestinal Bleed, Hepatitis, Polyps, GI Problems (nutcracker esophagus) No history of: Bowel Obstruction, Clostridium Difficile, Crohn's Disease, Esophageal Varices, Hemorrhoids, Hematochezia, Liver Problems, Pancreatitis, Ulcerative Colitis, Gastrointestinal Cancer Musculoskeletal: History of: Degenerative Disk Disease No history of: Musculoskeletal Problems Hematology: No history of: Blood Transfusion Reaction Reproductive: No history of: Reproductive Problems Other: No history of: Anesthesia Reactions - Surgical History Cardiac Surgeries: Sugical HX of: Cardiac Catheterization Patient Denies: Femoral-Popliteal Bypass Graft, Cardiac Surgery, Carotid Endarterectomy, Internal Defibrillator, Vascular Access Devices Thoracic Surgeries: Patient denies;: Organ Transplant, Lobectomy Neurologic Surgeries: Patient denies: Brain Aneurysm, Cerebral Hemorrhage, Neurologic Surgery HEENT Surgeries: Surgical HX of: Eye Surgery, Tonsilectomy & Adenoidectomy Patient denies: Carotid Endarterectomy, Thyroid Surgery Abdominal Surgeries: Surgical HX of: Cholecystectomy Patient denies: Abdominal Surgery, Appendectomy, Colonoscopy, Gastric Bypass Surgery, EGD, Hernia Repair, Splenectomy Reproductive Surgeries: Surgical HX of;: Tubal Ligation Patient denies;: Breast Surgery, Section, Dilation and Curettage, Gynecologic Surgery, Hysterectomy Orthopedic Surgeries: Surgical HX of;: Orthopedic Surgery (foot) - Family History Family History: Reports;: Family Cancer (brother, daughter), Family Hypertension (father) Denies;: Family Diabetes, Family Heart Disease, Family Stroke - Social History Smoking Status: Current every day smoker Have you smoked in the last 12 months: Yes Time spent discussing smoking cessation with patient: 3 to 10 minutes (4 minutes ) Frequency of Alcohol Use: None Type of Drug Use: None Marital Status: Lives With:: Children Functional capacity: independent ambulation 12 point system: reviewed and no additional remarkable complaints except as stated Exam - Constitutional Vitals: Period Temp Pulse Resp BP Sys/Gibson Pulse Ox Last 24 Hr 97.4 F-97.4 F 78-78 20-20 111-111/66-66 91 Exam: Constitutional System: Mild distress. No tremulousness. The patient appears to have mild diaphoresis Head: Normocephalic, atraumatic. Ears, Nose and Throat System: No evidence of Otitis or Mastoiditis. No epistaxis or discharge Eyes System: Pupils equal, round, and reactive. Extraocular muscles intact. Neck: Supple, without adenopathy, No jugular venous distention. No thyromegaly , neck mass, or prior surgery apparent. Respiratory System: Chest clear to auscultation. Cardiovascular System: Heart with regular rate and rhythm. No murmur. Occasional ectopy GI System: Abdomen soft, nontender. Normo active bowel sounds present. Musculoskeletal System: limbs with no pedal edema. Full distal pulses. Neurological System: No discernable sensory deficit. No aphasia Psychiatric System: Conversation is rational Capillary Refill: less than 2 sec Results - Labs CBC & BMP: 01/29/17 17:23 01/29/17 17:23 Lab Results: I have reviewed the past 24 hour labs
[2017-01-29] MEDS ORDERED: NICOTINE 21 MG/24 HR PATCH TRANSDERM PRN (21:25)
[2017-01-29] MEDS ORDERED: ONDANSETRON 4 MG/2 ML VIAL IV PRN (21:25)
[2017-01-29] MEDS ORDERED: ACETAMINOPHEN 325 MG TABLET PO PRN (21:25)
[2017-01-29] MEDS ORDERED: HYDROmorphone 2 MG/1 ML VIAL IV PRN (21:25)
[2017-01-29] MEDS ORDERED: ALBUTEROL 2.5 MG/3 ML NEB RESP TX PRN (21:25)
[2017-01-29] MEDS ORDERED: ZALEPLON 5 MG CAPSULE PO PRN (21:25)
[2017-01-29] MEDS: ROSUVASTATIN 10 MG TABLET PO SCH (22:32)
[2017-01-29] MEDS: DILTIAZEM CD 180 MG CAPSULE PO SCH (22:32)
[2017-01-29] MEDS: SODIUM CHLORIDE 0.9% 1,000 ML IV SCH (22:32)
[2017-01-29] MEDS: METOPROLOL SUCCINATE XL 25 MG TABLET PO SCH (22:32)
[2017-01-29] MEDS: LEVOFLOXACIN INJ 500 MG in PREMIX 1 EACH IV SCH (22:39)
--- NOTE | 2017-01-29 23:00 | DUMMY REPORT TO COMPLETE ORDER ---
See report scanned to EMR
[2017-01-30] MEDS: ALBUTEROL/IPRATROPIUM 3 ML NEB RESP TX SCH ×4 (00:44→19:42)
[2017-01-30 06:21] LABS: Basophils % 0.3 % (0.0-0.8); Eosinophils % 0.3 % (0.00-10.9); Hematocrit 39.5 VOL% (35.7-47.0); Hemoglobin 13.6 GM/DL (12.0-16.0); Immature Granulocytes % 0.5 %; Immature Granulocytes Absolute 0.04 #; Lymphocytes % 22.4 % (21.3-54.2); Mean Corpuscular HGB Conc 34.4 GM/DL (32-36); Mean Corpuscular Hemoglobin 33 PG (27-34); Mean Corpuscular Volume 95.9 FL (87-102); Mean Platelet Volume 10.2 FL (9.6-12.0); Monocytes # 0.6 10*3/uL (0.11-0.8); Monocytes % 7.3 % (1.7-12.7); Neutrophils # 6.1 10*3/uL (1.4-7.4); Neutrophils % 69.2 % (38.7-73.9); Platelet Count 231 T/CUMM (130-400); Red Blood Count 4.12 MC/CUMM (3.8-5.5); Red Cell Distribution Width 13.9 % (9.3-17.3); White Blood Count 8.8 T/CUMM (4-12)
[2017-01-30 06:55] LABS: Calcium 8.4 MG/DL (8.5-10.1); Magnesium 1.8 MG/DL (1.8-2.4); Osmolality,Calculated 283.3 MOS/KG (273-304); Potassium 3.9 MMOL/L (3.5-5.1)
[2017-01-30 06:57] LABS: Troponin I Only 0.136 NG/ML (0.00-0.045)
[2017-01-30] MEDS ORDERED: NON-FORMULARY MEDICATION (Cholecalciferol (Vitamin D3) [Vitamin D3] 10,000 UNIT) PO SCH (09:00)
--- NOTE | 2017-01-30 09:42 | Cardiology Consult Note ---
<Kathy Mendoza E - Last Filed: 01/30/17 11:19> Assessment and Plan - Time spent with patient Time spent with patient: Greater than 30 minutes (Due to assessment, plan, documentation, and medication review.) (1) Chest pain Status: Acute Assessment and plan: See plan of care listed below. Current Visit: Yes (2) Elevated troponin Status: Chronic Assessment and plan: See plan of care listed below. Current Visit: Yes (3) CAD (coronary artery disease) Status: Chronic Assessment and plan: See plan of care listed below. Current Visit: Yes (4) Acute exacerbation of chronic obstructive airways disease Status: Acute Assessment and plan: See plan of care listed below. Current Visit: Yes (5) COPD (chronic obstructive pulmonary disease) Status: Chronic Assessment and plan: See plan of care listed below. Current Visit: No Qualifiers: COPD type: chronic bronchitis Chronic bronchitis type: simple Qualified Code(s): J41.0 - Simple chronic bronchitis (6) Hypertension Status: Chronic Assessment and plan: See plan of care listed below. Current Visit: No (7) Dyslipidemia Status: Chronic Assessment and plan: See plan of care listed below. Current Visit: No (8) Paroxysmal a-fib Status: Chronic Assessment and plan: See plan of care listed below. Current Visit: No (9) Tobacco abuse Status: Chronic Assessment and plan: See plan of care listed below. Current Visit: No (10) Congestive heart failure Status: Chronic Assessment and plan: See plan of care listed below. 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 Mynor Munson PCP: Dr. Roberto Yates Ms. Trejo is a 72 y/o WF with a known history of coronary artery disease with stent several years ago, dyslipidemia, hypertension, tobaccoism, and sedentary lifestyle. She also has a history of chronically elevated troponin, paroxysmal atrial fibrillation, COPD, and recurrent pneumonia. Her last heart catheterization was January 11, 2016 which revealed no significant new obstructive disease. Specifically, the previously placed left circumflex stent was widely patent. There were mild diffuse luminal irregularities but no high- grade disease in need of intervention. Her last echocardiogram was 12/10/2016 and revealed ejection fraction 70%, moderate LVH with grade 1 diastolic dysfunction, mild MR, mild to moderate TR, moderately elevated right-sided pressures. Ms. Calvillo presented to the emergency room with complaints of intermittent chest discomfort ongoing for the past 3-4 days. She describes this pain as sometimes sharp and sometimes a pressure lasting for a few minutes before going away. She reports this seems to be worse with exertion but does sometimes occur at rest. She reports she has also had left shoulder pain for the last week. She has noticed occasional diaphoresis but denies dizziness, lightheadedness, palpitations, or syncope. She tells me that her pain is usually relieved with nitroglycerin. She has chronic dyspnea and reports this has been unchanged recently. She reports she has chronic wheezing and continues to smoke 10-12 cigarettes per day. She reports that she went to the doctor's office last week and mentioned her left shoulder pain and was told she could possibly have a pinched nerve. She states that she has an appointment with Dr. Trinidad to have an x-ray or MRI of her shoulder soon. She denies any pain at the present time. Upon arrival, she was noted to have a troponin of 0.145. Her troponins have remained flat with CPK 70. Creatinine is 0.8 today, potassium 3.9, osmolality 283.3. Magnesium 1.8. BNP on admission was 1152. Chest x-ray shows stable fibrosis and/or atelectasis at the right lung base. She was admitted to the hospitalist service and started on treatment for acute COPD exacerbation. Due to her chest pain and elevated troponin, we are consulted to see her. As her pain does sound typical for angina, I will continue to hold her n.p.o. until further discussing with Dr. Man. Her last cath was over a year ago and it is possible she may require repeat catheterization or stress test to rule out advancement of disease. IMPRESSION/PLAN: - CHEST PAIN: Patient describes symptoms typical of angina with flat troponins. Last LHC was done just over a year ago. Will continue to hold patient NPO and discuss with Dr. Man regarding further evaluation with stress testing versus left heart catheterization. - CHRONICALLY ELEVATED TROPONIN: Upon review of prior records, patient has a chronically elevated troponin, slightly higher this admission than previous, but with currently flat troponins and normal CPK. Will cycle additional set of cardiac biomarkers. She does have ST-T abnormality on her EKG. - CORONARY ARTERY DISEASE: Her last heart catheterization was January 11, 2016 which revealed no significant new obstructive disease. Specifically, the previously placed left circumflex stent was widely patent. There were mild diffuse luminal irregularities but no high-grade disease in need of intervention. Continue aspirin and plavix, statin, beta ange. - COPD EXACERBATION: She has been started on duo nebs, steroids, and Levaquin for acute exacerbation. - COPD: Management per attending. She has been started on duo nebs, steroids, and Levaquin for acute exacerbation. - HYPERTENSION: Currently well controlled. Will continue to monitor and adjust accordingly. - DYSLIPIDEMIA: Lipid profile 12/12/2016 revealed triglycerides 104, cholesterol 163, LDL 97, HDL 34. Continue low-dose Crestor. - PAROXYSMAL ATRIAL FIBRILLATION: Currently in normal sinus rhythm. She is not on full anticoagulation, suspect this is due to her being on aspirin and Plavix and remaining in sinus rhythm. CHADSVASC score 5. - TOABCCOISM: Chronic. Patient reports she is down to 10-12 cigarettes daily. Greater than 5 minutes was spent discussing the harmful effects of tobacco and benefits of cessation. - CHRONIC DIASTOLIC CHF: BNP 1152. Chest x-ray shows stable fibrosis and/or atelectasis at the right lung base, no acute volume overload. Osmolality normal. Creatinine 0.8. Will give a one time dose of IV Lasix. Her breath sounds are more consistent with COPD exacerbation than CHF. CC: Pao Childers MD - Home Medications and Allergies Home Medications: Home Medications Medication Instructions Recorded Confirmed Type Aspirin [Ecotrin] 81 mg PO QAM 01/13/15 01/29/17 History Nitroglycerin Sl Tab [Nitrostat] 0.4 mg SL Q5M PRN 01/13/15 01/29/17 History [place]-3 Fatty Acids [Fish Oil 1,000 mg PO QAM 01/13/15 01/29/17 History Concentrate] Montelukast Tab [Singulair Tab] 10 mg PO QAM 05/15/16 01/29/17 History Omeprazole [Prilosec] 20 mg PO QAM 05/15/16 01/29/17 History Sertraline [Zoloft] 100 mg PO QAM 05/26/16 01/29/17 History Cholecalciferol (Vitamin D3) 10,000 unit PO QAM 08/19/16 01/29/17 History [Vitamin D3] Metoprolol Succinate 25 mg PO BID 08/19/16 01/29/17 History dilTIAZem HCl [Cartia XT] 180 mg PO BID 08/19/16 01/29/17 History Albuterol Inhaler [Proventil 2 puff INH Q6H PRN 09/22/16 01/29/17 History Inhaler] Clopidogrel [Plavix] 75 mg PO QAM 12/09/16 01/29/17 History Isosorbide Mononitrate [Isosorbide 60 mg PO QAM 12/09/16 01/29/17 History Mononitrate ER] Albuterol/Ipratropium Neb [Duoneb] 3 ml RESP TX RT Q6H 12/14/16 01/29/17 Rx Bacitracin Oint 1 applic TOP DAILY applic 12/14/16 01/29/17 Rx Rosuvastatin [Crestor] 5 mg PO BEDTIME tablet 12/14/16 01/29/17 Rx predniSONE TAB [PredniSONE] 20 mg PO DAILY tablet 12/14/16 01/29/17 Rx Allergies/Adverse Reactions: Allergies Allergy/AdvReac Type Severity Reaction Status Date / Time adhesive Allergy BLISTER Verified 05/23/16 20:31 codeine Allergy HIVES Verified 05/23/16 20:31 diazepam [From Valium] Allergy HIVES Verified 05/23/16 20:31 latex Allergy HIVES Verified 05/23/16 20:31 morphine Allergy Vomiting Verified 05/23/16 20:31 Sulfa (Sulfonamide Allergy Unknown/Unable Verified 05/23/16 20:31 Antibiotics) to obtain TAPE AdvReac Redness of Uncoded 05/23/16 20:31 Skin Review of systems: - Constitutional: Present: As per HPI. Absent: anorexia, chills, daytime sleepiness, excessive sweating, fever(s), frequent falls, headache(s), increased appetite, lethargy, malaise, night sweats, stops breathing during sleep, weakness, weight gain, weight loss, fatigue. - EENT Eyes: Present: As per HPI. Absent: blurry vision, diplopia, loss of vision Ears: Present: As per HPI. Absent: decreased hearing, ear discharge, ear pain Nose, mouth and throat: Present: As per HPI. Absent: dysphagia, epistaxis, headache(s), hoarseness, lip swelling, nasal congestion, neck mass, neck pain, sinus pressure, sore throat, throat swelling, tongue swelling, vertigo - Cardiovascular: Present: chest pain at rest, chest pain with activity, dyspnea , dyspnea on exertion, occasional diaphoresis,as per HPI. Absent: edema, claudication, radiating jaw, neck or arm pain, lightheadedness, orthopnea, palpitations, PND - Respiratory: Present: dyspnea, dyspnea on exertion, cough, wheezing, as per HPI. Absent: hemoptysis, snoring, pain on inspiration - Gastrointestinal: Present: As per HPI. Absent: abdominal pain, bloating, change in bowel habits, constipation, diarrhea, heartburn, hematemesis, hematochezia, loose stools, melena, nausea, vomiting - Genitourinary: Present: As per HPI. Absent: difficulty urinating, dysuria, flank pain, hematuria, nocturia, urinary frequency, urinary incontinence - Musculoskeletal: Present: As per HPI. Absent: arthralgias, back pain, joint swelling, limited range of motion, muscle cramps, muscle weakness, myalgias - Neurological: Present: As per HPI. Absent: abnormal gait, abnormal speech, behavioral changes, confusion, convulsions, disequilibrium, dizziness, focal weakness, frequent falls, headache(s), memory loss, numbness, paresthesias, radicular pain, syncope, tremor(s) - Psychiatric: Present: As per HPI. Absent: anxiety, confusion, depression, panic attacks - Endocrine: Present: As per HPI. Absent: cold intolerance, fatigue, heat intolerance, polydipsia, polyphagia - Hematologic/Lymphatic: Present: As per HPI. Absent: easy bleeding, easy bruising, lymphadenopathy Medical,Surgical,& Family Hx - Medical History Cardio: History of: Cardiac Dysrhythmia (paroxysmal atrial fibrillation), Cerebrovascular Disease, CHF (diastolic), CAD, Hypertension, VA (stents x 2), Valvular Heart Disease (mitral valve prolapse), Cardiovascular Problems No history of: Aneurysm, Congenital Heart Disease, Pacemaker, PVD Psychological: History of: Anxiety Disorders, Depression Neurology: No history of: Brain Aneurysm, Cerebral Hemorrhage, Cerebral Palsy, Dementia , Migraine, Multiple Sclerosis, Parkinson's Disease, Peripheral Neuropathy, Seizures, TIA, Vertigo, Neurologocal Cancer HEENT: History of: Eye Problem (detached retina, catarct) Endocrine: History of: Dyslipidemia Respiratory: History of: COPD, Respiratory Problems No history of: Asthma, Bronchitis, Intubation, Obstructive Sleep Apnea, Pulmonary Embolism, Pulmonary Hypertension, Pneumonia, Lung Cancer Renal: No history of: Renal Problems Genitourinary: No history of: Bladder Problem, Kidney Stones Gastrointestinal: History of: Diverticulitis/ Diverticulosis, GERD, Gastrointestinal Bleed, Hepatitis, Polyps, GI Problems (nutcracker esophagus) No history of: Bowel Obstruction, Clostridium Difficile, Crohn's Disease, Esophageal Varices, Hemorrhoids, Hematochezia, Liver Problems, Pancreatitis, Ulcerative Colitis, Gastrointestinal Cancer Musculoskeletal: History of: Degenerative Disk Disease No history of: Musculoskeletal Problems Hematology: No history of: Blood Transfusion Reaction Reproductive: No history of: Reproductive Problems Other: No history of: Anesthesia Reactions - Surgical History Cardiac Surgeries: Sugical HX of: Cardiac Catheterization Patient Denies: Femoral-Popliteal Bypass Graft, Cardiac Surgery, Carotid Endarterectomy, Internal Defibrillator, Vascular Access Devices Thoracic Surgeries: Patient denies;: Organ Transplant, Lobectomy Neurologic Surgeries: Patient denies: Brain Aneurysm, Cerebral Hemorrhage, Neurologic Surgery HEENT Surgeries: Surgical HX of: Eye Surgery, Tonsilectomy & Adenoidectomy Patient denies: Carotid Endarterectomy, Thyroid Surgery Abdominal Surgeries: Surgical HX of: Cholecystectomy Patient denies: Abdominal Surgery, Appendectomy, Colonoscopy, Gastric Bypass Surgery, EGD, Hernia Repair, Splenectomy Reproductive Surgeries: Surgical HX of;: Tubal Ligation Patient denies;: Breast Surgery, Section, Dilation and Curettage, Gynecologic Surgery, Hysterectomy Orthopedic Surgeries: Surgical HX of;: Orthopedic Surgery (foot) - Family History Family History: Reports;: Family Cancer (brother, daughter), Family Hypertension (father) Denies;: Family Diabetes, Family Heart Disease, Family Stroke - Social History Smoking Status: Current every day smoker Frequency of Alcohol Use: None Type of Drug Use: None Physical Examination Vital Signs Temp Pulse Resp BP Pulse Ox 97.4 F L 78 20 111/66 91 L 01/29/17 17:07 01/29/17 17:07 01/29/17 17:07 10/02/17 17:07 01/29/17 17:07 Exam: General appearance: Appears well. Pleasant and cooperative. Overweight, no acute distress. Head exam: Present: normal inspection, normocephalic, atraumatic. Absent: hematoma, laceration Eye exam: Present: EOMI. Absent: conjunctival injection, nystagmus, periorbital swelling, scleral icterus, laceration to eyelids, jaundice Pupils: Present: PERRL. Absent: constricted, dilated, fixed, irregular, unequal ENT exam: Present: normal exam, normal external ear exam, mucous membranes moist. Neck exam: Present: normal inspection, midline trachea. Absent: masses, lymphadenopathy, tenderness, thyromegaly, carotid bruit Respiratory exam: Present: Scattered rhonchi, diminished breath sounds posteriorly. Absent: accessory muscle use, chest wall tenderness. Cardiovascular exam: Present: regular rate and rhythm. Systolic murmur. Absent : gallop, JVD, rubs GI/Abdominal exam: Present: normal bowel sounds, soft. Absent: distended, firm , hernia, mass, tenderness. Extremities exam: Present: Normal Gait, No Clubbing, No Cyanosis, Upper Extr. Pulses 2+, Lower Extr. Pulses 2+, No edema. Capillary refill less than 3 seconds. Musculoskeletal: Present: No Fluid Collection, No Pain, Normal Range of Motion Back exam: Present: normal inspection. Absent: muscle spasm, vertebral tenderness Neurological exam: Present: awake, alert, oriented X3, Moves all extremities well without hemiparesis or paralysis. Grossly intact without resting or essential tremor Psychiatric exam: Present: normal affect, normal mood Skin exam: Present: normal color, warm, dry, intact. Absent: cyanosis, diaphoretic, rash, urticaria Result/EKG - Labs CBC & BMP: 01/30/17 05:04 01/30/17 05:04 Lab Results: I have reviewed the past 24 hour labs Labs: Laboratory Results - last 24 hr 01/29/17 01/29/17 01/29/17 17:23 17:23 17:23 WBC RBC Hgb Hct MCV MCH MCHC RDW Plt Count MPV Neut % (Auto) Lymph % (Auto) [place] % (Auto) Eos % (Auto) Baso % (Auto) Neut # (Auto) Lymph # (Auto) [place] # (Auto) Eos # (Auto) Baso # (Auto) Immature Gran % Nucleated RBC % Immature Gran # Nucleated RBCs # Immature Plt Fraction Sodium 140 Potassium 4.1 Chloride 103 Carbon Dioxide 30 Anion Gap 11.1 BUN 25 H Creatinine 1.00 GFR Calculation 53 BUN/Creatinine Ratio 25.00 H Glucose 109 H Calculated Osmolality 283.4 Calcium 9.3 Magnesium 2.1 Total Bilirubin 0.40 AST 17 ALT 18 Alkaline Phosphatase 90 Total Creatine Kinase Troponin I 0.145 H B-Natriuretic Peptide 1152 H Total Protein 6.4 Albumin 3.9 Globulin 2.5 Albumin/Globulin Ratio 1.5 01/29/17 01/29/17 01/29/17 17:23 21:40 23:48 WBC 12.6 H RBC 4.50 Hgb 14.9 Hct 42.5 MCV 94.4 MCH 33 MCHC 35.1 RDW 13.9 Plt Count 273 MPV 10.1 Neut % (Auto) 84.7 H Lymph % (Auto) 10.0 L [place] % (Auto) 4.4 Eos % (Auto) 0.1 Baso % (Auto) 0.3 Neut # (Auto) 10.7 H Lymph # (Auto) 1.3 L [place] # (Auto) 0.6 Eos # (Auto) 0.0 Baso # (Auto) 0.0 Immature Gran % 0.5 Nucleated RBC % 0.0 Immature Gran # 0.06 Nucleated RBCs # 0.00 Immature Plt Fraction 0.0 Sodium Potassium Chloride Carbon Dioxide Anion Gap BUN Creatinine GFR Calculation BUN/Creatinine Ratio Glucose Calculated Osmolality Calcium Magnesium Total Bilirubin AST ALT Alkaline Phosphatase Total Creatine Kinase Troponin I 0.136 H 0.126 H B-Natriuretic Peptide Total Protein Albumin Globulin Albumin/Globulin Ratio 01/30/17 01/30/17 05:04 05:04 WBC 8.8 D RBC 4.12 Hgb 13.6 Hct 39.5 MCV 95.9 MCH 33 MCHC 34.4 RDW 13.9 Plt Count 231 MPV 10.2 Neut % (Auto) 69.2 Lymph % (Auto) 22.4 [place] % (Auto) 7.3 Eos % (Auto) 0.3 Baso % (Auto) 0.3 Neut # (Auto) 6.1 Lymph # (Auto) 2.0 [place] # (Auto) 0.6 Eos # (Auto) 0.0 Baso # (Auto) 0.0 Immature Gran % 0.5 Nucleated RBC % 0.0 Immature Gran # 0.04 Nucleated RBCs # 0.00 Immature Plt Fraction 0.0 Sodium 141 Potassium 3.9 Chloride 105 Carbon Dioxide 32 Anion Gap 7.9 BUN 23 H Creatinine 0.80 GFR Calculation 70 BUN/Creatinine Ratio 28.00 H Glucose 77 Calculated Osmolality 283.3 Calcium 8.4 L Magnesium 1.8 Total Bilirubin AST ALT Alkaline Phosphatase Total Creatine Kinase 70 Troponin I 0.136 H B-Natriuretic Peptide Total Protein Albumin Globulin Albumin/Globulin Ratio - EKG EKG results: interpreted by me, sinus rhythm (with ST-T abnormality) <Daisy Man - Last Filed: 01/30/17 13:13> History of Present Illness - Consult Narrative History of present illness: I have personally interviewed and evaluated the patient, reviewed the chart and discussed medical decision-making with practitioner Reji. I have read this note and agree with her documentation here in. She has a history of coronary artery disease and previous stenting, has developed typical anginal symptoms that are worsened with exertion, alleviated by rest and nitroglycerin. These symptoms feel similar to her prior angina. She denies IV contrast allergy, has been n.p.o., and denies any contraindication to long-term dual antiplatelet therapy. We will proceed with this shortly. CC: Pao Childers MD Physical Examination Vital Signs Temp Pulse Resp BP Pulse Ox 97.4 F L 78 20 111/66 91 L 01/29/17 17:07 01/29/17 17:07 01/29/17 17:07 01/29/17 17:07 01/29/17 17:07 Result/EKG - Labs CBC & BMP: 01/30/17 05:04 01/30/17 05:04 Labs: Laboratory Results - last 24 hr 01/29/17 01/29/17 01/29/17 17:23 17:23 17:23 WBC RBC Hgb Hct MCV MCH MCHC RDW Plt Count MPV Neut % (Auto) Lymph % (Auto) [place] % (Auto) Eos % (Auto) Baso % (Auto) Neut # (Auto) Lymph # (Auto) [place] # (Auto) Eos # (Auto) Baso # (Auto) Immature Gran % Nucleated RBC % Immature Gran # Nucleated RBCs # Immature Plt Fraction Sodium 140 Potassium 4.1 Chloride 103 Carbon Dioxide 30 Anion Gap 11.1 BUN 25 H Creatinine 1.00 GFR Calculation 53 BUN/Creatinine Ratio 25.00 H Glucose 109 H Calculated Osmolality 283.4 Calcium 9.3 Magnesium 2.1 Total Bilirubin 0.40 AST 17 ALT 18 Alkaline Phosphatase 90 Total Creatine Kinase CK-MB (CK-2) CK and CKMB Interp Troponin I 0.145 H B-Natriuretic Peptide 1152 H Total Protein 6.4 Albumin 3.9 Globulin 2.5 Albumin/Globulin Ratio 1.5 01/29/17 01/29/17 01/29/17 17:23 21:40 23:48 WBC 12.6 H RBC 4.50 Hgb 14.9 Hct 42.5 MCV 94.4 MCH 33 MCHC 35.1 RDW 13.9 Plt Count 273 MPV 10.1 Neut % (Auto) 84.7 H Lymph % (Auto) 10.0 L [place] % (Auto) 4.4 Eos % (Auto) 0.1 Baso % (Auto) 0.3 Neut # (Auto) 10.7 H Lymph # (Auto) 1.3 L [place] # (Auto) 0.6 Eos # (Auto) 0.0 Baso # (Auto) 0.0 Immature Gran % 0.5 Nucleated RBC % 0.0 Immature Gran # 0.06 Nucleated RBCs # 0.00 Immature Plt Fraction 0.0 Sodium Potassium Chloride Carbon Dioxide Anion Gap BUN Creatinine GFR Calculation BUN/Creatinine Ratio Glucose Calculated Osmolality Calcium Magnesium Total Bilirubin AST ALT Alkaline Phosphatase Total Creatine Kinase CK-MB (CK-2) CK and CKMB Interp Troponin I 0.136 H 0.126 H B-Natriuretic Peptide Total Protein Albumin Globulin Albumin/Globulin Ratio 01/30/17 01/30/17 01/30/17 05:04 05:04 10:59 WBC 8.8 D RBC 4.12 Hgb 13.6 Hct 39.5 MCV 95.9 MCH 33 MCHC 34.4 RDW 13.9 Plt Count 231 MPV 10.2 Neut % (Auto) 69.2 Lymph % (Auto) 22.4 [place] % (Auto) 7.3 Eos % (Auto) 0.3 Baso % (Auto) 0.3 Neut # (Auto) 6.1 Lymph # (Auto) 2.0 [place] # (Auto) 0.6 Eos # (Auto) 0.0 Baso # (Auto) 0.0 Immature Gran % 0.5 Nucleated RBC % 0.0 Immature Gran # 0.04 Nucleated RBCs # 0.00 Immature Plt Fraction 0.0 Sodium 141 Potassium 3.9 Chloride 105 Carbon Dioxide 32 Anion Gap 7.9 BUN 23 H Creatinine 0.80 GFR Calculation 70 BUN/Creatinine Ratio 28.00 H Glucose 77 Calculated Osmolality 283.3 Calcium 8.4 L Magnesium 1.8 Total Bilirubin AST ALT Alkaline Phosphatase Total Creatine Kinase 70 52 D CK-MB (CK-2) 6.6 H CK and CKMB Interp 12.7 Troponin I 0.136 H 0.136 H B-Natriuretic Peptide Total Protein Albumin Globulin Albumin/Globulin Ratio
--- NOTE | 2017-01-30 10:08 | Hospitalist Progress Note ---
Assessment and Plan - Time spent with patient Time spent with patient: Less than 30 minutes (1) Elevated troponin Status: Acute Assessment and plan: 01/30/17 - Admitted on 01/29/17 for SOB w/rest and exertion, chest tightness Troponin remains stable at 0.136 - Cardiology has been consulted, greatly appreciate their recommendations COPD exacerbation & SOB: (improving): continue duonebs, steroids, levaquin pulmonary consulted for assistance - greatly appreciate any recommendations BNP on admission 1152 - Will repeat a.m. labs Will follow cardiology and pulmonary recommendations with care. Will discuss with Dr Childers for further recommendations for care. Current Visit: Yes (2) Acute exacerbation of chronic obstructive airways disease Status: Chronic Current Visit: No (3) COPD (chronic obstructive pulmonary disease) Status: Chronic Current Visit: No Qualifiers: COPD type: chronic bronchitis Chronic bronchitis type: simple Qualified Code(s): J41.0 - Simple chronic bronchitis (4) Tobacco abuse Status: Chronic Current Visit: No Hospitalist: Subjective Interval history: Ms Trejo seen and chart reviewed. She reports breathing better this morning. Denies any chest pain, fever, chills. Exam - Constitutional Vitals: Period Temp Pulse Resp BP Sys/Gibson Pulse Ox Last 24 Hr 96.4 F-97.7 F 52-105 16-20 104-138/42-96 91-99 General appearance: normal weight, no acute distress - Head Head exam: Present: normal inspection - Eye Eye exam: Present: EOMI Pupils: Present: DENA - Neck Neck exam: Present: normal inspection. Absent: thyromegaly - Respiratory Respiratory exam: Present: clear to auscultation bilaterally. Absent: wheezes - Cardiovascular Cardiovascular exam: Present: regular rate and rhythm - GI/Abdominal GI/Abdominal exam: Present: normal bowel sounds, soft. Absent: tenderness, rebound - Extremities Exam Extremities exam: Present: normal inspection, full ROM, other (bilateral GAVINO hose in use). Absent: edema - Neurological Exam Neurological exam: Present: alert, oriented X3, CN II-XII intact - Psychiatric Psychiatric exam: Present: normal affect, normal mood. Absent: agitated, anxious - Skin Skin exam: Present: normal color, warm, dry Results - Labs CBC & BMP: 01/30/17 05:04 01/30/17 05:04 Lab Results: I have reviewed the past 24 hour labs
[2017-01-30 11:41] LABS: CKMB % 12.7 %
[2017-01-30 11:43] LABS: Troponin I Only 0.136 NG/ML (0.00-0.045)
[2017-01-30] MEDS ORDERED: FUROSEMIDE 40 MG/4 ML VIAL IV ONE (11:55)
--- NOTE | 2017-01-30 11:55 | Pulmonology Consult Note ---
History of Present Illness Chief complaint: COPD. Chest pain. History of present illness: Paul Connor, ANP-BC, GNP-BC, acting as scribe for Dr. Roberto Yates Mrs. Trejo is a 72-year-old white female from [place], [place], who presented to [facility] emergency room 01/29/17 with a chief complaint of chest pain. She reported that the chest pain worsened with exertion. She also reported shortness of breath and nonproductive cough that had an onset of approximately 3 days prior to admission. She has taken nitroglycerin at home 3 the night before admission with some relief and in the ambulance on the way to the hospital she was also given nitroglycerin which also gave her relief. We have been asked see the patient in pulmonary consultation for evaluation and treatment. The request for consultation was made by Dr. Bush. She states that her breathing is doing relatively well. She has significant COPD and continues to smoke despite multiple efforts for cessation. Presently, she denies cardiac angina or palpitations. She denies any reported dysphasia or reflux. There has been no bleeding from any site. No change in bowel or bladder habits. No TIA symptoms or syncope. All other systems were reviewed and were negative. Allergies: Adhesive, codeine, Valium, latex, morphine, sulfa drugs, and tape Medications: See list Past medical history: [facility] 12/09/2016 through 12/14/2016 under the care of the hospitalists. During that hospitalization, she was treated for an acute exacerbation of COPD, acute diastolic congestive heart failure, acute kidney injury, and ulcerated skin lesion of the left breast which required surgical intervention by Dr. Jeffries. [facility] through 08/24/2016 under the care of the hospitalists. She was treated at admission for an acute exacerbation of COPD. [facility] hospitalization 05/23 through 05/29/2016 under the care of the hospitalists. During that admission she was treated for an acute exacerbation of COPD. One day prior to admission she began having intense lower quadrant discomfort with crampintg. She had a flex sig while inpatient that showed ischemic colitis. This was done by Dr. Jacobo. [facility] 05/15/2016 through 05/20/2016 under the care of hospitalist. During that admission she was treated for COPD exacerbation. She also had new onset atrial fibrillation which was felt secondary to some of her respiratory medicines. Echocardiogram done 05/15/[address] Kasper showed small ventricular cavity size with hyperdynamic LV function and ejection fraction estimated to be 70-80%, 3 puffs concentric left ventricular hypertrophy, the aortic valve was not well visualized but gradients suggested 3-4+ aortic stenosis, and at least 1+ mitral regurgitation. Pulmonary artery pressure was 35.3 mmHg. [facility] hospitalization on 2013 through 02/13/[address] Mas. She was treated for chest discomfort which is felt to be noncardiac in nature. [facility] hospitalization 01/16/2013 through 01/23/2013 under the care of Dr. Yates. During that admission she was treated for an acute exacerbation of COPD. [facility] in September 2012 for probable acute appendicitis and possible diverticulitis. December 2011 hospitalization for acute colitis versus acute diverticulitis with acute GI bleed. [facility] hospitalization 04/29/2011 for acute left lower lobe bacterial pneumonia probably gram-positive cocci and acute exacerbation of COPD with bronchitis and bronchospasm. On 10/10/2010 the patient was seen in cardiology consultation by Dr. Mynor Munson and he told her from a cardiac standpoint she was stable and can tolerate the planned surgery. Patient had had no symptoms since then. Past history is also significant for COPD with proximal spastic disease, hyperlipidemia, hypertension , left ventricular hypertrophy. She was hospitalized under Dr. Cr's care in June 2009 and did not follow-up post hospitalization. Patient has a history of an ovarian mass which is been followed by Dr. Guzman but more recently reportedly by Dr. Horn. Surgical history: Previous angioplasty and stenting of coronary artery. Last cardiac catheterization was January 11, 2016 which revealed no significant new obstructive disease. Specifically, the previously placed left circumflex stent was widely patent. There were mild diffuse luminal irregularities but no high-grade disease in need of intervention. This was done by Dr. Mynor Munson. She has had a cholecystectomy, tubal ligation, and surgery on her face. Social history: The patient has smoked a pack of cigarettes a day for most of her adult life. She stopped in 2008 but restarted in 2009 and continues to smoke to my knowledge. The patient stopped drinking approximately 2012. In the past, she is reported that she was a social drinker. Her daughter, Keiko Amaro, is usually present. Past procedures: See above regarding cardiac catheterization 01/11/2016. Echocardiogram done 12/10/[address] Austin showed EF 70%, no segmental wall motion abnormality, moderate concentric left ventricular hypertrophy with grade 1 diastolic dysfunction, aortic valve was moderately thickened and sclerotic but with good excursion without significant stenosis or regurgitation , mitral valve is mildly thickened and at worse mild stenosis with mild regurgitation, mitral annular calcification, mild to moderate tricuspid valve regurgitation, and pulmonary artery pressure 54 mmHg. Echocardiogram done 2016 showed an EF of 70-80%, mild to moderate aortic stenosis, moderate to severe tricuspid regurgitation, and pulmonary artery pressure 35.3 mmHg plus the right atrial pressure. Flex sig done in April [address] Jacobo showed ischemic colitis. Colonoscopy done 02/10/[address] Eduardo showed diverticular colon consistent with recent diverticulitis. Pulmonary function test on 11/16/2010 showed moderate obstructive lung disease with hyperinflation, positive response to inhaled bronchodilators, no restrictive lung disease, no emphysematous lung disease, moderate decrease in maximum voluntary ventilation, and oxygen saturations on room air were 96%. Chest x-ray. Done 01/29/2017. My interpretation. Slight increased markings at the bases. Hyperinflation. The heart size is normal. There is no hilar adenopathy. The mediastinum is not enlarged. Pulmonary arteries are top normal. No obvious infiltrates, masses, or pulmonary edema. Laboratory: White count was initially 12,600 but is now fallen to 8800 with 69.2 % segs, 22.4% lymphs, and 7.3% monos; H&H 13.6/39.5 with normal indices and normal red blood cell distribution width; platelet count 231,000; creatinine 0.80, BUN 23, sodium 141, potassium 3.9, magnesium 1.8; liver function tests within normal limits; troponin was initially 0.145 and is trended downward; BNP elevated at 1152 Home Medications Medication Instructions Recorded Confirmed Type Aspirin [Ecotrin] 81 mg PO QAM 01/13/15 01/29/17 History Nitroglycerin Sl Tab [Nitrostat] 0.4 mg SL Q5M PRN 01/13/15 01/29/17 History [place]-3 Fatty Acids [Fish Oil 1,000 mg PO QAM 01/13/15 01/29/17 History Concentrate] Montelukast Tab [Singulair Tab] 10 mg PO QAM 05/15/16 01/29/17 History Omeprazole [Prilosec] 20 mg PO QAM 05/15/16 01/29/17 History Sertraline [Zoloft] 100 mg PO QAM 05/26/16 01/29/17 History Cholecalciferol (Vitamin D3) 10,000 unit PO QAM 08/19/16 01/29/17 History [Vitamin D3] Metoprolol Succinate 25 mg PO BID 08/19/16 01/29/17 History dilTIAZem HCl [Cartia XT] 180 mg PO BID 08/19/16 01/29/17 History Albuterol Inhaler [Proventil 2 puff INH Q6H PRN 09/22/16 01/29/17 History Inhaler] Clopidogrel [Plavix] 75 mg PO QAM 12/09/16 01/29/17 History Isosorbide Mononitrate [Isosorbide 60 mg PO QAM 12/09/16 01/29/17 History Mononitrate ER] Albuterol/Ipratropium Neb [Duoneb] 3 ml RESP TX RT Q6H 12/14/16 01/29/17 Rx Bacitracin Oint 1 applic TOP DAILY applic 12/14/16 01/29/17 Rx Rosuvastatin [Crestor] 5 mg PO BEDTIME tablet 12/14/16 01/29/17 Rx predniSONE TAB [PredniSONE] 20 mg PO DAILY tablet 12/14/16 01/29/17 Rx Allergies Allergy/AdvReac Type Severity Reaction Status Date / Time adhesive Allergy BLISTER Verified 05/23/16 20:31 codeine Allergy HIVES Verified 05/23/16 20:31 diazepam [From Valium] Allergy HIVES Verified 05/23/16 20:31 latex Allergy HIVES Verified 05/23/16 20:31 morphine Allergy Vomiting Verified 05/23/16 20:31 Sulfa (Sulfonamide Allergy Unknown/Unable Verified 05/23/16 20:31 Antibiotics) to obtain TAPE AdvReac Redness of Uncoded 05/23/16 20:31 Skin Exam (Pulmonay) H&P - Constitutional Vitals: Period Temp Pulse Resp BP Sys/Gibson Pulse Ox Last 24 Hr 96.4 F-97.7 F 52-105 16-20 104-138/42-96 91-99 Exam: Psych: Oriented x 3; a pleasant and cooperative patient who is chronically and acutely ill appearing HEENT: Pupils, irises, sclera, conjunctiva, and eyelids are normal. The face is symmetrical without rash or masses. Lips, tongue, buccal mucosa, soft and hard palates, and pharynx are WNL. Neck: Symmetrical. Thyroid was not palpated. Lymphatics: No submandibular, cervical, or supraclavicular adenopathy Chest: Symmetrical and hyperinflated with a tiny amount of large airway wheeze; mild large airway congestion Breasts: Deferred CV: Heart sounds are slightly distant with lateral PMI. There is a grade 1/6 systolic ejection murmur at left sternal border that does not radiate Arterial: Carotids are decreased without bruit; upper extremity pulses are palpable. Lower extremity pulses are non-palpable, but I see no evidence of ischemia. Venous: Exam of the neck, upper, and lower extremities is normal Abd: No appreciable organomegaly, masses, tenderness, or bruit; Bowel sounds are positive 4; The aorta was not palpated /Rectal: Deferred Extremities: No clubbing, cyanosis, edema, or obvious DVT Skin: No cancerous or infectious lesions of the exposed, examined skin; the perineal area was not examined M/S: Age appropriate loss of the normal curvature of the cervical, thoracic, and lumbar spine Neurological: Cranial nerves are intact, Long tract motor function is intact; Sensory exam was not done; gait was not tested. The remainder of the exam was noncontributory. Impression: #1: Acute chest pain that was relieved with nitroglycerin and worsened with exertion #2: High blood pressure #3: Borderline cardiac isoenzymes #4: Hyperlipidemia #5: Arteriosclerotic heart disease with stents #6: History of depression #7: Tobacco abuse #8: Mitral valve prolapse #9: COPD with bronchospastic disease #10: Azotemia #11: Pulmonary venous hypertension with pulmonary artery pressure noted to be 54 mmHg. This could be the etiology of the patient's elevated BNP although the BNP is a little higher than we would expect. #12: See past history Plan: #1: Agree with present antibiotics and inhalation therapy #2: Repeat chest x-ray, BNP, CBC, and BMP in the morning #3: Restart Singulair 10 mg daily #4: Mucinex 600 mg p.o. twice daily #5: Patient is apparently being considered for cardiac catheterization and is being held n.p.o. #6: See orders We appreciate this consult and will follow along with you. Medical,Surgical,& Family Hx - Medical History Cardio: History of: Cerebrovascular Disease, CAD, Hypertension, [place] (stents x 2) , Valvular Heart Disease (mitral valve prolapse), Cardiovascular Problems No history of: Aneurysm, Cardiac Dysrhythmia, Congenital Heart Disease, CHF, Pacemaker, PVD Psychological: History of: Anxiety Disorders, Depression Neurology: History of: Cerebrovascular Accident No history of: Brain Aneurysm, Cerebral Hemorrhage, Cerebral Palsy, Dementia , Migraine, Multiple Sclerosis, Parkinson's Disease, Peripheral Neuropathy, Seizures, TIA, Vertigo, Neurologocal Cancer HEENT: History of: Eye Problem (detached retina, catarct) Endocrine: History of: Dyslipidemia Respiratory: History of: COPD, Respiratory Problems No history of: Asthma, Bronchitis, Intubation, Obstructive Sleep Apnea, Pulmonary Embolism, Pulmonary Hypertension, Pneumonia, Lung Cancer Renal: No history of: Renal Problems Genitourinary: No history of: Bladder Problem, Kidney Stones Gastrointestinal: History of: Diverticulitis/ Diverticulosis, GERD, Gastrointestinal Bleed, Hepatitis, Polyps, GI Problems (nutcracker esophagus) No history of: Bowel Obstruction, Clostridium Difficile, Crohn's Disease, Esophageal Varices, Hemorrhoids, Hematochezia, Liver Problems, Pancreatitis, Ulcerative Colitis, Gastrointestinal Cancer Musculoskeletal: History of: Degenerative Disk Disease No history of: Musculoskeletal Problems Hematology: No history of: Blood Transfusion Reaction Reproductive: No history of: Reproductive Problems Other: No history of: Anesthesia Reactions - Surgical History Cardiac Surgeries: Sugical HX of: Cardiac Catheterization Patient Denies: Femoral-Popliteal Bypass Graft, Cardiac Surgery, Carotid Endarterectomy, Internal Defibrillator, Vascular Access Devices Thoracic Surgeries: Patient denies;: Organ Transplant, Lobectomy Neurologic Surgeries: Patient denies: Brain Aneurysm, Cerebral Hemorrhage, Neurologic Surgery HEENT Surgeries: Surgical HX of: Eye Surgery, Tonsilectomy & Adenoidectomy Patient denies: Carotid Endarterectomy, Thyroid Surgery Abdominal Surgeries: Surgical HX of: Cholecystectomy Patient denies: Abdominal Surgery, Appendectomy, Colonoscopy, Gastric Bypass Surgery, EGD, Hernia Repair, Splenectomy Reproductive Surgeries: Surgical HX of;: Tubal Ligation Patient denies;: Breast Surgery, Section, Dilation and Curettage, Gynecologic Surgery, Hysterectomy Orthopedic Surgeries: Surgical HX of;: Orthopedic Surgery (foot) - Family History Family History: Reports;: Family Cancer (brother, daughter), Family Hypertension (father) Denies;: Family Diabetes, Family Heart Disease, Family Stroke - Social History Smoking Status: Current every day smoker Frequency of Alcohol Use: None Type of Drug Use: None Results - Labs CBC & BMP: 01/30/17 05:04 01/30/17 05:04
--- NOTE | 2017-01-30 12:19 | DUMMY REPORT TO COMPLETE ORDER ---
See report scanned to EMR
--- NOTE | 2017-01-30 12:19 | DUMMY REPORT TO COMPLETE ORDER ---
See report scanned to EMR
--- NOTE | 2017-01-30 12:41 | XRay Report ---
2 view chest 01/30/2017 12:36 PM Indication: Shortness of breath Comparison: January 29, 2017 Findings: Cardiomediastinal contours are stable. No change in the right basilar fibrosis/atelectasis. No acute osseous abnormalities. Visualized upper abdomen demonstrates no acute pathology. Impression: Stable chest. No acute cardiopulmonary findings PROCEDURE INTERPRETED AT [facility] DEPARTMENT OF RADIOLOGY Final Report Signed by: Sasha Garcia MD
[2017-01-30] MEDS ORDERED: MAGNESIUM SULF RIDER 2 GM in PREMIX 1 EACH IV PRN (13:14)
[2017-01-30] MEDS ORDERED: POTASSIUM CHLORIDE RIDER 10 MEQ in PREMIX 1 EACH IV PRN (13:14)
--- NOTE | 2017-01-30 13:14 | History and Physical Update ---
Sedation H&P Update - History and Physical H&P was reviewed, the patient examined and there: are no changes in the patients condition since last H&P was completed. - Dictation Physical: refer to H&P completed by admitting physician - Physical Exam Mental Status: alert and oriented Heart: regular rate and rhythm Lung: other (Wheezing and prolonged expiration) Abdomen: within normal limits Vitals: within normal limits - Sedation Plan for Sedation: moderate Patient Consent: Procedure disscussed with patient and patinet has consented., Risks and benefits were discussed with patient,including infection,, bleeding, injury to surrounding structures, seizure, temporary nerve, Patient understands and accepts potential risks/benefits and agrees to, proceed. ASA Class: IV Airway Assessment: Class II: Soft palate, uvula, fauces visible
[2017-01-30] MEDS ORDERED: diphenhydrAMINE CAP 50 MG CAPSULE PO ONE (13:16)
[2017-01-30] MEDS: ASPIRIN EC 81 MG TABLET PO SCH (13:24)
[2017-01-30] MEDS: PANTOPRAZOLE 40 MG TABLET PO SCH (13:25)
[2017-01-30] MEDS: METOPROLOL SUCCINATE XL 25 MG TABLET PO SCH ×2 (13:25→21:44)
[2017-01-30] MEDS: DILTIAZEM CD 180 MG CAPSULE PO SCH ×2 (13:25→21:44)
[2017-01-30] MEDS: CLOPIDOGREL 75 MG TABLET PO SCH (13:25)
[2017-01-30] MEDS ORDERED: HEPARIN/NACL 0.9% 2 UNITS/ML 1,000 ML IV ONE (13:47)
[2017-01-30] MEDS ORDERED: ONDANSETRON 4 MG/2 ML VIAL ONE (14:04)
[2017-01-30] MEDS ORDERED: MIDAZOLAM 2 MG/2 ML VIAL ONE (14:10)
[2017-01-30] MEDS ORDERED: fentaNYL 100 MCG/2 ML VIAL ONE (14:10)
[2017-01-30] MEDS ORDERED: BIVALIRUDIN 250 MG VIAL IV ONE (14:21)
[2017-01-30] MEDS ORDERED: CLOPIDOGREL 300 MG TABLET ONE (14:46)
[2017-01-30] MEDS: MONTELUKAST 10 MG TABLET PO SCH (15:32)
[2017-01-30] MEDS: SERTRALINE 100 MG TABLET PO SCH (15:32)
[2017-01-30] MEDS: ISOSORBIDE MONONITRATE 60 MG TABLET PO SCH (15:32)
[2017-01-30] MEDS: predniSONE 20 MG TABLET PO SCH (15:32)
[2017-01-30] MEDS: OMEGA 3 ACID ETHYL ESTERS 1 GM CAPSULE PO SCH (15:32)
[2017-01-30] MEDS ORDERED: ENOXAPARIN 40 MG/0.4 ML SYRINGE SUBCUT SCH (18:00)
[2017-01-30] MEDS: BACITRACIN OINT 28.35 GM TUBE TOP SCH (18:05)
[2017-01-30] MEDS: SODIUM CHLORIDE 0.9% 1,000 ML IV SCH (18:06)
[2017-01-30] MEDS: ROSUVASTATIN 10 MG TABLET PO SCH (21:43)
[2017-01-30] MEDS: LEVOFLOXACIN INJ 500 MG in PREMIX 1 EACH IV SCH (22:11)
[2017-01-31] MEDS: ALBUTEROL/IPRATROPIUM 3 ML NEB RESP TX SCH ×3 (00:37→12:40)
[2017-01-31 02:28] LABS: Basophils % 0.3 % (0.0-0.8); Eosinophils % 0.2 % (0.00-10.9); Hematocrit 41.3 VOL% (35.7-47.0); Hemoglobin 13.9 GM/DL (12.0-16.0); Immature Granulocytes % 0.5 %; Immature Granulocytes Absolute 0.06 #; Lymphocytes # 1.6 10*3/uL (1.4-4.0); Lymphocytes % 13.6 % (21.3-54.2); Mean Corpuscular HGB Conc 33.7 GM/DL (32-36); Mean Corpuscular Hemoglobin 33 PG (27-34); Mean Corpuscular Volume 96.9 FL (87-102); Mean Platelet Volume 10.1 FL (9.6-12.0); Monocytes # 0.9 10*3/uL (0.11-0.8); Monocytes % 7.6 % (1.7-12.7); Neutrophils # 9.2 10*3/uL (1.4-7.4); Neutrophils % 77.8 % (38.7-73.9); Platelet Count 236 T/CUMM (130-400); Red Blood Count 4.26 MC/CUMM (3.8-5.5); White Blood Count 11.8 T/CUMM (4-12)
[2017-01-31 02:53] LABS: Calcium 8.3 MG/DL (8.5-10.1)
[2017-01-31 02:54] LABS: Calcium 8.1 MG/DL (8.5-10.1); Magnesium 1.7 MG/DL (1.8-2.4); Osmolality,Calculated 281.7 MOS/KG (273-304); Potassium 3.4 MMOL/L (3.5-5.1)
[2017-01-31] MEDS: SODIUM CHLORIDE 0.9% 1,000 ML IV SCH ×2 (05:36→06:43)
--- NOTE | 2017-01-31 07:34 | DUMMY REPORT TO COMPLETE ORDER ---
See report scanned to EMR
--- NOTE | 2017-01-31 08:12 | XRay Report ---
XR chest 2V Indication: COPD Comparison: Chest x-ray January 30, 2017 Technique: Frontal and lateral views of the chest Findings: Borderline cardiomegaly without jerry pulmonary edema. Hyperinflation of the lungs consistent with COPD. Chronic change of the lungs without focal consolidation, pleural effusion, or pneumothorax. Visualized osseous and surrounding soft tissue structures appear grossly unchanged. IMPRESSION: As above. PROCEDURE INTERPRETED AT [facility] DEPARTMENT OF RADIOLOGY Final Report Signed by: Dr Juarez Wesley
[2017-01-31] MEDS: PANTOPRAZOLE 40 MG TABLET PO SCH (08:22)
[2017-01-31] MEDS: CLOPIDOGREL 75 MG TABLET PO SCH (08:22)
[2017-01-31] MEDS: ASPIRIN EC 81 MG TABLET PO SCH (08:22)
[2017-01-31] MEDS: MONTELUKAST 10 MG TABLET PO SCH (08:22)
[2017-01-31] MEDS: DILTIAZEM CD 180 MG CAPSULE PO SCH (08:22)
[2017-01-31] MEDS: ISOSORBIDE MONONITRATE 60 MG TABLET PO SCH (08:22)
[2017-01-31] MEDS: METOPROLOL SUCCINATE XL 25 MG TABLET PO SCH (08:23)
[2017-01-31] MEDS: predniSONE 20 MG TABLET PO SCH (08:23)
[2017-01-31] MEDS: SERTRALINE 100 MG TABLET PO SCH (08:23)
[2017-01-31] MEDS: OMEGA 3 ACID ETHYL ESTERS 1 GM CAPSULE PO SCH (08:23)
[2017-01-31] MEDS: BACITRACIN OINT 28.35 GM TUBE TOP SCH (08:58)
[2017-01-31] MEDS ORDERED: POTASSIUM CHLORIDE 20 MEQ TABLET PO PRN (10:05)
[2017-01-31] MEDS ORDERED: ROSUVASTATIN 10 MG TABLET PO SCH ×2 (10:15→10:17)
--- NOTE | 2017-01-31 11:15 | Cardiology Progress Note ---
<Kathy Mendoza E - Last Filed: 01/31/17 13:31> Assessment and Plan - Time spent with patient Time spent with patient: Less than 30 minutes (1) Chest pain Status: Acute Assessment and plan: See plan of care listed below. (2) Elevated troponin Status: Chronic Assessment and plan: See plan of care listed below. (3) CAD (coronary artery disease) Status: Chronic Assessment and plan: See plan of care listed below. (4) Acute exacerbation of chronic obstructive airways disease Status: Acute Assessment and plan: See plan of care listed below. (5) COPD (chronic obstructive pulmonary disease) Status: Chronic Assessment and plan: See plan of care listed below. Qualifiers: COPD type: chronic bronchitis Chronic bronchitis type: simple Qualified Code(s): J41.0 - Simple chronic bronchitis (6) Hypertension Status: Chronic Assessment and plan: See plan of care listed below. (7) Dyslipidemia Status: Chronic Assessment and plan: See plan of care listed below. (8) Paroxysmal a-fib Status: Chronic Assessment and plan: See plan of care listed below. (9) Tobacco abuse Status: Chronic Assessment and plan: See plan of care listed below. (10) Congestive heart failure Status: Chronic Assessment and plan: See plan of care listed below. Qualifiers: Congestive heart failure type: diastolic Congestive heart failure chronicity: chronic Qualified Code(s): I50.32 - Chronic diastolic (congestive ) heart failure Cardiology - PN: Subj Interval history: Cross Tie Tram Loader: Dr. Mynor Munson PCP: Dr. Roberto Yates SUMMARY: Ms. Trejo is a 72 y/o WF who presented with symptoms of typical angina and a known history of coronary artery disease with stent several years ago, dyslipidemia, hypertension, tobaccoism, and sedentary lifestyle. She also has a history of chronically elevated troponin, paroxysmal atrial fibrillation, COPD, and recurrent pneumonia. As she did have a mildly elevated troponin and symptoms similar to her prior angina, it was recommended she undergo left heart catheterization to rule out disease progression. Left heart catheterization was performed on 01/30/2017 and revealed severe stenosis at the distal stent edge of the previously placed circumflex stent, 70% stenosis. She had a patent mid RCA stent and ejection fraction of 70%. She underwent successful PCI of the mid circumflex artery with drug-eluting stent overlapping with the previously placed stent to cover just distally to that previously placed stent. JANUARY 31, 2017: Ms. Taylor is doing well this morning. We are continuing to follow her as she presented with symptoms typical of angina and underwent left heart catheterization with PCI on 02/26/2017. Post catheterization, she has had no significant complications. Her right groin dressing was removed. She was noted to have a right groin bruit, no bleeding or hematoma. Mild ecchymosis at site. Right groin ultrasound was negative for vascular complication. She reports her irritating esophageal symptoms are improved. From a cardiology standpoint, she is able to be discharged home to follow up with Dr. Munson in 2- 3 weeks. She will need to continue her dual antiplatelet therapy, beta ange, statin, cardizem, and imdur. REVIEW OF SYSTEMS: CARDIAC: No chest pain. RESPIRATORY: No overt shortness of breath. IMPRESSION/PLAN: - CHEST PAIN: Patient describes symptoms typical of angina with flat troponins. Now status post PCI. Continue dual antiplatelet therapy. - CHRONICALLY ELEVATED TROPONIN: Upon review of prior records, patient has a chronically elevated troponin, slightly higher this admission than previous, but with currently flat troponins and normal CPK. Will cycle additional set of cardiac biomarkers. She does have ST-T abnormality on her EKG. - CORONARY ARTERY DISEASE: Now status post PCI of the mid circumflex artery with placement of drug-eluting stent overlapping with the previously placed stent to cover just distally to that previously placed stent which was patent. She will need to continue her dual antiplatelet therapy, beta ange, statin, cardizem, and imdur. - COPD EXACERBATION: She has been started on duo nebs, steroids, and Levaquin for acute exacerbation. - COPD: Management per attending. She has been started on duo nebs, steroids, and Levaquin for acute exacerbation. - HYPERTENSION: Currently well controlled. Will continue to monitor and adjust accordingly. - DYSLIPIDEMIA: Lipid profile 12/12/2016 revealed triglycerides 104, cholesterol 163, LDL 97, HDL 34. Continue low-dose Crestor. - PAROXYSMAL ATRIAL FIBRILLATION: Currently in normal sinus rhythm. She is not on full anticoagulation, suspect this is due to her being on aspirin and Plavix and remaining in sinus rhythm. CHADSVASC score 5. - TOABCCOISM: Chronic. Patient reports she is down to 10-12 cigarettes daily. Greater than 5 minutes was spent discussing the harmful effects of tobacco and benefits of cessation. - CHRONIC DIASTOLIC CHF: BNP 1152 on admission, down to 692 today after one- time dose of IV Lasix. Chest x-ray showed stable fibrosis and/or atelectasis at the right lung base, no acute volume overload. Osmolality normal. Creatinine 0.8. Her breath sounds are more consistent with COPD exacerbation than CHF and she has not had significant edema. Exam (Progress Note) - Constitutional Vitals: Period Temp Pulse Resp BP Sys/Gibson Pulse Ox Last 24 Hr 96.7 F-97.5 F 59-72 16-20 108-160/53-93 90-97 Exam: General appearance: Appears well. Pleasant and cooperative. Overweight, no acute distress. Head exam: Present: normal inspection, normocephalic, atraumatic. Absent: hematoma, laceration Eye exam: Present: EOMI. Absent: conjunctival injection, nystagmus, periorbital swelling, scleral icterus, laceration to eyelids, jaundice Pupils: Present: PERRL. Absent: constricted, dilated, fixed, irregular, unequal ENT exam: Present: normal exam, normal external ear exam, mucous membranes moist. Neck exam: Present: normal inspection, midline trachea. Absent: masses, lymphadenopathy, tenderness, thyromegaly, carotid bruit Respiratory exam: Present: Coarse breath sounds but overall clear to auscultation. diminished breath sounds posteriorly. Absent: accessory muscle use, chest wall tenderness. Cardiovascular exam: Present: regular rate and rhythm. 2/6 Systolic murmur. Absent: gallop, JVD, rubs GI/Abdominal exam: Present: normal bowel sounds, soft. Absent: distended, firm , hernia, mass, tenderness. Extremities exam: Present: Normal Gait, No Clubbing, No Cyanosis, Upper Extr. Pulses 2+, Lower Extr. Pulses 2+, No edema. Capillary refill less than 3 seconds. Musculoskeletal: Present: No Fluid Collection, No Pain, Normal Range of Motion Back exam: Present: normal inspection. Absent: muscle spasm, vertebral tenderness Neurological exam: Present: awake, alert, oriented X3, Moves all extremities well without hemiparesis or paralysis. Grossly intact without resting or essential tremor Psychiatric exam: Present: normal affect, normal mood Skin exam: Present: normal color, warm, dry, intact. Absent: cyanosis, diaphoretic, rash, urticaria Right groin: Dressing removed. No bleeding or hematoma. Right groin bruit ( stable). Mild ecchymosis surrounding cath site. Femoral pulse 3+. Distal pulses present and palpable bilaterally. Result/EKG - Labs CBC & BMP: 01/31/17 02:00 01/31/17 02:00 Lab Results: I have reviewed the past 24 hour labs Labs: Laboratory Results - last 24 hr 01/30/17 01/31/17 01/31/17 10:59 02:00 02:00 WBC 11.8 D RBC 4.26 Hgb 13.9 Hct 41.3 MCV 96.9 MCH 33 MCHC 33.7 RDW 14.0 Plt Count 236 MPV 10.1 Neut % (Auto) 77.8 H Lymph % (Auto) 13.6 L [place] % (Auto) 7.6 Eos % (Auto) 0.2 Baso % (Auto) 0.3 Neut # (Auto) 9.2 H Lymph # (Auto) 1.6 [place] # (Auto) 0.9 H Eos # (Auto) 0.0 Baso # (Auto) 0.0 Immature Gran % 0.5 Nucleated RBC % 0.0 Immature Gran # 0.06 Nucleated RBCs # 0.00 Immature Plt Fraction 0.0 Sodium 138 Potassium 3.4 L Chloride 101 Carbon Dioxide 35 H Anion Gap 5.4 BUN 24 H Creatinine 1.20 H GFR Calculation 43 BUN/Creatinine Ratio 20.00 Glucose 151 H Calculated Osmolality 281.7 Calcium 8.3 L Magnesium 1.7 L Total Creatine Kinase 52 D CK-MB (CK-2) 6.6 H CK and CKMB Interp 12.7 Troponin I 0.136 H B-Natriuretic Peptide 01/31/17 01/31/17 02:00 02:00 WBC RBC Hgb Hct MCV MCH MCHC RDW Plt Count MPV Neut % (Auto) Lymph % (Auto) [place] % (Auto) Eos % (Auto) Baso % (Auto) Neut # (Auto) Lymph # (Auto) [place] # (Auto) Eos # (Auto) Baso # (Auto) Immature Gran % Nucleated RBC % Immature Gran # Nucleated RBCs # Immature Plt Fraction Sodium 138 Potassium 3.4 L Chloride 100 Carbon Dioxide 32 Anion Gap 9.4 BUN 25 H Creatinine 1.20 H GFR Calculation 43 BUN/Creatinine Ratio 20.00 Glucose 152 H Calculated Osmolality 281.7 Calcium 8.1 L Magnesium Total Creatine Kinase CK-MB (CK-2) CK and CKMB Interp Troponin I B-Natriuretic Peptide 692 H - EKG EKG results: interpreted by me, sinus rhythm Specialty Discharge - Follow Up or Referrals Follow up with: Itz Trinidad MD [Primary Care Provider] - 02/13/17 9:15 am Mynor Munson MD [Physician] - 02/22/17 9:50 am Roberto Yates MD [Physician] - 05/31/17 12:45 pm <Daisy Man - Last Filed: 01/31/17 14:59> Cardiology - PN: Subj Interval history: I have personally interviewed and evaluated the patient, reviewed the chart and discussed medical decision-making with practitioner Reji. I have read this note and agree with her documentation here in. She had a right femoral bruit post-cath, follow-up ultrasound did not reveal any complications. Exam (Progress Note) - Constitutional Vitals: Period Temp Pulse Resp BP Sys/Gibson Pulse Ox Last 24 Hr 96.7 F-97.6 F 59-75 16-20 108-160/53-93 90-97 Result/EKG - Labs CBC & BMP: 01/31/17 02:00 01/31/17 02:00 Labs: Laboratory Results - last 24 hr 01/31/17 01/31/17 01/31/17 02:00 02:00 02:00 WBC 11.8 D RBC 4.26 Hgb 13.9 Hct 41.3 MCV 96.9 MCH 33 MCHC 33.7 RDW 14.0 Plt Count 236 MPV 10.1 Neut % (Auto) 77.8 H Lymph % (Auto) 13.6 L [place] % (Auto) 7.6 Eos % (Auto) 0.2 Baso % (Auto) 0.3 Neut # (Auto) 9.2 H Lymph # (Auto) 1.6 [place] # (Auto) 0.9 H Eos # (Auto) 0.0 Baso # (Auto) 0.0 Immature Gran % 0.5 Nucleated RBC % 0.0 Immature Gran # 0.06 Nucleated RBCs # 0.00 Immature Plt Fraction 0.0 Sodium 138 Potassium 3.4 L Chloride 101 Carbon Dioxide 35 H Anion Gap 5.4 BUN 24 H Creatinine 1.20 H GFR Calculation 43 BUN/Creatinine Ratio 20.00 Glucose 151 H Calculated Osmolality 281.7 Calcium 8.3 L Magnesium 1.7 L B-Natriuretic Peptide 692 H 01/31/17 02:00 WBC RBC Hgb Hct MCV MCH MCHC RDW Plt Count MPV Neut % (Auto) Lymph % (Auto) [place] % (Auto) Eos % (Auto) Baso % (Auto) Neut # (Auto) Lymph # (Auto) [place] # (Auto) Eos # (Auto) Baso # (Auto) Immature Gran % Nucleated RBC % Immature Gran # Nucleated RBCs # Immature Plt Fraction Sodium 138 Potassium 3.4 L Chloride 100 Carbon Dioxide 32 Anion Gap 9.4 BUN 25 H Creatinine 1.20 H GFR Calculation 43 BUN/Creatinine Ratio 20.00 Glucose 152 H Calculated Osmolality 281.7 Calcium 8.1 L Magnesium B-Natriuretic Peptide
--- NOTE | 2017-01-31 11:27 | Discharge Summary ---
<Karen Scruggs - Last Filed: 01/31/17 13:28> Hospital Course - Hospital Course Hospital Course: Ms Trejo 72 y/o w/PMHx COPD, Diverticulitis, CAD, HTN, MD, anxiety, depression, CVA presented 01/29/17 to ED for further evaluation of chest pain, SOB and cough. IN ED: LABS: WBC 12.6, Troponin 0.145, BNP 1152, Glucose 109, BUN 25. CXR: nothing acute. EKG not a stemi. Hospital Medicine consulted. Admitted to monitored bed, treat pain, serial troponin, electrolytes, consult cardiology and pulmonary. Serial Troponins remained flat, electrolytes remained WNL and stable. WBC improved. Cardiology consult/plan/recommendations at follows: Chest pain/tightness: Heart Catherization 01/30/17: stent placed to Mid Circumflex artery. EF 70%. Continue Aspirin and Plavix. Pulmonary consult/plan/recommendations as follows: agree with antibiotic therapy and Duonebs related to COPD exacerbation. Will need to continue home medications as time of discharge and follow up with clinic. Started oral Keflex and she can continue this as an outpatient. She can keep her already scheduled follow-up appointment with Paul Connor, nurse practitioner, in approximately 3 months but can be seen sooner if needed. Extremity ultrasound was negative. Cardiology will review groin ultrasound of heart cath groin site and will clear for discharge. Today 01/31/17 Patient is stable. Symptoms have improved. Labs remain stable. She will be discharged home today. She will need to follow up with Primary Care Physician in 1 week. She will need to follow up with Cardiology clinic. She will need to follow up with Pulmonary Physician, continue Keflex. Further recommendations with discharge planning to follow per Dr Childers. I nita seen and examined Mrs Trejo and agree with the summary above. She understands plans for follow up and is feeling good today. SHe will take Keflex for cough per DR Rivers. Her diagnoses are CAD with stent to midcircumflex, bronchitis, COPD exacerbation. Diagnosis - Discharge Diagnosis (1) Elevated troponin Status: Chronic (2) Acute exacerbation of chronic obstructive airways disease Status: Acute (3) COPD (chronic obstructive pulmonary disease) Status: Chronic (4) Tobacco abuse Status: Chronic Specialty Discharge - Follow Up or Referrals Follow up with: Mynor Munson MD [Physician] - 2 Weeks Roberto Rivers MD [Physician] - Itz Trinidad MD [Primary Care Provider] - 1 Week Discharge Plan - Discharge Data Disposition: Disch To Home/Self Care - Discharge Medications New Nicotine 21 mg/24 Hr Patch [Nicoderm CQ 21 mg/24 hr Patch] 1 patch TRANSDERM DAILY PRN patch PRN Reason: Nicotine Cravings cephALEXin [Keflex] 250 mg PO Q6HR #30 capsule Continue Nitroglycerin Sl Tab [Nitrostat] 0.4 mg SL Q5M PRN PRN Reason: Chest Pain [place]-3 Fatty Acids [Fish Oil Concentrate] 1,000 mg PO QAM Aspirin [Ecotrin] 81 mg PO QAM Omeprazole [Prilosec] 20 mg PO QAM Sertraline [Zoloft] 100 mg PO QAM Cholecalciferol (Vitamin D3) [Vitamin D3] 10,000 unit PO QAM dilTIAZem HCl [Cartia XT] 180 mg PO BID Metoprolol Succinate 25 mg PO BID Clopidogrel [Plavix] 75 mg PO QAM Bacitracin Oint 1 applic TOP DAILY applic predniSONE TAB [PredniSONE] 20 mg PO DAILY tablet Rosuvastatin [Crestor] 5 mg PO BEDTIME tablet Montelukast Tab [Singulair Tab] 10 mg PO QAM Albuterol Inhaler [Proventil Inhaler] 2 puff INH Q6H PRN PRN Reason: Shortness Of Breath/Wheezing Isosorbide Mononitrate [Isosorbide Mononitrate ER] 60 mg PO QAM Albuterol/Ipratropium Neb [Duoneb] 3 ml RESP TX RT Q6H - Follow Up or Referral Follow Up: Mynor Munson MD [Physician] - 2 Weeks - Forms/Instructions Instructions: Coronary Artery Disease (GEN), Left Heart Catheterization (DC), How to Stop Smoking (GEN), Heart Healthy Diet (GEN), Cigarette Smoking and Your Health (GEN), Coronary Intravascular Stent Placement, [place] (GEN) Exam - Constitutional Vitals: Period Temp Pulse Resp BP Sys/Gibson Pulse Ox Last 24 Hr 96.7 F-97.6 F 59-75 16-20 108-160/53-93 90-97 General appearance: normal weight, no acute distress - Head Head exam: Present: normal inspection - Eye Eye exam: Present: EOMI Pupils: Present: DENA - Neck Neck exam: Present: normal inspection. Absent: thyromegaly - Respiratory Respiratory exam: Present: decreased breath sounds. Absent: rhonchi, stridor, wheezes - Cardiovascular Cardiovascular exam: Present: regular rate and rhythm - GI/Abdominal GI/Abdominal exam: Present: normal bowel sounds, soft. Absent: tenderness, rebound - Extremities Exam Extremities exam: Present: full ROM. Absent: edema - Neurological Exam Neurological exam: Present: alert, oriented X3, CN II-XII intact - Psychiatric Psychiatric exam: Present: normal affect, normal mood. Absent: agitated, anxious - Skin Skin exam: Present: normal color, warm, dry Discharge Results Procedures and tests throughout hospitalization: Pending Orders 02/01/17 04:00 Basic Metabolic Panel IN AM Comp Blood Count Auto Diff IN AM Magnesium IN AM 02/02/17 04:00 Basic Metabolic Panel IN AM Comp Blood Count Auto Diff IN AM Magnesium IN AM Labs on day of discharge: Labs from last 24 hours 01/31/17 01/31/17 01/31/17 02:00 02:00 02:00 WBC RBC Hgb Hct MCV MCH MCHC RDW Plt Count MPV Neut % (Auto) Lymph % (Auto) [place] % (Auto) Eos % (Auto) Baso % (Auto) Neut # (Auto) Lymph # (Auto) [place] # (Auto) Eos # (Auto) Baso # (Auto) Immature Gran % Nucleated RBC % Immature Gran # Nucleated RBCs # Immature Plt Fraction Sodium 138 138 Potassium 3.4 L 3.4 L Chloride 100 101 Carbon Dioxide 32 35 H Anion Gap 9.4 5.4 BUN 25 H 24 H Creatinine 1.20 H 1.20 H GFR Calculation 43 43 BUN/Creatinine Ratio 20.00 20.00 Glucose 152 H 151 H Calculated Osmolality 281.7 281.7 Calcium 8.1 L 8.3 L Magnesium 1.7 L B-Natriuretic Peptide 692 H 01/31/17 02:00 WBC 11.8 D RBC 4.26 Hgb 13.9 Hct 41.3 MCV 96.9 MCH 33 MCHC 33.7 RDW 14.0 Plt Count 236 MPV 10.1 Neut % (Auto) 77.8 H Lymph % (Auto) 13.6 L [place] % (Auto) 7.6 Eos % (Auto) 0.2 Baso % (Auto) 0.3 Neut # (Auto) 9.2 H Lymph # (Auto) 1.6 [place] # (Auto) 0.9 H Eos # (Auto) 0.0 Baso # (Auto) 0.0 Immature Gran % 0.5 Nucleated RBC % 0.0 Immature Gran # 0.06 Nucleated RBCs # 0.00 Immature Plt Fraction 0.0 Sodium Potassium Chloride Carbon Dioxide Anion Gap BUN Creatinine GFR Calculation BUN/Creatinine Ratio Glucose Calculated Osmolality Calcium Magnesium B-Natriuretic Peptide DS: Provider Date of admission: 01/29/17 20:15 Primary care physician: Itz Trinidad MD Attending physician on admission: Kp Bush MD Consults: 01/29/17 21:25 Consult to Physician [CONS] Routine Comment: Consulting Provider: Roberto Rivers Consult to Physician [CONS] Routine Comment: chest pain, history of CAD Consulting Provider: Mynor Munson Consult to Specialist Group: Cardiology Person Notified: Elo Date Notified: 01/30/17 Time Notified: 08:10 01/30/17 18:05 Consult to Cardiac Rehabilitation [CONS] Routine Reason for Cardiac Rehabilitation: Risk Factor Modification Other Consult Comment: Evaluate and recommend Discharging clinician: Karen Scruggs NP <Pao Childers - Last Filed: 01/31/17 13:41> Hospital Course - Time spent with patient Time with patient DS: Greater than 30 minutes (40 minutes required for medicine reconciliation, documentation, discharge planning) Discharge Plan - Discharge Data Condition at Discharge: Stable Discharge Diet: heart healthy Activity: resume usual activities as tolerated (per DR Man's instructions)
--- NOTE | 2017-01-31 11:28 | Pulmonology Progress Note ---
Pulmonary - PN: Subj Interval history: Paul Connor, AGNP-, acting as scribe for Dr. Roberto Yates Ms. Trejo is a 72-year-old white female who we saw in initial pulmonary consultation on 01/30/2017. At that time, our impressions were: #1: Acute chest pain that was relieved with nitroglycerin and worsened with exertion #2: High blood pressure #3: Borderline cardiac isoenzymes #4: Hyperlipidemia #5: Arteriosclerotic heart disease with stents #6: History of depression #7: Tobacco abuse #8: Mitral valve prolapse #9: COPD with bronchospastic disease #10: Azotemia #11: Pulmonary venous hypertension with pulmonary artery pressure noted to be 54 mmHg. This could be the etiology of the patient's elevated BNP although the BNP is a little higher than we would expect. #12: See past history 01/31/2017. The patient was seen today along with her daughter, Keiko Amaro. Yesterday Ms. Trejo underwent cardiac catheterization by Dr. Man. This showed the left anterior descending artery was tortuous, large caliber vessel with multiple luminal irregularities. The second diagonal artery was a large-caliber vessel 50% ostial stenosis. The circumflex had a stent in the midportion of the vessel with 70% lesion of the distal edge, but the stent itself was patent. There was a large bifurcating first marginal artery proximal to the stent origin. This 70% lesion was stented with good results. The right coronary artery showed diffuse irregularity but was a large caliber dominant vessel with luminal irregularities. There is a stent in the mid segment that was patent with mild late luminal loss. Dr. Man recommended aspirin and Plavix therapy for greater than 12 months and risk factor modifications. She tolerated the procedure well. She is hopeful for discharge home today. Her daughter, however, states that she and her children are both sick with upper respiratory illnesses. The children more so than her. They have asked for antibiotics for Ms. Trejo in case she should began experiencing any symptoms. Before he left the room, Ms. Amaro began coughing a deep rattling cough. We feel it is in Ms. Trejo's best interest to go ahead and treat her empirically, so we have started Keflex 250 mg p.o. 4 times daily 10 days. We have told her that if she is completely well in approximately 7 days she can stop the medication. Medications have been reviewed. Keflex was started as above. Labs been reviewed. White count is 11,800 with 77.8% segs, 13.6% lymphs, and 7.6% monos; H&H 13.9/41.3; platelet count 236,000; creatinine 1.20, BUN 25, sodium 138, potassium 3.4, magnesium 1.7; BNP has fallen from 1152 at admission to 692 today Exam (Progress Note) - Constitutional Vitals: Period Temp Pulse Resp BP Sys/Gibson Pulse Ox Last 24 Hr 96.7 F-97.5 F 59-72 16-20 108-160/53-93 90-97 Exam: Chest is wheeze free but with mild loose large airway congestion Heart no gallop Abdomen is nontender and nondistended; bowel sounds are positive 4 Extremities with nothing to suggest acute deep venous thrombophlebitis Psychiatric oriented 3 Neurologic long-term motor function is intact Plan: Patient is doing well from a pulmonary standpoint. We have started oral Keflex as above and she can continue this as an outpatient with parameters as discussed above. She can keep her already scheduled follow-up appointment with Paul Connor, nurse practitioner, in approximately 3 months but can be seen sooner if needed. We will sign off. Please reconsult as needed. Results - Labs CBC & BMP: 01/31/17 02:00 01/31/17 02:00 Specialty Discharge - Follow Up or Referrals
[2017-01-31] MEDS ORDERED: cephALEXin 250 MG CAPSULE PO SCH (12:00)
[2017-01-31 12:16] VITALS: BP 130/58
--- NOTE | 2017-01-31 13:20 | Ultrasound Report ---
US arterial duplex LE RT Technique: Targeted ultrasound evaluation of the right groin soft tissues, common femoral artery and vein was performed with grayscale, color Doppler and spectral analysis. Clinical Information: R groin bruit s/p C Comparison: None available Findings: No focal abnormalities identified within the right groin vessels. The right common femoral artery demonstrates normal phasic wave form with no pseudoaneurysm. The right common femoral vein is patent, compressible and demonstrates normal phasicity with no evidence of arteriovenous fistula. Ultrasound images were captured and stored. Impression: Negative study. PROCEDURE INTERPRETED AT [facility] DEPARTMENT OF RADIOLOGY Final Report Signed by: Zurdo Orourke
== END 2017-01-31 14:25 | disposition home or self-care (01) ==
LOC: EDBD → EDUNIT# → N.ED 17:02 → N.EDINP 17:02 → SUATTDRO 20:15 → N.TELEN 20:45
PROVIDERS: ADMIT Internal Medicine; ATTEND Internal Medicine
PROC: CLCCHCL (ICD-10-PCS; 2017-01-30 16:45)

== ENCOUNTER 2017-05-10 09:48 | Inpatient (IN) ==
[2017-05-10] MEDS ORDERED: ALBUTEROL/IPRATROPIUM 3 ML NEB RESP TX PRN (11:37)
[2017-05-10] MEDS: ALBUTEROL/IPRATROPIUM 3 ML NEB RESP TX SCH ×2 (14:42→20:44)
[2017-05-10 15:09] LABS: Basophils % 0.2 % (0.0-0.8); Hematocrit 37.7 VOL% (35.7-47.0); Hemoglobin 12.7 GM/DL (12.0-16.0); Immature Granulocytes % 1.6 %; Lymphocytes # 0.5 10*3/uL (1.4-4.0); Lymphocytes % 3.9 % (21.3-54.2); Mean Corpuscular HGB Conc 33.7 GM/DL (32-36); Mean Corpuscular Hemoglobin 32 PG (27-34); Mean Corpuscular Volume 96.2 FL (87-102); Mean Platelet Volume 10.6 FL (9.6-12.0); Monocytes # 0.7 10*3/uL (0.11-0.8); Monocytes % 5.4 % (1.7-12.7); Neutrophils # 11.1 10*3/uL (1.4-7.4); Neutrophils % 88.9 % (38.7-73.9); Platelet Count 252 T/CUMM (130-400); Red Blood Count 3.92 MC/CUMM (3.8-5.5); White Blood Count 12.5 T/CUMM (4-12)
[2017-05-10 15:40] LABS: Albumin 3.5 G/DL (3.4-5.0); Bilirubin,Total 0.8 MG/DL (0.2-1.0); Calcium 8.8 MG/DL (8.5-10.1); Magnesium 2.4 MG/DL (1.8-2.4); Thyroid Stimulating Hormone 0.038 uIU/ml (0.358-3.74); Total Protein 5.8 G/DL (6.4-8.3)
[2017-05-10 16:23] LABS: Eosinophils 1 % (0-10); Lymphocytes 5 % (20-55); Platelet Estimate Normal; Segmented Neutrophils 91 % (50-85); Total Cells Counted 100
[2017-05-10 16:45] LABS: Apearance,Urine CLEAR (Clear); Bilirubin,Urine Negative (Negative); Blood, Urine Negative (Negative); Glucose,Urine (UA) Negative (Negative); Ketones,Urine Negative (Negative); Nitrite,Urine Negative (Negative); Protein,Urine Negative; RBC,Urine <1 /HPF (0-4); Squamous Epithelial Cell,Urine Occasional /HPF (0-10); Urine Color Yellow (Yellow); Urine Specific Gravity 1.012 (1.001-1.035); Urine Urobilinogen < 2.0 EU/DL (0.2-1.0); WBC,Urine 1 /HPF (0-6)
[2017-05-10] MEDS ORDERED: NITROGLYCERIN SL 0.4 MG TABLET SL PRN (17:58)
[2017-05-10] MEDS ORDERED: ACETAMINOPHEN 325 MG TABLET PO PRN (18:00)
[2017-05-10] MEDS: DEXTROSE 5% NACL 0.45% 1,000 ML IV SCH (18:26)
[2017-05-10] MEDS: methylPREDNISolone SOD SUC 40 MG/1 ML VIAL IV SCH (19:07)
[2017-05-10] MEDS: FUROSEMIDE 40 MG TABLET PO SCH (19:07)
[2017-05-10] MEDS: MONTELUKAST 10 MG TABLET PO SCH (21:36)
[2017-05-10] MEDS: METOPROLOL SUCCINATE XL 25 MG TABLET PO SCH (21:36)
[2017-05-10] MEDS: DILTIAZEM CD 180 MG CAPSULE PO SCH (21:37)
[2017-05-11] MEDS: ALBUTEROL/IPRATROPIUM 3 ML NEB RESP TX SCH ×4 (01:19→19:35)
[2017-05-11] MEDS: methylPREDNISolone SOD SUC 40 MG/1 ML VIAL IV SCH ×2 (06:33→17:47)
[2017-05-11 06:58] LABS: Basophils % 0.1 % (0.0-0.8); Hematocrit 38.2 VOL% (35.7-47.0); Hemoglobin 12.9 GM/DL (12.0-16.0); Immature Granulocytes % 3.8 %; Immature Granulocytes Absolute 0.45 #; Lymphocytes # 0.8 10*3/uL (1.4-4.0); Lymphocytes % 6.3 % (21.3-54.2); Mean Corpuscular HGB Conc 33.8 GM/DL (32-36); Mean Corpuscular Hemoglobin 33 PG (27-34); Mean Corpuscular Volume 96.2 FL (87-102); Mean Platelet Volume 10.5 FL (9.6-12.0); Monocytes # 1.8 10*3/uL (0.11-0.8); Neutrophils % 74.8 % (38.7-73.9); Platelet Count 242 T/CUMM (130-400); Red Blood Count 3.97 MC/CUMM (3.8-5.5); Red Cell Distribution Width 11.9 % (9.3-17.3)
[2017-05-11 07:18] LABS: Calcium 8.2 MG/DL (8.5-10.1); Magnesium 2.1 MG/DL (1.8-2.4); Osmolality,Calculated 281.7 MOS/KG (273-304); Potassium 3.3 MMOL/L (3.5-5.1)
[2017-05-11] MEDS ORDERED: POTASSIUM CHLORIDE 20 MEQ TABLET PO ONE (09:14)
[2017-05-11] MEDS: DEXTROSE 5% NACL 0.45% 1,000 ML IV SCH (09:31)
[2017-05-11] MEDS: ASPIRIN EC 81 MG TABLET PO SCH (09:32)
[2017-05-11] MEDS: DILTIAZEM CD 180 MG CAPSULE PO SCH ×2 (09:32→21:32)
[2017-05-11] MEDS: ISOSORBIDE MONONITRATE 60 MG TABLET PO SCH (09:32)
[2017-05-11] MEDS: FUROSEMIDE 40 MG TABLET PO SCH ×2 (09:32→17:46)
[2017-05-11] MEDS: CLOPIDOGREL 75 MG TABLET PO SCH (09:32)
[2017-05-11] MEDS: METOPROLOL SUCCINATE XL 25 MG TABLET PO SCH ×2 (09:32→21:33)
[2017-05-11] MEDS: OMEGA 3 ACID ETHYL ESTERS 1 GM CAPSULE PO SCH (09:32)
[2017-05-11] MEDS: SERTRALINE 100 MG TABLET PO SCH (09:32)
[2017-05-11] MEDS: PANTOPRAZOLE 40 MG TABLET PO SCH (09:32)
[2017-05-11] MEDS: FLUTICASONE 50 MCG NASAL SPRAY 16 GM BOTTLE BOTH NARES SCH (09:33)
[2017-05-11] MEDS: CHOLECALCIFEROL 5,000 UNIT TABLET PO SCH (09:33)
[2017-05-11] MEDS: MONTELUKAST 10 MG TABLET PO SCH (21:33)
[2017-05-12] MEDS: ALBUTEROL/IPRATROPIUM 3 ML NEB RESP TX SCH ×4 (02:08→20:02)
[2017-05-12] MEDS: methylPREDNISolone SOD SUC 40 MG/1 ML VIAL IV SCH ×2 (06:03→18:04)
[2017-05-12] MEDS: DEXTROSE 5% NACL 0.45% 1,000 ML IV SCH (08:05)
[2017-05-12] MEDS: FLUTICASONE 50 MCG NASAL SPRAY 16 GM BOTTLE BOTH NARES SCH (08:15)
[2017-05-12] MEDS: CHOLECALCIFEROL 5,000 UNIT TABLET PO SCH (08:15)
[2017-05-12] MEDS: PANTOPRAZOLE 40 MG TABLET PO SCH (08:16)
[2017-05-12] MEDS: DILTIAZEM CD 180 MG CAPSULE PO SCH ×2 (08:16→20:53)
[2017-05-12] MEDS: CLOPIDOGREL 75 MG TABLET PO SCH (08:16)
[2017-05-12] MEDS: ASPIRIN EC 81 MG TABLET PO SCH (08:16)
[2017-05-12] MEDS: OMEGA 3 ACID ETHYL ESTERS 1 GM CAPSULE PO SCH (08:16)
[2017-05-12] MEDS: FUROSEMIDE 40 MG TABLET PO SCH ×2 (08:16→17:06)
[2017-05-12] MEDS: POTASSIUM CHLORIDE 10 MEQ TABLET PO SCH (08:16)
[2017-05-12] MEDS: METOPROLOL SUCCINATE XL 25 MG TABLET PO SCH ×2 (08:16→20:53)
[2017-05-12] MEDS: SERTRALINE 100 MG TABLET PO SCH (08:16)
[2017-05-12] MEDS: ISOSORBIDE MONONITRATE 60 MG TABLET PO SCH (08:16)
[2017-05-12] MEDS: MONTELUKAST 10 MG TABLET PO SCH (20:54)
[2017-05-13] MEDS: ALBUTEROL/IPRATROPIUM 3 ML NEB RESP TX SCH ×4 (00:27→19:40)
[2017-05-13] MEDS: methylPREDNISolone SOD SUC 40 MG/1 ML VIAL IV SCH ×2 (05:46→17:58)
[2017-05-13] MEDS: PANTOPRAZOLE 40 MG TABLET PO SCH (09:26)
[2017-05-13] MEDS: ASPIRIN EC 81 MG TABLET PO SCH (09:26)
[2017-05-13] MEDS: POTASSIUM CHLORIDE 10 MEQ TABLET PO SCH (09:26)
[2017-05-13] MEDS: SERTRALINE 100 MG TABLET PO SCH (09:26)
[2017-05-13] MEDS: OMEGA 3 ACID ETHYL ESTERS 1 GM CAPSULE PO SCH (09:26)
[2017-05-13] MEDS: ISOSORBIDE MONONITRATE 60 MG TABLET PO SCH (09:26)
[2017-05-13] MEDS: METOPROLOL SUCCINATE XL 25 MG TABLET PO SCH ×2 (09:26→21:34)
[2017-05-13] MEDS: CLOPIDOGREL 75 MG TABLET PO SCH (09:26)
[2017-05-13] MEDS: CHOLECALCIFEROL 5,000 UNIT TABLET PO SCH (09:26)
[2017-05-13] MEDS: DILTIAZEM CD 180 MG CAPSULE PO SCH ×2 (09:26→21:34)
[2017-05-13] MEDS: FUROSEMIDE 40 MG TABLET PO SCH ×2 (09:26→15:36)
[2017-05-13] MEDS: FLUTICASONE 50 MCG NASAL SPRAY 16 GM BOTTLE BOTH NARES SCH (09:27)
[2017-05-13] MEDS: DEXTROSE 5% NACL 0.45% 1,000 ML IV SCH (09:27)
[2017-05-13] MEDS: FLUCONAZOLE 200 MG TABLET PO SCH (15:36)
[2017-05-13] MEDS: CLOTRIMAZOLE 10 MG TROCHE PO SCH ×2 (17:58→21:34)
[2017-05-13] MEDS: MONTELUKAST 10 MG TABLET PO SCH (21:34)
[2017-05-14] MEDS: ALBUTEROL/IPRATROPIUM 3 ML NEB RESP TX SCH ×2 (00:20→08:11)
[2017-05-14 05:57] LABS: Basophils # 0.1 10*3/uL (0.0-0.2); Basophils % 0.2 % (0.0-0.8); Hematocrit 42.9 VOL% (35.7-47.0); Hemoglobin 14.4 GM/DL (12.0-16.0); Immature Granulocytes % 2.5 %; Immature Granulocytes Absolute 0.55 #; Lymphocytes # 1.2 10*3/uL (1.4-4.0); Lymphocytes % 5.7 % (21.3-54.2); Mean Corpuscular HGB Conc 33.6 GM/DL (32-36); Mean Corpuscular Hemoglobin 32 PG (27-34); Mean Corpuscular Volume 95.8 FL (87-102); Mean Platelet Volume 10.2 FL (9.6-12.0); Monocytes # 0.7 10*3/uL (0.11-0.8); Monocytes % 3.2 % (1.7-12.7); Neutrophils % 88.4 % (38.7-73.9); Platelet Count 306 T/CUMM (130-400); Red Blood Count 4.48 MC/CUMM (3.8-5.5); Red Cell Distribution Width 11.7 % (9.3-17.3); White Blood Count 21.6 T/CUMM (4-12)
[2017-05-14 06:24] LABS: Hypochromasia 1+; Lymphocytes 6 % (20-55); Segmented Neutrophils 91 % (50-85); Total Cells Counted 100
[2017-05-14 06:25] LABS: Microcytosis Slight; Platelet Estimate Normal
[2017-05-14 06:26] LABS: Calcium 8.5 MG/DL (8.5-10.1); Osmolality,Calculated 286.2 MOS/KG (273-304); Potassium 3.8 MMOL/L (3.5-5.1)
[2017-05-14] MEDS: CLOTRIMAZOLE 10 MG TROCHE PO SCH ×3 (06:28→14:43)
[2017-05-14] MEDS: methylPREDNISolone SOD SUC 40 MG/1 ML VIAL IV SCH (07:15)
[2017-05-14] MEDS: OMEGA 3 ACID ETHYL ESTERS 1 GM CAPSULE PO SCH (09:44)
[2017-05-14] MEDS: CHOLECALCIFEROL 5,000 UNIT TABLET PO SCH (09:44)
[2017-05-14] MEDS: FLUTICASONE 50 MCG NASAL SPRAY 16 GM BOTTLE BOTH NARES SCH (09:45)
[2017-05-14] MEDS: PANTOPRAZOLE 40 MG TABLET PO SCH (09:45)
[2017-05-14] MEDS: ISOSORBIDE MONONITRATE 60 MG TABLET PO SCH (09:45)
[2017-05-14] MEDS: DILTIAZEM CD 180 MG CAPSULE PO SCH (09:45)
[2017-05-14] MEDS: CLOPIDOGREL 75 MG TABLET PO SCH (09:45)
[2017-05-14] MEDS: ASPIRIN EC 81 MG TABLET PO SCH (09:45)
[2017-05-14] MEDS: FUROSEMIDE 40 MG TABLET PO SCH (09:45)
[2017-05-14] MEDS: POTASSIUM CHLORIDE 10 MEQ TABLET PO SCH (09:45)
[2017-05-14] MEDS: SERTRALINE 100 MG TABLET PO SCH (09:45)
[2017-05-14] MEDS: METOPROLOL SUCCINATE XL 25 MG TABLET PO SCH (09:45)
[2017-05-14] MEDS: FLUCONAZOLE 200 MG TABLET PO SCH (09:45)
[2017-05-14 13:21] VITALS: BP 106/53
== END 2017-05-14 15:15 | disposition home or self-care (01) | DRG 190 ==
LOC: N.5E 14:12
PROVIDERS: ADMIT Internal Medicine Pulmonary Disease; ATTEND Internal Medicine Pulmonary Disease

== ENCOUNTER 2017-05-23 10:32 | Inpatient (IN) ==
[2017-05-23] MEDS ORDERED: METOCLOPRAMIDE 10 MG/2 ML VIAL IV STA (12:31)
[2017-05-23] MEDS ORDERED: SODIUM CHLORIDE 0.9% 1,000 ML IV STA (12:31)
[2017-05-23] MEDS ORDERED: metroNIDAZOLE INJ 500 MG in PREMIX 1 EACH IV STA (12:34)
[2017-05-23] MEDS ORDERED: LOPERAMIDE 2 MG CAPSULE PO STA (12:34)
[2017-05-23] MEDS ORDERED: LOPERAMIDE 2 MG CAPSULE ONE (13:12)
[2017-05-23] MEDS ORDERED: METOCLOPRAMIDE 10 MG/2 ML VIAL ONE (13:12)
[2017-05-23] MEDS ORDERED: metroNIDAZOLE 500 MG/100 ML PREMIX IV ONE (13:13)
[2017-05-23 13:28] LABS: INR 0.9; PT Patient Result 9.2 SECS; Partial Thromboplastin Time 26.8 SECS (0-40)
[2017-05-23 13:49] LABS: Bilirubin,Total 0.4 MG/DL (0.2-1.0); CKMB % 13.3 %; Calcium 8.2 MG/DL (8.5-10.1); Osmolality,Calculated 282.4 MOS/KG (273-304); Potassium 3.6 MMOL/L (3.5-5.1); Total Protein 6.1 G/DL (6.4-8.3); Troponin I Only 0.139 NG/ML (0.00-0.045)
[2017-05-23 13:53] LABS: Basophils % 0.1 % (0.0-0.8); Eosinophils # 0.1 10*3/uL (0.0-0.87); Eosinophils % 0.7 % (0.00-10.9); Hematocrit 35.6 VOL% (35.7-47.0); Hemoglobin 12.5 GM/DL (12.0-16.0); Immature Granulocytes % 0.5 %; Immature Granulocytes Absolute 0.07 #; Lymphocytes # 2.6 10*3/uL (1.4-4.0); Lymphocytes % 19.7 % (21.3-54.2); Mean Corpuscular HGB Conc 35.1 GM/DL (32-36); Mean Corpuscular Hemoglobin 33 PG (27-34); Mean Corpuscular Volume 94.4 FL (87-102); Mean Platelet Volume 10.2 FL (9.6-12.0); Monocytes % 7.6 % (1.7-12.7); Neutrophils # 9.3 10*3/uL (1.4-7.4); Neutrophils % 71.4 % (38.7-73.9); Platelet Count 258 T/CUMM (130-400); Red Blood Count 3.77 MC/CUMM (3.8-5.5); Red Cell Distribution Width 12.3 % (9.3-17.3)
[2017-05-23] MEDS ORDERED: ONDANSETRON 4 MG/2 ML VIAL IV PRN (15:18)
[2017-05-23] MEDS ORDERED: ACETAMINOPHEN 325 MG TABLET PO PRN (15:18)
[2017-05-23 15:51] LABS: Apearance,Urine CLEAR (Clear); Bacteria,Urine Moderate /HPF (Few); Bilirubin,Urine Negative (Negative); Blood, Urine Small mg/dL (Negative); Glucose,Urine (UA) Negative (Negative); Ketones,Urine Negative (Negative); Mucus,Urine Occasional /LPF (Occasional); Nitrite,Urine Positive (Negative); Protein,Urine Negative; Squamous Epithelial Cell,Urine Occasional /HPF (0-10); Urine Color Yellow (Yellow); Urine Specific Gravity 1.013 (1.001-1.035); Urine Urobilinogen < 2.0 EU/DL (0.2-1.0); WBC,Urine 5 /HPF (0-6)
[2017-05-23 16:12] LABS: ABG Base Excess 4.3 MMOL/L (-2.5-2.5); ABG HCO3 28.2 MMOL/L (20-26); ABG Oxygen Saturation 95.1 % (95-100); ABG PCO2 53.2 MM HG (35-48); ABG PH 7.371 (7.35-7.45); ABG PO2 79.6 MM HG (80-95); ABG TCO2 27.6 MMOL/L (23-27)
[2017-05-23] MEDS: ALBUTEROL/IPRATROPIUM 3 ML NEB RESP TX SCH ×3 (17:00→23:25)
[2017-05-23] MEDS: CIPROFLOXACIN INJ 400 MG in PREMIX 1 EACH IV SCH (17:31)
[2017-05-23 18:03] LABS: Hematocrit 34.3 VOL% (35.7-47.0); Hemoglobin 11.3 GM/DL (12.0-16.0)
[2017-05-23 23:04] LABS: Hematocrit 35.2 VOL% (35.7-47.0); Hemoglobin 11.7 GM/DL (12.0-16.0)
[2017-05-24] MEDS: ALBUTEROL/IPRATROPIUM 3 ML NEB RESP TX SCH ×5 (02:43→19:39)
[2017-05-24] MEDS: CIPROFLOXACIN INJ 400 MG in PREMIX 1 EACH IV SCH (05:01)
[2017-05-24] MEDS: SODIUM CHLORIDE 0.9% 1,000 ML IV SCH ×2 (05:14→16:57)
[2017-05-24] MEDS: metroNIDAZOLE INJ 500 MG in PREMIX 1 EACH IV SCH ×2 (05:29)
[2017-05-24 06:19] LABS: Basophils % 0.1 % (0.0-0.8); Eosinophils # 0.1 10*3/uL (0.0-0.87); Eosinophils % 0.6 % (0.00-10.9); Hematocrit 35.1 VOL% (35.7-47.0); Immature Granulocytes % 0.5 %; Immature Granulocytes Absolute 0.05 #; Lymphocytes # 1.7 10*3/uL (1.4-4.0); Lymphocytes % 17.1 % (21.3-54.2); Mean Corpuscular HGB Conc 34.2 GM/DL (32-36); Mean Corpuscular Hemoglobin 33 PG (27-34); Mean Corpuscular Volume 95.1 FL (87-102); Monocytes # 0.8 10*3/uL (0.11-0.8); Monocytes % 8.3 % (1.7-12.7); Neutrophils # 7.1 10*3/uL (1.4-7.4); Neutrophils % 73.4 % (38.7-73.9); Platelet Count 242 T/CUMM (130-400); Red Blood Count 3.69 MC/CUMM (3.8-5.5); Red Cell Distribution Width 12.5 % (9.3-17.3); White Blood Count 9.7 T/CUMM (4-12)
[2017-05-24 06:47] LABS: Calcium 8.5 MG/DL (8.5-10.1); Osmolality,Calculated 279.4 MOS/KG (273-304); Potassium 3.9 MMOL/L (3.5-5.1)
[2017-05-24] MEDS ORDERED: ALBUTEROL 2.5 MG/3 ML NEB RESP TX PRN (07:52)
[2017-05-24] MEDS ORDERED: NITROGLYCERIN SL 0.4 MG TABLET SL PRN (07:52)
[2017-05-24 07:53] LABS: Hematocrit 35.4 VOL% (35.7-47.0); Hemoglobin 11.8 GM/DL (12.0-16.0)
[2017-05-24] MEDS ORDERED: FLUCONAZOLE 200 MG TABLET PO SCH (09:00)
[2017-05-24] MEDS: OMEGA 3 ACID ETHYL ESTERS 1 GM CAPSULE PO SCH (10:15)
[2017-05-24] MEDS: FUROSEMIDE 40 MG TABLET PO SCH (10:15)
[2017-05-24] MEDS: PANTOPRAZOLE 40 MG TABLET PO SCH (10:16)
[2017-05-24] MEDS: METOPROLOL SUCCINATE XL 25 MG TABLET PO SCH ×2 (10:16→20:37)
[2017-05-24] MEDS: CHOLECALCIFEROL 5,000 UNIT TABLET PO SCH (10:16)
[2017-05-24] MEDS: CLOTRIMAZOLE 10 MG TROCHE PO SCH ×5 (10:16→21:58)
[2017-05-24] MEDS: predniSONE 20 MG TABLET PO SCH (10:17)
[2017-05-24] MEDS: ISOSORBIDE MONONITRATE 60 MG TABLET PO SCH (10:17)
[2017-05-24] MEDS: DILTIAZEM CD 180 MG CAPSULE PO SCH ×2 (10:18→20:36)
[2017-05-24] MEDS: POTASSIUM CHLORIDE 10 MEQ TABLET PO SCH (10:18)
[2017-05-24] MEDS: SERTRALINE 100 MG TABLET PO SCH (10:18)
[2017-05-24] MEDS: FLUTICASONE 50 MCG NASAL SPRAY 16 GM BOTTLE BOTH NARES SCH (11:39)
[2017-05-24] MEDS ORDERED: cefTRIAXone 1,000 MG in SYRINGE 1 EACH IV SCH (13:00)
[2017-05-24 17:22] LABS: Hematocrit 34.1 VOL% (35.7-47.0); Hemoglobin 11.7 GM/DL (12.0-16.0)
[2017-05-24] MEDS ORDERED: MONTELUKAST 10 MG TABLET PO SCH (19:00)
[2017-05-25] MEDS: ALBUTEROL/IPRATROPIUM 3 ML NEB RESP TX SCH ×5 (00:19→14:15)
[2017-05-25] MEDS: CLOTRIMAZOLE 10 MG TROCHE PO SCH ×3 (05:53→13:20)
[2017-05-25] MEDS ORDERED: CLOPIDOGREL 75 MG TABLET PO SCH (09:00)
[2017-05-25] MEDS ORDERED: ASPIRIN EC 81 MG TABLET PO SCH (09:00)
[2017-05-25] MEDS: ISOSORBIDE MONONITRATE 60 MG TABLET PO SCH (09:45)
[2017-05-25] MEDS: OMEGA 3 ACID ETHYL ESTERS 1 GM CAPSULE PO SCH (09:45)
[2017-05-25] MEDS: METOPROLOL SUCCINATE XL 25 MG TABLET PO SCH (09:45)
[2017-05-25] MEDS: SERTRALINE 100 MG TABLET PO SCH (09:45)
[2017-05-25] MEDS: CHOLECALCIFEROL 5,000 UNIT TABLET PO SCH (09:45)
[2017-05-25] MEDS: FUROSEMIDE 40 MG TABLET PO SCH (09:45)
[2017-05-25] MEDS: DILTIAZEM CD 180 MG CAPSULE PO SCH (09:46)
[2017-05-25] MEDS: POTASSIUM CHLORIDE 10 MEQ TABLET PO SCH (09:46)
[2017-05-25] MEDS: PANTOPRAZOLE 40 MG TABLET PO SCH (09:46)
[2017-05-25] MEDS: predniSONE 20 MG TABLET PO SCH (09:46)
[2017-05-25] MEDS: FLUTICASONE 50 MCG NASAL SPRAY 16 GM BOTTLE BOTH NARES SCH (09:46)
[2017-05-25 10:19] LABS: Hematocrit 32.2 VOL% (35.7-47.0); Hemoglobin 10.4 GM/DL (12.0-16.0)
[2017-05-25 12:24] VITALS: BP 126/65
[2017-05-25] MEDS ORDERED: NITROFURANTOIN MACRO/MONO 100 MG CAPSULE PO SCH (12:30)
== END 2017-05-25 14:40 | disposition home or self-care (01) | DRG 378 ==
LOC: N.ED 10:32 → SUATTDRO 14:09 → N.EDINP 14:09 → N.TELES 16:54
PROVIDERS: ADMIT Internal Medicine; ATTEND Pediatrics

== ENCOUNTER 2017-06-09 15:20 | Inpatient (IN) ==
[2017-06-09] MEDS ORDERED: ALBUTEROL/IPRATROPIUM 3 ML NEB RESP TX STA (17:17)
[2017-06-09] MEDS ORDERED: NICOTINE 21 MG/24 HR PATCH TRANSDERM PRN (17:39)
[2017-06-09] MEDS ORDERED: ACETAMINOPHEN 325 MG TABLET PO PRN ×2 (17:39)
[2017-06-09] MEDS ORDERED: ONDANSETRON 4 MG/2 ML VIAL IV PRN (17:39)
[2017-06-09] MEDS ORDERED: DOCUSATE SODIUM 100 MG CAPSULE PO PRN (17:39)
[2017-06-09] MEDS ORDERED: DEXTROSE 50% 25 GM/50 ML VIAL IV PRN (17:39)
[2017-06-09] MEDS ORDERED: GLUCAGON 1 MG VIAL IM PRN (17:39)
[2017-06-09] MEDS ORDERED: diphenhydrAMINE CAP 25 MG CAPSULE PO PRN (17:39)
[2017-06-09] MEDS ORDERED: guaiFENesin/CODEINE 5 ML LIQUID PO PRN (17:51)
[2017-06-09] MEDS ORDERED: ALBUTEROL 2.5 MG/3 ML NEB RESP TX PRN (17:51)
[2017-06-09] MEDS ORDERED: NITROGLYCERIN SL 0.4 MG TABLET SL PRN (17:57)
[2017-06-09] MEDS ORDERED: cefTRIAXone 1,000 MG in SYRINGE 1 EACH IV SCH (18:00)
[2017-06-09] MEDS: INSULIN LISPRO 100 UNIT/ML SUBCUT SCH (19:09)
[2017-06-09] MEDS ORDERED: ASPIRIN CHEW 81 MG TABLET PO ONE ×2 (19:43→20:07)
[2017-06-09] MEDS: methylPREDNISolone SOD SUC 40 MG/1 ML VIAL IV SCH (19:54)
[2017-06-09] MEDS: FUROSEMIDE 40 MG/4 ML VIAL IV SCH (19:58)
[2017-06-09] MEDS ORDERED: AZITHROMYCIN INJ 500 MG in SODIUM CHLORIDE 0.9% 250 ML IV SCH (20:00)
[2017-06-09] MEDS: MEROPENEM 1,000 MG in SYRINGE 1 EACH IV SCH (20:01)
[2017-06-09] MEDS: ALBUTEROL/IPRATROPIUM 3 ML NEB RESP TX SCH (20:16)
[2017-06-09] MEDS: ENOXAPARIN 40 MG/0.4 ML SYRINGE SUBCUT SCH (22:20)
[2017-06-09] MEDS: DILTIAZEM CD 180 MG CAPSULE PO SCH (22:20)
[2017-06-09] MEDS: METOPROLOL SUCCINATE XL 25 MG TABLET PO SCH (22:20)
[2017-06-09] MEDS: BUDESONIDE/FORMOTEROL 160-4.5 INHALER 6 GM INH SCH (22:20)
[2017-06-09] MEDS: MONTELUKAST 10 MG TABLET PO SCH (22:20)
[2017-06-09] MEDS: VORICONAZOLE INJ 400 MG in SODIUM CHLORIDE 0.9% 100 ML IV SCH (22:21)
[2017-06-10] MEDS: methylPREDNISolone SOD SUC 40 MG/1 ML VIAL IV SCH ×4 (00:41→17:58)
[2017-06-10] MEDS: MEROPENEM 1,000 MG in SYRINGE 1 EACH IV SCH ×3 (03:14→17:59)
[2017-06-10] MEDS: ALBUTEROL/IPRATROPIUM 3 ML NEB RESP TX SCH ×4 (03:48→19:50)
[2017-06-10 04:36] LABS: Basophils % 0.1 % (0.0-0.8); Hematocrit 41.1 VOL% (35.7-47.0); Hemoglobin 13.7 GM/DL (12.0-16.0); Immature Granulocytes % 0.9 %; Immature Granulocytes Absolute 0.11 #; Lymphocytes # 0.5 10*3/uL (1.4-4.0); Lymphocytes % 3.9 % (21.3-54.2); Mean Corpuscular HGB Conc 33.3 GM/DL (32-36); Mean Corpuscular Hemoglobin 32 PG (27-34); Mean Corpuscular Volume 96.3 FL (87-102); Mean Platelet Volume 10.3 FL (9.6-12.0); Monocytes # 0.2 10*3/uL (0.11-0.8); Monocytes % 1.2 % (1.7-12.7); Neutrophils # 11.4 10*3/uL (1.4-7.4); Neutrophils % 93.9 % (38.7-73.9); Platelet Count 283 T/CUMM (130-400); Red Blood Count 4.27 MC/CUMM (3.8-5.5); Red Cell Distribution Width 13.6 % (9.3-17.3); White Blood Count 12.1 T/CUMM (4-12)
[2017-06-10 05:15] LABS: Calcium 8.9 MG/DL (8.5-10.1); Magnesium 2.3 MG/DL (1.8-2.4); Osmolality,Calculated 286.4 MOS/KG (273-304); Risk Ratio 5.5
[2017-06-10 06:55] LABS: Band Neutrophils 11 % (0-10); Lymphocytes 6 % (20-55); Segmented Neutrophils 81 % (50-85); Total Cells Counted 100
[2017-06-10] MEDS: INSULIN LISPRO 100 UNIT/ML SUBCUT SCH ×2 (09:02→17:58)
[2017-06-10] MEDS: ASPIRIN EC 81 MG TABLET PO SCH (09:03)
[2017-06-10] MEDS: DILTIAZEM CD 180 MG CAPSULE PO SCH ×2 (09:03→21:25)
[2017-06-10] MEDS: CLOPIDOGREL 75 MG TABLET PO SCH (09:04)
[2017-06-10] MEDS: SERTRALINE 100 MG TABLET PO SCH (09:04)
[2017-06-10] MEDS: FLUTICASONE 50 MCG NASAL SPRAY 16 GM BOTTLE BOTH NARES SCH (09:04)
[2017-06-10] MEDS: FUROSEMIDE 40 MG/4 ML VIAL IV SCH ×2 (09:04→17:59)
[2017-06-10] MEDS: ISOSORBIDE MONONITRATE 60 MG TABLET PO SCH (09:04)
[2017-06-10] MEDS: PANTOPRAZOLE 40 MG TABLET PO SCH (09:04)
[2017-06-10] MEDS: METOPROLOL SUCCINATE XL 25 MG TABLET PO SCH ×2 (09:04→21:25)
[2017-06-10] MEDS: POTASSIUM CHLORIDE 10 MEQ TABLET PO SCH (09:04)
[2017-06-10] MEDS: BUDESONIDE/FORMOTEROL 160-4.5 INHALER 6 GM INH SCH ×2 (09:09→21:25)
[2017-06-10] MEDS: VORICONAZOLE INJ 400 MG in SODIUM CHLORIDE 0.9% 100 ML IV SCH ×2 (10:50→21:53)
[2017-06-10] MEDS: ENOXAPARIN 40 MG/0.4 ML SYRINGE SUBCUT SCH (21:25)
[2017-06-10] MEDS: MONTELUKAST 10 MG TABLET PO SCH (21:26)
[2017-06-11] MEDS: methylPREDNISolone SOD SUC 40 MG/1 ML VIAL IV SCH ×4 (00:22→17:27)
[2017-06-11] MEDS: ALBUTEROL/IPRATROPIUM 3 ML NEB RESP TX SCH ×4 (01:02→19:41)
[2017-06-11] MEDS: MEROPENEM 1,000 MG in SYRINGE 1 EACH IV SCH ×3 (03:00→17:30)
[2017-06-11 05:35] LABS: Calcium 8.8 MG/DL (8.5-10.1); Osmolality,Calculated 289.4 MOS/KG (273-304)
[2017-06-11] MEDS: INSULIN LISPRO 100 UNIT/ML SUBCUT SCH ×2 (08:23→17:02)
[2017-06-11] MEDS: METOPROLOL SUCCINATE XL 25 MG TABLET PO SCH ×2 (08:49→21:41)
[2017-06-11] MEDS: DILTIAZEM CD 180 MG CAPSULE PO SCH ×2 (08:49→21:40)
[2017-06-11] MEDS: CLOPIDOGREL 75 MG TABLET PO SCH (08:50)
[2017-06-11] MEDS: ASPIRIN EC 81 MG TABLET PO SCH (08:50)
[2017-06-11] MEDS: PANTOPRAZOLE 40 MG TABLET PO SCH (08:50)
[2017-06-11] MEDS: ISOSORBIDE MONONITRATE 60 MG TABLET PO SCH (08:50)
[2017-06-11] MEDS: SERTRALINE 100 MG TABLET PO SCH (08:50)
[2017-06-11] MEDS: FLUTICASONE 50 MCG NASAL SPRAY 16 GM BOTTLE BOTH NARES SCH (08:50)
[2017-06-11] MEDS: POTASSIUM CHLORIDE 10 MEQ TABLET PO SCH (08:50)
[2017-06-11] MEDS: BUDESONIDE/FORMOTEROL 160-4.5 INHALER 6 GM INH SCH ×2 (08:51→21:41)
[2017-06-11] MEDS: FUROSEMIDE 40 MG/4 ML VIAL IV SCH (08:51)
[2017-06-11] MEDS: VORICONAZOLE INJ 400 MG in SODIUM CHLORIDE 0.9% 100 ML IV SCH (09:38)
[2017-06-11] MEDS: VORICONAZOLE 200 MG TABLET PO SCH ×2 (09:54→21:40)
[2017-06-11 10:06] LABS: Basophils % 0.2 % (0.0-0.8); Hematocrit 35.5 VOL% (35.7-47.0); Hemoglobin 11.9 GM/DL (12.0-16.0); Immature Granulocytes % 1.8 %; Immature Granulocytes Absolute 0.34 #; Lymphocytes # 0.9 10*3/uL (1.4-4.0); Lymphocytes % 4.8 % (21.3-54.2); Mean Corpuscular HGB Conc 33.5 GM/DL (32-36); Mean Corpuscular Hemoglobin 32 PG (27-34); Mean Corpuscular Volume 95.7 FL (87-102); Mean Platelet Volume 10.7 FL (9.6-12.0); Monocytes # 0.4 10*3/uL (0.11-0.8); Monocytes % 2.2 % (1.7-12.7); Neutrophils # 17.4 10*3/uL (1.4-7.4); Platelet Count 310 T/CUMM (130-400); Red Blood Count 3.71 MC/CUMM (3.8-5.5); Red Cell Distribution Width 13.7 % (9.3-17.3); White Blood Count 19.1 T/CUMM (4-12)
[2017-06-11 10:34] LABS: Hypochromasia 1+
[2017-06-11 12:20] LABS: Apearance,Urine CLEAR (Clear); Bilirubin,Urine Negative (Negative); Blood, Urine Negative (Negative); Glucose,Urine (UA) Negative (Negative); Hyaline Casts,Urine 3 /LPF (0-3); Ketones,Urine Negative (Negative); Mucus,Urine Occasional /LPF (Occasional); Nitrite,Urine Negative (Negative); Protein,Urine Negative; RBC,Urine <1 /HPF (0-4); Squamous Epithelial Cell,Urine Occasional /HPF (0-10); Urine Color Straw (Yellow); Urine Specific Gravity 1.005 (1.001-1.035); Urine Urobilinogen < 2.0 EU/DL (0.2-1.0); WBC,Urine <1 /HPF (0-6)
[2017-06-11] MEDS: DORNASE ALFA 2.5 MG/2.5 ML VIAL RESP TX SCH ×2 (14:10→19:47)
[2017-06-11] MEDS: FUROSEMIDE 40 MG TABLET PO SCH (15:51)
[2017-06-11] MEDS ORDERED: MAGNESIUM HYDROXIDE SUSP 30 ML UDCUP PO ONE (17:59)
[2017-06-11] MEDS ORDERED: MAGNESIUM HYDROXIDE SUSP 30 ML UDCUP PO PRN (18:00)
[2017-06-11] MEDS ORDERED: AZITHROMYCIN 250 MG TABLET PO SCH (21:00)
[2017-06-11] MEDS: ENOXAPARIN 30 MG/0.3 ML SYRINGE SUBCUT SCH (21:40)
[2017-06-11] MEDS: ROSUVASTATIN 20 MG TABLET PO SCH (21:41)
[2017-06-11] MEDS: MONTELUKAST 10 MG TABLET PO SCH (21:41)
[2017-06-12] MEDS: methylPREDNISolone SOD SUC 40 MG/1 ML VIAL IV SCH ×3 (00:47→11:58)
[2017-06-12] MEDS: ALBUTEROL/IPRATROPIUM 3 ML NEB RESP TX SCH ×4 (01:13→19:56)
[2017-06-12] MEDS: MEROPENEM 1,000 MG in SYRINGE 1 EACH IV SCH ×3 (02:54→17:59)
[2017-06-12 05:38] LABS: Basophils % 0.1 % (0.0-0.8); Hematocrit 32.5 VOL% (35.7-47.0); Hemoglobin 10.8 GM/DL (12.0-16.0); Immature Granulocytes % 1.4 %; Immature Granulocytes Absolute 0.22 #; Lymphocytes # 0.5 10*3/uL (1.4-4.0); Lymphocytes % 3.4 % (21.3-54.2); Mean Corpuscular HGB Conc 33.2 GM/DL (32-36); Mean Corpuscular Hemoglobin 32 PG (27-34); Mean Corpuscular Volume 96.4 FL (87-102); Mean Platelet Volume 10.5 FL (9.6-12.0); Monocytes # 0.6 10*3/uL (0.11-0.8); Monocytes % 3.7 % (1.7-12.7); Neutrophils # 14.7 10*3/uL (1.4-7.4); Neutrophils % 91.4 % (38.7-73.9); Platelet Count 275 T/CUMM (130-400); Red Blood Count 3.37 MC/CUMM (3.8-5.5); Red Cell Distribution Width 13.7 % (9.3-17.3)
[2017-06-12 06:04] LABS: Giant Platelets Few; Hypochromasia 1+; Lymphocytes 1 % (20-55); Ovalocytes Slight; Platelet Estimate Adequate; Segmented Neutrophils 93 % (50-85); Total Cells Counted 100
[2017-06-12 06:06] LABS: Calcium 8.7 MG/DL (8.5-10.1); Magnesium 2.9 MG/DL (1.8-2.4); Osmolality,Calculated 292.4 MOS/KG (273-304); Potassium 4.1 MMOL/L (3.5-5.1)
[2017-06-12] MEDS: DORNASE ALFA 2.5 MG/2.5 ML VIAL RESP TX SCH ×2 (07:30→20:04)
[2017-06-12] MEDS: INSULIN LISPRO 100 UNIT/ML SUBCUT SCH ×2 (07:57→16:16)
[2017-06-12] MEDS: CLOPIDOGREL 75 MG TABLET PO SCH (08:34)
[2017-06-12] MEDS: METOPROLOL SUCCINATE XL 25 MG TABLET PO SCH ×2 (08:34→21:06)
[2017-06-12] MEDS: DILTIAZEM CD 180 MG CAPSULE PO SCH ×2 (08:34→21:05)
[2017-06-12] MEDS: FUROSEMIDE 40 MG TABLET PO SCH ×2 (08:34→16:17)
[2017-06-12] MEDS: FLUTICASONE 50 MCG NASAL SPRAY 16 GM BOTTLE BOTH NARES SCH (08:35)
[2017-06-12] MEDS: ISOSORBIDE MONONITRATE 60 MG TABLET PO SCH (08:35)
[2017-06-12] MEDS: POTASSIUM CHLORIDE 10 MEQ TABLET PO SCH (08:35)
[2017-06-12] MEDS: SERTRALINE 100 MG TABLET PO SCH (08:35)
[2017-06-12] MEDS: BUDESONIDE/FORMOTEROL 160-4.5 INHALER 6 GM INH SCH ×2 (08:35→21:06)
[2017-06-12] MEDS: ASPIRIN EC 81 MG TABLET PO SCH (08:35)
[2017-06-12] MEDS: VORICONAZOLE 200 MG TABLET PO SCH (08:35)
[2017-06-12] MEDS: PANTOPRAZOLE 40 MG TABLET PO SCH (08:35)
[2017-06-12] MEDS: MONTELUKAST 10 MG TABLET PO SCH (21:05)
[2017-06-12] MEDS: ROSUVASTATIN 20 MG TABLET PO SCH (21:05)
[2017-06-12] MEDS: ENOXAPARIN 30 MG/0.3 ML SYRINGE SUBCUT SCH (21:06)
[2017-06-13] MEDS: ALBUTEROL/IPRATROPIUM 3 ML NEB RESP TX SCH ×3 (00:28→13:15)
[2017-06-13] MEDS: MEROPENEM 1,000 MG in SYRINGE 1 EACH IV SCH ×2 (04:17→10:08)
[2017-06-13 05:41] LABS: Basophils % 0.2 % (0.0-0.8); Hematocrit 32.1 VOL% (35.7-47.0); Hemoglobin 10.7 GM/DL (12.0-16.0); Immature Granulocytes % 4.5 %; Immature Granulocytes Absolute 0.64 #; Lymphocytes # 0.6 10*3/uL (1.4-4.0); Lymphocytes % 4.4 % (21.3-54.2); Mean Corpuscular HGB Conc 33.3 GM/DL (32-36); Mean Corpuscular Hemoglobin 32 PG (27-34); Mean Corpuscular Volume 96.4 FL (87-102); Mean Platelet Volume 10.5 FL (9.6-12.0); Monocytes % 7.3 % (1.7-12.7); Neutrophils # 11.8 10*3/uL (1.4-7.4); Neutrophils % 83.6 % (38.7-73.9); Platelet Count 280 T/CUMM (130-400); Red Blood Count 3.33 MC/CUMM (3.8-5.5); Red Cell Distribution Width 13.8 % (9.3-17.3); White Blood Count 14.1 T/CUMM (4-12)
[2017-06-13 06:12] LABS: Calcium 8.3 MG/DL (8.5-10.1); Magnesium 2.3 MG/DL (1.8-2.4); Osmolality,Calculated 292.1 MOS/KG (273-304); Potassium 3.5 MMOL/L (3.5-5.1)
[2017-06-13 06:13] LABS: Band Neutrophils 2 % (0-10); Giant Platelets Few; Hypochromasia 1+; Lymphocytes 5 % (20-55); Ovalocytes Slight; Platelet Estimate Adequate; Segmented Neutrophils 80 % (50-85); Total Cells Counted 100
[2017-06-13] MEDS: DORNASE ALFA 2.5 MG/2.5 ML VIAL RESP TX SCH (07:10)
[2017-06-13] MEDS: INSULIN LISPRO 100 UNIT/ML SUBCUT SCH (08:28)
[2017-06-13] MEDS: FUROSEMIDE 40 MG TABLET PO SCH (08:48)
[2017-06-13] MEDS: METOPROLOL SUCCINATE XL 25 MG TABLET PO SCH (08:48)
[2017-06-13] MEDS: SERTRALINE 100 MG TABLET PO SCH (08:48)
[2017-06-13] MEDS: POTASSIUM CHLORIDE 10 MEQ TABLET PO SCH (08:48)
[2017-06-13] MEDS: DILTIAZEM CD 180 MG CAPSULE PO SCH (08:48)
[2017-06-13] MEDS: CLOPIDOGREL 75 MG TABLET PO SCH (08:48)
[2017-06-13] MEDS: PANTOPRAZOLE 40 MG TABLET PO SCH (08:48)
[2017-06-13] MEDS: ISOSORBIDE MONONITRATE 60 MG TABLET PO SCH (08:48)
[2017-06-13] MEDS: ASPIRIN EC 81 MG TABLET PO SCH (08:49)
[2017-06-13] MEDS: BUDESONIDE/FORMOTEROL 160-4.5 INHALER 6 GM INH SCH (08:49)
[2017-06-13] MEDS: FLUTICASONE 50 MCG NASAL SPRAY 16 GM BOTTLE BOTH NARES SCH (08:49)
[2017-06-13] MEDS ORDERED: methylPREDNISolone SOD SUC 40 MG/1 ML VIAL IV SCH (09:00)
[2017-06-13 12:38] VITALS: BP 126/58
== END 2017-06-13 14:25 | disposition swing bed (61) | DRG 291 ==
LOC: N.TELEN 16:57 → SUATTDRO 16:57
PROVIDERS: ADMIT Internal Medicine Infectious Disease; ATTEND Internal Medicine

== ENCOUNTER 2018-05-09 14:15 | Inpatient (IN) ==
[2018-05-09] MEDS ORDERED: ALBUTEROL 2.5 MG/3 ML NEB RESP TX STA (14:43)
[2018-05-09] MEDS ORDERED: methylPREDNISolone SOD SUC 125 MG/2 ML VIAL IV STA (14:43)
[2018-05-09] MEDS ORDERED: PIPERACILLIN/TAZOBACTAM 3,375 MG in SODIUM CHLORIDE 0.9% 100 ML IV STA ×2 (14:43→14:49)
[2018-05-09] MEDS ORDERED: SODIUM CHLORIDE 0.9% 1,000 ML IV STA (14:43)
[2018-05-09 15:12] LABS: ABG Base Excess 5.3 MMOL/L (-2.5-2.5); ABG HCO3 29.5 MMOL/L (20-26); ABG Oxygen Saturation 88.6 % (95-100); ABG PCO2 41.5 MM HG (35-48); ABG PO2 55.8 MM HG (80-95); ABG TCO2 30.8 MMOL/L (23-27)
[2018-05-09 15:25] LABS: PT Patient Result 11.2 SECS; Partial Thromboplastin Time 31.5 SECS (0-40)
[2018-05-09 15:41] LABS: Basophils # 0.1 10*3/uL (0.0-0.2); Basophils % 0.2 % (0.0-0.8); Hematocrit 43.3 VOL% (35.7-47.0); Hemoglobin 14.7 GM/DL (12.0-16.0); Immature Granulocytes % 0.6 %; Immature Granulocytes Absolute 0.14 #; Lymphocytes # 1.3 10*3/uL (1.4-4.0); Lymphocytes % 5.7 % (21.3-54.2); Mean Corpuscular HGB Conc 33.9 GM/DL (32-36); Mean Corpuscular Hemoglobin 33 PG (27-34); Mean Corpuscular Volume 96.7 FL (87-102); Mean Platelet Volume 10.6 FL (9.6-12.0); Monocytes # 1.9 10*3/uL (0.11-0.8); Neutrophils # 19.7 10*3/uL (1.4-7.4); Neutrophils % 85.5 % (38.7-73.9); Platelet Count 214 T/CUMM (130-400); Red Blood Count 4.48 MC/CUMM (3.8-5.5)
[2018-05-09 15:41] LABS: Albumin 3.4 G/DL (3.4-5.0); Bilirubin,Total 1.3 MG/DL (0.2-1.0); Calcium 8.7 MG/DL (8.5-10.1); Osmolality,Calculated 270.5 MOS/KG (273-304); Potassium 3.4 MMOL/L (3.5-5.1); Total Protein 7.1 G/DL (6.4-8.3)
[2018-05-09] MEDS ORDERED: ACETAMINOPHEN 325 MG TABLET PO PRN ×2 (16:07→16:13)
[2018-05-09] MEDS ORDERED: BISACODYL 5 MG TABLET PO PRN (16:07)
[2018-05-09] MEDS ORDERED: ONDANSETRON 4 MG/2 ML VIAL IV PRN (16:07)
[2018-05-09] MEDS ORDERED: guaiFENesin/DM ER 600-30 MG TABLET PO PRN (16:07)
[2018-05-09] MEDS ORDERED: NICOTINE 21 MG/24 HR PATCH TRANSDERM PRN (16:07)
[2018-05-09] MEDS ORDERED: NITROGLYCERIN SL 0.4 MG TABLET SL PRN (16:13)
[2018-05-09] MEDS: POTASSIUM CHLORIDE 20 MEQ TABLET PO SCH ×2 (18:42→21:13)
[2018-05-09 18:45] LABS: Hypochromasia Slight; Lymphocytes 6 % (20-55); Platelet Estimate Normal; Segmented Neutrophils 85 % (50-85); Total Cells Counted 100
[2018-05-09] MEDS: ALBUTEROL/IPRATROPIUM 3 ML NEB RESP TX SCH (19:29)
[2018-05-09] MEDS ORDERED: MONTELUKAST 10 MG TABLET PO SCH (21:00)
[2018-05-09] MEDS: FLUTICASONE 50 MCG NASAL SPRAY 16 GM BOTTLE BOTH NARES SCH (21:11)
[2018-05-09] MEDS: BUDESONIDE/FORMOTEROL 160-4.5 INHALER 6 GM INH SCH (21:11)
[2018-05-09] MEDS: METOPROLOL SUCCINATE XL 25 MG TABLET PO SCH (21:13)
[2018-05-09] MEDS: ZALEPLON 5 MG CAPSULE PO PRN (21:13)
[2018-05-09] MEDS: DILTIAZEM CD 180 MG CAPSULE PO SCH (21:13)
[2018-05-09] MEDS: ENOXAPARIN 40 MG/0.4 ML SYRINGE SUBCUT SCH (21:13)
[2018-05-09] MEDS: DOXYCYCLINE HYCLATE 100 MG CAPSULE PO SCH (21:14)
[2018-05-10] MEDS: ALBUTEROL/IPRATROPIUM 3 ML NEB RESP TX SCH ×7 (00:19→23:57)
[2018-05-10] MEDS: methylPREDNISolone SOD SUC 125 MG/2 ML VIAL IV SCH ×4 (04:25→17:42)
[2018-05-10 05:57] LABS: Calcium 8.7 MG/DL (8.5-10.1); Osmolality,Calculated 279.8 MOS/KG (273-304); Potassium 4.7 MMOL/L (3.5-5.1)
[2018-05-10 06:03] LABS: Amorphous Crystals,Urine Few /HPF (Few); Apearance,Urine CLOUDY (Clear); Bacteria,Urine Occasional /HPF (Few); Bilirubin,Urine Negative (Negative); Blood, Urine Negative (Negative); Glucose,Urine (UA) Negative (Negative); Ketones,Urine Negative (Negative); Mucus,Urine Occasional /LPF (Occasional); Nitrite,Urine Negative (Negative); Protein,Urine 30 MG/DL; RBC,Urine 2 /HPF (0-4); Squamous Epithelial Cell,Urine Occasional /HPF (0-10); Urine Color Yellow (Yellow); Urine Specific Gravity 1.026 (1.001-1.035); Urine Urobilinogen < 2.0 EU/DL (0.2-1.0); WBC,Urine 1 /HPF (0-6)
[2018-05-10] MEDS: CLOPIDOGREL 75 MG TABLET PO SCH (08:57)
[2018-05-10] MEDS: METOPROLOL SUCCINATE XL 25 MG TABLET PO SCH ×2 (08:57→21:46)
[2018-05-10] MEDS: SERTRALINE 100 MG TABLET PO SCH (08:57)
[2018-05-10] MEDS: DOXYCYCLINE HYCLATE 100 MG CAPSULE PO SCH ×2 (08:57→21:46)
[2018-05-10] MEDS: PANTOPRAZOLE 40 MG TABLET PO SCH (08:57)
[2018-05-10] MEDS: ISOSORBIDE MONONITRATE 60 MG TABLET PO SCH (08:57)
[2018-05-10] MEDS: DILTIAZEM CD 180 MG CAPSULE PO SCH ×2 (08:57→21:45)
[2018-05-10] MEDS: ASPIRIN EC 81 MG TABLET PO SCH (08:57)
[2018-05-10] MEDS: BUDESONIDE/FORMOTEROL 160-4.5 INHALER 6 GM INH SCH ×2 (08:58→21:47)
[2018-05-10 10:47] LABS: Basophils % 0.1 % (0.0-0.8); Hemoglobin 13.7 GM/DL (12.0-16.0); Immature Granulocytes % 0.5 %; Immature Granulocytes Absolute 0.09 #; Lymphocytes # 0.7 10*3/uL (1.4-4.0); Lymphocytes % 4.3 % (21.3-54.2); Mean Corpuscular HGB Conc 33.4 GM/DL (32-36); Mean Corpuscular Hemoglobin 33 PG (27-34); Mean Corpuscular Volume 98.3 FL (87-102); Mean Platelet Volume 10.5 FL (9.6-12.0); Monocytes # 0.3 10*3/uL (0.11-0.8); Monocytes % 1.6 % (1.7-12.7); Neutrophils # 15.5 10*3/uL (1.4-7.4); Neutrophils % 93.5 % (38.7-73.9); Platelet Count 204 T/CUMM (130-400); Red Blood Count 4.17 MC/CUMM (3.8-5.5); White Blood Count 16.6 T/CUMM (4-12)
[2018-05-10] MEDS ORDERED: THEOPHYLLINE ER 200 MG TABLET PO SCH (11:00)
[2018-05-10 11:06] LABS: Hypochromasia Slight; Lymphocytes 1 % (20-55); Segmented Neutrophils 98 % (50-85); Total Cells Counted 100
[2018-05-10 11:07] LABS: Macrocytosis Slight; Platelet Estimate Normal
[2018-05-10] MEDS: DORNASE ALFA 2.5 MG/2.5 ML VIAL RESP TX SCH ×2 (11:07→19:36)
[2018-05-10] MEDS: THEOPHYLLINE ER (24 HR) 400 MG CAPSULE PO SCH (11:43)
[2018-05-10] MEDS: MONTELUKAST 10 MG TABLET PO SCH ×2 (11:44→21:45)
[2018-05-10] MEDS: ENOXAPARIN 40 MG/0.4 ML SYRINGE SUBCUT SCH (21:47)
[2018-05-10] MEDS: FLUTICASONE 50 MCG NASAL SPRAY 16 GM BOTTLE BOTH NARES SCH (21:54)
[2018-05-11] MEDS: ZALEPLON 5 MG CAPSULE PO PRN ×4 (00:49→23:39)
[2018-05-11] MEDS: methylPREDNISolone SOD SUC 125 MG/2 ML VIAL IV SCH ×3 (02:45→17:27)
[2018-05-11] MEDS: ALBUTEROL/IPRATROPIUM 3 ML NEB RESP TX SCH ×5 (04:38→19:50)
[2018-05-11 05:17] LABS: Basophils % 0.1 % (0.0-0.8); Hematocrit 35.7 VOL% (35.7-47.0); Hemoglobin 11.8 GM/DL (12.0-16.0); Immature Granulocytes % 0.8 %; Immature Granulocytes Absolute 0.14 #; Lymphocytes # 0.7 10*3/uL (1.4-4.0); Lymphocytes % 3.8 % (21.3-54.2); Mean Corpuscular HGB Conc 33.1 GM/DL (32-36); Mean Corpuscular Hemoglobin 33 PG (27-34); Mean Corpuscular Volume 98.3 FL (87-102); Mean Platelet Volume 11.8 FL (9.6-12.0); Monocytes # 0.6 10*3/uL (0.11-0.8); Monocytes % 3.4 % (1.7-12.7); Neutrophils # 17.1 10*3/uL (1.4-7.4); Neutrophils % 91.9 % (38.7-73.9); Platelet Count 210 T/CUMM (130-400); Red Blood Count 3.63 MC/CUMM (3.8-5.5); Red Cell Distribution Width 12.7 % (9.3-17.3); White Blood Count 18.6 T/CUMM (4-12)
[2018-05-11 05:38] LABS: Calcium 9.2 MG/DL (8.5-10.1); Osmolality,Calculated 281.1 MOS/KG (273-304); Potassium 4.2 MMOL/L (3.5-5.1)
[2018-05-11 06:36] LABS: Band Neutrophils 1 % (0-10); Hypochromasia 1+; Lymphocytes 2 % (20-55); Macrocytosis Slight; Platelet Estimate Adequate; Segmented Neutrophils 91 % (50-85); Total Cells Counted 100
[2018-05-11] MEDS: DORNASE ALFA 2.5 MG/2.5 ML VIAL RESP TX SCH ×2 (07:16→21:10)
[2018-05-11] MEDS: DILTIAZEM CD 180 MG CAPSULE PO SCH ×2 (10:20→20:52)
[2018-05-11] MEDS: PANTOPRAZOLE 40 MG TABLET PO SCH (10:20)
[2018-05-11] MEDS: MONTELUKAST 10 MG TABLET PO SCH ×2 (10:20→20:57)
[2018-05-11] MEDS: CLOPIDOGREL 75 MG TABLET PO SCH (10:20)
[2018-05-11] MEDS: ISOSORBIDE MONONITRATE 60 MG TABLET PO SCH (10:20)
[2018-05-11] MEDS: ASPIRIN EC 81 MG TABLET PO SCH (10:20)
[2018-05-11] MEDS: DOXYCYCLINE HYCLATE 100 MG CAPSULE PO SCH ×2 (10:20→20:53)
[2018-05-11] MEDS: THEOPHYLLINE ER (24 HR) 400 MG CAPSULE PO SCH (10:20)
[2018-05-11] MEDS: SERTRALINE 100 MG TABLET PO SCH (10:21)
[2018-05-11] MEDS: METOPROLOL SUCCINATE XL 25 MG TABLET PO SCH ×2 (10:23→20:53)
[2018-05-11] MEDS: BUDESONIDE/FORMOTEROL 160-4.5 INHALER 6 GM INH SCH ×2 (10:24→20:57)
[2018-05-11] MEDS: ENOXAPARIN 40 MG/0.4 ML SYRINGE SUBCUT SCH (20:55)
[2018-05-11] MEDS: FLUTICASONE 50 MCG NASAL SPRAY 16 GM BOTTLE BOTH NARES SCH (20:55)
[2018-05-12] MEDS: ALBUTEROL/IPRATROPIUM 3 ML NEB RESP TX SCH ×4 (00:49→10:46)
[2018-05-12] MEDS: methylPREDNISolone SOD SUC 125 MG/2 ML VIAL IV SCH ×2 (02:52→09:55)
[2018-05-12 05:03] LABS: Basophils % 0.1 % (0.0-0.8); Hematocrit 34.8 VOL% (35.7-47.0); Hemoglobin 11.3 GM/DL (12.0-16.0); Immature Granulocytes % 0.9 %; Immature Granulocytes Absolute 0.14 #; Lymphocytes # 0.4 10*3/uL (1.4-4.0); Lymphocytes % 2.3 % (21.3-54.2); Mean Corpuscular HGB Conc 32.5 GM/DL (32-36); Mean Corpuscular Hemoglobin 32 PG (27-34); Mean Corpuscular Volume 99.7 FL (87-102); Mean Platelet Volume 11.2 FL (9.6-12.0); Monocytes # 0.3 10*3/uL (0.11-0.8); Monocytes % 2.2 % (1.7-12.7); Neutrophils # 14.4 10*3/uL (1.4-7.4); Neutrophils % 94.5 % (38.7-73.9); Platelet Count 242 T/CUMM (130-400); Red Blood Count 3.49 MC/CUMM (3.8-5.5); White Blood Count 15.2 T/CUMM (4-12)
[2018-05-12 05:28] LABS: Calcium 9.1 MG/DL (8.5-10.1); Osmolality,Calculated 284.8 MOS/KG (273-304); Potassium 4.5 MMOL/L (3.5-5.1)
[2018-05-12 05:58] LABS: Hypochromasia 1+; Lymphocytes 1 % (20-55); Ovalocytes Slight; Platelet Estimate Adequate; Segmented Neutrophils 96 % (50-85); Total Cells Counted 100
[2018-05-12 05:59] LABS: Macrocytosis Slight
[2018-05-12] MEDS: DORNASE ALFA 2.5 MG/2.5 ML VIAL RESP TX SCH (07:14)
[2018-05-12 07:27] VITALS: BP 122/62
[2018-05-12] MEDS: PANTOPRAZOLE 40 MG TABLET PO SCH (09:58)
[2018-05-12] MEDS: METOPROLOL SUCCINATE XL 25 MG TABLET PO SCH (09:58)
[2018-05-12] MEDS: SERTRALINE 100 MG TABLET PO SCH (09:58)
[2018-05-12] MEDS: CLOPIDOGREL 75 MG TABLET PO SCH (09:58)
[2018-05-12] MEDS: MONTELUKAST 10 MG TABLET PO SCH (09:58)
[2018-05-12] MEDS: ISOSORBIDE MONONITRATE 60 MG TABLET PO SCH (09:58)
[2018-05-12] MEDS: BUDESONIDE/FORMOTEROL 160-4.5 INHALER 6 GM INH SCH (09:58)
[2018-05-12] MEDS: ASPIRIN EC 81 MG TABLET PO SCH (09:58)
[2018-05-12] MEDS: DILTIAZEM CD 180 MG CAPSULE PO SCH (09:58)
[2018-05-12] MEDS: DOXYCYCLINE HYCLATE 100 MG CAPSULE PO SCH (10:01)
== END 2018-05-12 12:45 | disposition home or self-care (01) | DRG 202 ==
LOC: EDBD → EDUNIT# → N.ED 14:15 → N.EDINP 16:07 → N.5E 17:21
PROVIDERS: ADMIT Internal Medicine Cardiovascular Disease; ATTEND Internal Medicine Cardiovascular Disease

== ENCOUNTER 2018-05-31 23:11 | Inpatient (IN) ==
[2018-06-01] MEDS ORDERED: methylPREDNISolone SOD SUC 125 MG/2 ML VIAL IV STA (00:12)
[2018-06-01] MEDS ORDERED: ALBUTEROL/IPRATROPIUM 3 ML NEB RESP TX STA (00:12)
[2018-06-01 00:19] LABS: Basophils % 0.4 % (0.0-0.8); Eosinophils % 0.4 % (0.00-10.9); Hematocrit 38.1 VOL% (35.7-47.0); Immature Granulocytes % 0.2 %; Immature Granulocytes Absolute 0.01 #; Lymphocytes # 0.8 10*3/uL (1.4-4.0); Lymphocytes % 14.2 % (21.3-54.2); Mean Corpuscular HGB Conc 34.1 GM/DL (32-36); Mean Corpuscular Hemoglobin 33 PG (27-34); Mean Corpuscular Volume 96.5 FL (87-102); Monocytes # 0.7 10*3/uL (0.11-0.8); Monocytes % 12.8 % (1.7-12.7); Neutrophils # 4.1 10*3/uL (1.4-7.4); Platelet Count 189 T/CUMM (130-400); Red Blood Count 3.95 MC/CUMM (3.8-5.5); White Blood Count 5.6 T/CUMM (4-12)
[2018-06-01 00:58] LABS: Albumin 3.5 G/DL (3.4-5.0); Bilirubin,Total 0.4 MG/DL (0.2-1.0); Calcium 8.4 MG/DL (8.5-10.1); Osmolality,Calculated 271.2 MOS/KG (273-304); Potassium 3.4 MMOL/L (3.5-5.1)
[2018-06-01 01:16] LABS: VBG HCO3 34.8 MEQ/L (24-28); VBG Oxygen Saturation 99.3 %; VBG PCO2 58.9 MMHG (41-51); VBG PH 7.42
[2018-06-01] MEDS ORDERED: ONDANSETRON 4 MG/2 ML VIAL IV STA (01:45)
[2018-06-01 02:10] LABS: Apearance,Urine Slightly Hazy (Clear); Bilirubin,Urine Negative (Negative); Blood, Urine Negative (Negative); Glucose,Urine (UA) Negative (Negative); Ketones,Urine Negative (Negative); Mucus,Urine Occasional /LPF (Occasional); Nitrite,Urine Negative (Negative); Protein,Urine Negative; RBC,Urine <1 /HPF (0-4); Squamous Epithelial Cell,Urine Occasional /HPF (0-10); Urine Color Yellow (Yellow); Urine Specific Gravity 1.023 (1.001-1.035); WBC,Urine 1 /HPF (0-6)
[2018-06-01] MEDS ORDERED: ONDANSETRON 4 MG/2 ML VIAL IV PRN (03:10)
[2018-06-01] MEDS ORDERED: ACETAMINOPHEN 325 MG TABLET PO PRN (03:10)
[2018-06-01] MEDS: ENOXAPARIN 40 MG/0.4 ML SYRINGE SUBCUT SCH (05:15)
[2018-06-01] MEDS: CEFEPIME 1,000 MG in SODIUM CHLORIDE 0.9% 100 ML IV SCH ×3 (05:15→20:30)
[2018-06-01 07:31] LABS: Basophils % 0.3 % (0.0-0.8); Hematocrit 39.7 VOL% (35.7-47.0); Hemoglobin 13.1 GM/DL (12.0-16.0); Immature Granulocytes % 0.6 %; Immature Granulocytes Absolute 0.02 #; Lymphocytes # 0.3 10*3/uL (1.4-4.0); Lymphocytes % 8.8 % (21.3-54.2); Mean Corpuscular Hemoglobin 32 PG (27-34); Mean Corpuscular Volume 97.1 FL (87-102); Mean Platelet Volume 10.1 FL (9.6-12.0); Monocytes # 0.1 10*3/uL (0.11-0.8); Monocytes % 2.6 % (1.7-12.7); Neutrophils % 87.7 % (38.7-73.9); Platelet Count 177 T/CUMM (130-400); Red Blood Count 4.09 MC/CUMM (3.8-5.5); Red Cell Distribution Width 12.9 % (9.3-17.3); White Blood Count 3.4 T/CUMM (4-12)
[2018-06-01] MEDS: LEVALBUTEROL 1.25 MG/3 ML NEB RESP TX SCH ×3 (07:45→19:45)
[2018-06-01 08:11] LABS: Albumin 3.2 G/DL (3.4-5.0); Bilirubin,Total 0.6 MG/DL (0.2-1.0); Calcium 8.7 MG/DL (8.5-10.1); Osmolality,Calculated 276.1 MOS/KG (273-304); Total Protein 6.4 G/DL (6.4-8.3)
[2018-06-01] MEDS ORDERED: DILTIAZEM CD 180 MG CAPSULE PO SCH (09:00)
[2018-06-01] MEDS: PANTOPRAZOLE 40 MG TABLET PO SCH (09:14)
[2018-06-01] MEDS: CHOLECALCIFEROL 5,000 UNIT TABLET PO SCH (09:15)
[2018-06-01] MEDS: MAGNESIUM CHLORIDE 64 MG TABLET PO SCH (09:15)
[2018-06-01] MEDS: METOPROLOL SUCCINATE XL 25 MG TABLET PO SCH ×2 (09:15→22:15)
[2018-06-01] MEDS: SERTRALINE 100 MG TABLET PO SCH (09:16)
[2018-06-01] MEDS: ASPIRIN EC 81 MG TABLET PO SCH (09:16)
[2018-06-01] MEDS: OMEGA 3 ACID ETHYL ESTERS 1 GM CAPSULE PO SCH (09:16)
[2018-06-01] MEDS: CLOPIDOGREL 75 MG TABLET PO SCH (09:16)
[2018-06-01] MEDS: ISOSORBIDE MONONITRATE 60 MG TABLET PO SCH (09:17)
[2018-06-01] MEDS: FUROSEMIDE 40 MG TABLET PO SCH (09:18)
[2018-06-01] MEDS: POTASSIUM CHLORIDE 10 MEQ TABLET PO SCH (09:18)
[2018-06-01] MEDS: DOXYCYCLINE HYCLATE 100 MG CAPSULE PO SCH ×2 (09:19→22:15)
[2018-06-01] MEDS: ASCORBIC ACID 500 MG TABLET PO SCH (09:19)
[2018-06-01] MEDS: BUDESONIDE/FORMOTEROL 160-4.5 INHALER 6 GM INH SCH ×2 (09:20→22:15)
[2018-06-01] MEDS: methylPREDNISolone SOD SUC 40 MG/1 ML VIAL IV SCH ×2 (09:21→17:30)
[2018-06-01] MEDS: NITROGLYCERIN SL 0.4 MG TABLET SL PRN ×2 (10:15→10:25)
[2018-06-01] MEDS ORDERED: MORPHINE 4 MG/1 ML VIAL IV PRN (10:17)
[2018-06-01] MEDS ORDERED: DILTIAZEM 50 MG/10 ML VIAL IV ONE (10:32)
[2018-06-01] MEDS ORDERED: dilTIAZem Drip 125 MG/125 ML PREMIX IV SCH (11:00)
[2018-06-01 11:11] LABS: Troponin I 0.095 NG/ML (0.00-0.045)
[2018-06-01] MEDS ORDERED: AMIODARONE INJ 450 MG in DEXTROSE 5% 241 ML IV SCH ×2 (13:00→19:00)
[2018-06-01] MEDS: MONTELUKAST 10 MG TABLET PO SCH (19:30)
[2018-06-01] MEDS: ROSUVASTATIN 10 MG TABLET PO SCH (22:14)
[2018-06-01] MEDS: FLUTICASONE 50 MCG NASAL SPRAY 16 GM BOTTLE BOTH NARES SCH (22:14)
[2018-06-01] MEDS: DILTIAZEM CD 120 MG CAPSULE PO SCH (22:14)
[2018-06-02] MEDS: LEVALBUTEROL 1.25 MG/3 ML NEB RESP TX SCH ×4 (00:29→19:10)
[2018-06-02] MEDS: ENOXAPARIN 40 MG/0.4 ML SYRINGE SUBCUT SCH (02:35)
[2018-06-02] MEDS: methylPREDNISolone SOD SUC 40 MG/1 ML VIAL IV SCH ×3 (02:35→18:32)
[2018-06-02] MEDS: CEFEPIME 1,000 MG in SODIUM CHLORIDE 0.9% 100 ML IV SCH ×3 (02:35→22:39)
[2018-06-02] MEDS: DOXYCYCLINE HYCLATE 100 MG CAPSULE PO SCH ×2 (09:47→22:38)
[2018-06-02] MEDS: OMEGA 3 ACID ETHYL ESTERS 1 GM CAPSULE PO SCH (09:47)
[2018-06-02] MEDS: ISOSORBIDE MONONITRATE 60 MG TABLET PO SCH (09:47)
[2018-06-02] MEDS: MAGNESIUM CHLORIDE 64 MG TABLET PO SCH (09:47)
[2018-06-02] MEDS: CHOLECALCIFEROL 5,000 UNIT TABLET PO SCH (09:47)
[2018-06-02] MEDS: ASCORBIC ACID 500 MG TABLET PO SCH (09:48)
[2018-06-02] MEDS: POTASSIUM CHLORIDE 10 MEQ TABLET PO SCH (09:48)
[2018-06-02] MEDS: DILTIAZEM CD 120 MG CAPSULE PO SCH (09:49)
[2018-06-02] MEDS: PANTOPRAZOLE 40 MG TABLET PO SCH (09:49)
[2018-06-02] MEDS: ASPIRIN EC 81 MG TABLET PO SCH (09:50)
[2018-06-02] MEDS: AMIODARONE 200 MG TABLET PO SCH (09:50)
[2018-06-02] MEDS: CLOPIDOGREL 75 MG TABLET PO SCH (09:50)
[2018-06-02] MEDS: SERTRALINE 100 MG TABLET PO SCH (09:50)
[2018-06-02] MEDS: FUROSEMIDE 40 MG TABLET PO SCH (09:51)
[2018-06-02] MEDS: BUDESONIDE/FORMOTEROL 160-4.5 INHALER 6 GM INH SCH ×2 (10:04→22:39)
[2018-06-02] MEDS: METOPROLOL SUCCINATE XL 25 MG TABLET PO SCH ×2 (12:24→22:38)
[2018-06-02] MEDS: MONTELUKAST 10 MG TABLET PO SCH (18:33)
[2018-06-02] MEDS: ROSUVASTATIN 10 MG TABLET PO SCH (22:38)
[2018-06-02] MEDS: FLUTICASONE 50 MCG NASAL SPRAY 16 GM BOTTLE BOTH NARES SCH (22:39)
[2018-06-03] MEDS: DILTIAZEM CD 120 MG CAPSULE PO SCH ×3 (00:17→21:04)
[2018-06-03] MEDS: LEVALBUTEROL 1.25 MG/3 ML NEB RESP TX SCH ×4 (00:24→19:05)
[2018-06-03] MEDS: methylPREDNISolone SOD SUC 40 MG/1 ML VIAL IV SCH ×3 (02:12→17:23)
[2018-06-03] MEDS: CEFEPIME 1,000 MG in SODIUM CHLORIDE 0.9% 100 ML IV SCH ×2 (03:47→11:17)
[2018-06-03] MEDS: FUROSEMIDE 40 MG TABLET PO SCH (09:16)
[2018-06-03] MEDS: METOPROLOL SUCCINATE XL 25 MG TABLET PO SCH ×2 (09:16→21:06)
[2018-06-03] MEDS: POTASSIUM CHLORIDE 10 MEQ TABLET PO SCH (09:16)
[2018-06-03] MEDS: MAGNESIUM CHLORIDE 64 MG TABLET PO SCH (09:16)
[2018-06-03] MEDS: ENOXAPARIN 40 MG/0.4 ML SYRINGE SUBCUT SCH (09:16)
[2018-06-03] MEDS: ASPIRIN EC 81 MG TABLET PO SCH (09:16)
[2018-06-03] MEDS: ASCORBIC ACID 500 MG TABLET PO SCH (09:16)
[2018-06-03] MEDS: CHOLECALCIFEROL 5,000 UNIT TABLET PO SCH (09:16)
[2018-06-03] MEDS: DOXYCYCLINE HYCLATE 100 MG CAPSULE PO SCH ×2 (09:16→21:06)
[2018-06-03] MEDS: CLOPIDOGREL 75 MG TABLET PO SCH (09:16)
[2018-06-03] MEDS: OMEGA 3 ACID ETHYL ESTERS 1 GM CAPSULE PO SCH (09:17)
[2018-06-03] MEDS: AMIODARONE 200 MG TABLET PO SCH (09:17)
[2018-06-03] MEDS: PANTOPRAZOLE 40 MG TABLET PO SCH (09:17)
[2018-06-03] MEDS: SERTRALINE 100 MG TABLET PO SCH (09:17)
[2018-06-03] MEDS: ISOSORBIDE MONONITRATE 60 MG TABLET PO SCH (09:18)
[2018-06-03] MEDS: BUDESONIDE/FORMOTEROL 160-4.5 INHALER 6 GM INH SCH ×2 (09:18→21:06)
[2018-06-03] MEDS: PIPERACILLIN/TAZOBACTAM 3,375 MG in SODIUM CHLORIDE 0.9% 100 ML IV SCH ×2 (15:10→22:44)
[2018-06-03] MEDS: MONTELUKAST 10 MG TABLET PO SCH (18:17)
[2018-06-03] MEDS: FLUTICASONE 50 MCG NASAL SPRAY 16 GM BOTTLE BOTH NARES SCH (21:06)
[2018-06-03] MEDS: ROSUVASTATIN 10 MG TABLET PO SCH (21:06)
[2018-06-04] MEDS: LEVALBUTEROL 1.25 MG/3 ML NEB RESP TX SCH ×4 (00:08→19:09)
[2018-06-04] MEDS: methylPREDNISolone SOD SUC 40 MG/1 ML VIAL IV SCH ×4 (00:57→23:52)
[2018-06-04] MEDS: CHOLECALCIFEROL 5,000 UNIT TABLET PO SCH ×2 (02:56→12:46)
[2018-06-04 04:43] LABS: Hematocrit 34.1 VOL% (35.7-47.0); Immature Granulocytes % 0.7 %; Immature Granulocytes Absolute 0.06 #; Lymphocytes # 0.5 10*3/uL (1.4-4.0); Lymphocytes % 5.8 % (21.3-54.2); Mean Corpuscular HGB Conc 32.6 GM/DL (32-36); Mean Corpuscular Hemoglobin 32 PG (27-34); Mean Corpuscular Volume 98.3 FL (87-102); Mean Platelet Volume 10.6 FL (9.6-12.0); Monocytes # 0.2 10*3/uL (0.11-0.8); Monocytes % 2.3 % (1.7-12.7); Neutrophils # 7.7 10*3/uL (1.4-7.4); Neutrophils % 91.2 % (38.7-73.9); Red Blood Count 3.47 MC/CUMM (3.8-5.5); Red Cell Distribution Width 12.7 % (9.3-17.3)
[2018-06-04 04:44] LABS: Hemoglobin 11.1 GM/DL (12.0-16.0); Platelet Count 218 T/CUMM (130-400); White Blood Count 8.4 T/CUMM (4-12)
[2018-06-04 04:46] LABS: Calcium 8.8 MG/DL (8.5-10.1); Osmolality,Calculated 292.4 MOS/KG (273-304); Potassium 3.9 MMOL/L (3.5-5.1)
[2018-06-04 04:52] LABS: Lymphocytes 3 % (20-55); Segmented Neutrophils 95 % (50-85); Total Cells Counted 100
[2018-06-04 04:53] LABS: Macrocytosis Slight; Platelet Estimate Normal
[2018-06-04 04:57] LABS: Albumin 3.4 G/DL (3.4-5.0); Bilirubin,Total 0.7 MG/DL (0.2-1.0); Calcium 8.7 MG/DL (8.5-10.1); Free T4 (Free Thyroxine) 0.88 NG/DL (0.76-1.46); Osmolality,Calculated 292.4 MOS/KG (273-304); Potassium 3.9 MMOL/L (3.5-5.1); Thyroid Stimulating Hormone 0.05 uIU/ml (0.358-3.74); Total Protein 6.1 G/DL (6.4-8.3)
[2018-06-04] MEDS: PIPERACILLIN/TAZOBACTAM 3,375 MG in SODIUM CHLORIDE 0.9% 100 ML IV SCH ×3 (06:26→23:50)
[2018-06-04] MEDS ORDERED: SODIUM CHLORIDE 0.9% 1,000 ML IV SCH (09:00)
[2018-06-04] MEDS ORDERED: LEVALBUTEROL 1.25 MG/3 ML NEB RESP TX PRN (09:31)
[2018-06-04] MEDS: BUDESONIDE/FORMOTEROL 160-4.5 INHALER 6 GM INH SCH ×2 (09:35→20:25)
[2018-06-04] MEDS: DILTIAZEM CD 120 MG CAPSULE PO SCH ×3 (12:41→20:25)
[2018-06-04] MEDS: METOPROLOL SUCCINATE XL 25 MG TABLET PO SCH ×3 (12:42→20:24)
[2018-06-04] MEDS: ASCORBIC ACID 500 MG TABLET PO SCH ×2 (12:46→20:24)
[2018-06-04] MEDS: AMIODARONE 200 MG TABLET PO SCH (12:46)
[2018-06-04] MEDS: MAGNESIUM CHLORIDE 64 MG TABLET PO SCH (12:46)
[2018-06-04] MEDS: CLOPIDOGREL 75 MG TABLET PO SCH (12:46)
[2018-06-04] MEDS: ENOXAPARIN 40 MG/0.4 ML SYRINGE SUBCUT SCH (12:47)
[2018-06-04] MEDS: OMEGA 3 ACID ETHYL ESTERS 1 GM CAPSULE PO SCH (12:47)
[2018-06-04] MEDS: PANTOPRAZOLE 40 MG TABLET PO SCH (12:47)
[2018-06-04] MEDS: ASPIRIN EC 81 MG TABLET PO SCH (12:47)
[2018-06-04] MEDS: DOXYCYCLINE HYCLATE 100 MG CAPSULE PO SCH ×2 (12:47→20:24)
[2018-06-04] MEDS: SERTRALINE 100 MG TABLET PO SCH (12:47)
[2018-06-04] MEDS: MONTELUKAST 10 MG TABLET PO SCH ×2 (12:47→20:25)
[2018-06-04] MEDS: FUROSEMIDE 40 MG TABLET PO SCH (12:47)
[2018-06-04] MEDS: ISOSORBIDE MONONITRATE 60 MG TABLET PO SCH (12:47)
[2018-06-04] MEDS: POTASSIUM CHLORIDE 10 MEQ TABLET PO SCH (12:47)
[2018-06-04] MEDS: ESMOLOL 2,500 MG/250 ML PREMIX IV PRN ×3 (13:38→23:00)
[2018-06-04] MEDS: ROSUVASTATIN 10 MG TABLET PO SCH (20:24)
[2018-06-04] MEDS: FLUTICASONE 50 MCG NASAL SPRAY 16 GM BOTTLE BOTH NARES SCH (20:25)
[2018-06-05] MEDS: LEVALBUTEROL 1.25 MG/3 ML NEB RESP TX SCH ×4 (01:06→19:00)
[2018-06-05] MEDS: ESMOLOL 2,500 MG/250 ML PREMIX IV PRN ×6 (01:26→20:22)
[2018-06-05 05:21] LABS: Hematocrit 33.9 VOL% (35.7-47.0); Hemoglobin 10.6 GM/DL (12.0-16.0); Immature Granulocytes % 0.5 %; Immature Granulocytes Absolute 0.03 #; Lymphocytes # 0.4 10*3/uL (1.4-4.0); Lymphocytes % 5.4 % (21.3-54.2); Mean Corpuscular HGB Conc 31.3 GM/DL (32-36); Mean Corpuscular Hemoglobin 32 PG (27-34); Mean Platelet Volume 10.5 FL (9.6-12.0); Monocytes # 0.2 10*3/uL (0.11-0.8); Monocytes % 3.1 % (1.7-12.7); Platelet Count 216 T/CUMM (130-400); Red Blood Count 3.29 MC/CUMM (3.8-5.5); Red Cell Distribution Width 12.6 % (9.3-17.3); White Blood Count 6.5 T/CUMM (4-12)
[2018-06-05 05:32] LABS: Calcium 8.2 MG/DL (8.5-10.1); Osmolality,Calculated 295.1 MOS/KG (273-304); Potassium 3.9 MMOL/L (3.5-5.1)
[2018-06-05 05:55] LABS: Hypochromasia 1+; Lymphocytes 4 % (20-55); Macrocytosis Slight; Segmented Neutrophils 96 % (50-85); Total Cells Counted 100
[2018-06-05 05:56] LABS: Platelet Estimate Normal
[2018-06-05] MEDS: PIPERACILLIN/TAZOBACTAM 3,375 MG in SODIUM CHLORIDE 0.9% 100 ML IV SCH ×2 (06:15→16:06)
[2018-06-05] MEDS: CHOLECALCIFEROL 5,000 UNIT TABLET PO SCH (08:07)
[2018-06-05] MEDS: PANTOPRAZOLE 40 MG TABLET PO SCH (08:07)
[2018-06-05] MEDS: CLOPIDOGREL 75 MG TABLET PO SCH (08:08)
[2018-06-05] MEDS: ISOSORBIDE MONONITRATE 60 MG TABLET PO SCH (08:08)
[2018-06-05] MEDS: OMEGA 3 ACID ETHYL ESTERS 1 GM CAPSULE PO SCH (08:08)
[2018-06-05] MEDS: FUROSEMIDE 40 MG TABLET PO SCH (08:08)
[2018-06-05] MEDS: ASCORBIC ACID 500 MG TABLET PO SCH ×2 (08:09→21:42)
[2018-06-05] MEDS: AMIODARONE 200 MG TABLET PO SCH (08:09)
[2018-06-05] MEDS: POTASSIUM CHLORIDE 20 MEQ TABLET PO SCH (08:09)
[2018-06-05] MEDS: METOPROLOL SUCCINATE XL 25 MG TABLET PO SCH ×2 (08:09→21:41)
[2018-06-05] MEDS: DILTIAZEM CD 120 MG CAPSULE PO SCH ×2 (08:09→21:41)
[2018-06-05] MEDS: MAGNESIUM CHLORIDE 64 MG TABLET PO SCH (08:11)
[2018-06-05] MEDS: SERTRALINE 100 MG TABLET PO SCH (08:11)
[2018-06-05] MEDS: ASPIRIN EC 81 MG TABLET PO SCH (08:11)
[2018-06-05] MEDS: DOXYCYCLINE HYCLATE 100 MG CAPSULE PO SCH ×2 (08:11→21:42)
[2018-06-05] MEDS: MONTELUKAST 10 MG TABLET PO SCH ×2 (08:11→21:41)
[2018-06-05] MEDS: ENOXAPARIN 40 MG/0.4 ML SYRINGE SUBCUT SCH (08:12)
[2018-06-05] MEDS: BUDESONIDE/FORMOTEROL 160-4.5 INHALER 6 GM INH SCH ×2 (08:12→21:41)
[2018-06-05] MEDS: methylPREDNISolone SOD SUC 40 MG/1 ML VIAL IV SCH ×2 (08:12→16:07)
[2018-06-05] MEDS: FLUTICASONE 50 MCG NASAL SPRAY 16 GM BOTTLE BOTH NARES SCH (21:41)
[2018-06-05] MEDS: ROSUVASTATIN 10 MG TABLET PO SCH (21:41)
[2018-06-06] MEDS: PIPERACILLIN/TAZOBACTAM 3,375 MG in SODIUM CHLORIDE 0.9% 100 ML IV SCH ×4 (00:06→22:55)
[2018-06-06] MEDS: LEVALBUTEROL 1.25 MG/3 ML NEB RESP TX SCH ×4 (00:08→19:58)
[2018-06-06] MEDS: methylPREDNISolone SOD SUC 40 MG/1 ML VIAL IV SCH ×3 (00:57→16:41)
[2018-06-06] MEDS: ESMOLOL 2,500 MG/250 ML PREMIX IV PRN ×5 (04:01→18:42)
[2018-06-06 04:48] LABS: Hematocrit 35.7 VOL% (35.7-47.0); Hemoglobin 11.4 GM/DL (12.0-16.0); Immature Granulocytes % 0.7 %; Immature Granulocytes Absolute 0.05 #; Lymphocytes # 0.4 10*3/uL (1.4-4.0); Lymphocytes % 5.5 % (21.3-54.2); Mean Corpuscular HGB Conc 31.9 GM/DL (32-36); Mean Corpuscular Hemoglobin 32 PG (27-34); Mean Corpuscular Volume 101.1 FL (87-102); Mean Platelet Volume 10.5 FL (9.6-12.0); Monocytes # 0.3 10*3/uL (0.11-0.8); Monocytes % 4.4 % (1.7-12.7); Neutrophils # 6.1 10*3/uL (1.4-7.4); Neutrophils % 89.4 % (38.7-73.9); Platelet Count 225 T/CUMM (130-400); Red Blood Count 3.53 MC/CUMM (3.8-5.5); Red Cell Distribution Width 12.4 % (9.3-17.3); White Blood Count 6.8 T/CUMM (4-12)
[2018-06-06 05:00] LABS: Calcium 8.2 MG/DL (8.5-10.1); Potassium 3.8 MMOL/L (3.5-5.1)
[2018-06-06] MEDS: MAGNESIUM CHLORIDE 64 MG TABLET PO SCH (08:10)
[2018-06-06] MEDS: DOXYCYCLINE HYCLATE 100 MG CAPSULE PO SCH ×2 (08:10→21:29)
[2018-06-06] MEDS: METOPROLOL SUCCINATE XL 25 MG TABLET PO SCH (08:10)
[2018-06-06] MEDS: FUROSEMIDE 40 MG TABLET PO SCH (08:10)
[2018-06-06] MEDS: CLOPIDOGREL 75 MG TABLET PO SCH (08:10)
[2018-06-06] MEDS: SERTRALINE 100 MG TABLET PO SCH (08:10)
[2018-06-06] MEDS: POTASSIUM CHLORIDE 20 MEQ TABLET PO SCH (08:10)
[2018-06-06] MEDS: AMIODARONE 200 MG TABLET PO SCH (08:11)
[2018-06-06] MEDS: ASCORBIC ACID 500 MG TABLET PO SCH ×2 (08:11→21:30)
[2018-06-06] MEDS: ASPIRIN EC 81 MG TABLET PO SCH (08:11)
[2018-06-06] MEDS: ISOSORBIDE MONONITRATE 60 MG TABLET PO SCH (08:11)
[2018-06-06] MEDS: PANTOPRAZOLE 40 MG TABLET PO SCH (08:11)
[2018-06-06] MEDS: MONTELUKAST 10 MG TABLET PO SCH ×2 (08:11→21:29)
[2018-06-06] MEDS: OMEGA 3 ACID ETHYL ESTERS 1 GM CAPSULE PO SCH (08:11)
[2018-06-06] MEDS: DILTIAZEM CD 120 MG CAPSULE PO SCH ×2 (08:12→21:30)
[2018-06-06] MEDS: ENOXAPARIN 40 MG/0.4 ML SYRINGE SUBCUT SCH (08:15)
[2018-06-06] MEDS: BUDESONIDE/FORMOTEROL 160-4.5 INHALER 6 GM INH SCH ×2 (08:17→21:31)
[2018-06-06] MEDS: CHOLECALCIFEROL 5,000 UNIT TABLET PO SCH (08:18)
[2018-06-06] MEDS: SPIRONOLACTONE 25 MG TABLET PO SCH (14:28)
[2018-06-06] MEDS: METOPROLOL TARTRATE 50 MG TABLET PO SCH ×2 (16:43→21:30)
[2018-06-06] MEDS: ROSUVASTATIN 10 MG TABLET PO SCH (21:29)
[2018-06-06] MEDS: FLUTICASONE 50 MCG NASAL SPRAY 16 GM BOTTLE BOTH NARES SCH (21:31)
[2018-06-07] MEDS: methylPREDNISolone SOD SUC 40 MG/1 ML VIAL IV SCH ×3 (00:46→16:22)
[2018-06-07] MEDS: ESMOLOL 2,500 MG/250 ML PREMIX IV PRN (01:10)
[2018-06-07] MEDS: LEVALBUTEROL 1.25 MG/3 ML NEB RESP TX SCH ×2 (03:04→06:49)
[2018-06-07 04:17] LABS: Calcium 8.1 MG/DL (8.5-10.1); Osmolality,Calculated 291.5 MOS/KG (273-304); Potassium 3.7 MMOL/L (3.5-5.1)
[2018-06-07] MEDS: METOPROLOL TARTRATE 50 MG TABLET PO SCH ×4 (05:47→20:18)
[2018-06-07 06:18] LABS: Hemoglobin 11.7 GM/DL (12.0-16.0); Immature Granulocytes % 1.3 %; Lymphocytes # 0.4 10*3/uL (1.4-4.0); Lymphocytes % 4.9 % (21.3-54.2); Mean Corpuscular HGB Conc 32.5 GM/DL (32-36); Mean Corpuscular Hemoglobin 32 PG (27-34); Mean Corpuscular Volume 99.4 FL (87-102); Mean Platelet Volume 10.5 FL (9.6-12.0); Monocytes # 0.4 10*3/uL (0.11-0.8); Monocytes % 4.6 % (1.7-12.7); Neutrophils % 89.2 % (38.7-73.9); Platelet Count 235 T/CUMM (130-400); Red Blood Count 3.62 MC/CUMM (3.8-5.5); Red Cell Distribution Width 12.2 % (9.3-17.3); White Blood Count 7.8 T/CUMM (4-12)
[2018-06-07] MEDS: PIPERACILLIN/TAZOBACTAM 3,375 MG in SODIUM CHLORIDE 0.9% 100 ML IV SCH ×3 (06:21→23:33)
[2018-06-07 06:39] LABS: Band Neutrophils 1 % (0-10); Hypochromasia Slight; Lymphocytes 6 % (20-55); Segmented Neutrophils 91 % (50-85); Total Cells Counted 100
[2018-06-07 06:41] LABS: Platelet Estimate Normal
[2018-06-07] MEDS: DILTIAZEM CD 120 MG CAPSULE PO SCH ×2 (09:02→20:18)
[2018-06-07] MEDS: ISOSORBIDE MONONITRATE 60 MG TABLET PO SCH (09:02)
[2018-06-07] MEDS: FUROSEMIDE 40 MG TABLET PO SCH (09:03)
[2018-06-07] MEDS: AMIODARONE 200 MG TABLET PO SCH (09:03)
[2018-06-07] MEDS: OMEGA 3 ACID ETHYL ESTERS 1 GM CAPSULE PO SCH (09:05)
[2018-06-07] MEDS: MONTELUKAST 10 MG TABLET PO SCH ×2 (09:05→20:18)
[2018-06-07] MEDS: ASCORBIC ACID 500 MG TABLET PO SCH ×2 (09:05→20:18)
[2018-06-07] MEDS: CHOLECALCIFEROL 5,000 UNIT TABLET PO SCH (09:05)
[2018-06-07] MEDS: POTASSIUM CHLORIDE 20 MEQ TABLET PO SCH (09:05)
[2018-06-07] MEDS: PANTOPRAZOLE 40 MG TABLET PO SCH (09:05)
[2018-06-07] MEDS: MAGNESIUM CHLORIDE 64 MG TABLET PO SCH (09:05)
[2018-06-07] MEDS: ASPIRIN EC 81 MG TABLET PO SCH (09:05)
[2018-06-07] MEDS: SERTRALINE 100 MG TABLET PO SCH (09:05)
[2018-06-07] MEDS: SPIRONOLACTONE 25 MG TABLET PO SCH (09:05)
[2018-06-07] MEDS: DOXYCYCLINE HYCLATE 100 MG CAPSULE PO SCH ×2 (09:05→20:18)
[2018-06-07] MEDS: BUDESONIDE/FORMOTEROL 160-4.5 INHALER 6 GM INH SCH ×2 (09:06→20:25)
[2018-06-07] MEDS: ENOXAPARIN 40 MG/0.4 ML SYRINGE SUBCUT SCH (09:06)
[2018-06-07] MEDS ORDERED: IPRATROPIUM 500 MCG/2.5 ML NEB RESP TX PRN (09:42)
[2018-06-07] MEDS ORDERED: LISINOPRIL 10 MG TABLET PO SCH (10:30)
[2018-06-07] MEDS: IPRATROPIUM 500 MCG/2.5 ML NEB RESP TX SCH ×2 (14:40→20:04)
[2018-06-07] MEDS: ROSUVASTATIN 10 MG TABLET PO SCH (20:18)
[2018-06-07] MEDS: FLUTICASONE 50 MCG NASAL SPRAY 16 GM BOTTLE BOTH NARES SCH (20:24)
[2018-06-08] MEDS: IPRATROPIUM 500 MCG/2.5 ML NEB RESP TX SCH ×4 (01:13→19:15)
[2018-06-08] MEDS: methylPREDNISolone SOD SUC 40 MG/1 ML VIAL IV SCH ×3 (01:15→17:01)
[2018-06-08 05:00] LABS: Hematocrit 34.5 VOL% (35.7-47.0); Hemoglobin 11.3 GM/DL (12.0-16.0); Immature Granulocytes % 1.2 %; Immature Granulocytes Absolute 0.12 #; Lymphocytes # 0.5 10*3/uL (1.4-4.0); Lymphocytes % 4.6 % (21.3-54.2); Mean Corpuscular HGB Conc 32.8 GM/DL (32-36); Mean Corpuscular Hemoglobin 32 PG (27-34); Monocytes # 0.7 10*3/uL (0.11-0.8); Monocytes % 7.2 % (1.7-12.7); Neutrophils # 8.4 10*3/uL (1.4-7.4); Platelet Count 242 T/CUMM (130-400); Red Blood Count 3.52 MC/CUMM (3.8-5.5); Red Cell Distribution Width 12.4 % (9.3-17.3); White Blood Count 9.7 T/CUMM (4-12)
[2018-06-08 05:19] LABS: Calcium 8.2 MG/DL (8.5-10.1); Osmolality,Calculated 298.1 MOS/KG (273-304); Potassium 3.2 MMOL/L (3.5-5.1)
[2018-06-08] MEDS: METOPROLOL TARTRATE 50 MG TABLET PO SCH ×4 (05:30→21:39)
[2018-06-08 06:32] LABS: Band Neutrophils 2 % (0-10); Lymphocytes 5 % (20-55); Platelet Estimate Normal; Segmented Neutrophils 85 % (50-85); Total Cells Counted 100
[2018-06-08] MEDS: ENOXAPARIN 40 MG/0.4 ML SYRINGE SUBCUT SCH (09:29)
[2018-06-08] MEDS: PIPERACILLIN/TAZOBACTAM 3,375 MG in SODIUM CHLORIDE 0.9% 100 ML IV SCH ×3 (09:29→23:35)
[2018-06-08] MEDS: MAGNESIUM CHLORIDE 64 MG TABLET PO SCH (09:30)
[2018-06-08] MEDS: SPIRONOLACTONE 25 MG TABLET PO SCH (09:30)
[2018-06-08] MEDS: AMIODARONE 200 MG TABLET PO SCH (09:31)
[2018-06-08] MEDS: ASCORBIC ACID 500 MG TABLET PO SCH ×2 (09:31→21:39)
[2018-06-08] MEDS: PANTOPRAZOLE 40 MG TABLET PO SCH (09:31)
[2018-06-08] MEDS: CHOLECALCIFEROL 5,000 UNIT TABLET PO SCH (09:31)
[2018-06-08] MEDS: ASPIRIN EC 81 MG TABLET PO SCH (09:32)
[2018-06-08] MEDS: SERTRALINE 100 MG TABLET PO SCH (09:32)
[2018-06-08] MEDS: OMEGA 3 ACID ETHYL ESTERS 1 GM CAPSULE PO SCH (09:32)
[2018-06-08] MEDS: POTASSIUM CHLORIDE 20 MEQ TABLET PO SCH ×4 (09:32→15:47)
[2018-06-08] MEDS: DOXYCYCLINE HYCLATE 100 MG CAPSULE PO SCH ×2 (09:32→21:39)
[2018-06-08] MEDS: FUROSEMIDE 40 MG TABLET PO SCH (09:32)
[2018-06-08] MEDS: LISINOPRIL 5 MG TABLET PO SCH (09:33)
[2018-06-08] MEDS: MONTELUKAST 10 MG TABLET PO SCH ×2 (09:33→21:39)
[2018-06-08] MEDS: ISOSORBIDE MONONITRATE 60 MG TABLET PO SCH (09:33)
[2018-06-08] MEDS: DILTIAZEM CD 120 MG CAPSULE PO SCH ×2 (09:34→21:39)
[2018-06-08] MEDS: BUDESONIDE/FORMOTEROL 160-4.5 INHALER 6 GM INH SCH ×2 (09:34→21:35)
[2018-06-08] MEDS: FLUTICASONE 50 MCG NASAL SPRAY 16 GM BOTTLE BOTH NARES SCH (21:39)
[2018-06-08] MEDS: ROSUVASTATIN 10 MG TABLET PO SCH (21:39)
[2018-06-09] MEDS: IPRATROPIUM 500 MCG/2.5 ML NEB RESP TX SCH ×4 (00:59→19:15)
[2018-06-09] MEDS: methylPREDNISolone SOD SUC 40 MG/1 ML VIAL IV SCH ×3 (01:37→16:15)
[2018-06-09] MEDS: METOPROLOL TARTRATE 50 MG TABLET PO SCH ×4 (04:59→22:00)
[2018-06-09 05:16] LABS: Basophils % 0.1 % (0.0-0.8); Hematocrit 36.3 VOL% (35.7-47.0); Hemoglobin 11.5 GM/DL (12.0-16.0); Immature Granulocytes % 2.1 %; Immature Granulocytes Absolute 0.26 #; Lymphocytes # 0.4 10*3/uL (1.4-4.0); Lymphocytes % 3.4 % (21.3-54.2); Mean Corpuscular HGB Conc 31.7 GM/DL (32-36); Mean Corpuscular Hemoglobin 32 PG (27-34); Mean Corpuscular Volume 100.8 FL (87-102); Mean Platelet Volume 10.7 FL (9.6-12.0); Monocytes # 0.7 10*3/uL (0.11-0.8); Monocytes % 5.3 % (1.7-12.7); Neutrophils # 10.8 10*3/uL (1.4-7.4); Neutrophils % 89.1 % (38.7-73.9); Platelet Count 211 T/CUMM (130-400); Red Cell Distribution Width 12.1 % (9.3-17.3); White Blood Count 12.2 T/CUMM (4-12)
[2018-06-09 05:37] LABS: Calcium 8.3 MG/DL (8.5-10.1); Potassium 3.8 MMOL/L (3.5-5.1)
[2018-06-09 05:53] LABS: Hypochromasia 1+; Lymphocytes 6 % (20-55); Platelet Estimate Adequate; Segmented Neutrophils 93 % (50-85); Total Cells Counted 100
[2018-06-09 06:44] LABS: ABG Base Excess 11.5 MMOL/L (-2.5-2.5); ABG HCO3 35.2 MMOL/L (20-26); ABG Oxygen Saturation 95.2 % (95-100); ABG PH 7.356 (7.35-7.45); ABG PO2 80.2 MM HG (80-95); ABG TCO2 35.9 MMOL/L (23-27); Allen Test Positive
[2018-06-09 06:49] LABS: ABG PCO2 72.4 MM HG (35-48)
[2018-06-09] MEDS: PIPERACILLIN/TAZOBACTAM 3,375 MG in SODIUM CHLORIDE 0.9% 100 ML IV SCH ×3 (07:24→23:41)
[2018-06-09] MEDS: ENOXAPARIN 40 MG/0.4 ML SYRINGE SUBCUT SCH (09:33)
[2018-06-09] MEDS: LISINOPRIL 5 MG TABLET PO SCH (09:34)
[2018-06-09] MEDS: SPIRONOLACTONE 25 MG TABLET PO SCH (09:34)
[2018-06-09] MEDS: AMIODARONE 200 MG TABLET PO SCH (09:34)
[2018-06-09] MEDS: FUROSEMIDE 40 MG TABLET PO SCH (09:34)
[2018-06-09] MEDS: DOXYCYCLINE HYCLATE 100 MG CAPSULE PO SCH ×2 (09:34→20:42)
[2018-06-09] MEDS: OMEGA 3 ACID ETHYL ESTERS 1 GM CAPSULE PO SCH (09:34)
[2018-06-09] MEDS: ASPIRIN EC 81 MG TABLET PO SCH (09:34)
[2018-06-09] MEDS: MONTELUKAST 10 MG TABLET PO SCH ×2 (09:35→20:37)
[2018-06-09] MEDS: PANTOPRAZOLE 40 MG TABLET PO SCH (09:35)
[2018-06-09] MEDS: ISOSORBIDE MONONITRATE 60 MG TABLET PO SCH (09:35)
[2018-06-09] MEDS: MAGNESIUM CHLORIDE 64 MG TABLET PO SCH (09:35)
[2018-06-09] MEDS: DILTIAZEM CD 120 MG CAPSULE PO SCH ×2 (09:35→20:42)
[2018-06-09] MEDS: ASCORBIC ACID 500 MG TABLET PO SCH ×2 (09:35→20:41)
[2018-06-09] MEDS: SERTRALINE 100 MG TABLET PO SCH (09:35)
[2018-06-09] MEDS: POTASSIUM CHLORIDE 20 MEQ TABLET PO SCH (09:35)
[2018-06-09] MEDS: CHOLECALCIFEROL 5,000 UNIT TABLET PO SCH (09:35)
[2018-06-09] MEDS: BUDESONIDE/FORMOTEROL 160-4.5 INHALER 6 GM INH SCH ×2 (09:36→20:43)
[2018-06-09 11:09] LABS: ABG Base Excess 11.5 MMOL/L (-2.5-2.5); ABG HCO3 35.3 MMOL/L (20-26); ABG PH 7.362 (7.35-7.45); ABG TCO2 35.8 MMOL/L (23-27)
[2018-06-09 11:10] LABS: ABG PCO2 71.3 MM HG (35-48)
[2018-06-09] MEDS: ROSUVASTATIN 10 MG TABLET PO SCH (20:37)
[2018-06-09] MEDS: FLUTICASONE 50 MCG NASAL SPRAY 16 GM BOTTLE BOTH NARES SCH (20:43)
[2018-06-10] MEDS: IPRATROPIUM 500 MCG/2.5 ML NEB RESP TX SCH ×4 (00:32→19:30)
[2018-06-10] MEDS: methylPREDNISolone SOD SUC 40 MG/1 ML VIAL IV SCH ×3 (01:20→16:06)
[2018-06-10] MEDS: METOPROLOL TARTRATE 50 MG TABLET PO SCH ×4 (04:14→22:51)
[2018-06-10 04:35] LABS: Basophils % 0.1 % (0.0-0.8); Hematocrit 32.4 VOL% (35.7-47.0); Hemoglobin 10.8 GM/DL (12.0-16.0); Immature Granulocytes Absolute 0.32 #; Lymphocytes # 0.4 10*3/uL (1.4-4.0); Lymphocytes % 2.6 % (21.3-54.2); Mean Corpuscular HGB Conc 33.3 GM/DL (32-36); Mean Corpuscular Hemoglobin 33 PG (27-34); Mean Corpuscular Volume 98.2 FL (87-102); Mean Platelet Volume 11.1 FL (9.6-12.0); Monocytes # 0.9 10*3/uL (0.11-0.8); Monocytes % 5.7 % (1.7-12.7); Neutrophils # 14.2 10*3/uL (1.4-7.4); Neutrophils % 89.6 % (38.7-73.9); Platelet Count 212 T/CUMM (130-400); Red Cell Distribution Width 12.2 % (9.3-17.3); White Blood Count 15.9 T/CUMM (4-12)
[2018-06-10 05:01] LABS: Calcium 8.3 MG/DL (8.5-10.1); Potassium 3.4 MMOL/L (3.5-5.1)
[2018-06-10 05:04] LABS: Band Neutrophils 1 % (0-10); Hypochromasia 1+; Lymphocytes 5 % (20-55); Ovalocytes Slight; Platelet Estimate Adequate; Segmented Neutrophils 91 % (50-85); Total Cells Counted 100
[2018-06-10] MEDS: PIPERACILLIN/TAZOBACTAM 3,375 MG in SODIUM CHLORIDE 0.9% 100 ML IV SCH ×3 (06:30→22:46)
[2018-06-10] MEDS ORDERED: POTASSIUM CHLORIDE 20 MEQ TABLET PO ONE (07:53)
[2018-06-10] MEDS: ENOXAPARIN 40 MG/0.4 ML SYRINGE SUBCUT SCH (09:10)
[2018-06-10] MEDS: ASCORBIC ACID 500 MG TABLET PO SCH ×2 (09:11→20:53)
[2018-06-10] MEDS: MAGNESIUM CHLORIDE 64 MG TABLET PO SCH (09:14)
[2018-06-10] MEDS: ISOSORBIDE MONONITRATE 60 MG TABLET PO SCH (09:14)
[2018-06-10] MEDS: DOXYCYCLINE HYCLATE 100 MG CAPSULE PO SCH ×2 (09:14→20:53)
[2018-06-10] MEDS: LISINOPRIL 5 MG TABLET PO SCH (09:15)
[2018-06-10] MEDS: MONTELUKAST 10 MG TABLET PO SCH ×2 (09:15→20:53)
[2018-06-10] MEDS: CHOLECALCIFEROL 5,000 UNIT TABLET PO SCH (09:15)
[2018-06-10] MEDS: OMEGA 3 ACID ETHYL ESTERS 1 GM CAPSULE PO SCH (09:16)
[2018-06-10] MEDS: SPIRONOLACTONE 25 MG TABLET PO SCH (09:18)
[2018-06-10] MEDS: AMIODARONE 200 MG TABLET PO SCH (09:18)
[2018-06-10] MEDS: FUROSEMIDE 40 MG TABLET PO SCH (09:19)
[2018-06-10] MEDS: PANTOPRAZOLE 40 MG TABLET PO SCH (09:19)
[2018-06-10] MEDS: SERTRALINE 100 MG TABLET PO SCH (09:20)
[2018-06-10] MEDS: ASPIRIN EC 81 MG TABLET PO SCH (09:20)
[2018-06-10] MEDS: BUDESONIDE/FORMOTEROL 160-4.5 INHALER 6 GM INH SCH ×2 (09:20→20:55)
[2018-06-10 09:56] LABS: ABG Base Excess 12.5 MMOL/L (-2.5-2.5); ABG HCO3 36.3 MMOL/L (20-26); ABG PCO2 68.9 MM HG (35-48); ABG PO2 86.7 MM HG (80-95); ABG TCO2 36.6 MMOL/L (23-27)
[2018-06-10] MEDS: DORNASE ALFA 2.5 MG/2.5 ML VIAL RESP TX SCH ×2 (10:45→19:35)
[2018-06-10] MEDS: DILTIAZEM CD 120 MG CAPSULE PO SCH ×2 (11:33→20:53)
[2018-06-10] MEDS: POTASSIUM CHLORIDE 20 MEQ TABLET PO SCH ×2 (11:44→21:01)
[2018-06-10 12:22] LABS: Apearance,Urine CLEAR (Clear); Bilirubin,Urine Negative (Negative); Blood, Urine Negative (Negative); Glucose,Urine (UA) Negative (Negative); Ketones,Urine Negative (Negative); Mucus,Urine Occasional /LPF (Occasional); Nitrite,Urine Negative (Negative); Protein,Urine Negative; Squamous Epithelial Cell,Urine Occasional /HPF (0-10); Urine Color Yellow (Yellow); Urine Specific Gravity 1.021 (1.001-1.035); Urine Urobilinogen < 2.0 EU/DL (0.2-1.0); WBC,Urine 1 /HPF (0-6)
[2018-06-10] MEDS: ROSUVASTATIN 10 MG TABLET PO SCH (20:53)
[2018-06-10] MEDS: FLUTICASONE 50 MCG NASAL SPRAY 16 GM BOTTLE BOTH NARES SCH (20:55)
[2018-06-11] MEDS: methylPREDNISolone SOD SUC 40 MG/1 ML VIAL IV SCH ×3 (00:55→16:03)
[2018-06-11] MEDS: IPRATROPIUM 500 MCG/2.5 ML NEB RESP TX SCH ×3 (01:06→19:27)
[2018-06-11 03:16] LABS: Basophils % 0.2 % (0.0-0.8); Hematocrit 34.4 VOL% (35.7-47.0); Hemoglobin 10.9 GM/DL (12.0-16.0); Immature Granulocytes % 4.4 %; Immature Granulocytes Absolute 0.85 #; Lymphocytes # 0.6 10*3/uL (1.4-4.0); Lymphocytes % 3.2 % (21.3-54.2); Mean Corpuscular HGB Conc 31.7 GM/DL (32-36); Mean Corpuscular Hemoglobin 32 PG (27-34); Mean Corpuscular Volume 101.5 FL (87-102); Mean Platelet Volume 11.3 FL (9.6-12.0); Monocytes # 0.9 10*3/uL (0.11-0.8); Monocytes % 4.9 % (1.7-12.7); Neutrophils # 16.8 10*3/uL (1.4-7.4); Neutrophils % 87.3 % (38.7-73.9); Platelet Count 226 T/CUMM (130-400); Red Blood Count 3.39 MC/CUMM (3.8-5.5); Red Cell Distribution Width 12.2 % (9.3-17.3); White Blood Count 19.2 T/CUMM (4-12)
[2018-06-11 03:25] LABS: Calcium 8.5 MG/DL (8.5-10.1)
[2018-06-11 03:46] LABS: Lymphocytes 4 % (20-55); Segmented Neutrophils 90 % (50-85)
[2018-06-11 03:47] LABS: Hypochromasia Slight; Platelet Estimate Normal
[2018-06-11 03:50] LABS: Total Cells Counted 100
[2018-06-11] MEDS: METOPROLOL TARTRATE 50 MG TABLET PO SCH ×4 (03:59→22:01)
[2018-06-11] MEDS: PIPERACILLIN/TAZOBACTAM 3,375 MG in SODIUM CHLORIDE 0.9% 100 ML IV SCH ×3 (06:33→23:39)
[2018-06-11] MEDS: DORNASE ALFA 2.5 MG/2.5 ML VIAL RESP TX SCH ×2 (07:25→19:27)
[2018-06-11] MEDS: ENOXAPARIN 40 MG/0.4 ML SYRINGE SUBCUT SCH (08:43)
[2018-06-11] MEDS: OMEGA 3 ACID ETHYL ESTERS 1 GM CAPSULE PO SCH (08:47)
[2018-06-11] MEDS: PANTOPRAZOLE 40 MG TABLET PO SCH (08:47)
[2018-06-11] MEDS: LISINOPRIL 5 MG TABLET PO SCH (08:47)
[2018-06-11] MEDS: ISOSORBIDE MONONITRATE 60 MG TABLET PO SCH (08:47)
[2018-06-11] MEDS: ASPIRIN EC 81 MG TABLET PO SCH (08:47)
[2018-06-11] MEDS: MONTELUKAST 10 MG TABLET PO SCH ×2 (08:47→22:00)
[2018-06-11] MEDS: SERTRALINE 100 MG TABLET PO SCH (08:47)
[2018-06-11] MEDS: SPIRONOLACTONE 25 MG TABLET PO SCH (08:48)
[2018-06-11] MEDS: FUROSEMIDE 40 MG TABLET PO SCH (08:50)
[2018-06-11] MEDS: ASCORBIC ACID 500 MG TABLET PO SCH ×2 (08:52→22:00)
[2018-06-11] MEDS: DOXYCYCLINE HYCLATE 100 MG CAPSULE PO SCH ×2 (08:52→22:00)
[2018-06-11] MEDS: MAGNESIUM CHLORIDE 64 MG TABLET PO SCH (08:52)
[2018-06-11] MEDS: CHOLECALCIFEROL 5,000 UNIT TABLET PO SCH (08:54)
[2018-06-11] MEDS: POTASSIUM CHLORIDE 20 MEQ TABLET PO SCH ×2 (08:55→22:00)
[2018-06-11] MEDS: DILTIAZEM CD 120 MG CAPSULE PO SCH ×2 (09:15→21:59)
[2018-06-11] MEDS: AMIODARONE 200 MG TABLET PO SCH (09:16)
[2018-06-11] MEDS: BUDESONIDE/FORMOTEROL 160-4.5 INHALER 6 GM INH SCH ×2 (09:17→22:00)
[2018-06-11 09:29] LABS: ABG Base Excess 12.2 MMOL/L (-2.5-2.5); ABG HCO3 39.9 MMOL/L (20-26); ABG Oxygen Saturation 95.7 % (95-100); ABG PCO2 68.3 MM HG (35-48); ABG PH 7.384 (7.35-7.45); Allen Test Positive
[2018-06-11] MEDS: ROSUVASTATIN 10 MG TABLET PO SCH (21:57)
[2018-06-11] MEDS: FLUTICASONE 50 MCG NASAL SPRAY 16 GM BOTTLE BOTH NARES SCH (22:00)
[2018-06-12] MEDS: methylPREDNISolone SOD SUC 40 MG/1 ML VIAL IV SCH ×3 (02:12→17:21)
[2018-06-12 03:42] LABS: Basophils % 0.1 % (0.0-0.8); Hematocrit 33.4 VOL% (35.7-47.0); Hemoglobin 10.7 GM/DL (12.0-16.0); Immature Granulocytes % 2.9 %; Immature Granulocytes Absolute 0.55 #; Lymphocytes # 0.5 10*3/uL (1.4-4.0); Lymphocytes % 2.9 % (21.3-54.2); Mean Corpuscular Hemoglobin 32 PG (27-34); Mean Corpuscular Volume 99.7 FL (87-102); Mean Platelet Volume 11.1 FL (9.6-12.0); Monocytes # 1.1 10*3/uL (0.11-0.8); Monocytes % 6.1 % (1.7-12.7); Neutrophils # 16.4 10*3/uL (1.4-7.4); Platelet Count 201 T/CUMM (130-400); Red Blood Count 3.35 MC/CUMM (3.8-5.5); Red Cell Distribution Width 12.2 % (9.3-17.3); White Blood Count 18.7 T/CUMM (4-12)
[2018-06-12 03:58] LABS: Calcium 8.5 MG/DL (8.5-10.1); Osmolality,Calculated 305.8 MOS/KG (273-304); Potassium 4.1 MMOL/L (3.5-5.1)
[2018-06-12 04:11] LABS: Lymphocytes 2 % (20-55); Platelet Estimate Adequate; Segmented Neutrophils 95 % (50-85); Total Cells Counted 100
[2018-06-12 04:12] LABS: Hypochromasia 1+
[2018-06-12] MEDS: METOPROLOL TARTRATE 50 MG TABLET PO SCH ×4 (04:19→21:06)
[2018-06-12] MEDS: PIPERACILLIN/TAZOBACTAM 3,375 MG in SODIUM CHLORIDE 0.9% 100 ML IV SCH ×3 (06:20→22:30)
[2018-06-12] MEDS: IPRATROPIUM 500 MCG/2.5 ML NEB RESP TX SCH ×2 (07:20→19:24)
[2018-06-12] MEDS: DORNASE ALFA 2.5 MG/2.5 ML VIAL RESP TX SCH ×2 (07:55→19:24)
[2018-06-12] MEDS ORDERED: LIDOCAINE 100 MG/5 ML SYRINGE ONE (09:00)
[2018-06-12] MEDS ORDERED: ETOMIDATE 20 MG/10 ML VIAL IV ONE (09:00)
[2018-06-12] MEDS: AMIODARONE 200 MG TABLET PO SCH (11:30)
[2018-06-12] MEDS: ISOSORBIDE MONONITRATE 60 MG TABLET PO SCH (11:31)
[2018-06-12] MEDS: SPIRONOLACTONE 25 MG TABLET PO SCH (11:31)
[2018-06-12] MEDS: LISINOPRIL 5 MG TABLET PO SCH (11:31)
[2018-06-12] MEDS: DILTIAZEM CD 120 MG CAPSULE PO SCH ×2 (11:31→20:52)
[2018-06-12] MEDS: FUROSEMIDE 40 MG TABLET PO SCH ×2 (11:31→12:15)
[2018-06-12] MEDS: POTASSIUM CHLORIDE 20 MEQ TABLET PO SCH ×2 (12:14→20:52)
[2018-06-12] MEDS: DOXYCYCLINE HYCLATE 100 MG CAPSULE PO SCH ×2 (12:14→20:51)
[2018-06-12] MEDS: ASPIRIN EC 81 MG TABLET PO SCH (12:14)
[2018-06-12] MEDS: CHOLECALCIFEROL 5,000 UNIT TABLET PO SCH (12:14)
[2018-06-12] MEDS: MONTELUKAST 10 MG TABLET PO SCH ×2 (12:14→20:52)
[2018-06-12] MEDS: MAGNESIUM CHLORIDE 64 MG TABLET PO SCH (12:14)
[2018-06-12] MEDS: OMEGA 3 ACID ETHYL ESTERS 1 GM CAPSULE PO SCH (12:14)
[2018-06-12] MEDS: SERTRALINE 100 MG TABLET PO SCH (12:15)
[2018-06-12] MEDS: ASCORBIC ACID 500 MG TABLET PO SCH ×2 (12:15→20:51)
[2018-06-12] MEDS: PANTOPRAZOLE 40 MG TABLET PO SCH (12:15)
[2018-06-12 14:29] LABS: ABG Base Excess 9.8 MMOL/L (-2.5-2.5); ABG HCO3 37.9 MMOL/L (20-26); ABG Oxygen Saturation 95.8 % (95-100); ABG PH 7.336 (7.35-7.45); ABG PO2 91.7 MM HG (80-95); ABG TCO2 40.2 MMOL/L (23-27)
[2018-06-12 14:32] LABS: ABG PCO2 72.6 MM HG (35-48)
[2018-06-12] MEDS: FLUCONAZOLE 100 MG TABLET PO SCH (15:02)
[2018-06-12] MEDS: BUDESONIDE/FORMOTEROL 160-4.5 INHALER 6 GM INH SCH ×2 (15:06→20:52)
[2018-06-12] MEDS: ROSUVASTATIN 10 MG TABLET PO SCH (20:51)
[2018-06-12] MEDS: FLUTICASONE 50 MCG NASAL SPRAY 16 GM BOTTLE BOTH NARES SCH (20:53)
[2018-06-13] MEDS: methylPREDNISolone SOD SUC 40 MG/1 ML VIAL IV SCH ×3 (01:28→16:05)
[2018-06-13] MEDS: METOPROLOL TARTRATE 50 MG TABLET PO SCH ×4 (03:48→22:16)
[2018-06-13] MEDS: PIPERACILLIN/TAZOBACTAM 3,375 MG in SODIUM CHLORIDE 0.9% 100 ML IV SCH ×3 (06:38→22:09)
[2018-06-13] MEDS: IPRATROPIUM 500 MCG/2.5 ML NEB RESP TX SCH ×2 (07:18→20:52)
[2018-06-13] MEDS: DORNASE ALFA 2.5 MG/2.5 ML VIAL RESP TX SCH ×2 (07:27→20:52)
[2018-06-13 08:45] LABS: Basophils % 0.1 % (0.0-0.8); Hematocrit 31.6 VOL% (35.7-47.0); Hemoglobin 10.2 GM/DL (12.0-16.0); Immature Granulocytes % 2.4 %; Immature Granulocytes Absolute 0.43 #; Lymphocytes # 0.5 10*3/uL (1.4-4.0); Lymphocytes % 2.6 % (21.3-54.2); Mean Corpuscular HGB Conc 32.3 GM/DL (32-36); Mean Corpuscular Hemoglobin 32 PG (27-34); Mean Corpuscular Volume 99.4 FL (87-102); Mean Platelet Volume 11.3 FL (9.6-12.0); Monocytes # 0.6 10*3/uL (0.11-0.8); Neutrophils # 16.7 10*3/uL (1.4-7.4); Neutrophils % 91.9 % (38.7-73.9); Platelet Count 173 T/CUMM (130-400); Red Blood Count 3.18 MC/CUMM (3.8-5.5); Red Cell Distribution Width 12.2 % (9.3-17.3); White Blood Count 18.1 T/CUMM (4-12)
[2018-06-13 09:03] LABS: Calcium 6.5 MG/DL (8.5-10.1); Potassium 4.7 MMOL/L (3.5-5.1)
[2018-06-13 09:04] LABS: Band Neutrophils 1 % (0-10); Lymphocytes 4 % (20-55); Platelet Estimate Adequate; Segmented Neutrophils 94 % (50-85); Total Cells Counted 100
[2018-06-13 09:05] LABS: Hypochromasia 1+
[2018-06-13 09:26] LABS: ABG Base Excess 12.2 MMOL/L (-2.5-2.5); ABG HCO3 39.6 MMOL/L (20-26); ABG PCO2 68.2 MM HG (35-48); ABG PH 7.382 (7.35-7.45); ABG PO2 93.4 MM HG (80-95); ABG TCO2 41.7 MMOL/L (23-27)
[2018-06-13] MEDS: DOXYCYCLINE HYCLATE 100 MG CAPSULE PO SCH ×2 (10:31→22:07)
[2018-06-13] MEDS: ASCORBIC ACID 500 MG TABLET PO SCH ×2 (10:31→22:07)
[2018-06-13] MEDS: FUROSEMIDE 40 MG TABLET PO SCH (10:32)
[2018-06-13] MEDS: SERTRALINE 100 MG TABLET PO SCH (10:32)
[2018-06-13] MEDS: PANTOPRAZOLE 40 MG TABLET PO SCH (10:32)
[2018-06-13] MEDS: POTASSIUM CHLORIDE 20 MEQ TABLET PO SCH ×2 (10:32→22:08)
[2018-06-13] MEDS: LISINOPRIL 5 MG TABLET PO SCH (10:32)
[2018-06-13] MEDS: ASPIRIN EC 81 MG TABLET PO SCH (10:33)
[2018-06-13] MEDS: ISOSORBIDE MONONITRATE 60 MG TABLET PO SCH (10:33)
[2018-06-13] MEDS: OMEGA 3 ACID ETHYL ESTERS 1 GM CAPSULE PO SCH (10:33)
[2018-06-13] MEDS: DILTIAZEM CD 120 MG CAPSULE PO SCH ×2 (10:33→22:07)
[2018-06-13] MEDS: FLUCONAZOLE 100 MG TABLET PO SCH (10:33)
[2018-06-13] MEDS: MAGNESIUM CHLORIDE 64 MG TABLET PO SCH (10:33)
[2018-06-13] MEDS: CHOLECALCIFEROL 5,000 UNIT TABLET PO SCH (10:33)
[2018-06-13] MEDS: SPIRONOLACTONE 25 MG TABLET PO SCH (10:34)
[2018-06-13] MEDS: MONTELUKAST 10 MG TABLET PO SCH ×2 (10:34→22:07)
[2018-06-13] MEDS: AMIODARONE 200 MG TABLET PO SCH (10:35)
[2018-06-13] MEDS: BUDESONIDE/FORMOTEROL 160-4.5 INHALER 6 GM INH SCH ×2 (10:35→22:09)
[2018-06-13] MEDS: ROSUVASTATIN 10 MG TABLET PO SCH (22:07)
[2018-06-13] MEDS: FLUTICASONE 50 MCG NASAL SPRAY 16 GM BOTTLE BOTH NARES SCH (22:09)
[2018-06-14] MEDS: methylPREDNISolone SOD SUC 40 MG/1 ML VIAL IV SCH ×3 (01:56→16:18)
[2018-06-14 05:02] LABS: Basophils % 0.1 % (0.0-0.8); Hematocrit 30.5 VOL% (35.7-47.0); Hemoglobin 9.9 GM/DL (12.0-16.0); Immature Granulocytes % 1.7 %; Lymphocytes # 0.4 10*3/uL (1.4-4.0); Lymphocytes % 2.3 % (21.3-54.2); Mean Corpuscular HGB Conc 32.5 GM/DL (32-36); Mean Corpuscular Hemoglobin 32 PG (27-34); Mean Corpuscular Volume 98.1 FL (87-102); Mean Platelet Volume 11.4 FL (9.6-12.0); Monocytes # 0.6 10*3/uL (0.11-0.8); Monocytes % 3.3 % (1.7-12.7); Neutrophils # 15.9 10*3/uL (1.4-7.4); Neutrophils % 92.6 % (38.7-73.9); Platelet Count 161 T/CUMM (130-400); Red Blood Count 3.11 MC/CUMM (3.8-5.5); Red Cell Distribution Width 12.2 % (9.3-17.3); White Blood Count 17.2 T/CUMM (4-12)
[2018-06-14 05:24] LABS: Calcium 8.3 MG/DL (8.5-10.1); Osmolality,Calculated 304.8 MOS/KG (273-304); Potassium 3.9 MMOL/L (3.5-5.1)
[2018-06-14 06:10] LABS: Band Neutrophils 2 % (0-10); Lymphocytes 3 % (20-55); Segmented Neutrophils 92 % (50-85); Total Cells Counted 100
[2018-06-14 06:11] LABS: Anisocytosis Slight; Macrocytosis Slight; Platelet Estimate Normal
[2018-06-14] MEDS: METOPROLOL TARTRATE 50 MG TABLET PO SCH ×4 (06:20→21:13)
[2018-06-14] MEDS: IPRATROPIUM 500 MCG/2.5 ML NEB RESP TX SCH ×2 (07:02→19:42)
[2018-06-14] MEDS: DORNASE ALFA 2.5 MG/2.5 ML VIAL RESP TX SCH ×2 (07:10→19:42)
[2018-06-14] MEDS: FLUCONAZOLE 100 MG TABLET PO SCH (10:22)
[2018-06-14] MEDS: ASCORBIC ACID 500 MG TABLET PO SCH ×2 (10:22→21:10)
[2018-06-14] MEDS: CHOLECALCIFEROL 5,000 UNIT TABLET PO SCH (10:22)
[2018-06-14] MEDS: OMEGA 3 ACID ETHYL ESTERS 1 GM CAPSULE PO SCH (10:22)
[2018-06-14] MEDS: PANTOPRAZOLE 40 MG TABLET PO SCH (10:22)
[2018-06-14] MEDS: MONTELUKAST 10 MG TABLET PO SCH ×2 (10:22→21:11)
[2018-06-14] MEDS: ASPIRIN EC 81 MG TABLET PO SCH (10:22)
[2018-06-14] MEDS: SERTRALINE 100 MG TABLET PO SCH (10:23)
[2018-06-14] MEDS: POTASSIUM CHLORIDE 20 MEQ TABLET PO SCH ×2 (10:23→21:11)
[2018-06-14] MEDS: MAGNESIUM CHLORIDE 64 MG TABLET PO SCH (10:23)
[2018-06-14] MEDS: FUROSEMIDE 40 MG TABLET PO SCH (10:24)
[2018-06-14] MEDS: BUDESONIDE/FORMOTEROL 160-4.5 INHALER 6 GM INH SCH ×2 (10:24→21:12)
[2018-06-14] MEDS: ISOSORBIDE MONONITRATE 60 MG TABLET PO SCH (10:24)
[2018-06-14] MEDS: AMIODARONE 200 MG TABLET PO SCH (10:25)
[2018-06-14] MEDS: SPIRONOLACTONE 25 MG TABLET PO SCH (10:26)
[2018-06-14] MEDS: PIPERACILLIN/TAZOBACTAM 3,375 MG in SODIUM CHLORIDE 0.9% 100 ML IV SCH ×3 (10:27→23:20)
[2018-06-14] MEDS: DILTIAZEM CD 120 MG CAPSULE PO SCH ×2 (10:28→21:13)
[2018-06-14] MEDS: LISINOPRIL 5 MG TABLET PO SCH (11:00)
[2018-06-14 12:37] LABS: ABG Base Excess 9.2 MMOL/L (-2.5-2.5); ABG HCO3 36.3 MMOL/L (20-26); ABG Oxygen Saturation 96.3 % (95-100); ABG PCO2 64.4 MM HG (35-48); ABG PH 7.369 (7.35-7.45); ABG PO2 98.8 MM HG (80-95); ABG TCO2 38.3 MMOL/L (23-27)
[2018-06-14] MEDS: ROSUVASTATIN 10 MG TABLET PO SCH (21:10)
[2018-06-14] MEDS: FLUTICASONE 50 MCG NASAL SPRAY 16 GM BOTTLE BOTH NARES SCH (21:11)
[2018-06-14 21:42] LABS: Apearance,Urine CLEAR (Clear); Bilirubin,Urine Negative (Negative); Blood, Urine Negative (Negative); Calcium Oxalate Crystals,Urine Moderate /HPF (Few); Glucose,Urine (UA) 50 mg/dL (Negative); Hyaline Casts,Urine 1 /LPF (0-3); Ketones,Urine 5 mg/dL (Negative); Nitrite,Urine Negative (Negative); Protein,Urine Negative; RBC,Urine 1 /HPF (0-4); Squamous Epithelial Cell,Urine Occasional /HPF (0-10); Urine Color Yellow (Yellow); Urine Specific Gravity 1.027 (1.001-1.035); Urine Urobilinogen < 2.0 EU/DL (0.2-1.0); WBC,Urine 1 /HPF (0-6)
[2018-06-15] MEDS: methylPREDNISolone SOD SUC 40 MG/1 ML VIAL IV SCH ×3 (01:02→16:04)
[2018-06-15] MEDS: METOPROLOL TARTRATE 50 MG TABLET PO SCH ×4 (04:24→21:07)
[2018-06-15 05:04] LABS: Basophils % 0.1 % (0.0-0.8); Hematocrit 31.3 VOL% (35.7-47.0); Hemoglobin 10.1 GM/DL (12.0-16.0); Immature Granulocytes % 1.8 %; Immature Granulocytes Absolute 0.32 #; Lymphocytes # 0.4 10*3/uL (1.4-4.0); Lymphocytes % 1.9 % (21.3-54.2); Mean Corpuscular HGB Conc 32.3 GM/DL (32-36); Mean Corpuscular Hemoglobin 32 PG (27-34); Mean Corpuscular Volume 99.7 FL (87-102); Mean Platelet Volume 11.4 FL (9.6-12.0); Monocytes # 0.6 10*3/uL (0.11-0.8); Monocytes % 3.1 % (1.7-12.7); Neutrophils # 16.9 10*3/uL (1.4-7.4); Neutrophils % 93.1 % (38.7-73.9); Platelet Count 152 T/CUMM (130-400); Red Blood Count 3.14 MC/CUMM (3.8-5.5); Red Cell Distribution Width 12.2 % (9.3-17.3); White Blood Count 18.2 T/CUMM (4-12)
[2018-06-15 05:29] LABS: Potassium 3.9 MMOL/L (3.5-5.1)
[2018-06-15 05:40] LABS: Band Neutrophils 1 % (0-10); Lymphocytes 1 % (20-55); Platelet Estimate Adequate; Segmented Neutrophils 98 % (50-85); Total Cells Counted 100
[2018-06-15] MEDS: PIPERACILLIN/TAZOBACTAM 3,375 MG in SODIUM CHLORIDE 0.9% 100 ML IV SCH ×3 (06:53→23:31)
[2018-06-15] MEDS: IPRATROPIUM 500 MCG/2.5 ML NEB RESP TX SCH ×2 (06:55→19:37)
[2018-06-15] MEDS: DORNASE ALFA 2.5 MG/2.5 ML VIAL RESP TX SCH ×2 (07:00→19:37)
[2018-06-15] MEDS: SPIRONOLACTONE 25 MG TABLET PO SCH (08:57)
[2018-06-15] MEDS: DILTIAZEM CD 120 MG CAPSULE PO SCH ×2 (08:58→21:07)
[2018-06-15] MEDS: ASCORBIC ACID 500 MG TABLET PO SCH ×2 (08:58→21:07)
[2018-06-15] MEDS: SERTRALINE 100 MG TABLET PO SCH (08:58)
[2018-06-15] MEDS: MAGNESIUM CHLORIDE 64 MG TABLET PO SCH (08:58)
[2018-06-15] MEDS: OMEGA 3 ACID ETHYL ESTERS 1 GM CAPSULE PO SCH (08:58)
[2018-06-15] MEDS: FUROSEMIDE 40 MG TABLET PO SCH (08:59)
[2018-06-15] MEDS: CHOLECALCIFEROL 5,000 UNIT TABLET PO SCH (08:59)
[2018-06-15] MEDS: PANTOPRAZOLE 40 MG TABLET PO SCH (08:59)
[2018-06-15] MEDS: ISOSORBIDE MONONITRATE 60 MG TABLET PO SCH (08:59)
[2018-06-15] MEDS: FLUCONAZOLE 100 MG TABLET PO SCH (08:59)
[2018-06-15] MEDS: AMIODARONE 200 MG TABLET PO SCH (08:59)
[2018-06-15] MEDS: POTASSIUM CHLORIDE 20 MEQ TABLET PO SCH ×2 (08:59→21:08)
[2018-06-15] MEDS: ASPIRIN EC 81 MG TABLET PO SCH (08:59)
[2018-06-15] MEDS: MONTELUKAST 10 MG TABLET PO SCH ×2 (09:00→21:08)
[2018-06-15] MEDS: BUDESONIDE/FORMOTEROL 160-4.5 INHALER 6 GM INH SCH ×2 (09:01→21:09)
[2018-06-15 14:28] LABS: Allen Test Positive
[2018-06-15 14:29] LABS: ABG Base Excess 4.2 MMOL/L (-2.5-2.5); ABG HCO3 28.1 MMOL/L (20-26); ABG Oxygen Saturation 96.7 % (95-100); ABG PCO2 61.4 MM HG (35-48); ABG PH 7.324 (7.35-7.45); ABG PO2 94.3 MM HG (80-95); ABG TCO2 28.9 MMOL/L (23-27)
[2018-06-15] MEDS: ROSUVASTATIN 10 MG TABLET PO SCH (21:07)
[2018-06-15] MEDS: FLUTICASONE 50 MCG NASAL SPRAY 16 GM BOTTLE BOTH NARES SCH (21:08)
[2018-06-16] MEDS: methylPREDNISolone SOD SUC 40 MG/1 ML VIAL IV SCH ×3 (01:22→16:18)
[2018-06-16] MEDS: METOPROLOL TARTRATE 50 MG TABLET PO SCH ×4 (03:22→21:22)
[2018-06-16 04:11] LABS: ABG HCO3 28.8 MMOL/L (20-26); ABG Oxygen Saturation 94.7 % (95-100); ABG PCO2 63.8 MM HG (35-48); ABG PO2 80.3 MM HG (80-95); Allen Test Positive
[2018-06-16 05:51] LABS: Basophils % 0.1 % (0.0-0.8); Hematocrit 30.2 VOL% (35.7-47.0); Hemoglobin 9.7 GM/DL (12.0-16.0); Immature Granulocytes % 1.6 %; Immature Granulocytes Absolute 0.26 #; Lymphocytes # 0.3 10*3/uL (1.4-4.0); Mean Corpuscular HGB Conc 32.1 GM/DL (32-36); Mean Corpuscular Hemoglobin 32 PG (27-34); Mean Platelet Volume 11.7 FL (9.6-12.0); Monocytes # 0.8 10*3/uL (0.11-0.8); Monocytes % 4.8 % (1.7-12.7); Neutrophils # 14.9 10*3/uL (1.4-7.4); Neutrophils % 91.5 % (38.7-73.9); Platelet Count 159 T/CUMM (130-400); Red Blood Count 3.05 MC/CUMM (3.8-5.5); Red Cell Distribution Width 12.1 % (9.3-17.3); White Blood Count 16.3 T/CUMM (4-12)
[2018-06-16 06:14] LABS: Calcium 8.6 MG/DL (8.5-10.1); Osmolality,Calculated 307.8 MOS/KG (273-304); Potassium 4.1 MMOL/L (3.5-5.1)
[2018-06-16 07:08] LABS: Band Neutrophils 2 % (0-10); Lymphocytes 8 % (20-55); Platelet Estimate Adequate; Segmented Neutrophils 88 % (50-85); Smudge Cells Few; Total Cells Counted 100
[2018-06-16 07:09] LABS: Anisocytosis 1+; Basophilic Stippling Slight
[2018-06-16] MEDS: IPRATROPIUM 500 MCG/2.5 ML NEB RESP TX SCH ×2 (07:28→21:03)
[2018-06-16] MEDS: DORNASE ALFA 2.5 MG/2.5 ML VIAL RESP TX SCH ×2 (07:36→21:03)
[2018-06-16] MEDS: PIPERACILLIN/TAZOBACTAM 3,375 MG in SODIUM CHLORIDE 0.9% 100 ML IV SCH ×3 (09:07→23:43)
[2018-06-16] MEDS: POTASSIUM CHLORIDE 20 MEQ TABLET PO SCH ×2 (09:09→21:22)
[2018-06-16] MEDS: ISOSORBIDE MONONITRATE 60 MG TABLET PO SCH (09:10)
[2018-06-16] MEDS: AMIODARONE 200 MG TABLET PO SCH (09:10)
[2018-06-16] MEDS: CHOLECALCIFEROL 5,000 UNIT TABLET PO SCH (09:10)
[2018-06-16] MEDS: OMEGA 3 ACID ETHYL ESTERS 1 GM CAPSULE PO SCH (09:10)
[2018-06-16] MEDS: ASPIRIN EC 81 MG TABLET PO SCH (09:10)
[2018-06-16] MEDS: SPIRONOLACTONE 25 MG TABLET PO SCH (09:10)
[2018-06-16] MEDS: FUROSEMIDE 40 MG TABLET PO SCH (09:10)
[2018-06-16] MEDS: PANTOPRAZOLE 40 MG TABLET PO SCH (09:10)
[2018-06-16] MEDS: MAGNESIUM CHLORIDE 64 MG TABLET PO SCH (09:10)
[2018-06-16] MEDS: MONTELUKAST 10 MG TABLET PO SCH ×2 (09:10→21:24)
[2018-06-16] MEDS: BUDESONIDE/FORMOTEROL 160-4.5 INHALER 6 GM INH SCH ×2 (09:11→21:23)
[2018-06-16] MEDS: ASCORBIC ACID 500 MG TABLET PO SCH ×2 (09:11→21:21)
[2018-06-16] MEDS: SERTRALINE 100 MG TABLET PO SCH (09:11)
[2018-06-16] MEDS: FLUCONAZOLE 100 MG TABLET PO SCH (09:11)
[2018-06-16] MEDS: DILTIAZEM CD 120 MG CAPSULE PO SCH ×2 (09:12→21:22)
[2018-06-16] MEDS: ROSUVASTATIN 10 MG TABLET PO SCH (21:21)
[2018-06-16] MEDS: FLUTICASONE 50 MCG NASAL SPRAY 16 GM BOTTLE BOTH NARES SCH (21:23)
[2018-06-17] MEDS: methylPREDNISolone SOD SUC 40 MG/1 ML VIAL IV SCH ×2 (02:10→09:27)
[2018-06-17] MEDS: METOPROLOL TARTRATE 50 MG TABLET PO SCH ×5 (03:31→21:03)
[2018-06-17 05:25] LABS: Calcium 8.4 MG/DL (8.5-10.1); Osmolality,Calculated 300.8 MOS/KG (273-304); Potassium 4.3 MMOL/L (3.5-5.1)
[2018-06-17] MEDS: PIPERACILLIN/TAZOBACTAM 3,375 MG in SODIUM CHLORIDE 0.9% 100 ML IV SCH (06:14)
[2018-06-17] MEDS: IPRATROPIUM 500 MCG/2.5 ML NEB RESP TX SCH ×2 (07:09→20:21)
[2018-06-17] MEDS: DORNASE ALFA 2.5 MG/2.5 ML VIAL RESP TX SCH ×2 (07:15→20:21)
[2018-06-17] MEDS: ASCORBIC ACID 500 MG TABLET PO SCH ×2 (09:15→21:03)
[2018-06-17] MEDS: OMEGA 3 ACID ETHYL ESTERS 1 GM CAPSULE PO SCH (09:15)
[2018-06-17] MEDS: MONTELUKAST 10 MG TABLET PO SCH ×2 (09:16→21:03)
[2018-06-17] MEDS: MAGNESIUM CHLORIDE 64 MG TABLET PO SCH (09:16)
[2018-06-17] MEDS: ISOSORBIDE MONONITRATE 60 MG TABLET PO SCH (09:16)
[2018-06-17] MEDS: FUROSEMIDE 40 MG TABLET PO SCH (09:16)
[2018-06-17] MEDS: PANTOPRAZOLE 40 MG TABLET PO SCH (09:17)
[2018-06-17] MEDS: SPIRONOLACTONE 25 MG TABLET PO SCH (09:17)
[2018-06-17] MEDS: AMIODARONE 200 MG TABLET PO SCH (09:17)
[2018-06-17] MEDS: SERTRALINE 100 MG TABLET PO SCH (09:17)
[2018-06-17] MEDS: CHOLECALCIFEROL 5,000 UNIT TABLET PO SCH (09:17)
[2018-06-17] MEDS: ASPIRIN EC 81 MG TABLET PO SCH (09:18)
[2018-06-17] MEDS: DILTIAZEM CD 120 MG CAPSULE PO SCH ×3 (10:44→21:02)
[2018-06-17] MEDS: POTASSIUM CHLORIDE 20 MEQ TABLET PO SCH ×2 (10:51→21:02)
[2018-06-17] MEDS: BUDESONIDE/FORMOTEROL 160-4.5 INHALER 6 GM INH SCH ×2 (10:52→21:03)
[2018-06-17] MEDS: ROSUVASTATIN 10 MG TABLET PO SCH (21:02)
[2018-06-17] MEDS: acetaZOLAMIDE 250 MG TABLET PO SCH (21:02)
[2018-06-17] MEDS: FLUTICASONE 50 MCG NASAL SPRAY 16 GM BOTTLE BOTH NARES SCH (21:03)
[2018-06-18] MEDS: METOPROLOL TARTRATE 50 MG TABLET PO SCH ×4 (04:04→21:33)
[2018-06-18 04:54] LABS: Calcium 8.3 MG/DL (8.5-10.1); Osmolality,Calculated 294.3 MOS/KG (273-304); Potassium 4.1 MMOL/L (3.5-5.1)
[2018-06-18] MEDS: DORNASE ALFA 2.5 MG/2.5 ML VIAL RESP TX SCH (07:24)
[2018-06-18] MEDS: IPRATROPIUM 500 MCG/2.5 ML NEB RESP TX SCH (07:24)
[2018-06-18] MEDS: ASCORBIC ACID 500 MG TABLET PO SCH ×2 (09:20→21:33)
[2018-06-18] MEDS: MAGNESIUM CHLORIDE 64 MG TABLET PO SCH (09:20)
[2018-06-18] MEDS: acetaZOLAMIDE 250 MG TABLET PO SCH ×2 (09:20→21:32)
[2018-06-18] MEDS: CHOLECALCIFEROL 5,000 UNIT TABLET PO SCH (09:20)
[2018-06-18] MEDS: SERTRALINE 100 MG TABLET PO SCH (09:20)
[2018-06-18] MEDS: ASPIRIN EC 81 MG TABLET PO SCH (09:20)
[2018-06-18] MEDS: OMEGA 3 ACID ETHYL ESTERS 1 GM CAPSULE PO SCH (09:20)
[2018-06-18] MEDS: ISOSORBIDE MONONITRATE 60 MG TABLET PO SCH (09:20)
[2018-06-18] MEDS: POTASSIUM CHLORIDE 20 MEQ TABLET PO SCH ×2 (09:23→21:32)
[2018-06-18] MEDS: SPIRONOLACTONE 25 MG TABLET PO SCH (09:23)
[2018-06-18] MEDS: MONTELUKAST 10 MG TABLET PO SCH ×2 (09:24→21:33)
[2018-06-18] MEDS: PANTOPRAZOLE 40 MG TABLET PO SCH (09:24)
[2018-06-18] MEDS: FUROSEMIDE 40 MG TABLET PO SCH (09:24)
[2018-06-18] MEDS: AMIODARONE 200 MG TABLET PO SCH (09:26)
[2018-06-18] MEDS: BUDESONIDE/FORMOTEROL 160-4.5 INHALER 6 GM INH SCH ×2 (09:28→21:33)
[2018-06-18] MEDS: DILTIAZEM CD 120 MG CAPSULE PO SCH ×2 (09:34→21:32)
[2018-06-18] MEDS: methylPREDNISolone SOD SUC 40 MG/1 ML VIAL IV SCH (09:53)
[2018-06-18] MEDS: ROSUVASTATIN 10 MG TABLET PO SCH (21:32)
[2018-06-18] MEDS: FLUTICASONE 50 MCG NASAL SPRAY 16 GM BOTTLE BOTH NARES SCH (21:32)
[2018-06-19] MEDS: DORNASE ALFA 2.5 MG/2.5 ML VIAL RESP TX SCH ×2 (03:14→07:43)
[2018-06-19] MEDS: IPRATROPIUM 500 MCG/2.5 ML NEB RESP TX SCH ×2 (03:14→07:32)
[2018-06-19] MEDS: METOPROLOL TARTRATE 50 MG TABLET PO SCH ×2 (03:53→10:03)
[2018-06-19 07:20] LABS: Calcium 8.5 MG/DL (8.5-10.1); Osmolality,Calculated 293.3 MOS/KG (273-304); Potassium 4.7 MMOL/L (3.5-5.1)
[2018-06-19] MEDS: methylPREDNISolone SOD SUC 40 MG/1 ML VIAL IV SCH (08:41)
[2018-06-19] MEDS: POTASSIUM CHLORIDE 20 MEQ TABLET PO SCH (09:56)
[2018-06-19] MEDS: CHOLECALCIFEROL 5,000 UNIT TABLET PO SCH (09:56)
[2018-06-19] MEDS: MONTELUKAST 10 MG TABLET PO SCH (09:56)
[2018-06-19] MEDS: acetaZOLAMIDE 250 MG TABLET PO SCH (09:57)
[2018-06-19] MEDS: ASPIRIN EC 81 MG TABLET PO SCH (09:57)
[2018-06-19] MEDS: MAGNESIUM CHLORIDE 64 MG TABLET PO SCH (09:57)
[2018-06-19] MEDS: OMEGA 3 ACID ETHYL ESTERS 1 GM CAPSULE PO SCH (09:57)
[2018-06-19] MEDS: ISOSORBIDE MONONITRATE 60 MG TABLET PO SCH (09:57)
[2018-06-19] MEDS: DILTIAZEM CD 120 MG CAPSULE PO SCH (09:57)
[2018-06-19] MEDS: FUROSEMIDE 40 MG TABLET PO SCH (09:57)
[2018-06-19] MEDS: AMIODARONE 200 MG TABLET PO SCH (09:57)
[2018-06-19] MEDS: ASCORBIC ACID 500 MG TABLET PO SCH (09:58)
[2018-06-19] MEDS: PANTOPRAZOLE 40 MG TABLET PO SCH (09:58)
[2018-06-19] MEDS: SPIRONOLACTONE 25 MG TABLET PO SCH (09:58)
[2018-06-19] MEDS: SERTRALINE 100 MG TABLET PO SCH (09:58)
[2018-06-19] MEDS: BUDESONIDE/FORMOTEROL 160-4.5 INHALER 6 GM INH SCH (09:59)
[2018-06-19 12:14] VITALS: BP 102/65
[2018-06-19] MEDS ORDERED: PNEUMOCOCCAL VACCINE (23 VALENT) 0.5 ML VIAL IM ONE (12:21)
[2018-06-19] MEDS ORDERED: INFLUENZA VIRUS VACCINE 0.5 ML SYRINGE IM ONE (12:21)
== END 2018-06-19 14:26 | disposition swing bed (61) | DRG 190 ==
LOC: EDBD → EDUNIT# → N.ED 23:11 → N.EDINP 06-01 03:10 → SUATTDRO 06-01 03:10 → N.CC 06-01 04:08 → N.2E 06-02 16:36 → N.ICU 06-04 13:02 → N.TELEN 06-07 17:52
PROVIDERS: ADMIT Internal Medicine; ATTEND Internal Medicine

== ENCOUNTER 2018-12-30 22:16 | Inpatient (IN) ==
[2018-12-31 00:52] LABS: Basophils % 0.2 % (0.0-0.8); Hematocrit 40.6 VOL% (35.7-47.0); Hemoglobin 13.3 GM/DL (12.0-16.0); Immature Granulocytes % 0.5 %; Immature Granulocytes Absolute 0.07 #; Lymphocytes # 1.6 10*3/uL (1.4-4.0); Mean Corpuscular HGB Conc 32.8 GM/DL (32-36); Mean Corpuscular Volume 93.1 FL (87-102); Mean Platelet Volume 9.7 FL (9.6-12.0); Monocytes % 9.4 % (1.7-12.7); Neutrophils % 77.9 % (38.7-73.9); Platelet Count 262 T/CUMM (130-400); Red Blood Count 4.36 MC/CUMM (3.8-5.5); Red Cell Distribution Width 16.7 % (9.3-17.3); White Blood Count 13.2 T/CUMM (4-12)
[2018-12-31 01:15] LABS: Albumin 3.7 G/DL (3.4-5.0); Bilirubin,Total 0.6 MG/DL (0.2-1.0); Calcium 9.3 MG/DL (8.5-10.1); Osmolality,Calculated 293.8 MOS/KG (273-304); Total Protein 6.9 G/DL (6.4-8.3)
[2018-12-31] MEDS ORDERED: ALBUTEROL/IPRATROPIUM 3 ML NEB RESP TX STA (01:45)
[2018-12-31] MEDS ORDERED: ENOXAPARIN 30 MG/0.3 ML SYRINGE SUBCUT STA (01:48)
[2018-12-31] MEDS ORDERED: guaiFENesin/DM ER 600-30 MG TABLET PO PRN (03:02)
[2018-12-31] MEDS ORDERED: diphenhydrAMINE CAP 25 MG CAPSULE PO PRN (03:02)
[2018-12-31] MEDS ORDERED: ONDANSETRON 4 MG/2 ML VIAL IV PRN (03:02)
[2018-12-31] MEDS ORDERED: BISACODYL 5 MG TABLET PO PRN (03:02)
[2018-12-31] MEDS ORDERED: ENOXAPARIN 60 MG/0.6 ML SYRINGE ONE (03:55)
[2018-12-31] MEDS ORDERED: IPRATROPIUM 500 MCG/2.5 ML NEB RESP TX PRN (06:05)
[2018-12-31] MEDS ORDERED: NITROGLYCERIN SL 0.4 MG TABLET SL PRN (06:05)
[2018-12-31] MEDS ORDERED: IPRATROPIUM BROMIDE RESP TX SCH (07:00)
[2018-12-31] MEDS: ACETAMINOPHEN 325 MG TABLET PO PRN ×2 (07:30→18:29)
[2018-12-31 07:31] LABS: CKMB % 15.2 %
[2018-12-31 07:34] LABS: Troponin I 3.98 NG/ML (0.00-0.045)
[2018-12-31] MEDS: ALBUTEROL/IPRATROPIUM 3 ML NEB RESP TX SCH ×3 (07:40→19:35)
[2018-12-31] MEDS ORDERED: diphenhydrAMINE CAP 25 MG CAPSULE PO ONE (09:58)
[2018-12-31] MEDS ORDERED: DIAZEPAM 5 MG TABLET PO ONE (09:58)
[2018-12-31] MEDS ORDERED: NITROGLYCERIN DRIP 0 MG/0 ML BOTTLE IV ONE (10:10)
[2018-12-31] MEDS ORDERED: LIDOCAINE 1% 20 ML VIAL ONE (10:10)
[2018-12-31] MEDS ORDERED: HEPARIN/NACL 0.9% 2 UNITS/ML 1,000 ML IV ONE (10:10)
[2018-12-31] MEDS ORDERED: VERAPAMIL 5 MG/2 ML VIAL ONE (10:10)
[2018-12-31] MEDS: ASPIRIN EC 81 MG TABLET PO SCH (10:18)
[2018-12-31] MEDS: CLOPIDOGREL 75 MG TABLET PO SCH (10:18)
[2018-12-31] MEDS ORDERED: CLOPIDOGREL 300 MG TABLET ONE (11:05)
[2018-12-31] MEDS ORDERED: EPTIFIBATIDE 20,000 MCG/10 ML VIAL ONE (11:29)
[2018-12-31] MEDS ORDERED: NITROGLYCERIN DRIP 50 MG/250 ML BOTTLE IV ONE (11:32)
[2018-12-31] MEDS ORDERED: SODIUM CHLORIDE 0.9% 1,000 ML IV SCH (12:00)
[2018-12-31] MEDS: LEVOTHYROXINE 25 MCG TABLET PO SCH (12:35)
[2018-12-31] MEDS: AMIODARONE 200 MG TABLET PO SCH (12:36)
[2018-12-31] MEDS: METOPROLOL SUCCINATE XL 25 MG TABLET PO SCH ×2 (12:36→21:28)
[2018-12-31] MEDS: predniSONE 10 MG TABLET PO SCH (12:36)
[2018-12-31] MEDS: DILTIAZEM CD 180 MG CAPSULE PO SCH ×2 (12:36→21:24)
[2018-12-31] MEDS: OMEGA 3 ACID ETHYL ESTERS 1 GM CAPSULE PO SCH (12:36)
[2018-12-31] MEDS: SPIRONOLACTONE 25 MG TABLET PO SCH (12:36)
[2018-12-31] MEDS: ASCORBIC ACID 500 MG TABLET PO SCH (12:37)
[2018-12-31] MEDS: CHOLECALCIFEROL 5,000 UNIT TABLET PO SCH ×2 (12:37)
[2018-12-31] MEDS: SERTRALINE 100 MG TABLET PO SCH (12:37)
[2018-12-31] MEDS: SODIUM CHLORIDE 0.9% 1,000 ML IV SCH (12:38)
[2018-12-31] MEDS: POTASSIUM CHLORIDE 10 MEQ TABLET PO SCH (14:23)
[2018-12-31] MEDS: PANTOPRAZOLE 40 MG TABLET PO SCH (14:24)
[2018-12-31] MEDS: ISOSORBIDE MONONITRATE 60 MG TABLET PO SCH (14:24)
[2018-12-31] MEDS: MAGNESIUM CHLORIDE 64 MG TABLET PO SCH (14:25)
[2018-12-31] MEDS: FUROSEMIDE 40 MG TABLET PO SCH (14:47)
[2018-12-31] MEDS ORDERED: EPTIFIBATIDE 75 MG/100 ML BOTTLE IV ONE (16:56)
[2018-12-31] MEDS: SILVER SULFADIAZINE 1% CREAM 25 GM TUBE TOP SCH (16:56)
[2018-12-31] MEDS ORDERED: MONTELUKAST 10 MG TABLET PO SCH (19:00)
[2018-12-31] MEDS ORDERED: ROSUVASTATIN 10 MG TABLET PO SCH (21:00)
[2018-12-31] MEDS ORDERED: FLUTICASONE 50 MCG NASAL SPRAY 16 GM BOTTLE BOTH NARES SCH (21:00)
[2018-12-31] MEDS: BUDESONIDE/FORMOTEROL 160-4.5 INHALER 6 GM INH SCH (21:27)
[2019-01-01] MEDS: ALBUTEROL/IPRATROPIUM 3 ML NEB RESP TX SCH ×2 (01:25→07:02)
[2019-01-01] MEDS: SODIUM CHLORIDE 0.9% 1,000 ML IV SCH ×2 (02:05→08:26)
[2019-01-01] MEDS: ACETAMINOPHEN 325 MG TABLET PO PRN ×2 (03:12→11:40)
[2019-01-01 04:40] LABS: Basophils % 0.2 % (0.0-0.8); Hematocrit 33.9 VOL% (35.7-47.0); Hemoglobin 11.1 GM/DL (12.0-16.0); Immature Granulocytes % 0.7 %; Immature Granulocytes Absolute 0.09 #; Lymphocytes # 0.7 10*3/uL (1.4-4.0); Lymphocytes % 5.3 % (21.3-54.2); Mean Corpuscular HGB Conc 32.7 GM/DL (32-36); Mean Corpuscular Volume 94.7 FL (87-102); Mean Platelet Volume 9.9 FL (9.6-12.0); Monocytes % 8.7 % (1.7-12.7); Neutrophils % 85.1 % (38.7-73.9); Platelet Count 221 T/CUMM (130-400); Red Blood Count 3.58 MC/CUMM (3.8-5.5); Red Cell Distribution Width 16.3 % (9.3-17.3); White Blood Count 12.2 T/CUMM (4-12)
[2019-01-01 05:21] LABS: Albumin 3.1 G/DL (3.4-5.0); Bilirubin,Total 0.8 MG/DL (0.2-1.0); CKMB % 13.5 %; Calcium 8.8 MG/DL (8.5-10.1); Osmolality,Calculated 290.5 MOS/KG (273-304); Total Protein 5.9 G/DL (6.4-8.3)
[2019-01-01] MEDS: LEVOTHYROXINE 25 MCG TABLET PO SCH (06:31)
[2019-01-01] MEDS: CHOLECALCIFEROL 5,000 UNIT TABLET PO SCH ×2 (08:26→08:28)
[2019-01-01] MEDS: BUDESONIDE/FORMOTEROL 160-4.5 INHALER 6 GM INH SCH (08:26)
[2019-01-01] MEDS: MAGNESIUM CHLORIDE 64 MG TABLET PO SCH (08:27)
[2019-01-01] MEDS: FUROSEMIDE 40 MG TABLET PO SCH (08:27)
[2019-01-01] MEDS: OMEGA 3 ACID ETHYL ESTERS 1 GM CAPSULE PO SCH (08:27)
[2019-01-01] MEDS: CLOPIDOGREL 75 MG TABLET PO SCH (08:27)
[2019-01-01] MEDS: AMIODARONE 200 MG TABLET PO SCH (08:27)
[2019-01-01] MEDS: predniSONE 10 MG TABLET PO SCH (08:27)
[2019-01-01] MEDS: ISOSORBIDE MONONITRATE 60 MG TABLET PO SCH (08:27)
[2019-01-01] MEDS: ASPIRIN EC 81 MG TABLET PO SCH (08:27)
[2019-01-01] MEDS: POTASSIUM CHLORIDE 10 MEQ TABLET PO SCH (08:27)
[2019-01-01] MEDS: ASCORBIC ACID 500 MG TABLET PO SCH (08:27)
[2019-01-01] MEDS: DILTIAZEM CD 180 MG CAPSULE PO SCH (08:27)
[2019-01-01] MEDS: PANTOPRAZOLE 40 MG TABLET PO SCH (08:27)
[2019-01-01] MEDS: SERTRALINE 100 MG TABLET PO SCH (08:27)
[2019-01-01] MEDS: METOPROLOL SUCCINATE XL 25 MG TABLET PO SCH (08:28)
[2019-01-01] MEDS: SPIRONOLACTONE 25 MG TABLET PO SCH (08:28)
[2019-01-01] MEDS: SILVER SULFADIAZINE 1% CREAM 25 GM TUBE TOP SCH (08:31)
[2019-01-01] MEDS ORDERED: POTASSIUM CHLORIDE 20 MEQ TABLET PO ONE (10:36)
[2019-01-01] MEDS ORDERED: DILTIAZEM CD 120 MG CAPSULE PO SCH (11:00)
[2019-01-01] MEDS ORDERED: FUROSEMIDE 40 MG TABLET PO PRN (11:29)
[2019-01-01] MEDS ORDERED: ISOSORBIDE MONONITRATE 60 MG TABLET PO SCH (11:30)
[2019-01-01 11:40] VITALS: BP 94/48
[2019-01-02] MEDS ORDERED: DILTIAZEM CD 120 MG CAPSULE PO SCH (09:00)
== END 2019-01-01 13:55 | disposition home health service (06) | DRG 246 ==
LOC: EDUNIT# → EDBD → N.ED 22:16 → N.EDINP 22:16 → N.TELES 12-31 05:28
PROVIDERS: ADMIT Hospitalist; ATTEND Hospitalist
PROC: CLCCHCL (ICD-10-PCS; 2018-12-31 10:45)

== ENCOUNTER 2019-03-26 15:36 | Inpatient (IN) ==
[2019-03-26] MEDS ORDERED: ALBUTEROL/IPRATROPIUM 3 ML NEB RESP TX STA (15:59)
[2019-03-26] MEDS ORDERED: methylPREDNISolone SOD SUC 125 MG/2 ML VIAL IV STA (15:59)
[2019-03-26 16:08] LABS: Basophils % 0.1 % (0.0-0.8); Hematocrit 34.7 VOL% (35.7-47.0); Hemoglobin 11.2 GM/DL (12.0-16.0); Immature Granulocytes % 0.7 %; Immature Granulocytes Absolute 0.14 #; Lymphocytes # 0.5 10*3/uL (1.4-4.0); Lymphocytes % 2.8 % (21.3-54.2); Mean Corpuscular HGB Conc 32.3 GM/DL (32-36); Mean Corpuscular Volume 90.1 FL (87-102); Mean Platelet Volume 9.1 FL (9.6-12.0); Monocytes % 2.3 % (1.7-12.7); Neutrophils % 94.1 % (38.7-73.9); Platelet Count 244 T/CUMM (130-400); Red Blood Count 3.85 MC/CUMM (3.8-5.5); Red Cell Distribution Width 15.2 % (9.3-17.3); White Blood Count 18.9 T/CUMM (4-12)
[2019-03-26 16:35] LABS: Albumin 3.5 G/DL (3.4-5.0); Bilirubin,Total 0.5 MG/DL (0.2-1.0); Calcium 8.5 MG/DL (8.5-10.1); Osmolality,Calculated 270.4 MOS/KG (273-304); Total Protein 6.2 G/DL (6.4-8.3)
[2019-03-26 17:14] LABS: Lymphocytes 7 % (20-55); Platelet Estimate Normal; Segmented Neutrophils 90 % (50-85); Total Cells Counted 100
[2019-03-26] MEDS ORDERED: ALBUTEROL SULFATE 90 MCG INH PRN (18:19)
[2019-03-26] MEDS ORDERED: NITROGLYCERIN SL 0.4 MG TABLET SL PRN (18:19)
[2019-03-26] MEDS ORDERED: METOPROLOL SUCCINATE XL 25 MG TABLET PO PRN (18:19)
[2019-03-26] MEDS ORDERED: SODIUM CHLORIDE 0.9% 1,550 ML IV ONE (18:22)
[2019-03-26] MEDS: cefTRIAXone 1,000 MG in SYRINGE 1 EACH IV SCH (18:55)
[2019-03-26] MEDS ORDERED: ALBUTEROL 2.5 MG/3 ML NEB RESP TX PRN (21:17)
[2019-03-26] MEDS: ALBUTEROL/IPRATROPIUM 3 ML NEB RESP TX SCH (21:45)
[2019-03-26] MEDS: ROSUVASTATIN 10 MG TABLET PO SCH (22:30)
[2019-03-26] MEDS: rOPINIRole 1 MG TABLET PO SCH (22:30)
[2019-03-26] MEDS: BENZONATATE 100 MG CAPSULE PO SCH (22:30)
[2019-03-26] MEDS: MONTELUKAST 10 MG TABLET PO SCH (22:30)
[2019-03-26] MEDS: methylPREDNISolone SOD SUC 40 MG/1 ML VIAL IV SCH (22:30)
[2019-03-26] MEDS: guaiFENesin/DM ER 600-30 MG TABLET PO SCH (22:30)
[2019-03-26] MEDS: HEPARIN 5,000 UNIT/1 ML VIAL SUBCUT SCH (22:31)
[2019-03-26] MEDS: BUDESONIDE/FORMOTEROL 160-4.5 INHALER 6 GM INH SCH (22:37)
[2019-03-26] MEDS: AZITHROMYCIN INJ 500 MG in SODIUM CHLORIDE 0.9% 250 ML IV SCH (23:02)
[2019-03-27] MEDS ORDERED: ALBUTEROL/IPRATROPIUM 3 ML NEB RESP TX SCH (01:00)
[2019-03-27 01:18] LABS: Apearance,Urine CLEAR (Clear); Bilirubin,Urine Negative (Negative); Blood, Urine Negative (Negative); Glucose,Urine (UA) Negative (Negative); Hyaline Casts,Urine 3 /LPF (0-3); Ketones,Urine Negative (Negative); Mucus,Urine Occasional /LPF (Occasional); Nitrite,Urine Negative (Negative); Protein,Urine Negative; Squamous Epithelial Cell,Urine Occasional /HPF (0-10); Urine Color Yellow (Yellow); Urine Specific Gravity 1.023 (1.001-1.035); Urine Urobilinogen < 2.0 EU/DL (0.2-1.0); WBC,Urine <1 /HPF (0-6)
[2019-03-27] MEDS: ALBUTEROL/IPRATROPIUM 3 ML NEB RESP TX SCH ×5 (03:05→19:48)
[2019-03-27 04:46] LABS: ABG Oxygen Saturation 96.6 % (95-100); ABG PCO2 49.3 MM HG (35-48); ABG PH 7.376 (7.35-7.45); ABG PO2 85.8 MM HG (80-95); ABG TCO2 26.2 MMOL/L (23-27); Allen Test Positive
[2019-03-27 05:53] LABS: Basophils % 0.1 % (0.0-0.8); Hematocrit 31.7 VOL% (35.7-47.0); Hemoglobin 10.2 GM/DL (12.0-16.0); Immature Granulocytes % 1.1 %; Immature Granulocytes Absolute 0.12 #; Lymphocytes # 0.3 10*3/uL (1.4-4.0); Mean Corpuscular HGB Conc 32.2 GM/DL (32-36); Mean Corpuscular Volume 90.1 FL (87-102); Mean Platelet Volume 9.1 FL (9.6-12.0); Monocytes % 0.4 % (1.7-12.7); Neutrophils % 95.4 % (38.7-73.9); Platelet Count 203 T/CUMM (130-400); Red Blood Count 3.52 MC/CUMM (3.8-5.5); White Blood Count 11.3 T/CUMM (4-12)
[2019-03-27] MEDS: methylPREDNISolone SOD SUC 40 MG/1 ML VIAL IV SCH ×3 (05:59→21:49)
[2019-03-27] MEDS: LEVOTHYROXINE 50 MCG TABLET PO SCH (05:59)
[2019-03-27] MEDS: HEPARIN 5,000 UNIT/1 ML VIAL SUBCUT SCH ×3 (05:59→21:49)
[2019-03-27 06:28] LABS: Hypochromasia 1+; Lymphocytes 4 % (20-55); Segmented Neutrophils 95 % (50-85); Total Cells Counted 100
[2019-03-27 06:29] LABS: Microcytosis 1+
[2019-03-27 06:30] LABS: Platelet Estimate Normal
[2019-03-27 06:46] LABS: Albumin 3.3 G/DL (3.4-5.0); Bilirubin,Total 0.4 MG/DL (0.2-1.0); Calcium 8.4 MG/DL (8.5-10.1); Osmolality,Calculated 276.1 MOS/KG (273-304); Total Protein 6.1 G/DL (6.4-8.3)
[2019-03-27] MEDS ORDERED: predniSONE 10 MG TABLET PO SCH (09:00)
[2019-03-27] MEDS ORDERED: DILTIAZEM CD 120 MG CAPSULE PO SCH (09:00)
[2019-03-27] MEDS: OMEGA 3 ACID ETHYL ESTERS 1 GM CAPSULE PO SCH (09:48)
[2019-03-27] MEDS: CLOPIDOGREL 75 MG TABLET PO SCH (09:49)
[2019-03-27] MEDS: guaiFENesin/DM ER 600-30 MG TABLET PO SCH ×2 (09:49→21:48)
[2019-03-27] MEDS: SPIRONOLACTONE 25 MG TABLET PO SCH (09:49)
[2019-03-27] MEDS: CHOLECALCIFEROL 5,000 UNIT TABLET PO SCH (09:49)
[2019-03-27] MEDS: PANTOPRAZOLE 40 MG TABLET PO SCH (09:49)
[2019-03-27] MEDS: ISOSORBIDE MONONITRATE 30 MG TABLET PO SCH (09:49)
[2019-03-27] MEDS: BENZONATATE 100 MG CAPSULE PO SCH ×3 (09:49→21:48)
[2019-03-27] MEDS: ASPIRIN EC 81 MG TABLET PO SCH (09:49)
[2019-03-27] MEDS: SERTRALINE 100 MG TABLET PO SCH (09:50)
[2019-03-27] MEDS: POTASSIUM CHLORIDE 10 MEQ TABLET PO SCH (09:50)
[2019-03-27] MEDS: MAGNESIUM CHLORIDE 64 MG TABLET PO SCH (09:50)
[2019-03-27] MEDS: FUROSEMIDE 40 MG TABLET PO SCH (09:50)
[2019-03-27] MEDS: BUDESONIDE/FORMOTEROL 160-4.5 INHALER 6 GM INH SCH ×2 (09:56→21:49)
[2019-03-27] MEDS: ASCORBIC ACID 500 MG TABLET PO SCH (12:20)
[2019-03-27] MEDS: FLUTICASONE 50 MCG NASAL SPRAY 16 GM BOTTLE BOTH NARES PRN (14:58)
[2019-03-27] MEDS: cefTRIAXone 1,000 MG in SYRINGE 1 EACH IV SCH (18:00)
[2019-03-27] MEDS: ROSUVASTATIN 10 MG TABLET PO SCH (21:48)
[2019-03-27] MEDS: MONTELUKAST 10 MG TABLET PO SCH (21:48)
[2019-03-27] MEDS: rOPINIRole 1 MG TABLET PO SCH (21:48)
[2019-03-27] MEDS: DILTIAZEM CD 120 MG CAPSULE PO SCH (21:48)
[2019-03-27] MEDS: AZITHROMYCIN INJ 500 MG in SODIUM CHLORIDE 0.9% 250 ML IV SCH (21:49)
[2019-03-28] MEDS: ALBUTEROL/IPRATROPIUM 3 ML NEB RESP TX SCH ×7 (00:20→23:59)
[2019-03-28 05:18] LABS: Basophils % 0.1 % (0.0-0.8); Hematocrit 30.9 VOL% (35.7-47.0); Hemoglobin 9.9 GM/DL (12.0-16.0); Immature Granulocytes % 1.3 %; Immature Granulocytes Absolute 0.16 #; Lymphocytes # 0.3 10*3/uL (1.4-4.0); Lymphocytes % 2.7 % (21.3-54.2); Mean Platelet Volume 9.8 FL (9.6-12.0); Monocytes % 2.1 % (1.7-12.7); Neutrophils % 93.8 % (38.7-73.9); Platelet Count 213 T/CUMM (130-400); Red Blood Count 3.47 MC/CUMM (3.8-5.5); Red Cell Distribution Width 15.1 % (9.3-17.3); White Blood Count 12.3 T/CUMM (4-12)
[2019-03-28 05:44] LABS: Alanine Aminotransferase 35 U/L (13-56); Albumin 3.4 G/DL (3.4-5.0); Alkaline Phosphatase 85 U/L (45-117); Aspartate Amino Transferase 29 U/L (0-37); Bilirubin,Total < 0.39 MG/DL (0.2-1.0); Blood Urea Nitrogen 43 MG/DL (7-18); Calcium 8.3 MG/DL (8.5-10.1); Estimated Glom Filtration Rate 28 ML/MIN; Glucose 138 MG/DL (74-106)
[2019-03-28] MEDS: methylPREDNISolone SOD SUC 40 MG/1 ML VIAL IV SCH ×3 (05:47→21:23)
[2019-03-28] MEDS: HEPARIN 5,000 UNIT/1 ML VIAL SUBCUT SCH ×3 (05:49→21:23)
[2019-03-28] MEDS: LEVOTHYROXINE 50 MCG TABLET PO SCH (05:49)
[2019-03-28] MEDS: FLUTICASONE 50 MCG NASAL SPRAY 16 GM BOTTLE BOTH NARES PRN (05:58)
[2019-03-28 06:21] LABS: Lymphocytes 2 % (20-55); Platelet Estimate Normal; Polychromasia Few; Segmented Neutrophils 98 % (50-85); Total Cells Counted 100
[2019-03-28] MEDS: POTASSIUM CHLORIDE 10 MEQ TABLET PO SCH (08:09)
[2019-03-28] MEDS: MAGNESIUM CHLORIDE 64 MG TABLET PO SCH (08:09)
[2019-03-28] MEDS: SPIRONOLACTONE 25 MG TABLET PO SCH (08:09)
[2019-03-28] MEDS: guaiFENesin/DM ER 600-30 MG TABLET PO SCH ×2 (08:09→21:22)
[2019-03-28] MEDS: ISOSORBIDE MONONITRATE 30 MG TABLET PO SCH (08:09)
[2019-03-28] MEDS: ASPIRIN EC 81 MG TABLET PO SCH (08:09)
[2019-03-28] MEDS: BENZONATATE 100 MG CAPSULE PO SCH ×3 (08:10→21:22)
[2019-03-28] MEDS: SERTRALINE 100 MG TABLET PO SCH (08:10)
[2019-03-28] MEDS: CHOLECALCIFEROL 5,000 UNIT TABLET PO SCH (08:10)
[2019-03-28] MEDS: ASCORBIC ACID 500 MG TABLET PO SCH (08:10)
[2019-03-28] MEDS: OMEGA 3 ACID ETHYL ESTERS 1 GM CAPSULE PO SCH (08:10)
[2019-03-28] MEDS: CLOPIDOGREL 75 MG TABLET PO SCH (08:10)
[2019-03-28] MEDS: FUROSEMIDE 40 MG TABLET PO SCH (08:10)
[2019-03-28] MEDS: BUDESONIDE/FORMOTEROL 160-4.5 INHALER 6 GM INH SCH ×2 (08:11→21:23)
[2019-03-28] MEDS: PANTOPRAZOLE 40 MG TABLET PO SCH (08:11)
[2019-03-28] MEDS: cefTRIAXone 1,000 MG in SYRINGE 1 EACH IV SCH (17:35)
[2019-03-28] MEDS: ROSUVASTATIN 10 MG TABLET PO SCH (21:19)
[2019-03-28] MEDS: DILTIAZEM CD 120 MG CAPSULE PO SCH (21:21)
[2019-03-28] MEDS: MONTELUKAST 10 MG TABLET PO SCH (21:22)
[2019-03-28] MEDS: rOPINIRole 1 MG TABLET PO SCH (21:22)
[2019-03-28] MEDS: AZITHROMYCIN INJ 500 MG in SODIUM CHLORIDE 0.9% 250 ML IV SCH (22:39)
[2019-03-29] MEDS: FLUTICASONE 50 MCG NASAL SPRAY 16 GM BOTTLE BOTH NARES PRN (02:12)
[2019-03-29] MEDS: ALBUTEROL/IPRATROPIUM 3 ML NEB RESP TX SCH ×3 (03:35→15:23)
[2019-03-29 05:43] LABS: Basophils % 0.1 % (0.0-0.8); Hematocrit 32.7 VOL% (35.7-47.0); Hemoglobin 10.6 GM/DL (12.0-16.0); Immature Granulocytes % 1.9 %; Immature Granulocytes Absolute 0.23 #; Lymphocytes # 0.2 10*3/uL (1.4-4.0); Lymphocytes % 1.7 % (21.3-54.2); Mean Corpuscular HGB Conc 32.4 GM/DL (32-36); Mean Corpuscular Volume 88.6 FL (87-102); Mean Platelet Volume 9.8 FL (9.6-12.0); Monocytes % 2.7 % (1.7-12.7); Neutrophils % 93.6 % (38.7-73.9); Platelet Count 215 T/CUMM (130-400); Red Blood Count 3.69 MC/CUMM (3.8-5.5); Red Cell Distribution Width 15.1 % (9.3-17.3); White Blood Count 12.4 T/CUMM (4-12)
[2019-03-29] MEDS: HEPARIN 5,000 UNIT/1 ML VIAL SUBCUT SCH ×2 (05:55→14:01)
[2019-03-29 06:06] LABS: Albumin 3.4 G/DL (3.4-5.0); Bilirubin,Total 0.5 MG/DL (0.2-1.0); Calcium 8.8 MG/DL (8.5-10.1); Osmolality,Calculated 283.1 MOS/KG (273-304); Total Protein 6.2 G/DL (6.4-8.3)
[2019-03-29] MEDS: methylPREDNISolone SOD SUC 40 MG/1 ML VIAL IV SCH ×2 (06:30→14:01)
[2019-03-29 06:45] LABS: Platelet Estimate Normal; Segmented Neutrophils 98 % (50-85); Total Cells Counted 100
[2019-03-29 06:46] LABS: Hypochromasia Slight
[2019-03-29] MEDS: LEVOTHYROXINE 50 MCG TABLET PO SCH (07:15)
[2019-03-29] MEDS: BENZONATATE 100 MG CAPSULE PO SCH ×2 (09:07→15:44)
[2019-03-29] MEDS: ASCORBIC ACID 500 MG TABLET PO SCH (09:07)
[2019-03-29] MEDS: SPIRONOLACTONE 25 MG TABLET PO SCH (09:07)
[2019-03-29] MEDS: CLOPIDOGREL 75 MG TABLET PO SCH (09:08)
[2019-03-29] MEDS: FUROSEMIDE 40 MG TABLET PO SCH (09:08)
[2019-03-29] MEDS: POTASSIUM CHLORIDE 10 MEQ TABLET PO SCH (09:08)
[2019-03-29] MEDS: ISOSORBIDE MONONITRATE 30 MG TABLET PO SCH (09:08)
[2019-03-29] MEDS: CHOLECALCIFEROL 5,000 UNIT TABLET PO SCH (09:08)
[2019-03-29] MEDS: ASPIRIN EC 81 MG TABLET PO SCH (09:08)
[2019-03-29] MEDS: MAGNESIUM CHLORIDE 64 MG TABLET PO SCH (09:08)
[2019-03-29] MEDS: PANTOPRAZOLE 40 MG TABLET PO SCH (09:08)
[2019-03-29] MEDS: SERTRALINE 100 MG TABLET PO SCH (09:08)
[2019-03-29] MEDS: BUDESONIDE/FORMOTEROL 160-4.5 INHALER 6 GM INH SCH (09:08)
[2019-03-29] MEDS: OMEGA 3 ACID ETHYL ESTERS 1 GM CAPSULE PO SCH (09:08)
[2019-03-29] MEDS: guaiFENesin/DM ER 600-30 MG TABLET PO SCH (09:12)
[2019-03-29] MEDS ORDERED: POTASSIUM CHLORIDE 20 MEQ TABLET PO ONE (09:23)
[2019-03-29 13:17] VITALS: BP 135/67
== END 2019-03-29 16:09 | disposition home health service (06) | DRG 871 ==
LOC: EDBD → EDUNIT# → N.ED 15:36 → N.EDINP 18:18 → N.5E 19:10
PROVIDERS: ADMIT Internal Medicine; ATTEND Internal Medicine

== ENCOUNTER 2019-04-14 16:21 | Inpatient (IN) ==
[2019-04-14] MEDS ORDERED: NICOTINE 21 MG/24 HR PATCH TRANSDERM PRN (18:00)
[2019-04-14] MEDS ORDERED: ACETAMINOPHEN 325 MG TABLET PO PRN (18:00)
[2019-04-14] MEDS ORDERED: ONDANSETRON 4 MG/2 ML VIAL IV PRN (18:00)
[2019-04-14] MEDS ORDERED: FLUTICASONE 50 MCG NASAL SPRAY 16 GM BOTTLE BOTH NARES PRN (18:04)
[2019-04-14] MEDS ORDERED: NITROGLYCERIN SL 0.4 MG TABLET SL PRN (18:04)
[2019-04-14] MEDS ORDERED: AZITHROMYCIN INJ 500 MG in SODIUM CHLORIDE 0.9% 250 ML IV SCH (18:30)
[2019-04-14] MEDS: MONTELUKAST 10 MG TABLET PO SCH (18:36)
[2019-04-14] MEDS: LEVOFLOXACIN INJ 750 MG in PREMIX 1 EACH IV SCH (18:37)
[2019-04-14 18:44] LABS: Hematocrit 33.3 VOL% (35.7-47.0); Hemoglobin 10.5 GM/DL (12.0-16.0); Immature Granulocytes % 0.7 %; Immature Granulocytes Absolute 0.07 #; Lymphocytes # 0.5 10*3/uL (1.4-4.0); Lymphocytes % 4.3 % (21.3-54.2); Mean Corpuscular HGB Conc 31.5 GM/DL (32-36); Mean Corpuscular Volume 92.5 FL (87-102); Mean Platelet Volume 9.4 FL (9.6-12.0); Monocytes % 4.7 % (1.7-12.7); Neutrophils % 90.3 % (38.7-73.9); Platelet Count 145 T/CUMM (130-400); Red Cell Distribution Width 16.6 % (9.3-17.3); White Blood Count 10.7 T/CUMM (4-12)
[2019-04-14 19:11] LABS: Albumin 3.4 G/DL (3.4-5.0); Bilirubin,Total 0.4 MG/DL (0.2-1.0); Calcium 9.2 MG/DL (8.5-10.1); Osmolality,Calculated 282.7 MOS/KG (273-304); Total Protein 6.4 G/DL (6.4-8.3)
[2019-04-14 19:20] LABS: Anisocytosis 1+; Hypochromasia 1+; Lymphocytes 6 % (20-55); Segmented Neutrophils 92 % (50-85); Total Cells Counted 100
[2019-04-14 19:21] LABS: Platelet Estimate Adequate; Stomatocytes Slight
[2019-04-14] MEDS: ALBUTEROL/IPRATROPIUM 3 ML NEB RESP TX SCH ×2 (19:53→23:21)
[2019-04-14 20:23] LABS: Apearance,Urine CLEAR (Clear); Bilirubin,Urine Negative (Negative); Blood, Urine Negative (Negative); Glucose,Urine (UA) Negative (Negative); Hyaline Casts,Urine 4 /LPF (0-3); Ketones,Urine Negative (Negative); Mucus,Urine Occasional /LPF (Occasional); Nitrite,Urine Negative (Negative); Protein,Urine Negative; Squamous Epithelial Cell,Urine Occasional /HPF (0-10); Urine Color Yellow (Yellow); Urine Specific Gravity 1.018 (1.001-1.035); Urine Urobilinogen < 2.0 EU/DL (0.2-1.0)
[2019-04-14] MEDS: BUDESONIDE/FORMOTEROL 160-4.5 INHALER 6 GM INH SCH (20:37)
[2019-04-14] MEDS: DILTIAZEM CD 120 MG CAPSULE PO SCH (20:38)
[2019-04-14] MEDS: BENZONATATE 100 MG CAPSULE PO SCH (20:38)
[2019-04-14] MEDS: methylPREDNISolone SOD SUC 40 MG/1 ML VIAL IV SCH (20:38)
[2019-04-14] MEDS: rOPINIRole 1 MG TABLET PO SCH (20:39)
[2019-04-14] MEDS ORDERED: ROSUVASTATIN 10 MG TABLET PO SCH (21:00)
[2019-04-15] MEDS: ALBUTEROL/IPRATROPIUM 3 ML NEB RESP TX SCH ×6 (02:59→23:10)
[2019-04-15] MEDS: methylPREDNISolone SOD SUC 40 MG/1 ML VIAL IV SCH ×3 (03:34→20:12)
[2019-04-15 06:21] LABS: Hematocrit 30.3 VOL% (35.7-47.0); Hemoglobin 9.5 GM/DL (12.0-16.0); Immature Granulocytes % 0.5 %; Immature Granulocytes Absolute 0.04 #; Lymphocytes # 0.2 10*3/uL (1.4-4.0); Lymphocytes % 2.8 % (21.3-54.2); Mean Corpuscular HGB Conc 31.4 GM/DL (32-36); Mean Corpuscular Volume 92.9 FL (87-102); Mean Platelet Volume 9.8 FL (9.6-12.0); Monocytes % 1.6 % (1.7-12.7); Neutrophils % 95.1 % (38.7-73.9); Platelet Count 127 T/CUMM (130-400); Red Blood Count 3.26 MC/CUMM (3.8-5.5); Red Cell Distribution Width 16.5 % (9.3-17.3); White Blood Count 7.4 T/CUMM (4-12)
[2019-04-15 06:46] LABS: Hypochromasia 1+; Lymphocytes 1 % (20-55); Platelet Estimate Normal; Segmented Neutrophils 97 % (50-85); Total Cells Counted 100
[2019-04-15 06:50] LABS: Calcium 8.7 MG/DL (8.5-10.1); Osmolality,Calculated 280.8 MOS/KG (273-304); Risk Ratio 2.69; Thyroid Stimulating Hormone 1.02 uIU/ml (0.358-3.74)
[2019-04-15] MEDS: SPIRONOLACTONE 25 MG TABLET PO SCH (08:34)
[2019-04-15] MEDS: ASCORBIC ACID 500 MG TABLET PO SCH (08:34)
[2019-04-15] MEDS: MAGNESIUM CHLORIDE 64 MG TABLET PO SCH (08:35)
[2019-04-15] MEDS: ROSUVASTATIN 10 MG TABLET PO SCH (08:35)
[2019-04-15] MEDS: SERTRALINE 100 MG TABLET PO SCH (08:35)
[2019-04-15] MEDS: CHOLECALCIFEROL 5,000 UNIT TABLET PO SCH (08:35)
[2019-04-15] MEDS: POTASSIUM CHLORIDE 10 MEQ TABLET PO SCH (08:35)
[2019-04-15] MEDS: LEVOTHYROXINE 50 MCG TABLET PO SCH (08:35)
[2019-04-15] MEDS: OMEGA 3 ACID ETHYL ESTERS 1 GM CAPSULE PO SCH (08:35)
[2019-04-15] MEDS: ISOSORBIDE MONONITRATE 60 MG TABLET PO SCH (08:35)
[2019-04-15] MEDS: ASPIRIN EC 81 MG TABLET PO SCH (08:35)
[2019-04-15] MEDS: CLOPIDOGREL 75 MG TABLET PO SCH (08:35)
[2019-04-15] MEDS: BENZONATATE 100 MG CAPSULE PO SCH ×3 (08:35→20:12)
[2019-04-15] MEDS: BUDESONIDE/FORMOTEROL 160-4.5 INHALER 6 GM INH SCH ×2 (08:36→20:13)
[2019-04-15] MEDS: PANTOPRAZOLE 40 MG TABLET PO SCH (08:36)
[2019-04-15] MEDS ORDERED: DILTIAZEM CD 120 MG CAPSULE PO SCH (09:00)
[2019-04-15] MEDS ORDERED: cefTRIAXone 1,000 MG in SYRINGE 1 EACH IV SCH (09:00)
[2019-04-15] MEDS: LACTOBACILLUS RHAMNOSUS GG CAPSULE PO SCH (09:12)
[2019-04-15] MEDS: LEVOFLOXACIN INJ 750 MG in PREMIX 1 EACH IV SCH ×2 (17:14→17:34)
[2019-04-15] MEDS: DILTIAZEM CD 120 MG CAPSULE PO SCH (20:12)
[2019-04-15] MEDS: MONTELUKAST 10 MG TABLET PO SCH (20:12)
[2019-04-15] MEDS: rOPINIRole 1 MG TABLET PO SCH (20:12)
[2019-04-16] MEDS: ALBUTEROL/IPRATROPIUM 3 ML NEB RESP TX SCH ×6 (03:10→23:52)
[2019-04-16] MEDS: methylPREDNISolone SOD SUC 40 MG/1 ML VIAL IV SCH ×3 (04:08→20:46)
[2019-04-16 05:42] LABS: Hematocrit 31.9 VOL% (35.7-47.0); Hemoglobin 10.1 GM/DL (12.0-16.0); Immature Granulocytes % 0.5 %; Immature Granulocytes Absolute 0.04 #; Lymphocytes # 0.3 10*3/uL (1.4-4.0); Lymphocytes % 3.2 % (21.3-54.2); Mean Corpuscular HGB Conc 31.7 GM/DL (32-36); Mean Corpuscular Volume 91.1 FL (87-102); Mean Platelet Volume 9.2 FL (9.6-12.0); Monocytes % 4.9 % (1.7-12.7); Neutrophils % 91.4 % (38.7-73.9); Platelet Count 156 T/CUMM (130-400); Red Cell Distribution Width 16.5 % (9.3-17.3); White Blood Count 8.8 T/CUMM (4-12)
[2019-04-16 06:21] LABS: Platelet Estimate Decreased; Polychromasia Few; Segmented Neutrophils 100 % (50-85); Total Cells Counted 100
[2019-04-16] MEDS ORDERED: AZITHROMYCIN 250 MG TABLET PO SCH (09:00)
[2019-04-16] MEDS: ISOSORBIDE MONONITRATE 60 MG TABLET PO SCH (09:22)
[2019-04-16] MEDS: CHOLECALCIFEROL 5,000 UNIT TABLET PO SCH (09:22)
[2019-04-16] MEDS: MAGNESIUM CHLORIDE 64 MG TABLET PO SCH (09:22)
[2019-04-16] MEDS: LEVOTHYROXINE 50 MCG TABLET PO SCH (09:23)
[2019-04-16] MEDS: SERTRALINE 100 MG TABLET PO SCH (09:23)
[2019-04-16] MEDS: OMEGA 3 ACID ETHYL ESTERS 1 GM CAPSULE PO SCH (09:23)
[2019-04-16] MEDS: PANTOPRAZOLE 40 MG TABLET PO SCH (09:23)
[2019-04-16] MEDS: LACTOBACILLUS RHAMNOSUS GG CAPSULE PO SCH (09:23)
[2019-04-16] MEDS: BENZONATATE 100 MG CAPSULE PO SCH ×3 (09:23→20:45)
[2019-04-16] MEDS: ASCORBIC ACID 500 MG TABLET PO SCH (09:23)
[2019-04-16] MEDS: ROSUVASTATIN 10 MG TABLET PO SCH (09:23)
[2019-04-16] MEDS: POTASSIUM CHLORIDE 10 MEQ TABLET PO SCH (09:23)
[2019-04-16] MEDS: SPIRONOLACTONE 25 MG TABLET PO SCH (09:23)
[2019-04-16] MEDS: CLOPIDOGREL 75 MG TABLET PO SCH (09:23)
[2019-04-16] MEDS: ASPIRIN EC 81 MG TABLET PO SCH (09:23)
[2019-04-16] MEDS: BUDESONIDE/FORMOTEROL 160-4.5 INHALER 6 GM INH SCH ×2 (09:25→20:47)
[2019-04-16] MEDS: LEVOFLOXACIN INJ 750 MG in PREMIX 1 EACH IV SCH (18:05)
[2019-04-16] MEDS: rOPINIRole 1 MG TABLET PO SCH (20:46)
[2019-04-16] MEDS: DILTIAZEM CD 120 MG CAPSULE PO SCH (20:46)
[2019-04-16] MEDS: MONTELUKAST 10 MG TABLET PO SCH (20:46)
[2019-04-17] MEDS: ALBUTEROL/IPRATROPIUM 3 ML NEB RESP TX SCH ×3 (03:28→10:54)
[2019-04-17] MEDS: methylPREDNISolone SOD SUC 40 MG/1 ML VIAL IV SCH ×2 (04:03→11:53)
[2019-04-17 06:16] LABS: Hematocrit 29.9 VOL% (35.7-47.0); Hemoglobin 9.5 GM/DL (12.0-16.0); Immature Granulocytes % 0.8 %; Immature Granulocytes Absolute 0.07 #; Lymphocytes # 0.2 10*3/uL (1.4-4.0); Lymphocytes % 2.3 % (21.3-54.2); Mean Corpuscular HGB Conc 31.8 GM/DL (32-36); Mean Corpuscular Volume 91.4 FL (87-102); Mean Platelet Volume 9.3 FL (9.6-12.0); Monocytes % 5.7 % (1.7-12.7); Neutrophils % 91.2 % (38.7-73.9); Platelet Count 170 T/CUMM (130-400); Red Blood Count 3.27 MC/CUMM (3.8-5.5); Red Cell Distribution Width 16.5 % (9.3-17.3); White Blood Count 8.6 T/CUMM (4-12)
[2019-04-17 06:37] LABS: Hypochromasia 1+; Lymphocytes 3 % (20-55); Platelet Estimate Adequate; Segmented Neutrophils 93 % (50-85); Total Cells Counted 100
[2019-04-17 06:56] LABS: Osmolality,Calculated 276.4 MOS/KG (273-304)
[2019-04-17] MEDS ORDERED: FUROSEMIDE 40 MG TABLET PO SCH (10:00)
[2019-04-17] MEDS: PANTOPRAZOLE 40 MG TABLET PO SCH (10:30)
[2019-04-17] MEDS: LEVOTHYROXINE 50 MCG TABLET PO SCH (10:30)
[2019-04-17] MEDS: SPIRONOLACTONE 25 MG TABLET PO SCH (10:30)
[2019-04-17] MEDS: OMEGA 3 ACID ETHYL ESTERS 1 GM CAPSULE PO SCH (10:30)
[2019-04-17] MEDS: ROSUVASTATIN 10 MG TABLET PO SCH (10:30)
[2019-04-17] MEDS: MAGNESIUM CHLORIDE 64 MG TABLET PO SCH (10:30)
[2019-04-17] MEDS: ASPIRIN EC 81 MG TABLET PO SCH (10:30)
[2019-04-17] MEDS: BENZONATATE 100 MG CAPSULE PO SCH (10:30)
[2019-04-17] MEDS: ASCORBIC ACID 500 MG TABLET PO SCH (10:30)
[2019-04-17] MEDS: SERTRALINE 100 MG TABLET PO SCH (10:31)
[2019-04-17] MEDS: CLOPIDOGREL 75 MG TABLET PO SCH (10:31)
[2019-04-17] MEDS: CHOLECALCIFEROL 5,000 UNIT TABLET PO SCH (10:31)
[2019-04-17] MEDS: LACTOBACILLUS RHAMNOSUS GG CAPSULE PO SCH (10:31)
[2019-04-17] MEDS: ISOSORBIDE MONONITRATE 60 MG TABLET PO SCH (10:31)
[2019-04-17] MEDS: BUDESONIDE/FORMOTEROL 160-4.5 INHALER 6 GM INH SCH (10:34)
[2019-04-17 13:10] VITALS: BP 139/63
== END 2019-04-17 14:10 | DRG 191 ==
LOC: N.5E
PROVIDERS: ADMIT Internal Medicine; ATTEND Internal Medicine

== ENCOUNTER 2019-07-06 22:02 | Inpatient (IN) ==
[2019-07-06] MEDS ORDERED: methylPREDNISolone SOD SUC 125 MG/2 ML VIAL IV STA (22:24)
[2019-07-06] MEDS ORDERED: ASPIRIN 325 MG TABLET PO STA (22:24)
[2019-07-06] MEDS ORDERED: ALBUTEROL/IPRATROPIUM 3 ML NEB RESP TX STA (22:24)
[2019-07-06] MEDS ORDERED: ALBUTEROL 2.5 MG/3 ML NEB RESP TX STA (22:24)
[2019-07-06 22:31] LABS: Basophils % 0.1 % (0.0-0.8); Hematocrit 32.7 VOL% (35.7-47.0); Hemoglobin 10.1 GM/DL (12.0-16.0); Immature Granulocytes % 0.7 %; Immature Granulocytes Absolute 0.17 #; Lymphocytes # 0.4 10*3/uL (1.4-4.0); Lymphocytes % 1.8 % (21.3-54.2); Mean Corpuscular HGB Conc 30.9 GM/DL (32-36); Mean Corpuscular Volume 94.2 FL (87-102); Mean Platelet Volume 9.9 FL (9.6-12.0); Monocytes % 5.7 % (1.7-12.7); Neutrophils % 91.7 % (38.7-73.9); Platelet Count 249 T/CUMM (130-400); Red Blood Count 3.47 MC/CUMM (3.8-5.5); Red Cell Distribution Width 15.7 % (9.3-17.3)
[2019-07-06 22:39] LABS: PT Patient Result 10.6 SECS (9.6-12.2)
[2019-07-06 22:50] LABS: Segmented Neutrophils 97 % (50-85); Total Cells Counted 100
[2019-07-06 22:52] LABS: Platelet Estimate Adequate
[2019-07-06 22:53] LABS: Alanine Aminotransferase 19 U/L (13-56); Albumin 3.2 G/DL (3.4-5.0); Alkaline Phosphatase 76 U/L (45-117); Aspartate Amino Transferase 14 U/L (0-37); Blood Urea Nitrogen 26 MG/DL (7-18); Calcium 9.3 MG/DL (8.5-10.1); Estimated Glom Filtration Rate 48 ML/MIN; Glucose 135 MG/DL (74-106); Osmolality,Calculated 276.1 MOS/KG (273-304); Total Protein 6.7 G/DL (6.4-8.3)
[2019-07-06 22:59] LABS: VBG Base Excess -0.1 MEQ/L (0-4); VBG PCO2 48.1 MMHG (41-51); VBG PH 7.342; VBG PO2 44.4 MMHG (17-40)
[2019-07-06] MEDS ORDERED: VANCOMYCIN INJ 1,000 MG in SODIUM CHLORIDE 0.9% 250 ML IV STA (23:41)
[2019-07-06] MEDS ORDERED: FUROSEMIDE 40 MG/4 ML VIAL IV STA (23:41)
[2019-07-06] MEDS ORDERED: PIPERACILLIN/TAZOBACTAM 3,375 MG in SODIUM CHLORIDE 0.9% 100 ML IV STA (23:41)
[2019-07-06 23:53] LABS: ABG Base Excess -0.9 MMOL/L (-2.5-2.5); ABG HCO3 23.7 MMOL/L (20-26); ABG Oxygen Saturation 97.2 % (95-100); ABG PCO2 45.9 MM HG (35-48); ABG PH 7.345 (7.35-7.45); ABG PO2 93.8 MM HG (80-95); ABG TCO2 22.8 MMOL/L (23-27); Allen Test Positive; Pt O2 Delivery Device BIPAP
[2019-07-07] MEDS ORDERED: DOCUSATE SODIUM 100 MG CAPSULE PO PRN (03:18)
[2019-07-07] MEDS ORDERED: ONDANSETRON 4 MG/2 ML VIAL IV PRN (03:18)
[2019-07-07] MEDS ORDERED: ACETAMINOPHEN 325 MG TABLET PO PRN (03:18)
[2019-07-07] MEDS ORDERED: ALBUTEROL 2.5 MG/3 ML NEB RESP TX PRN (03:18)
[2019-07-07] MEDS ORDERED: hydrALAZINE 20 MG/1 ML VIAL IV PRN (03:18)
[2019-07-07] MEDS ORDERED: LEVOFLOXACIN INJ 750 MG in PREMIX 1 EACH IV SCH (03:18)
[2019-07-07 05:27] LABS: Basophils % 0.1 % (0.0-0.8); Hemoglobin 10.3 GM/DL (12.0-16.0); Immature Granulocytes % 1.2 %; Immature Granulocytes Absolute 0.26 #; Lymphocytes # 0.2 10*3/uL (1.4-4.0); Lymphocytes % 0.8 % (21.3-54.2); Mean Corpuscular HGB Conc 31.2 GM/DL (32-36); Monocytes % 1.3 % (1.7-12.7); Neutrophils % 96.6 % (38.7-73.9); Platelet Count 254 T/CUMM (130-400); Red Blood Count 3.51 MC/CUMM (3.8-5.5); Red Cell Distribution Width 15.4 % (9.3-17.3); White Blood Count 21.1 T/CUMM (4-12)
[2019-07-07 05:48] LABS: Calcium 9.7 MG/DL (8.5-10.1); Osmolality,Calculated 277.1 MOS/KG (273-304)
[2019-07-07] MEDS ORDERED: ALBUTEROL/IPRATROPIUM 3 ML NEB RESP TX ONE (05:57)
[2019-07-07 06:02] LABS: Thyroid Stimulating Hormone 0.291 uIU/ml (0.358-3.74)
[2019-07-07] MEDS: ALBUTEROL/IPRATROPIUM 3 ML NEB RESP TX SCH ×3 (06:02→19:37)
[2019-07-07 06:06] LABS: Hypochromasia 1+; Lymphocytes 1 % (20-55); Ovalocytes Slight; Platelet Estimate Adequate; Segmented Neutrophils 98 % (50-85); Total Cells Counted 100
[2019-07-07] MEDS: PIPERACILLIN/TAZOBACTAM 3,375 MG in SODIUM CHLORIDE 0.9% 100 ML IV SCH ×3 (09:49→23:44)
[2019-07-07] MEDS ORDERED: FLUTICASONE 50 MCG NASAL SPRAY 16 GM BOTTLE BOTH NARES PRN (10:03)
[2019-07-07] MEDS ORDERED: NITROGLYCERIN SL 0.4 MG TABLET SL PRN (10:03)
[2019-07-07] MEDS: CHOLECALCIFEROL 5,000 UNIT TABLET PO SCH (11:03)
[2019-07-07] MEDS: DILTIAZEM CD 120 MG CAPSULE PO SCH (11:03)
[2019-07-07] MEDS: methylPREDNISolone SOD SUC 40 MG/1 ML VIAL IV SCH ×2 (11:04→23:39)
[2019-07-07] MEDS: SERTRALINE 100 MG TABLET PO SCH (11:04)
[2019-07-07] MEDS: MONTELUKAST 10 MG TABLET PO SCH (11:04)
[2019-07-07] MEDS: CLOPIDOGREL 75 MG TABLET PO SCH (11:04)
[2019-07-07] MEDS: ASPIRIN EC 81 MG TABLET PO SCH (12:50)
[2019-07-07] MEDS: OMEGA 3 ACID ETHYL ESTERS 1 GM CAPSULE PO SCH (12:50)
[2019-07-07] MEDS: DORNASE ALFA 2.5 MG/2.5 ML VIAL RESP TX SCH ×2 (13:04→19:37)
[2019-07-07] MEDS ORDERED: SKIN HEALING OINT (AQUAPHOR) 50 GM TUBE TOP PRN (14:12)
[2019-07-07] MEDS: TRIAMCINOLONE 0.1% CREAM 15 GM TUBE TOP SCH ×2 (15:18→20:44)
[2019-07-07] MEDS: FUROSEMIDE 20 MG TABLET PO SCH (18:29)
[2019-07-07] MEDS: BUDESONIDE/FORMOTEROL 160-4.5 INHALER 6 GM INH SCH ×2 (18:30→21:53)
[2019-07-07 18:31] LABS: Amorphous Crystals,Urine Occasional /HPF (Few); Apearance,Urine Slightly Hazy (Clear); Bacteria,Urine Occasional /HPF (Few); Bilirubin,Urine Negative (Negative); Blood, Urine Large mg/dL (Negative); Glucose,Urine (UA) Negative (Negative); Hyaline Casts,Urine 12 /LPF (0-3); Ketones,Urine Negative (Negative); Mucus,Urine Occasional /LPF (Occasional); Nitrite,Urine Negative (Negative); Protein,Urine Negative; RBC,Urine 259 /HPF (0-4); Sperm,Urine Occasional /HPF (Negative); Squamous Epithelial Cell,Urine Occasional /HPF (0-10); Urine Color Yellow (Yellow); Urine Specific Gravity 1.017 (1.001-1.035); Urine Urobilinogen < 2.0 EU/DL (0.2-1.0); WBC,Urine 3 /HPF (0-6)
[2019-07-07] MEDS: ROSUVASTATIN 10 MG TABLET PO SCH (20:44)
[2019-07-07] MEDS: rOPINIRole 1 MG TABLET PO SCH (20:44)
[2019-07-08] MEDS: ALBUTEROL/IPRATROPIUM 3 ML NEB RESP TX SCH ×4 (00:20→18:45)
[2019-07-08 05:47] LABS: Basophils % 0.1 % (0.0-0.8); Hematocrit 34.5 VOL% (35.7-47.0); Hemoglobin 10.7 GM/DL (12.0-16.0); Immature Granulocytes % 0.7 %; Immature Granulocytes Absolute 0.11 #; Lymphocytes # 0.3 10*3/uL (1.4-4.0); Lymphocytes % 1.8 % (21.3-54.2); Mean Corpuscular Volume 94.5 FL (87-102); Monocytes % 2.7 % (1.7-12.7); Neutrophils % 94.7 % (38.7-73.9); Platelet Count 283 T/CUMM (130-400); Red Blood Count 3.65 MC/CUMM (3.8-5.5); Red Cell Distribution Width 15.3 % (9.3-17.3); White Blood Count 16.9 T/CUMM (4-12)
[2019-07-08 05:59] LABS: Calcium 9.4 MG/DL (8.5-10.1); Osmolality,Calculated 286.1 MOS/KG (273-304)
[2019-07-08] MEDS: PANTOPRAZOLE 40 MG TABLET PO SCH (06:08)
[2019-07-08] MEDS: LEVOTHYROXINE 50 MCG TABLET PO SCH (06:08)
[2019-07-08 06:09] LABS: Lymphocytes 1 % (20-55); Segmented Neutrophils 98 % (50-85); Total Cells Counted 100
[2019-07-08 06:10] LABS: Hypochromasia 1+; Ovalocytes Slight; Platelet Estimate Adequate
[2019-07-08] MEDS: DORNASE ALFA 2.5 MG/2.5 ML VIAL RESP TX SCH ×2 (08:08→18:45)
[2019-07-08] MEDS: ISOSORBIDE MONONITRATE 60 MG TABLET PO SCH (09:18)
[2019-07-08] MEDS: ASPIRIN EC 81 MG TABLET PO SCH (09:19)
[2019-07-08] MEDS: ASCORBIC ACID 500 MG TABLET PO SCH (09:28)
[2019-07-08] MEDS: SERTRALINE 100 MG TABLET PO SCH (09:28)
[2019-07-08] MEDS: DILTIAZEM CD 120 MG CAPSULE PO SCH (09:28)
[2019-07-08] MEDS: OMEGA 3 ACID ETHYL ESTERS 1 GM CAPSULE PO SCH (09:28)
[2019-07-08] MEDS: CLOPIDOGREL 75 MG TABLET PO SCH (09:28)
[2019-07-08] MEDS: MAGNESIUM CHLORIDE 64 MG TABLET PO SCH (09:29)
[2019-07-08] MEDS: MONTELUKAST 10 MG TABLET PO SCH (09:29)
[2019-07-08] MEDS: SPIRONOLACTONE 50 MG TABLET PO SCH (09:29)
[2019-07-08] MEDS: CHOLECALCIFEROL 5,000 UNIT TABLET PO SCH (09:29)
[2019-07-08] MEDS: FUROSEMIDE 20 MG TABLET PO SCH ×2 (09:29→17:03)
[2019-07-08] MEDS: PIPERACILLIN/TAZOBACTAM 3,375 MG in SODIUM CHLORIDE 0.9% 100 ML IV SCH ×2 (09:31→17:02)
[2019-07-08] MEDS: BUDESONIDE/FORMOTEROL 160-4.5 INHALER 6 GM INH SCH ×2 (09:31→21:08)
[2019-07-08] MEDS: TRIAMCINOLONE 0.1% CREAM 15 GM TUBE TOP SCH ×2 (09:32→21:53)
[2019-07-08] MEDS: methylPREDNISolone SOD SUC 40 MG/1 ML VIAL IV SCH ×2 (13:18→22:40)
[2019-07-08] MEDS: ROSUVASTATIN 10 MG TABLET PO SCH (21:08)
[2019-07-08] MEDS: rOPINIRole 1 MG TABLET PO SCH (21:08)
[2019-07-09] MEDS: ALBUTEROL/IPRATROPIUM 3 ML NEB RESP TX SCH ×4 (00:35→19:41)
[2019-07-09] MEDS: PIPERACILLIN/TAZOBACTAM 3,375 MG in SODIUM CHLORIDE 0.9% 100 ML IV SCH ×3 (00:52→18:00)
[2019-07-09] MEDS: PANTOPRAZOLE 40 MG TABLET PO SCH (06:15)
[2019-07-09] MEDS: LEVOTHYROXINE 50 MCG TABLET PO SCH (06:15)
[2019-07-09 07:25] LABS: Basophils % 0.1 % (0.0-0.8); Hematocrit 33.5 VOL% (35.7-47.0); Hemoglobin 10.5 GM/DL (12.0-16.0); Immature Granulocytes % 1.4 %; Immature Granulocytes Absolute 0.19 #; Lymphocytes # 0.3 10*3/uL (1.4-4.0); Lymphocytes % 2.1 % (21.3-54.2); Mean Corpuscular HGB Conc 31.3 GM/DL (32-36); Mean Corpuscular Volume 91.8 FL (87-102); Mean Platelet Volume 9.9 FL (9.6-12.0); Monocytes % 2.4 % (1.7-12.7); Platelet Count 292 T/CUMM (130-400); Red Blood Count 3.65 MC/CUMM (3.8-5.5); Red Cell Distribution Width 15.1 % (9.3-17.3); White Blood Count 13.3 T/CUMM (4-12)
[2019-07-09 07:42] LABS: Osmolality,Calculated 293.5 MOS/KG (273-304)
[2019-07-09 07:46] LABS: Hypochromasia 1+; Lymphocytes 5 % (20-55); Microcytosis Slight; Platelet Estimate Normal; Segmented Neutrophils 94 % (50-85); Total Cells Counted 100
[2019-07-09] MEDS: DORNASE ALFA 2.5 MG/2.5 ML VIAL RESP TX SCH ×2 (08:15→19:41)
[2019-07-09] MEDS ORDERED: POTASSIUM CHLORIDE 20 MEQ TABLET PO ONE (10:07)
[2019-07-09] MEDS: BUDESONIDE/FORMOTEROL 160-4.5 INHALER 6 GM INH SCH ×2 (10:23→21:38)
[2019-07-09] MEDS: ISOSORBIDE MONONITRATE 60 MG TABLET PO SCH (10:24)
[2019-07-09] MEDS: TRIAMCINOLONE 0.1% CREAM 15 GM TUBE TOP SCH ×2 (10:25→21:38)
[2019-07-09] MEDS: MAGNESIUM CHLORIDE 64 MG TABLET PO SCH (10:26)
[2019-07-09] MEDS: OMEGA 3 ACID ETHYL ESTERS 1 GM CAPSULE PO SCH (10:26)
[2019-07-09] MEDS: DILTIAZEM CD 120 MG CAPSULE PO SCH (10:27)
[2019-07-09] MEDS: ASPIRIN EC 81 MG TABLET PO SCH (10:27)
[2019-07-09] MEDS: SPIRONOLACTONE 50 MG TABLET PO SCH (10:28)
[2019-07-09] MEDS: FUROSEMIDE 20 MG TABLET PO SCH ×2 (10:28→18:00)
[2019-07-09] MEDS: CLOPIDOGREL 75 MG TABLET PO SCH (10:28)
[2019-07-09] MEDS: MONTELUKAST 10 MG TABLET PO SCH (10:28)
[2019-07-09] MEDS: ASCORBIC ACID 500 MG TABLET PO SCH (10:29)
[2019-07-09] MEDS: SERTRALINE 100 MG TABLET PO SCH (10:29)
[2019-07-09] MEDS: CHOLECALCIFEROL 5,000 UNIT TABLET PO SCH (10:29)
[2019-07-09] MEDS: methylPREDNISolone SOD SUC 40 MG/1 ML VIAL IV SCH (10:30)
[2019-07-09] MEDS: POTASSIUM CHLORIDE 10 MEQ TABLET PO SCH ×2 (10:35→21:37)
[2019-07-09] MEDS: ALBUTEROL 2 MG TABLET PO SCH ×2 (14:33→21:37)
[2019-07-09] MEDS: rOPINIRole 1 MG TABLET PO SCH (21:37)
[2019-07-10] MEDS: ROSUVASTATIN 10 MG TABLET PO SCH (00:13)
[2019-07-10] MEDS: PIPERACILLIN/TAZOBACTAM 3,375 MG in SODIUM CHLORIDE 0.9% 100 ML IV SCH ×2 (00:14→10:34)
[2019-07-10] MEDS: methylPREDNISolone SOD SUC 40 MG/1 ML VIAL IV SCH (00:14)
[2019-07-10] MEDS: ALBUTEROL/IPRATROPIUM 3 ML NEB RESP TX SCH ×3 (02:05→12:45)
[2019-07-10] MEDS: LEVOTHYROXINE 50 MCG TABLET PO SCH (05:59)
[2019-07-10] MEDS: ALBUTEROL 2 MG TABLET PO SCH (05:59)
[2019-07-10] MEDS: PANTOPRAZOLE 40 MG TABLET PO SCH (05:59)
[2019-07-10 06:50] LABS: Basophils % 0.2 % (0.0-0.8); Hematocrit 37.2 VOL% (35.7-47.0); Hemoglobin 11.4 GM/DL (12.0-16.0); Immature Granulocytes % 4.4 %; Immature Granulocytes Absolute 0.66 #; Lymphocytes # 0.4 10*3/uL (1.4-4.0); Lymphocytes % 2.4 % (21.3-54.2); Mean Corpuscular HGB Conc 30.6 GM/DL (32-36); Mean Corpuscular Volume 95.1 FL (87-102); Mean Platelet Volume 9.7 FL (9.6-12.0); Monocytes % 3.2 % (1.7-12.7); Neutrophils % 89.8 % (38.7-73.9); Platelet Count 329 T/CUMM (130-400); Red Blood Count 3.91 MC/CUMM (3.8-5.5); Red Cell Distribution Width 15.1 % (9.3-17.3); White Blood Count 14.9 T/CUMM (4-12)
[2019-07-10] MEDS: DORNASE ALFA 2.5 MG/2.5 ML VIAL RESP TX SCH (07:10)
[2019-07-10 07:14] LABS: Hypochromasia 1+; Lymphocytes 3 % (20-55); Microcytosis Slight; Ovalocytes Slight; Platelet Estimate Adequate; Segmented Neutrophils 95 % (50-85); Total Cells Counted 100
[2019-07-10 07:27] LABS: Calcium 9.6 MG/DL (8.5-10.1); Osmolality,Calculated 290.7 MOS/KG (273-304)
[2019-07-10] MEDS ORDERED: predniSONE 10 MG TABLET PO SCH (10:00)
[2019-07-10] MEDS: DILTIAZEM CD 120 MG CAPSULE PO SCH (10:27)
[2019-07-10] MEDS: OMEGA 3 ACID ETHYL ESTERS 1 GM CAPSULE PO SCH (10:28)
[2019-07-10] MEDS: MAGNESIUM CHLORIDE 64 MG TABLET PO SCH (10:28)
[2019-07-10] MEDS: SPIRONOLACTONE 50 MG TABLET PO SCH (10:28)
[2019-07-10] MEDS: ASPIRIN EC 81 MG TABLET PO SCH (10:29)
[2019-07-10] MEDS: POTASSIUM CHLORIDE 10 MEQ TABLET PO SCH (10:29)
[2019-07-10] MEDS: ISOSORBIDE MONONITRATE 60 MG TABLET PO SCH (10:29)
[2019-07-10] MEDS: SERTRALINE 100 MG TABLET PO SCH (10:29)
[2019-07-10] MEDS: ASCORBIC ACID 500 MG TABLET PO SCH (10:29)
[2019-07-10] MEDS: MONTELUKAST 10 MG TABLET PO SCH (10:29)
[2019-07-10] MEDS: CHOLECALCIFEROL 5,000 UNIT TABLET PO SCH (10:29)
[2019-07-10] MEDS: BUDESONIDE/FORMOTEROL 160-4.5 INHALER 6 GM INH SCH (10:30)
[2019-07-10] MEDS: TRIAMCINOLONE 0.1% CREAM 15 GM TUBE TOP SCH (10:30)
[2019-07-10] MEDS: CLOPIDOGREL 75 MG TABLET PO SCH (10:30)
[2019-07-10] MEDS: FUROSEMIDE 20 MG TABLET PO SCH (10:30)
[2019-07-10] MEDS ORDERED: FLUCONAZOLE 100 MG TABLET PO SCH (13:00)
[2019-07-10 20:35] VITALS: BP 149/66
[2019-07-11] MEDS ORDERED: POTASSIUM CHLORIDE 10 MEQ TABLET PO SCH (09:00)
== END 2019-07-10 14:59 | disposition home health service (06) | DRG 193 ==
LOC: EDBD → EDUNIT# → N.ED 22:02 → N.EDINP 07-07 01:09 → SUATTDRO 07-07 01:09 → N.5E 07-07 01:55
PROVIDERS: ADMIT Emergency Medicine; ATTEND Internal Medicine